=== PATIENT | female | born 1945 | race Caucasian/White ===

== ENCOUNTER → 2017-04-11 | Outpatient (CLI) | payer MEDICARE ==
--- NOTE | 2017-04-12 08:58 | MM ---
Reason for exam: screening (asymptomatic). Last mammogram was performed 3 years and 6 months ago. History: Patient is postmenopausal. Family history of breast cancer in mother at age 80. Benign excisional biopsy of both breasts. Physical Findings: A clinical breast exam by your physician is recommended on an annual basis and results should be correlated with mammographic findings. MG 3D Screening Mammo W/Cad Bilateral CC and MLO view(s) were taken. Prior study comparison: October 06, 2013, bilateral digital screening mammo w/CAD. September 28, 2010, bilateral digital screening mammogram. There are scattered fibroglandular densities. Benign calcifications. There is no discrete abnormality. No significant changes when compared with prior studies. ASSESSMENT: Benign, BI-RAD 2 RECOMMENDATION: Routine screening mammogram of both breasts in 1 year.
== END | disposition home or self-care (01) ==
LOC: RADMAMWWP 10:24
PROVIDERS: ATTEND Family Medicine
DX: Z12.31 Encounter for screening mammogram for malignant neoplasm of breast (principal)
CPT/HCPCS: 77063; G0202

== ENCOUNTER → 2018-06-11 | Outpatient (CLI) | payer MEDICARE ==
--- NOTE | 2018-06-12 13:41 | MM ---
Reason for exam: screening (asymptomatic). Last mammogram was performed 1 year and 2 months ago. History: Patient is postmenopausal. Family history of breast cancer in mother at age 80. Benign excisional biopsy of both breasts. Physical Findings: A clinical breast exam by your physician is recommended on an annual basis and results should be correlated with mammographic findings. MG 3D Screening Mammo W/Cad Bilateral CC and MLO view(s) were taken. Prior study comparison: April 11, 2017, bilateral MG 3d screening mammo w/cad. October 06, 2013, bilateral digital screening mammo w/CAD. There are scattered fibroglandular densities. Finding: There are typically benign round, grouped/clustered calcifications in the left breast. There is a chronic nodularity bilaterally. There is no discrete abnormality. ASSESSMENT: Benign, BI-RAD 2 RECOMMENDATION: Routine screening mammogram of both breasts in 1 year.
== END | disposition home or self-care (01) ==
LOC: RADMAMWWP 10:43
PROVIDERS: ATTEND Internal Medicine
DX: Z12.31 Encounter for screening mammogram for malignant neoplasm of breast (principal)
CPT/HCPCS: 77063; 77067

== ENCOUNTER → 2019-04-28 | Outpatient (CLI) | payer MEDICARE ==
[2019-04-28 10:06] VITALS: BP 165/81; PULSE 75; RESP 18; TEMP 98; BMI 32.5
--- NOTE | 2019-04-28 11:07 | P.HPOB ---
History of Present Illness H&P Date: 04/28/19 Chief Complaint: The patient is here for her routine gynecologic exam and ma mmogram. This is a 73-year-old G3 PIII with an LMP of 2004. The patient is here to establish with this office. She states it has been about 5 years since her last pelvic exam. She denies any postmenopausal bleeding and is without gynecologic complaints. Review of Systems She previously lost 32 pounds on Adipex. She has gained the weight back after discontinuing the medication. She denies respiratory, cardiac and G.I. problems. She denies maltreatment or problems with falling. : she denies any significant problems with urinary leakage. Past Medical History Past Medical History: Diabetes Mellitus, GERD/Reflux, Hypertension, Myocardial Infarction ([place]), Thyroid Disorder Additional Past Medical History / Comment(s): Lupus with arthritis. Type II diabetes, hypothyroidism. 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 History of Any Multi-Drug Resistant Organisms: None Reported Past Surgical History: Breast Surgery, Cholecystectomy Additional Past Surgical History / Comment(s): Breast biopsies, cold knife colonization of the cervix. Past Psychological History: Anxiety Smoking Status: Former smoker Additional Past Alcohol Use History / Comment(s): Quit smoking in 1991. Additional History: She is been made since 1962. 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 - Past Family History Sister(s) Family Medical History: Cancer Additional Family Medical History / Comment(s): Ovarian cancer. Mother Family Medical History: Cancer Additional Family Medical History / Comment(s): Breast cancer. To maternal aunts had cancer in the abdomen and she believes they had ovarian cancer. Father Family Medical History: Cancer, Myocardial Infarction ([place]) Additional Family Medical History / Comment(s): Colon cancer. Paternal uncle had colon cancer. Medications and Allergies Home Medications Medication Instructions Recorded Confirmed Type Aspirin 81 mg PO DAILY 04/28/19 04/28/19 History Levothyroxine Sodium [Synthroid] 100 mcg PO DAILY 04/28/19 04/28/19 History Meloxicam [Mobic] 7.5 mg PO DAILY 04/28/19 04/28/19 History Metoprolol Succinate (ER) [Toprol 100 mg PO DAILY 04/28/19 04/28/19 History Xl] Omeprazole [PriLOSEC] 20 mg PO AC-BRKFST 04/28/19 04/28/19 History Ramipril [Altace] 10 mg PO DAILY 04/28/19 04/28/19 History metFORMIN HCL [Glucophage] 500 mg PO BID 04/28/19 04/28/19 History Allergies Allergy/AdvReac Type Severity Reaction Status Date / Time Sulfa (Sulfonamide Allergy Anaphylaxis Unverified 04/28/19 10:07 Antibiotics) Exam Vital Signs Temp Pulse Resp BP Pulse Ox 04/28/19 09:49 98.0 F 75 18 165/81 98 Height 5'1", weight 172 pounds, BMI 33. This is a well-developed well-nourished white female who is alert and oriented times 3 in no acute distress. HEENT: Within normal limits. NECK: Supple without mass or thyromegaly. CHEST AND LUNGS: Clear to auscultation. HEART: Regular rate and rhythm. BREASTS: Are without mass or discharge. AXILLARY EXAM: Negative for adenopathy. BACK: Negative for CVA tenderness. ABDOMEN: Soft, nontender, without palpable masses. PELVIC EXAM: Normal external genitalia with mild to moderate atrophy. Cervix and vagina appear normal with mild to moderate atrophy. The cervix is somewhat stenotic secondary to atrophy. There is no unusual discharge. There is no evidence of prolapse. The uterus is midposition, nongravid size and nontender. There are no palpable adnexal masses or tenderness. RECTAL EXAM: rectovaginal exam is negative for mass or tenderness and is negative for occult blood. EXTREMITIES: Nontender. IMPRESSION: 1. 73 year old menopausal female with normal gynecologic exam. 2. Family history of ovarian cancer in her sister. PLAN: 1. Pap smear was performed. With history of cervical dysplasia in her 30s and uncertainties adequacy of screening since then, we will continue Pap smear is approximately every 2-3 years and consider discontinuation if 3 negative Pap smear is in a row. 2. Self breast awareness was discussed with the patient. 3. Screening mammogram will be due after 06/11/2019. The order slip was given to the patient for this. 4. Osteoporosis prevention was discussed. I have stressed the importance of adequate calcium, vitamin D and regular exercise. Recommended amounts of calcium and vitamin D were also discussed. She states she had a bonus a test many years ago. This was recommended and the order slip was given to the patient for this. 5. Pelvic ultrasound has been recommended yearly because of her family history of ovarian cancer. The order slip was given to the patient for this. 6. She does get flu shots in the fall. 7. She was advised to return in one year for her annual well woman exam.
== END | disposition home or self-care (01) ==
LOC: WWCWWP 09:37
PROVIDERS: ATTEND Obstetrics & Gynecology
DX: Z53.9 Procedure and treatment not carried out, unspecified reason (principal)

== ENCOUNTER → 2019-08-06 | Outpatient (CLI) | payer MEDICARE ==
--- NOTE | 2019-08-07 11:11 | MM ---
Reason for exam: screening (asymptomatic). Last mammogram was performed 1 year and 2 months ago. History: Patient is postmenopausal. Family history of breast cancer in mother at age 80. Benign excisional biopsy of both breasts. Physical Findings: A clinical breast exam by your physician is recommended on an annual basis and results should be correlated with mammographic findings. MG 3D Screening Mammo W/Cad Bilateral CC and MLO view(s) were taken. Prior study comparison: June 11, 2018, bilateral MG 3d screening mammo w/cad. April 11, 2017, bilateral MG 3d screening mammo w/cad. There are scattered fibroglandular densities. Benign appearing bilateral calcifications. No suspicious abnormality. Post surgical change bilaterally. No significant changes when compared with prior studies. ASSESSMENT: Benign, BI-RAD 2 RECOMMENDATION: Routine screening mammogram of both breasts in 1 year.
== END | disposition home or self-care (01) ==
LOC: RADMAMWWP 13:16
PROVIDERS: ATTEND Obstetrics & Gynecology
DX: Z12.31 Encounter for screening mammogram for malignant neoplasm of breast (principal)
CPT/HCPCS: 77063; 77067

== ENCOUNTER → 2020-08-08 | Outpatient (CLI) | payer MEDICARE | END | disposition home or self-care (01) | LOC: LABWHC1 11:29 | PROVIDERS: ATTEND Nurse Practitioner Adult Health | DX: Z20.828 Contact with and (suspected) exposure to other viral communicable diseases (principal) | CPT/HCPCS: U0003; C9803 ==

== ENCOUNTER → 2021-07-24 | Outpatient (CLI) | payer MEDICARE ==
[2021-07-24 21:16] LABS: T4, Free (Free Thyroxine) 1.5 ng/dL (0.800-1.800)
== END | disposition home or self-care (01) ==
LOC: LABWHC1 11:51
PROVIDERS: ATTEND Internal Medicine Endocrinology, Diabetes & Metabolism
DX: E03.8 Other specified hypothyroidism (principal)
CPT/HCPCS: 36415; 84439; 84443; 84480

== ENCOUNTER → 2022-03-12 | Outpatient (CLI) | payer MEDICARE ==
--- NOTE | 2022-03-12 19:44 | US ---
EXAMINATION TYPE: US kidneys/renal and bladder DATE OF EXAM: 03/12/2022 COMPARISON: NONE CLINICAL HISTORY: N179 ACUTE KIDNEY INJURY. SHARI EXAM MEASUREMENTS: Right Kidney: 9.9 x 4.0 x 3.4 cm Left Kidney: 9.5 x 4.8 x 4.3 cm Right Kidney: no evidence of hydronephrosis Left Kidney: no evidence of hydronephrosis Bladder: appears wnl Bilateral Jets seen: no IMPRESSION: Unremarkable renal ultrasound
--- NOTE | 2022-03-13 13:52 | MM ---
Reason for Exam: Screening (asymptomatic). Last mammogram was performed 2 year(s) and 7 month(s) ago. Patient History: Menarche at age 15. First Full-Term at age 18. Postmenopausal. Bilateral Benign Excisional Biopsy. Mother had breast cancer, age 80. Risk Values: Taryn 5 year model risk: 3.5%. NCI Lifetime model risk: 7.5%. Prior Study Comparison: 04/11/2017 Bilateral Screening Mammogram, [facility]ED WITH [facility]. 06/11/2018 Bilateral Screening Mammogram, MERGED WITH [facility]. 08/06/2019 Bilateral Screening Mammogram, MERGED WITH [facility]. Tissue Density: There are scattered fibroglandular densities. Findings: Analyzed By CAD. Chronic nodularity is within the right breast. Benign calcifications are scattered bilaterally. No suspicious groups of microcalcifications, spiculated or lobular masses, architectural distortion or other secondary signs of malignancy are mammographically apparent. Overall Assessment: Benign, BI-RAD 2 Management: Screening Mammogram of both breasts in 1 year. A negative mammogram report should not preclude additional follow up of suspicious palpable abnormalities. Patient should continue monthly self breast exam. A clinical breast exam by your physician is recommended on an annual basis and results should be correlated with mammographic findings. Electronically signed and approved by: Sergio Taveras D.O. Radiologis
== END | disposition home or self-care (01) ==
LOC: RADUSWWP 14:51
PROVIDERS: ATTEND Internal Medicine
DX: Z12.31 Encounter for screening mammogram for malignant neoplasm of breast (principal); N17.9 Acute kidney failure, unspecified; Z78.0 Asymptomatic menopausal state; Z80.3 Family history of malignant neoplasm of breast
CPT/HCPCS: 76770; 77063; 77067

== ENCOUNTER → 2022-10-02 | Outpatient (CLI) | payer MEDICARE ==
--- NOTE | 2022-10-02 11:50 | XR ---
EXAMINATION TYPE: XR chest 2V DATE OF EXAM: 10/02/2022 COMPARISON: NONE TECHNIQUE: PA and lateral views submitted. HISTORY: Cough and congestion FINDINGS: The lungs are clear and there is no pneumothorax, pleural effusion, or focal pneumonia. Heart size normal and no overt failure. Osseous structures demonstrate hypertrophic and degenerative changes of the spine. Rounded ossified density overlying the scapula and proximal right humerus likely chronic. Atherosclerotic change aorta. Degenerative changes spine. Surgical clips in the abdomen. Mild hyperin flation. IMPRESSION: 1. No acute process. Correlate for mild COPD.
== END | disposition home or self-care (01) ==
LOC: RADXRMAIN 11:16
PROVIDERS: ATTEND Internal Medicine
DX: J18.9 Pneumonia, unspecified organism (principal)
CPT/HCPCS: 71046

== ENCOUNTER → 2023-01-04 | Outpatient (CLI) | payer MEDICARE ==
--- NOTE | 2023-01-04 16:43 | XR ---
EXAMINATION TYPE: XR KUB DATE OF EXAM: 01/04/2023 COMPARISON: NONE HISTORY: N 39.0 TECHNIQUE: Single supine KUB image of the abdomen is obtained FINDINGS: Small bowel demonstrates no evidence for dilatation or air fluid levels. Gas and fecal material is s een in non-distended colon. Cholecystectomy clips in right upper quadrant. Suggested 2 mm calculus overlying the left iliopsoas musculature. Additional possible calcification v ersus colonic density overlies the left iliac bone. Consider further evaluation with CT abdomen pelvi s The lung bases are clear. The osseous structures are intact. IMPRESSION: There are 2 nonspecific suggested calcifications within the left lower quadrant. This can be further evaluated with CT abdomen pelvis as clinically indicated.
== END | disposition home or self-care (01) ==
LOC: RADXRMAIN 16:00
PROVIDERS: ATTEND Internal Medicine
DX: N39.0 Urinary tract infection, site not specified (principal)
CPT/HCPCS: 74018

== ENCOUNTER → 2023-01-14 | Outpatient (CLI) | payer MEDICARE ==
--- NOTE | 2023-01-15 07:38 | CT ---
EXAMINATION TYPE: CT renal stones wo con DATE OF EXAM: 01/14/2023 HISTORY: low back pain x few months. Nephrolithiasis. Abnormal x-ray. CT DLP: 842.60 mGycm. Automated Exposure Control for Dose Reduction was Utilized. TECHNIQUE: CT scan of the abdomen and pelvis is performed without oral or IV contrast. COMPARISON: Abdominal x-ray January 04, 2023. Chest CT October 31, 2020 FINDINGS: Within the limitations of a non-contrast study, the following observations are made. LUNG BASES: There is anterior 8mm calcified subpleural nodule or benign granuloma in the lingula on a xial image 1. There is a spiculated nodule or scar like opacity in the right middle lobe measuring 2. 1 x 1.1 cm axial image 4. Finding unchanged from most recent chest CT. Coronary artery calcification is again seen. LIVER/GB: Cholecystectomy clips are noted. PANCREAS: No significant abnormality is seen. SPLEEN: No significant abnormality is seen. ADRENALS: No significant abnormality is seen. KIDNEYS: No renal stones or hydronephrosis is present bilaterally. No intraluminal calculi in the mala[place] dder. Punctate calcifications in the left lower quadrant likely reflect tiny calcified phlebolith tommy ng the course of the left ovarian vein for reference axial image 73. BOWEL: A few scattered colonic diverticula. No CT evidence for acute diverticulitis. GENITAL ORGANS: Anteverted uterus. Normal-size ovaries. LYMPH NODES: No greater than 1cm abdominal or pelvic lymph nodes are appreciated. OSSEOUS STRUCTURES: Multilevel facet arthropathy in the lumbar spine. Multilevel spurring in the thor acolumbar spine. OTHER: Mild to moderate calcified plaque aorta of the aorta extends into branch vessels. IMPRESSION: 1. No renal stones or hydronephrosis is seen bilaterally. 2. Persistent scarlike opacity or possible spiculated nodule measuring 2.1 x 1.1 cm in the right midd le lobe. Focal scar versus neoplasm. PET/CT follow-up is advised to further evaluate.
== END | disposition home or self-care (01) ==
LOC: RADCTMAIN 16:25
PROVIDERS: ATTEND Internal Medicine
DX: N20.0 Calculus of kidney (principal)
CPT/HCPCS: 74150

== ENCOUNTER 2023-01-15 12:41 | Inpatient (IN) | payer MEDICARE ==
[2023-01-15] MEDS ORDERED: IPRATROPIUM 0.5 MG/2.5 ML NEBU INHALATION STA (13:03)
[2023-01-15] MEDS ORDERED: methylPREDNISolone SOD SUCCI 125 MG/2 ML VIAL IV STA (13:03)
[2023-01-15] MEDS ORDERED: ALBUTEROL NEBULIZED 2.5 MG/3 ML INHALATION STA (13:03)
--- NOTE | 2023-01-15 13:13 | ED ---
General Adult HPI - General Chief complaint: Shortness of Breath Stated complaint: KATINA Time Seen by Provider: 01/15/23 12:50 Source: patient, RN notes reviewed, old records reviewed Mode of arrival: wheelchair Limitations: no limitations - History of Present Illness Initial comments: This is a 77-year-old female presents emergency Department complaining of difficulty breathing. Patient states his been ongoing since September when she had coded. Patient states she's had CAT scans seen curve saw operator and video manager had echocardiograms and they have been unable to explain why she is having difficulty breathing and she continues to have difficulty breathing walking. Patient states she has a nebulizer at home and when she uses she gets short term relief but it comes back to the point where she can't even walk across the floor. Patient denies any fever chills or cough - Related Data Home Medications Medication Instructions Recorded Confirmed Aspirin 81 mg PO DAILY 04/28/19 04/28/19 Levothyroxine Sodium [Synthroid] 100 mcg PO DAILY 04/28/19 04/28/19 Meloxicam [Mobic] 7.5 mg PO DAILY 04/28/19 04/28/19 Metoprolol Succinate (ER) [Toprol 100 mg PO DAILY 04/28/19 04/28/19 Xl] Omeprazole [PriLOSEC] 20 mg PO AC-[id number] 04/28/19 04/28/19 metFORMIN HCL [Glucophage] 500 mg PO BID 04/28/19 04/28/19 ramipriL [Altace] 10 mg PO DAILY 04/28/19 04/28/19 Allergies Allergy/AdvReac Type Severity Reaction Status Date / Time Sulfa (Sulfonamide Allergy Anaphylaxis Verified 01/15/23 12:48 Antibiotics) Review of Systems ROS Statement: Those systems with pertinent positive or pertinent negative responses have been documented in the HPI. ROS Other: All systems not noted in ROS Statement are negative. Past Medical History Past Medical History: Diabetes Mellitus, GERD/Reflux, Hypertension, Myocardial Infarction ([place]), Thyroid Disorder Additional Past Medical History / Comment(s): Lupus with arthritis. Type II diabetes, hypothyroidism. 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 History of Any Multi-Drug Resistant Organisms: None Reported Past Surgical History: Breast Surgery, Cholecystectomy Additional Past Surgical History / Comment(s): Breast biopsies, cold knife colonization of the cervix. Past Psychological History: Anxiety Smoking Status: Never smoker Past Alcohol Use History: None Reported Past Drug Use History: None Reported - Past Family History Sister(s) Family Medical History: Cancer Additional Family Medical History / Comment(s): Ovarian cancer. Mother Family Medical History: Cancer Additional Family Medical History / Comment(s): Breast cancer. To maternal aunts had cancer in the abdomen and she believes they had ovarian cancer. Father Family Medical History: Cancer, Myocardial Infarction ([place]) Additional Family Medical History / Comment(s): Colon cancer. Paternal uncle had colon cancer. General Exam - General Exam Comments Initial Comments: GENERAL: Patient is well-developed and well-nourished. Patient is nontoxic and well- hydrated and is in mild distress. ENT: Neck is soft and supple. No significant lymphadenopathy is noted. Oropharynx is clear. Moist mucous membranes. Neck has full range of motion without eliciting any pain. EYES: The sclera were anicteric and conjunctiva were pink and moist. Extraocular movements were intact and pupils were equal round and reactive to light. Eyelids were unremarkable. PULMONARY: Patient is acting very wheezing diffusely CARDIOVASCULAR: There is a regular rate and rhythm without any murmurs gallops or rubs. ABDOMEN: Soft and nontender with normal bowel sounds. No palpable organomegaly was noted. There is no palpable pulsatile mass. SKIN: Skin is clear with no lesions or rashes and otherwise unremarkable. NEUROLOGIC: Patient is alert and oriented x3. Cranial nerves II through XII are grossly intact. Motor and sensory are also intact. Normal speech, volume and content. Symmetrical smile. MUSCULOSKELETAL: Normal extremities with adequate strength and full range of motion. LYMPHATICS: No significant lymphadenopathy is noted PSYCHIATRIC: Normal psychiatric evaluation. Limitations: no limitations Course Vital Signs 01/15/23 01/15/23 12:43 14:20 Temperature 98.3 F Pulse Rate 91 80 Respiratory 22 Rate Blood Pressure 175/75 O2 Sat by Pulse 98 Oximetry Medical Decision Making - Medical Decision Making EKG was interpreted by myself shows a sinus rhythm at 86 bpm ID interval 177 QRS is 90 QT interval 358 QTC is 411. Patient's EKG shows no ST segment elevation or depression. Was pt. sent in by a medical professional or institution (, PA, TRANSPLANT IMMUNOLOGIST, urgent care, hospital, or long term...) When possible be specific @ -Patient's medical care doctor sent her into the hospital Did you speak to anyone other than the patient for history (EMS, parent, family, police, friend...)? What history was obtained from this source @ -No Did you review nursing and triage notes (agree or disagree)? Why? @ -I reviewed and agree with nursing and triage notes Were old charts reviewed (outside hosp., previous admission, EMS record, old EKG, old radiological studies, urgent care reports/EKG's, long term records)? Report findings @ -I reviewed prior lab results and charts Differential Diagnosis (chest pain, altered mental status, abdominal pain women, abdominal pain men, vaginal bleeding, weakness, fever, dyspnea, syncope, headache, dizziness, GI bleed, back pain, seizure, CVA, palpatations, mental health, musculoskeletal)? @ -Differential Dyspnea: Coronary syndrome, arrhythmia, tamponade, asthma, COPD, pulmonary embolism, pneumonia, pneumothorax, pulmonary effusion, anaphylaxis, diabetic ketoacidosis, flailed chest, pulmonary contusion, diaphragmatic rupture, anemia, neuromuscular, this is not meant to be an all-inclusive list. EKG interpreted by me (3pts min.). @ -As above X-rays interpreted by me (1pt min.). @ -Chest x-ray was interpreted by myself there is possible infiltrate in the right base CT interpreted by me (1pt min.). @ -None done U/S interpreted by me (1pt. min.). @ -None done What testing was considered but not performed or refused? (CT, X-rays, U/S, labs)? Why? @ -None What meds were considered but not given or refused? Why? @ -None Did you discuss the management of the patient with other professionals (professionals i.e. , PA, TRANSPLANT IMMUNOLOGIST, lab, RT, psych nurse, social professionals, burglar alarm operator, t eacher, probation and parole officer, porter sample case)? Give summary @ -I spoke with sounds physician's he agreed to admit the patient Was smoking cessation discussed for >3mins.? @ -No Was critical care preformed (if so, how long)? @ -No Were there social determinants of health that impacted care today? How? (Homelessness, low income, unemployed, alcoholism, drug addiction, transportation, low edu. Level, literacy, decrease access to med. care, usp, rehab)? @ -No Was there de-escalation of care discussed even if they declined (Discuss DNR or withdrawal of care, Hospice)? DNR status @ -No What co-morbidities impacted this encounter? (DM, HTN, Smoking, COPD, CAD, Cancer, CVA, ARF, Chemo, Hep., AIDS, mental health diagnosis, sleep apnea, morbid obesity)? @ -None Was patient admitted / discharged? Hospital course, mention meds given and route, prescriptions, significant lab abnormalities, going to OR and other pertinent info. @ -Patient was recently diffusely she received albuterol treatments 2 and received steroids. Patient was doing better but primary medical care doctor still wanted her admitted so I spoke with Dr. Connelly she agreed to admit the p atient admitted the patient wrote admitting orders. I continued albuterol and steroids on the floor I consulted cardiology as well as pulmonology Undiagnosed new problem with uncertain prognosis? @ -No Drug Therapy requiring intensive monitoring for toxicity (Heparin, Nitro, Insulin, Cardizem)? @ -No Were any procedures done? @ -No Diagnosis/symptom? @ -COPD exacerbation Acute, or Chronic, or Acute on Chronic? @ -Acute Uncomplicated (without systemic symptoms) or Complicated (systemic symptoms)? @ -Complicated Side effects of treatment? @ -No Exacerbation, Progression, or Severe Exacerbation? @ -Severe exacerbation Poses a threat to life or bodily function? How? (Chest pain, [place], [place], pneumonia, PE, COPD, DKA, ARF, appy, cholecystitis, CVA, Diverticulitis, Homicidal, Suicidal, threat to staff... and all critical care pts) @ -Yes this could lead hypoxia and end organ dysfunction - Lab Data Result diagrams: 01/15/23 13:21 01/15/23 13:21 Lab Results 01/15/23 01/15/23 01/15/23 Range/Units 13:21 13:21 13:21 WBC 9.2 (3.8-10.6) k/uL RBC 4.33 (3.80-5.40) m/uL Hgb 11.7 (11.4-16.0) gm/dL Hct 36.6 (34.0-46.0) % MCV 84.5 D (80.0-100.0) fL MCH 27.0 (25.0-35.0) pg MCHC 32.0 (31.0-37.0) g/dL RDW 13.6 (11.5-15.5) % Plt Count 288 (150-450) k/uL MPV 9.2 Neutrophils % 56 % Lymphocytes % 30 % Monocytes % 6 % Eosinophils % 5 % Basophils % 1 % Neutrophils # 5.1 (1.3-7.7) k/uL Lymphocytes # 2.7 (1.0-4.8) k/uL Monocytes # 0.6 (0-1.0) k/uL Eosinophils # 0.5 (0-0.7) k/uL Basophils # 0.1 (0-0.2) k/uL PT 9.7 (9.0-12.0) sec INR 0.9 (<1.2) APTT 23.9 (22.0-30.0) sec Sodium 140 (137-145) mmol/L Potassium 4.8 (3.5-5.1) mmol/L Chloride 107 (98-107) mmol/L Carbon Dioxide 26 (22-30) mmol/L Anion Gap 7 mmol/L BUN 29 H (7-17) mg/dL Creatinine 1.14 H (0.52-1.04) mg/dL Est GFR (CKD-EPI)AfAm 54 (>60 ml/min/1.73 sqM) Est GFR (CKD-EPI)NonAf 47 (>60 ml/min/1.73 sqM) Glucose 104 H (74-99) mg/dL Calcium 9.4 (8.4-10.2) mg/dL Magnesium 1.9 (1.6-2.3) mg/dL Total Bilirubin 0.6 (0.2-1.3) mg/dL AST 29 (14-36) U/L ALT 46 H (4-34) U/L Alkaline Phosphatase 62 (38-126) U/L Troponin I (0.000-0.034) ng/mL NT-Pro-B Natriuret Pep pg/mL Total Protein 6.8 (6.3-8.2) g/dL Albumin 4.1 (3.5-5.0) g/dL 01/15/23 01/15/23 Range/Units 13:21 13:21 WBC (3.8-10.6) k/uL RBC (3.80-5.40) m/uL Hgb (11.4-16.0) gm/dL Hct (34.0-46.0) % MCV (80.0-100.0) fL MCH (25.0-35.0) pg MCHC (31.0-37.0) g/dL RDW (11.5-15.5) % Plt Count (150-450) k/uL MPV Neutrophils % % Lymphocytes % % Monocytes % % Eosinophils % % Basophils % % Neutrophils # (1.3-7.7) k/uL Lymphocytes # (1.0-4.8) k/uL Monocytes # (0-1.0) k/uL Eosinophils # (0-0.7) k/uL Basophils # (0-0.2) k/uL PT (9.0-12.0) sec INR (<1.2) APTT (22.0-30.0) sec Sodium (137-145) mmol/L Potassium (3.5-5.1) mmol/L Chloride (98-107) mmol/L Carbon Dioxide (22-30) mmol/L Anion Gap mmol/L BUN (7-17) mg/dL Creatinine (0.52-1.04) mg/dL Est GFR (CKD-EPI)AfAm (>60 ml/min/1.73 sqM) Est GFR (CKD-EPI)NonAf (>60 ml/min/1.73 sqM) Glucose (74-99) mg/dL Calcium (8.4-10.2) mg/dL Magnesium (1.6-2.3) mg/dL Total Bilirubin (0.2-1.3) mg/dL AST (14-36) U/L ALT (4-34) U/L Alkaline Phosphatase (38-126) U/L Troponin I <0.012 (0.000-0.034) ng/mL NT-Pro-B Natriuret Pep 376 pg/mL Total Protein (6.3-8.2) g/dL Albumin (3.5-5.0) g/dL Disposition Clinical Impression: Acute exacerbation of chronic obstructive pulmonary disease Disposition: ADMITTED IP TO THIS HOSP Referrals: Larry Suresh MD [Primary Care Provider] - 1-2 days Time of Disposition: 14:28
[2023-01-15 13:43] LABS: Albumin 4.1 g/dL (3.5-5.0); Calcium 9.4 mg/dL (8.4-10.2); Magnesium 1.9 mg/dL (1.6-2.3); Potassium 4.8 mmol/L (3.5-5.1); Total Bilirubin 0.6 mg/dL (0.2-1.3); Total Protein 6.8 g/dL (6.3-8.2)
[2023-01-15 13:49] LABS: Basophils # (A) 0.1 k/uL (0-0.2); Basophils % (A) 1 %; Eosinophils # (A) 0.5 k/uL (0-0.7); Eosinophils % (A) 5 %; HCT 36.6 % (34.0-46.0); HGB 11.7 gm/dL (11.4-16.0); INR 0.9 (<1.2); Lymphocytes # (A) 2.7 k/uL (1.0-4.8); Lymphocytes % (A) 30 %; Mean Platelet Volume 9.2; Monocytes # (A) 0.6 k/uL (0-1.0); Monocytes % (A) 6 %; Neutrophils # (A) 5.1 k/uL (1.3-7.7); Neutrophils % (A) 56 %; Partial Thromboplastin Time 23.9 sec (22.0-30.0); Platelet Count 288 k/uL (150-450); Prothrombin Time 9.7 sec (9.0-12.0); RBC 4.33 m/uL (3.80-5.40); RDW 13.6 % (11.5-15.5); WBC 9.2 k/uL (3.8-10.6)
[2023-01-15 13:52] LABS: MCV 84.5 fL (80.0-100.0)
--- NOTE | 2023-01-15 13:52 | XR ---
EXAMINATION TYPE: XR chest 2V DATE OF EXAM: 01/15/2023 COMPARISON: 11/09/2022 HISTORY: Shortness of breath TECHNIQUE: Frontal and lateral views of the chest are obtained. FINDINGS: Scattered senescent parenchymal changes noted. Hyperinflation compatible with COPD. Mild increased density right lung base could reflect developing infiltrate. Correlate clinically. Heart size is stable. Mediastinal structures are stable and grossly unremarkable. No evidence for hilar prominence. Degenerative changes dorsal spine. IMPRESSION: 1. Mild increased density right lung base could reflect developing infiltrate. Correlate clinically.
[2023-01-15] MEDS ORDERED: IPRATROPIUM-ALBUTEROL 3 ML NEB INHALATION PRN (14:32)
[2023-01-15] MEDS ORDERED: NALOXONE 0.4 MG/ML 1 ML VIAL IVP PRN (14:32)
[2023-01-15] MEDS ORDERED: IPRATROPIUM-ALBUTEROL 3 ML NEB INHALATION SCH (16:00)
--- NOTE | 2023-01-15 16:49 | CT ---
EXAMINATION TYPE: CT angio chest DATE OF EXAM: 01/15/2023 COMPARISON: Chest 10/31/2022 HISTORY: 77-year-old female with dyspnea, SOB TECHNIQUE: Contiguous axial scanning of the chest performed with IV Contrast, patient injected with 8 0 mL of Isovue 370. Coronal/sagittal MIP reconstructions performed. CT DLP: 394.4 mGycm Automated exposure control for dose reduction was used. FINDINGS: A 1.5 cm right thyroid lobe nodule is better seen now. Dedicated thyroid ultrasound to further evalua te. Heart normal size without pericardial effusion. LAD coronary artery calcifications are present. Mild to moderate atherosclerotic arch calcifications with conventional arch vessel branching anatomy. No thoracic lymph adenopathy by CT size criteria. Mild strandy areas of scarring and atelectasis in the lower lungs. Background minimal emphysematous c hange. * 9 mm right mid lung pulmonary nodule located along the major fissure most suggestive of an intrafi ssural lymph node, unchanged. * Also unchanged 8 mm nodule along the minor fissure. Also likely intrafissural lymph node. * 2.0 cm focal opacity previously measuring 1.7 cm in the lateral right middle lobe shows increasing soft tissue component. * Calcified granuloma inferior lingula measuring 1 cm is unchanged. No consolidation or pleural effusion. Satisfactory opacification of the pulmonary arterial system. No pulmonary embolus is seen. Small hiatal hernia. Cholecystectomy clips. There is a 2.3 cm lesion lateral right liver lobe that sh ows peripheral nodular hypervascular enhancement, suspected hemangioma. This can be reassessed at a 3 month follow-up liver ultrasound. Moderate degenerative disc disease mid and lower thoracic spine. IMPRESSION: 1. NO EVIDENCE FOR PULMONARY ANNULUS. 2. THE OPACITY IN THE LATERAL RIGHT MIDDLE LOBE NOW MEASURES 2.0 CM VERSUS 1.7 CM, PREVIOUSLY, AND S HOWS INCREASING SOFT TISSUE COMPONENT. EARLY LUNG CANCER REMAINS TO BE EXCLUDED. CONSIDER FURTHER PET CT EVALUATION. OTHER NODULES SUSPECTED BENIGN. 3. MINIMAL EMPHYSEMATOUS CHANGE. 4. PROBABLE 2.3 CM RIGHT HEPATIC LOBE HEMANGIOMA. THREE-MONTH FOLLOW-UP LIVER ULTRASOUND TO REASSESS . 5. THYROID ULTRASOUND TO ASSESS FOR ANY SUSPICIOUS NODULES. THERE APPEARS TO BE A 1.5 CM NODULE IN T HE RIGHT LOBE.
[2023-01-15] MEDS ORDERED: ACETAMINOPHEN TAB 325 MG TAB PO PRN (17:44)
[2023-01-15] MEDS ORDERED: bisacodyL 5 MG TABLET.DR PO PRN (17:44)
[2023-01-15] MEDS ORDERED: MELATONIN 3 MG TABLET PO PRN (17:44)
[2023-01-15] MEDS ORDERED: ONDANSETRON 4 MG/2 ML VIAL IVP PRN (17:44)
[2023-01-15] MEDS ORDERED: ALPRAZolam 0.5 MG TAB PO PRN (17:45)
--- NOTE | 2023-01-15 17:52 | P.HPIM ---
History of Present Illness H&P Date: 01/15/23 Patient is a 77-year-old female with a history of diabetes mellitus type 2, lupus, hypothyroidism, GERD, hypertension, and myocardial infarction who was sent in by her primary care physician for dyspnea with exertion. On arrival to the ER her vital signs are within normal limits. Laboratory analysis was remarkable for BUN 29, creatinine 1.14 (baseline 1.2), and ALT of 46. The ER she was started on albuterol and Solu-Medrol. Antibiotics were ordered. Chest x-ray showed developing opacity in the right lung base. Patient seen and examined at bedside. She reports that she has had shortness of breath since recovering from Covid in October. She has been working with her primary care physician Dr. Suresh. She has undergone an outpatient VQ scan, CT of the chest, venous Doppler, and renal CT. Her initial CT had shown a possible pulmonary nodule in the right lung base which was confirmed on yesterday's renal CT. Due to her continued shortness of breath and wheezing she has seen Dr. Zapata approximately one month ago. She reports she underwent PFTs in the office which were normal per the patient. She was then referred to cardiology for possible cardiac etiology of her shortness of breath. She had an echocardiogram completed and Dr. Alanis's office last Saturday and is scheduled for a nuclear stress test in January. She reports that she is wheezing at baseline. She wheezes continually and keeps her awake at night. At rest she does not have shortness of breath. Since September she has had a continued productive cough with clear sputum. In the morning she is able to get up and walk around for about an hour at a very slow paced and is able to prepare her her breakfast and get dressed. After that she has barely able to get up and walk 10 feet without significant shortness of breath. When she does walk she becomes short of breath and then feels as though her knees are going to give out. She denies any chest pain, palpitations, lightheadedness, dizziness, syncope, or presyncope. Her reports she cannot walk up a flight of stairs due to her shortness of breath. She reports she has had some good days but then immediately falls back into being unable to function and having significant shortness of breath. She reports a history of lupus diagnosed in the early 1999. She was on Plaquinil and prednisone up until 10 years ago when she stopped it she felt there was no benefit. She reports that she has issues with arthritis in her hips and low back at baseline. Vital signs reviewed General: nontoxic, no distress, appears at stated age Derm: warm, dry Eyes: EOMI, no lid lag, anicteric sclera, pupils equal round reactive to light ENT: Nose and ears atraumatic, no thrush, no pharyngeal erythema Cardiovascular: S1S2 reg, no murmur, positive posterior tibial pulse bilateral, no edema, capillary refill less than 2 seconds Lungs: expiratory wheeze bilateral, no rhonchi, no rales, no wheeze, no accessory muscle use Abdominal: soft, nontender to palpation, no guarding, no appreciable organomegaly Ext: no gross muscle atrophy, no contractures Neuro: CN II-XII grossly intact, No focal neurodeficits Psych: Alert, oriented, appropriate affect Assessment: Dyspnea - undetermined etiology COPD vs Covid long haul syndrome vs CAD vs arrhythmia vs CM Pulmonary Opacity - no improvement after course of cipro from PCP earlier this month. Diabetes mellitus type 2- Not on medications at baseline CKD III, Cr 1.2 at baseline Hypertension Lupus Hypothyroidism HLD Myocardial infarction GERD Imaging: Chest x-rays presented itself shows some increased density in the right lower lung Outpatient workup reviewed: CT chest 11/20/22-pneumonitis right anterior lateral midlung 1.7 cm in length short three-month follow-up, additional more benign-appearing nodules VQ scan 11/09/22: Intermediate probability of pulmonary embolism Venous Doppler 11/09/22: No evidence of DVT in bilateral lower extremities Renal CT: No renal stones or hydronephrosis, scarlike opacity or possible spiculated nodule 2.1 x 1.1 cm in the right middle lobe PET/CT for follow-up Data Review: Laboratory analysis was remarkable for BUN 29, creatinine 1.14 (baseline 1.2), and ALT of 46. Plan: - CTA chest reviewed and no evidence of PE, redemonstration of right middle lobe opacity recommends PE/CT - Await pulmonary recs - Consult to cardiology - Obtain echo results from Dr. Alanis Office - Start solumedrol 60 g IVP q 6 hours - Albuterol 2.5 mg inh QID - Symbicort 2 puffs BID - to bring in and administer Repatha tomorrow - Resume metoprolol 100 mg daily, PPI 40 mg daily, Zyrtec 10 mg daily - Discussed with family that it is difficult to obtain a PET scan during hospital admission, Likelt this will need to be arranged as outpatient - Recently had cipro on 01/01/23 and had Doxycycline in September - Walk and Monitor HR The patient is placed in observation with an anticipated less than 2 midnight stay for evaluation of Dyspnea. This dictation was prepared using joiz voice recognition software. Though every attempt is made to correct errors during during dictation some may still exist. Past Medical History Past Medical History: Diabetes Mellitus, GERD/Reflux, Hypertension, Myocardial Infarction ([place]), Thyroid Disorder Additional Past Medical History / Comment(s): Lupus with arthritis. Type II diabetes, hypothyroidism. 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 Last Myocardial Infarction Date:: 2004 History of Any Multi-Drug Resistant Organisms: None Reported Past Surgical History: Breast Surgery, Cholecystectomy, EPS, Heart Catheterization With Stent Additional Past Surgical History / Comment(s): Breast biopsies, cold knife colonization of the cervix, stent in 2004 Additional Past Anesthesia/Blood Transfusion Reaction / Comment(s): hard to wake up Date of Last Stent Placement:: March 23, 2005 Past Psychological History: Anxiety Smoking Status: Former smoker Past Alcohol Use History: None Reported Additional Past Alcohol Use History / Comment(s): Quit smoking in 1991. Past Drug Use History: None Reported - Past Family History Sister(s) Family Medical History: Cancer Additional Family Medical History / Comment(s): Ovarian cancer. Mother Family Medical History: Cancer Additional Family Medical History / Comment(s): Breast cancer. To maternal aunts had cancer in the abdomen and she believes they had ovarian cancer. Father Family Medical History: Cancer, Myocardial Infarction ([place]) Additional Family Medical History / Comment(s): Colon cancer. Paternal uncle had colon cancer. Medications and Allergies Home Medications Medication Instructions Recorded Confirmed Type Aspirin 81 mg PO DAILY 04/28/19 01/15/23 History Levothyroxine Sodium [Synthroid] 100 mcg PO DAILY 04/28/19 01/15/23 History Metoprolol Succinate (ER) [Toprol 100 mg PO DAILY 04/28/19 01/15/23 History Xl] ALPRAZolam [Xanax] 0.5 mg PO BID PRN 01/15/23 01/15/23 History Albuterol Sulfate [Albuterol 2 puff INHALATION RT-Q6H PRN 01/15/23 01/15/23 History Sulfate Hfa] Cetirizine HCl [Zyrtec] 10 mg PO DAILY 01/15/23 01/15/23 History Evolocumab [Repatha Sureclick] 140 mg SQ Q14D 01/15/23 01/15/23 History Fluticasone Nasal Grandy [Flonase 1 spray EA NOSTRIL DAILY 01/15/23 01/15/23 History Nasal Grandy] Fluticasone Propion/Salmeterol 1 puff INHALATION RT-BID 01/15/23 01/15/23 History [Advair 250-50 Diskus] Lisinopril-Hctz 20-25 mg 1 tab PO DAILY 01/15/23 01/15/23 History [Zestoretic 20-25] Omeprazole [PriLOSEC] 40 mg PO DAILY 01/15/23 01/15/23 History Allergies Allergy/AdvReac Type Severity Reaction Status Date / Time amoxicillin [From Augmentin] Allergy Anaphylaxis Verified 01/15/23 14:56 clavulanic acid Allergy Anaphylaxis Verified 01/15/23 14:56 [From Augmentin] Sulfa (Sulfonamide Allergy Anaphylaxis Verified 01/15/23 14:56 Antibiotics) Physical Exam Osteopathic Statement: *. No significant issues noted on an osteopathic structural exam other than those noted in the History and Physical/Consult. Vitals: Vital Signs Temp Pulse Resp BP Pulse Ox 01/15/23 17:11 92 01/15/23 16:57 88 01/15/23 15:19 96 18 169/81 95 01/15/23 14:48 88 01/15/23 14:20 80 01/15/23 12:43 98.3 F 91 22 175/75 98 Intake and Output 01/15/23 01/15/23 01/15/23 06:59 14:59 22:59 Other: Weight 80.739 kg 80.739 kg Results CBC & Chem 7: 01/15/23 13:21 01/15/23 13:21 Labs: Abnormal Lab Results - Last 24 Hours (Table) 04/25/23 Range/Units 13:21 BUN 29 H (7-17) mg/dL Creatinine 1.14 H (0.52-1.04) mg/dL Glucose 104 H (74-99) mg/dL ALT 46 H (4-34) U/L Thrombosis Risk Factor Assmnt - Choose All That Apply Any of the Below Risk Factors Present?: Yes Other Risk Factors: Yes Each Risk Factor Represents 3 Points: Age 75 years or older Other congenital or acquired thrombophilia - If yes, enter type in comment: Yes Thrombosis Risk Factor Assessment Total Risk Factor Score: 3 Thrombosis Risk Factor Assessment Level: Moderate Risk
[2023-01-15] MEDS: methylPREDNISolone SOD SUCCI 125 MG/2 ML VIAL IV SCH ×2 (18:16→23:33)
[2023-01-15] MEDS ORDERED: SYMBICORT 80-4.5 MCG INHALER INHALATION SCH (20:00)
[2023-01-15 20:36] LABS: Glucose,Whole Blood 371 mg/dL (70-110)
[2023-01-15] MEDS: ALBUTEROL NEBULIZED 2.5 MG/3 ML INHALATION SCH (20:51)
[2023-01-15] MEDS ORDERED: DOXYCYCLINE 100 MG CAP PO SCH (21:00)
[2023-01-15] MEDS ORDERED: AMOXIC-POT CLAV 875-125MG 1 EACH TAB PO SCH (21:00)
[2023-01-15] MEDS: INSULIN ASPART (NovoLOG) 100 UNIT/ML VIAL SQ SCH (21:38)
--- NOTE | 2023-01-16 05:13 | P.CNPUL ---
History of Present Illness Consult date: 01/16/23 Requesting physician: Eric Johnson Reason for consult: dyspnea Chief complaint: Shortness of breath with exertion History of present illness: I'm seeing this patient in new consultation today 01/16/2023 for progressive shortness of breath. Patient is a 77-year-old female with past medical history of recent COVID-19 infection, mild COPD, obstructive sleep apnea, lung nodules, coronary artery disease with previous [place], hypertension, hyperlipidemia, lupus erythematous, and a remote [id number] smoking history. Patient had COVID-19 infection/pneumonia originally diagnosed back on 09/18/2022. She is vaccinated for COVID-19 with 2 doses Moderna and no booster injections. Patient is curre ntly resting in bed, on room air, in no acute distress. Patient reports a persistent nonproductive cough and shortness of breath with exertion since her COVID19 infection. She denies any fevers, chest pain, hemoptysis. Chest CTA on arrival showed no evidence of pulmonary embolism. It did show a right middle lobe 2 cm opacity that was previously measured at 1.7 cm back in October of this year, 9 mm right mid lung nodule along the major fissure, unchanged 8 mm nodule along the minor fissure, and an unchanged calcified granuloma of the inferior lingula measuring 1 cm. Patient does follow Dr. Harris in the office, for monitoring of the patient's known lung nodules, and the plan was for repeat chest CT in February. There were also minimal emphysematous changes, a probable 2.3 cm right hepatic lobe hemangioma, and a 1.5 cm right lobe thyroid nodule. The suspicious 2 cm lesion could be related to postinflammatory changes related to her recent COVID-19 infection, but does not explain the patient's shortness of breath. Patient did have a recent evaluation by cardiology in the office. Pat nt reports that she had an echocardiogram done last Saturday. Results are pending. She was reportedly scheduled for an outpatient stress test. Denies any chest pain, orthopnea, palpitations, lower extremity swelling, or recent weight gain. Patient's CBC and BMP on arrival were essentially unremarkable. Troponin negative 1. NT proBNP was low at 376. Procalcitonin was also low at 0.07. Patient is being empirically covered with doxycycline and this could probably be discontinued. She remains afebrile. Also receiving a course of bronchodilators, IV Solu-Medrol. Vital signs are stable. Review of Systems REVIEW OF SYSTEMS: CONSTITUTIONAL: Denies any recent significant weight loss or weight gain. EYES: Denies change in vision. EARS, NOSE, MOUTH, THROAT: Denies headaches, denies sore throat. CARDIOVASCULAR: Denies chest pain, palpitations or syncopal episodes. RESPIRATORY: See HPI. GASTROINTESTINAL: Denies change in appetite, abdominal pain, nausea and vomiting, or diarrhea GENITOURINARY: Denies hematuria, denies infections. MUSKULOSKELETAL: Denies pain, denies swelling. INTEGUMENTARY: Denies rash, denies eczema. NEUROLOGICAL: Denies recent memory loss, no recent seizure activity. PSYCHIATRIC: Denies anxiety, denies depression. HEMATOLOGIC/LYMPHATIC: Denies anemia, denies enlarged lymph node Past Medical History Past Medical History: Diabetes Mellitus, GERD/Reflux, Hypertension, Myocardial Infarction ([place]), Thyroid Disorder Additional Past Medical History / Comment(s): Lupus with arthritis. Type II diabetes, hypothyroidism. 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 Last Myocardial Infarction Date:: 2004 History of Any Multi-Drug Resistant Organisms: None Reported Past Surgical History: Breast Surgery, Cholecystectomy, EPS, Heart Catheterization With Stent Additional Past Surgical History / Comment(s): Breast biopsies, cold knife colonization of the cervix, stent in 2004 Additional Past Anesthesia/Blood Transfusion Reaction / Comment(s): hard to wake up Date of Last Stent Placement:: March 23, 2005 Past Psychological History: Anxiety Smoking Status: Former smoker Past Alcohol Use History: None Reported Additional Past Alcohol Use History / Comment(s): Quit smoking in 1991. Past Drug Use History: None Reported - Past Family History Sister(s) Family Medical History: Cancer Additional Family Medical History / Comment(s): Ovarian cancer. Mother Family Medical History: Cancer Additional Family Medical History / Comment(s): Breast cancer. To maternal aunts had cancer in the abdomen and she believes they had ovarian cancer. Father Family Medical History: Cancer, Myocardial Infarction ([place]) Additional Family Medical History / Comment(s): Colon cancer. Paternal uncle had colon cancer. Medications and Allergies Home Medications Medication Instructions Recorded Confirmed Type Aspirin 81 mg PO DAILY 04/28/19 01/15/23 History Levothyroxine Sodium [Synthroid] 100 mcg PO DAILY 04/28/19 01/15/23 History Metoprolol Succinate (ER) [Toprol 100 mg PO DAILY 04/28/19 01/15/23 History Xl] ALPRAZolam [Xanax] 0.5 mg PO BID PRN 01/15/23 01/15/23 History Albuterol Sulfate [Albuterol 2 puff INHALATION RT-Q6H PRN 01/15/23 01/15/23 History Sulfate Hfa] Cetirizine HCl [Zyrtec] 10 mg PO DAILY 01/15/23 01/15/23 History Evolocumab [Repatha Sureclick] 140 mg SQ Q14D 01/15/23 01/15/23 History Fluticasone Nasal [place] [Flonase 1 spray EA NOSTRIL DAILY 01/15/23 01/15/23 History Nasal [place]] Fluticasone Propion/Salmeterol 1 puff INHALATION RT-BID 01/15/23 01/15/23 History [Advair 250-50 Diskus] Lisinopril-Hctz 20-25 mg 1 tab PO DAILY 01/15/23 01/15/23 History [Zestoretic 20-25] Omeprazole [PriLOSEC] 40 mg PO DAILY 01/15/23 01/15/23 History Allergies Allergy/AdvReac Type Severity Reaction Status Date / Time amoxicillin [From Augmentin] Allergy Anaphylaxis Verified 01/15/23 14:56 clavulanic acid Allergy Anaphylaxis Verified 01/15/23 14:56 [From Augmentin] Sulfa (Sulfonamide Allergy Anaphylaxis Verified 01/15/23 14:56 Antibiotics) Physical Exam Vitals: Vital Signs Temp Pulse Pulse Resp BP BP Pulse Ox 01/16/23 01:40 97.8 F 109 H 17 119/57 94 L 01/15/23 21:05 102 H 01/15/23 20:53 101 H 01/15/23 20:00 20 01/15/23 19:32 97 F L 103 H 20 105/69 91 L 01/15/23 17:11 92 01/15/23 16:57 88 01/15/23 15:19 96 18 169/81 95 01/15/23 14:48 88 01/15/23 14:20 80 01/15/23 12:43 98.3 F 91 22 175/75 98 Intake and Output 01/15/23 01/15/23 01/16/23 14:59 22:59 06:59 Intake Total 300 Balance 300 Intake: Oral 300 Other: # Voids 2 Weight 80.739 kg 80.739 kg GENERAL EXAM: Alert, 77-year-old white female, comfortable in no apparent dis tress. HEAD: Normocephalic and atraumatic EYES: Normal reaction of pupils, equal size. NOSE: Clear with pink turbinates. THROAT: No erythema or exudates. NECK: No masses, no JVD. CHEST: No chest wall deformity. LUNGS: Equal air entry with no crackles, wheeze, rhonchi or dullness. On room air. No conversational dyspnea or accessory muscle use.. CVS: S1 and S2 normal with no audible murmur, regular rhythm. No extra heart sounds ABDOMEN: No hepatosplenomegaly, active bowel sounds, no guarding or rigidity. SPINE: No scoliosis or deformity SKIN: No rashes CENTRAL NERVOUS SYSTEM: No focal deficits, tone is normal in all 4 extremities. EXTREMITIES: There is no peripheral edema, clubbing, or cyanosis. Peripheral pulses are intact. Results - Laboratory Findings CBC and BMP: 01/15/23 13:21 01/15/23 13:21 PT/INR, D-dimer PT 9.7 sec (9.0-12.0) 01/15/23 13:21 INR 0.9 (<1.2) 01/15/23 13:21 Abnormal lab findings: Abnormal Labs 01/15/23 01/15/23 13:21 20:33 BUN 29 H Creatinine 1.14 H Glucose 104 H POC Glucose (mg/dL) 371 H ALT 46 H - Diagnostic Findings Chest x-ray: image reviewed CT scan - chest: image reviewed Assessment and Plan Assessment: Dyspnea, currently under investigation. 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 Right middle lobe 2 cm opacity that was previously measured at 1.7 cm back in October of this year. Multiple other benign appearing nodules includein mm right mid lung nodule along the major fissure, unchanged 8 mm nodule along the minor fissure, and an unchanged calcified granuloma of the inferior lingula measuring 1 cm. Patient does follow Dr. Harris in the office, for monitoring of the patient's known lung nodules, and the plan was for repeat chest CT in February. Coronary artery disease with previous myocardial infarction Hypertension Hyperlipidemia Obesity Diabetes mellitus type 2 Chronic kidney disease stage III Lupus erythematous Hypothyroidism Plan: Patient's medication, labs, chest CTA, chest x-ray were reviewed On room air Continue bronchodilators, Solu-Medrol Start Symbicort inhaler Procalcitonin level was low at 0.07, will discontinue patient's doxycycline Check COVID-19, influenza, RSV Recommend outpatient PET scan Cardiology consult Pending echocardiogram results We will continue to follow I have personally seen and examined the patient, performed the documentation and the assessment and plan as written. Number of minutes spent on the visit:20 Time with Patient: Greater than 30
[2023-01-16 05:54] LABS: Glucose,Whole Blood 221 mg/dL (70-110)
[2023-01-16] MEDS: LEVOTHYROXINE 100 MCG TAB PO SCH (06:12)
[2023-01-16] MEDS: methylPREDNISolone SOD SUCCI 125 MG/2 ML VIAL IV SCH ×4 (06:12→22:22)
[2023-01-16] MEDS: INSULIN ASPART (NovoLOG) 100 UNIT/ML VIAL SQ SCH ×4 (06:13→22:22)
[2023-01-16] MEDS: LORATADINE 10 MG TAB PO SCH (08:53)
[2023-01-16] MEDS: PANTOPRAZOLE 40 MG TABLET PO SCH (08:53)
[2023-01-16] MEDS: LISINOPRIL-HCTZ 20-25 MG 1 EACH TAB PO SCH (08:54)
[2023-01-16] MEDS: ASPIRIN 81 MG PO SCH (08:54)
[2023-01-16] MEDS: METOPROLOL SUCCINATE (ER) 100 MG TAB.ER.24H PO SCH (08:54)
[2023-01-16] MEDS: FLUTICASONE 50MCG/SPRAY NASAL 16GM EA NOSTRIL SCH (08:54)
[2023-01-16] MEDS: ALBUTEROL NEBULIZED 2.5 MG/3 ML INHALATION SCH ×4 (08:58→21:07)
[2023-01-16] MEDS: SYMBICORT 160-4.5 MCG INHALER INHALATION SCH ×2 (08:58→21:07)
[2023-01-16] MEDS ORDERED: NON FORMULARY DRUG (Evolocumab [Repatha Sureclick] 140 MG/ML Each) SQ SCH (09:00)
[2023-01-16 11:13] LABS: HCT 34.7 % (37.2-46.3); HGB 11.1 g/dL (12.0-15.0); MCH 27.8 pg (27.0-32.0); MCV 86.8 fL (80.0-97.0); Mean Platelet Volume 11.6 fL (9.5-12.2); NRBC Per 100 WBC 0 /100 WBCS (0.0-0.0); Platelet Count 327 X 10*3/uL (140-440); RDW 13.2 % (11.5-14.5); WBC 10.58 X 10*3/uL (4.50-10.00)
--- NOTE | 2023-01-16 11:20 | P.CRDCN ---
History of Present Illness History of present illness: HISTORY OF PRESENT ILLNESS: This is a 77-year-old female with a past medical history significant for hypertension, hyperlipidemia, diabetes, former nicotine dependence, COPD, and Covid. Patient follows in the office with Dr. Alanis. We have been asked to see the patient in consultation for SOB. Patient examined at the bedside. Patient states that she had Covid in August 2022 and since that time she has been feeling short of breath. She states that she has been seen by her primary care physician multiple times and will receive steroids. She states that when she is taking the steroid she feels better and as soon as she stops taking them she becomes short of breath again. She reports wheezing at home and coughing with occasional clear sputum production. She states that she becomes short of breath with minimal exertion such as walking to the bathroom. She denies any chest pain or pressure. She denies any swelling in the lower cavities. Denies any dizziness or lightheadedness. The patient reports she had an echocardiogram performed at the cardiology office last week. She also reports that she was scheduled for a stress test next month. * EKG reveals sinus mechanism with no signs of acute ischemia * Chest xray increased density right lung base could reflect developing infiltrate * Chest CTA: LAD coronary artery calcifications are present. No evidence of pulmonary embolus and. Obesity and lateral right middle lobe now measuring 2 cm versus 1.7 cm previously and shows increasing soft tissue component. Lung cancer cannot be excluded. Probable 2.3 cm right hepatic lobe hemangioma. There appears to be 1.5 cm nodule in the right lobe of the thyroid. * Laboratory data: * Current home cardiac medications include aspirin 81 mg daily, lisinopril- hydrochlorothiazide 20-25mg daily, metoprolol succinate 100 mg daily, and Repatha 140mg SQ Q14 days REVIEW OF SYSTEMS: At the time of my exam: CONSTITUTIONAL: Denies fever or chills. HEENT: Denies blurred vision, vision changes, or eye pain. Denies hemoptysis CARDIOVASCULAR: Denies chest pain. Denies orthopnea. Denies PND. Denies palpitations RESPIRATORY: Denies shortness of breath. GASTROINTESTINAL: Denies abdominal pain. Denies nausea or vomiting. HEMATOLOGIC: Denies bleeding disorders. GENITOURINARY: Denies any blood in urine. SKIN: Denies pruitis. Denies rash. PHYSICAL EXAM: VITAL SIGNS: Reviewed. GENERAL: Well-developed in no acute distress. HEENT: Head is normocephalic. Pupils are equal, round. Sclerae anicteric. Mucous membranes of the mouth are moist. Neck supple. No JVD or thyromegaly LUNGS: Respirations even and unlabored. Lungs essentially clear to auscultation bilaterally. HEART: Regular rate and rhythm. S1 and S2 heard. ABDOMEN: Soft. Nondistended. Nontender. EXTREMITIES: Normal range of motion. No clubbing or cyanosis. Peripheral pulses intact. No lower extremity edema NEUROLOGIC: Awake and alert. Oriented x 3. ASSESSMENT: Chronic shortness of breath since Covid in August 2022, etiology unclear Coronary artery disease with stenting, details unknown, at [facility] in 2004 Right-sided pulmonary nodules COPD Hypertension Hyperlipidemia, intolerant to statin therapy, on Repatha Diabetes Former nicotine dependence PLAN: Obtain two additional troponins Continue current cardiac medications Pulmonary following Will obtain echo report from the office Pending echo results, will consider R/L heart cath tomorrow NPO at midnight Further recommendations pending patient course Nurse practitioner note has been reviewed by physician. Signing provider agrees with the documented findings, assessment, and plan of care. Past Medical History Past Medical History: Diabetes Mellitus, GERD/Reflux, Hypertension, Myocardial Infarction ([place]), Thyroid Disorder Additional Past Medical History / Comment(s): Lupus with arthritis. Type II diabetes, hypothyroidism. 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 Last Myocardial Infarction Date:: 2004 History of Any Multi-Drug Resistant Organisms: None Reported Past Surgical History: Breast Surgery, Cholecystectomy, EPS, Heart Catheterization With Stent Additional Past Surgical History / Comment(s): Breast biopsies, cold knife colonization of the cervix, stent in 2004 Additional Past Anesthesia/Blood Transfusion Reaction / Comment(s): hard to wake up Date of Last Stent Placement:: March 23, 2005 Past Psychological History: Anxiety Smoking Status: Former smoker Past Alcohol Use History: None Reported Additional Past Alcohol Use History / Comment(s): Quit smoking in 1991. Past Drug Use History: None Reported - Past Family History Sister(s) Family Medical History: Cancer Additional Family Medical History / Comment(s): Ovarian cancer. Mother Family Medical History: Cancer Additional Family Medical History / Comment(s): Breast cancer. To maternal aunts had cancer in the abdomen and she believes they had ovarian cancer. Father Family Medical History: Cancer, Myocardial Infarction ([place]) Additional Family Medical History / Comment(s): Colon cancer. Paternal uncle had colon cancer. Medications and Allergies Home Medications Medication Instructions Recorded Confirmed Type Aspirin 81 mg PO DAILY 04/28/19 01/15/23 History Levothyroxine Sodium [Synthroid] 100 mcg PO DAILY 04/28/19 01/15/23 History Metoprolol Succinate (ER) [Toprol 100 mg PO DAILY 04/28/19 01/15/23 History Xl] ALPRAZolam [Xanax] 0.5 mg PO BID PRN 01/15/23 01/15/23 History Albuterol Sulfate [Albuterol 2 puff INHALATION RT-Q6H PRN 01/15/23 01/15/23 History Sulfate Hfa] Cetirizine HCl [Zyrtec] 10 mg PO DAILY 01/15/23 01/15/23 History Evolocumab [Repatha Sureclick] 140 mg SQ Q14D 01/15/23 01/15/23 History Fluticasone Nasal [place] [Flonase 1 spray EA NOSTRIL DAILY 01/15/23 01/15/23 History Nasal [place]] Fluticasone Propion/Salmeterol 1 puff INHALATION RT-BID 01/15/23 01/15/23 History [Advair 250-50 Diskus] Lisinopril-Hctz 20-25 mg 1 tab PO DAILY 01/15/23 01/15/23 History [Zestoretic 20-25] Omeprazole [PriLOSEC] 40 mg PO DAILY 01/15/23 01/15/23 History Allergies Allergy/AdvReac Type Severity Reaction Status Date / Time amoxicillin [From Augmentin] Allergy Anaphylaxis Verified 01/15/23 14:56 clavulanic acid Allergy Anaphylaxis Verified 01/15/23 14:56 [From Augmentin] Sulfa (Sulfonamide Allergy Anaphylaxis Verified 01/15/23 14:56 Antibiotics) Physical Exam Vitals: Vital Signs Temp Pulse Pulse Resp BP BP Pulse Ox 01/16/23 06:53 97.7 F 94 18 153/81 93 L 01/16/23 01:40 97.8 F 109 H 17 119/57 94 L 01/15/23 21:05 102 H 01/15/23 20:53 101 H 01/15/23 20:00 20 01/15/23 19:32 97 F L 103 H 20 105/69 91 L 01/15/23 17:11 92 01/15/23 16:57 88 01/15/23 15:19 96 18 169/81 95 01/15/23 14:48 88 01/15/23 14:20 80 01/15/23 12:43 98.3 F 91 22 175/75 98 Intake and Output 01/15/23 01/16/23 01/16/23 22:59 06:59 14:59 Intake Total 300 Balance 300 Intake: Oral 300 Other: # Voids 2 2 Weight 80.739 kg Results 01/16/23 06:19 01/15/23 13:21 Cardiac Enzymes 01/15/23 01/15/23 Range/Units 13:21 13:21 AST 29 (14-36) U/L Troponin I <0.012 (0.000-0.034) ng/mL Coagulation 01/15/23 Range/Units 13:21 PT 9.7 (9.0-12.0) sec APTT 23.9 (22.0-30.0) sec CBC 01/15/23 Range/Units 13:21 WBC 9.2 (3.8-10.6) k/uL RBC 4.33 (3.80-5.40) m/uL Hgb 11.7 (11.4-16.0) gm/dL Hct 36.6 (34.0-46.0) % Plt Count 288 (150-450) k/uL Comprehensive Metabolic Panel 01/15/23 Range/Units 13:21 Sodium 140 (137-145) mmol/L Potassium 4.8 (3.5-5.1) mmol/L Chloride 107 (98-107) mmol/L Carbon Dioxide 26 (22-30) mmol/L BUN 29 H (7-17) mg/dL Creatinine 1.14 H (0.52-1.04) mg/dL Glucose 104 H (74-99) mg/dL Calcium 9.4 (8.4-10.2) mg/dL AST 29 (14-36) U/L ALT 46 H (4-34) U/L Alkaline Phosphatase 62 (38-126) U/L Total Protein 6.8 (6.3-8.2) g/dL Albumin 4.1 (3.5-5.0) g/dL Current Medications Generic Name Dose Route Start Last Admin Trade Name Freq PRN Reason Stop Dose Admin Acetaminophen 650 mg 01/15/23 17:44 Acetaminophen Tab 325 Mg Tab PO Q6HR PRN Mild Pain or Fever > 100.5 Albuterol Sulfate 2.5 mg 01/15/23 20:00 01/15/23 20:51 Albuterol Nebulized 2.5 Mg/3 Ml INHALATION 2.5 mg RT-QID FARRAH Administration Albuterol Sulfate 2.5 mg 01/15/23 17:47 Albuterol Nebulized 2.5 Mg/3 Ml INHALATION RT-Q2H PRN Shortness Of Breath Or Wheezing Alprazolam 0.5 mg 01/15/23 17:45 Alprazolam 0.5 Mg Tab PO BID PRN Anxiety Aspirin 81 mg 01/16/23 09:00 Aspirin 81 Mg PO DAILY [facility] Bisacodyl 5 mg 01/15/23 17:44 Bisacodyl 5 Mg Tablet.Dr PO DAILY PRN Constipation Budesonide/Formoterol Fumarate 2 puff 01/16/23 08:00 Symbicort 160-4.5 Mcg Inhaler INHALATION RT-BID [facility] Fluticasone Propionate 1 spray 01/16/23 09:00 Fluticasone 50mcg/[place] Nasal 16gm EA NOSTRIL DAILY [facility] Lisinopril/HCTZ 1 each 01/16/23 09:00 Lisinopril-Hctz 20-25 Mg 1 Each Tab PO DAILY [facility] Insulin Aspart 0 unit 01/15/23 21:30 01/16/23 06:13 Insulin Aspart (Novolog) 100 Unit/Ml Vial SQ 6 unit ACHS FARRAH Administration Protocol Levothyroxine Sodium 100 mcg 01/16/23 06:30 01/16/23 06:12 Levothyroxine 100 Mcg Tab PO 100 mcg 0630 [facility] Administration Loratadine 10 mg 01/16/23 09:00 Loratadine 10 Mg Tab PO DAILY [facility] Melatonin 3 mg 01/15/23 17:44 Melatonin 3 Mg Tablet PO HS PRN Insomnia Methylprednisolone Sodium Succinate 60 mg 01/15/23 18:00 01/16/23 06:12 Methylprednisolone Sod Succi 125 Mg/2 Ml Vial IV 60 mg Q6HR FARRAH Administration Metoprolol Succinate 100 mg 01/16/23 09:00 Metoprolol Succinate (Er) 100 Mg Tab.Er.24h PO DAILY FARRAH Naloxone HCl 0.2 mg 01/15/23 14:32 Naloxone 0.4 Mg/Ml 1 Ml Vial IVP Q2M PRN Opioid Reversal Non-Formulary Medication 140 mg 01/16/23 09:00 Evolocumab [Oscar Delgado] SQ Q14D FARRAH Ondansetron HCl 4 mg 01/15/23 17:44 Ondansetron 4 Mg/2 Ml Vial IVP Q8HR PRN Nausea And Vomiting Pantoprazole Sodium 40 mg 01/16/23 09:00 Pantoprazole 40 Mg Tablet PO DAILY FARRAH Intake and Output 01/15/23 01/16/23 01/16/23 22:59 06:59 14:59 Intake Total 300 Balance 300 Intake: Oral 300 Other: # Voids 2 2 Weight 80.739 kg 01/15/23 13:21 01/15/23 13:21
[2023-01-16 11:28] LABS: African American GFR (CKD) 50.8 (60.0-200.0); Anion Gap 12.7 mmol/L (10.00-18.00); BUN/Creat Ratio 28.58 Ratio (12.00-20.00); Blood Urea Nitrogen 34.3 mg/dL (9.0-27.0); Calcium 9.7 mg/dL (8.7-10.3); Carbon Dioxide 19.3 mmol/L (20.0-27.5); Magnesium 1.8 mg/dL (1.5-2.4); Non-African American GFR(CKD) 43.9 (60.0-200.0); Phosphorus 3.3 mg/dL (2.4-5.1); Potassium 4.4 mmol/L (3.5-5.5)
[2023-01-16 11:58] LABS: Glucose,Whole Blood 197 mg/dL (70-110)
[2023-01-16] MEDS ORDERED: PATIENT'S OWN (Evolocumab [Repatha Sureclick] 140 MG/ML Each) SQ SCH (12:00)
[2023-01-16] MEDS ORDERED: HEPARIN SODIUM 1,000 UN/ML (10ML VL) IV PRN (13:13)
[2023-01-16] MEDS: HEPARIN SOD,PORK IN 0.45% NACL 25,000 UNIT in 0.45% NACL 1 250ML.BAG IV SCH ×2 (13:48→20:58)
[2023-01-16 13:53] LABS: Basophils % (A) 0 %; Eosinophils % (A) 0 %; HCT 34.5 % (34.0-46.0); Lymphocytes # (A) 1.7 k/uL (1.0-4.8); Lymphocytes % (A) 12 %; MCH 27.7 pg (25.0-35.0); MCV 86.7 fL (80.0-100.0); Mean Platelet Volume 8.7; Monocytes # (A) 0.3 k/uL (0-1.0); Monocytes % (A) 2 %; Neutrophils # (A) 12.6 k/uL (1.3-7.7); Neutrophils % (A) 86 %; Platelet Count 310 k/uL (150-450); RBC 3.98 m/uL (3.80-5.40); RDW 13.5 % (11.5-15.5); WBC 14.7 k/uL (3.8-10.6)
[2023-01-16 14:12] LABS: INR 0.9 (<1.2); Partial Thromboplastin Time 22.6 sec (22.0-30.0); Prothrombin Time 10.1 sec (9.0-12.0)
--- NOTE | 2023-01-16 16:23 | P.PN ---
Subjective Progress Note Date: 01/16/23 (delayed charting seen at 0930) Patient is a 77-year-old female with a history of diabetes mellitus type 2, lupus, hypothyroidism, GERD, hypertension, and myocardial infarction who was sen t in by her primary care physician for dyspnea with exertion. On arrival to the ER her vital signs are within normal limits. Laboratory analysis was remarkable for BUN 29, creatinine 1.14 (baseline 1.2), and ALT of 46. The ER she was started on albuterol and Solu-Medrol. Antibiotics were ordered. Chest x-ray showed developing opacity in the right lung base. She reports shortness of breath since recovering from Covid in October. She has been working with her primary care physician Dr. Suresh. She has undergone an outpatient VQ scan, CT of the chest, venous Doppler, and renal CT. Her initial CT had shown a possible pulmonary nodule in the right lung base which was confirmed on [facility] renal CT. Patient seen and examined at bedside. Daughter present. Her wheezing is better than yesterday and she overall feels better. However she states she still is short of breath with ambulation. She denies any chest pain overnight. She does state that she slept better last night that she has been sleeping and she was not wheezing. Vital signs reviewed General: nontoxic, no distress, appears at stated age Cardiovascular: S1S2 reg, no murmur, positive posterior tibial pulse bilateral, Lungs: Diminished breath sounds bilateral, no rhonchi, no rales , no accessory muscle use Abdominal: soft, nontender to palpation, no guarding, no appreciable organomegaly Ext: no gross muscle atrophy, no edema, no contractures Neuro: CN II-XI grossly intact, no focal neuro deficits Psych: Alert, oriented, appropriate affect Assessment: Dyspnea - undetermined etiology COPD vs Covid long hauler syndrome vs CAD vs arrhythmia vs CM Acute exacerbation of mild COPD out of proportion to symptoms of dyspnea Pulmonary Opacity - no improvement after course of cipro from PCP earlier this month. Need PET/CT as outpatient Diabetes mellitus type 2 with hyperglycemia due to steroids- Not on medications at baseline CKD III, Cr 1.2 at baseline Hypertension Lupus Hypothyroidism HLD Myocardial infarction GERD Imaging: Chest CTA: No pulmonary embolism, right middle lobe 2 x 1.7 cm opacification. Minimal emphysematous changes, probable 2.3 cm right hepatic lobe hemangioma, thyroid ultrasound to assess for any suspicious nodules there appears to be a 1.5 cm nodule in the right lobe Data Review: Vital signs reviewed temperature 97.7, pulse 94, respirations 18, blood pressure 153/81, O2 sat 93% on room air Laboratory analysis reviewed White blood cell count 10.58 (up from 9.2 likely secondary to steroids), hemoglobin 11.1, glucose 197. Repeat troponin 0.079 Plan: -Agree with discontinuing doxycycline as pro-calcitonin came back negative -Continue with Solu-Medrol 60 mg every 6 hours IV, Symbicort, albuterol 4 times daily scheduled and every 2 hours when necessary -We will need repeat liver ultrasound in 3 months to assess hemangioma status, we'll need outpatient thyroid ultrasound to assess for nodules -Pulmonary consultation reviewed: Continue treatment for COPD and heart cath. -Cardiology consultation reviewed and case discussed with nurse practitioner. Possible right and left heart cath tomorrow, awaiting echo results from office -Given the patient's chronic kidney disease will start low-dose fluids for potential cardiac cath tomorrow -metoprolol 100 mg daily, PPI 40 mg daily, Zyrtec 10 mg daily This dictation was prepared using [employer] voice recognition software. Though every attempt is made to correct errors during during dictation some may still exist. Objective - Vital Signs Vital signs: Vital Signs Temp 98.3 F 01/16/23 14:15 Pulse 96 01/16/23 14:15 Resp 18 01/16/23 14:15 BP 138/77 01/16/23 14:15 Pulse Ox 92 L 01/16/23 14:15 FiO2 Intake & Output 01/15/23 01/16/23 01/16/23 18:59 06:59 18:59 Intake Total 300 Balance 300 Weight 80.739 kg Intake: Oral 300 Other: # Voids 2 2 - Labs CBC & Chem 7: 01/16/23 13:15 01/16/23 06:19 Labs: Abnormal Lab Results - Last 24 Hours (Table) 01/15/23 01/16/23 01/16/23 Range/Units 20:33 05:51 06:19 WBC 10.58 H (4.50-10.00) X 10*3/uL RBC 4.00 L (4.10-5.20) X 10*6/uL Hgb 11.1 L (12.0-15.0) g/dL Hct 34.7 L (37.2-46.3) % Neutrophils # (1.3-7.7) k/uL Carbon Dioxide (20.0-27.5) mmol/L BUN (9.0-27.0) mg/dL Est GFR (CKD-EPI)AfAm (60.0-200.0) Est GFR (CKD-EPI)NonAf (60.0-200.0) BUN/Creatinine Ratio (12.00-20.00) Ratio Glucose (70-110) mg/dL POC Glucose (mg/dL) 371 H 221 H (70-110) mg/dL Troponin I (0.000-0.034) ng/mL 01/16/23 01/16/23 01/16/23 Range/Units 06:19 10:05 11:54 WBC (4.50-10.00) X 10*3/uL RBC (4.10-5.20) X 10*6/uL Hgb (12.0-15.0) g/dL Hct (37.2-46.3) % Neutrophils # (1.3-7.7) k/uL Carbon Dioxide 19.3 L (20.0-27.5) mmol/L BUN 34.3 H (9.0-27.0) mg/dL Est GFR (CKD-EPI)AfAm 50.8 L (60.0-200.0) Est GFR (CKD-EPI)NonAf 43.9 L (60.0-200.0) BUN/Creatinine Ratio 28.58 H (12.00-20.00) Ratio Glucose 229 H (70-110) mg/dL POC Glucose (mg/dL) (70-110) mg/dL Troponin I 0.058 H* 0.079 H* (0.000-0.034) ng/mL 01/16/23 01/16/23 Range/Units 11:57 13:15 WBC 14.7 H (4.50-10.00) X 10*3/uL RBC (4.10-5.20) X 10*6/uL Hgb 11.0 L (12.0-15.0) g/dL Hct (37.2-46.3) % Neutrophils # 12.6 H (1.3-7.7) k/uL Carbon Dioxide (20.0-27.5) mmol/L BUN (9.0-27.0) mg/dL Est GFR (CKD-EPI)AfAm (60.0-200.0) Est GFR (CKD-EPI)NonAf (60.0-200.0) BUN/Creatinine Ratio (12.00-20.00) Ratio Glucose (70-110) mg/dL POC Glucose (mg/dL) 197 H (70-110) mg/dL Troponin I (0.000-0.034) ng/mL
[2023-01-16] MEDS: SODIUM CHLORIDE 0.9% 1,000 ML IV SCH (16:39)
[2023-01-16 16:47] LABS: Glucose,Whole Blood 235 mg/dL (70-110)
[2023-01-16 20:40] LABS: Glucose,Whole Blood 189 mg/dL (70-110)
[2023-01-17 02:55] LABS: Partial Thromboplastin Time 75.3 sec (22.0-30.0); Prothrombin Time 10.6 sec (9.0-12.0)
[2023-01-17 03:28] LABS: Basophils % (A) 0 %; Eosinophils % (A) 0 %; HCT 32.4 % (34.0-46.0); HGB 10.4 gm/dL (11.4-16.0); Lymphocytes # (A) 1.8 k/uL (1.0-4.8); Lymphocytes % (A) 10 %; MCH 27.4 pg (25.0-35.0); MCHC 32.3 g/dL (31.0-37.0); Mean Platelet Volume 9.3; Monocytes # (A) 0.5 k/uL (0-1.0); Monocytes % (A) 3 %; Neutrophils # (A) 15.8 k/uL (1.3-7.7); Neutrophils % (A) 86 %; Platelet Count 263 k/uL (150-450); RBC 3.81 m/uL (3.80-5.40); RDW 13.8 % (11.5-15.5); WBC 18.3 k/uL (3.8-10.6)
[2023-01-17 05:51] LABS: Glucose,Whole Blood 181 mg/dL (70-110)
[2023-01-17] MEDS: LEVOTHYROXINE 100 MCG TAB PO SCH (05:56)
[2023-01-17] MEDS: methylPREDNISolone SOD SUCCI 125 MG/2 ML VIAL IV SCH ×4 (06:02→23:40)
[2023-01-17] MEDS: SODIUM CHLORIDE 0.9% 1,000 ML IV SCH ×4 (07:43→23:46)
[2023-01-17] MEDS: ASPIRIN 81 MG PO SCH (07:44)
[2023-01-17] MEDS: LORATADINE 10 MG TAB PO SCH (07:44)
[2023-01-17] MEDS: INSULIN ASPART (NovoLOG) 100 UNIT/ML VIAL SQ SCH ×4 (07:53→21:05)
[2023-01-17] MEDS: LISINOPRIL-HCTZ 20-25 MG 1 EACH TAB PO SCH (07:53)
[2023-01-17] MEDS: METOPROLOL SUCCINATE (ER) 100 MG TAB.ER.24H PO SCH (07:53)
[2023-01-17] MEDS: FLUTICASONE 50MCG/SPRAY NASAL 16GM EA NOSTRIL SCH (07:54)
[2023-01-17] MEDS: PANTOPRAZOLE 40 MG TABLET PO SCH (07:54)
[2023-01-17] MEDS: ALBUTEROL NEBULIZED 2.5 MG/3 ML INHALATION SCH ×4 (08:45→23:02)
[2023-01-17] MEDS: SYMBICORT 160-4.5 MCG INHALER INHALATION SCH ×2 (08:45→23:03)
[2023-01-17 09:13] LABS: African American GFR (CKD) 53 (>60 ml/min/1.73 sqM); Anion Gap 7 mmol/L; Blood Urea Nitrogen 39 mg/dL (7-17); Calcium 9.1 mg/dL (8.4-10.2); Carbon Dioxide 22 mmol/L (22-30); Chloride 109 mmol/L (98-107); Glucose 190 mg/dL (74-99); Non-African American GFR(CKD) 46 (>60 ml/min/1.73 sqM); Potassium 4.4 mmol/L (3.5-5.1); Sodium 138 mmol/L (137-145)
[2023-01-17] MEDS ORDERED: ATORVASTATIN 80 MG TAB PO STA (09:28)
[2023-01-17] MEDS ORDERED: ASPIRIN 325 MG TAB PO STA (09:28)
[2023-01-17] MEDS ORDERED: ALPRAZolam 0.5 MG TAB PO PRN (09:28)
[2023-01-17] MEDS ORDERED: ALPRAZolam 0.25 MG TAB PO PRN (09:28)
[2023-01-17] MEDS ORDERED: NITROGLYCERIN SL TABS 0.4 MG TAB SUBLINGUAL PRN (09:28)
[2023-01-17] MEDS ORDERED: SODIUM CHLORIDE 0.9% 1,000 ML in EMPTY BAG 1 BAG IV SCH (09:30)
--- NOTE | 2023-01-17 09:58 | CA ---
Transthoracic Echo Report Name: Mona Tello Age: 77 Gender: F : 1945 Exam Date: 01/16/2023 13:37 Exam Location: [facility] Ht (in): 61 Wt (lb): 178 Ordering Physician: Annie Lindsey Attending/Referring Phys: [id number], Rosalia [employer] Pam Campbell RDCS Procedure CPT: Indications: LV function Cardiac Hx: Technical Quality: Good Contrast 1: Total Dose (mL): Contrast 2: Total Dose (mL): MEASUREMENTS (Male / Female) Normal Values 2D ECHO LV Diastolic Diameter PLAX 5.7 cm 4.2 - 5.9 / 3.9 - 5.3 cm LV Systolic Diameter PLAX 3.7 cm IVS Diastolic Thickness 1.2 cm 0.6 - 1.0 / 0.6 - 0.9 cm LVPW Diastolic Thickness 1.0 cm 0.6 - 1.0 / 0.6 - 0.9 cm LV Relative Wall Thickness 0.4 RV Internal Dim ED PLAX 2.6 cm LA Systolic Diameter LX 3.9 cm 3.0 - 4.0 / 2.7 - 3.8 cm LV Diastolic Volume MOD 4C 121.6 cm??? LV Systolic Volume MOD 4C 63.0 cm??? LV Ejection Fraction MOD 4C 48.2 % LV Diastolic Length 4C 8.3 cm LV Systolic Length 4C 6.7 cm LV Diastolic Volume MOD 2C 119.6 cm??? LV Systolic Volume MOD 2C 64.9 cm??? LV Ejection Fraction MOD 2C 45.8 % LV Diastolic Length 2C 8.0 cm LV Systolic Length 2C 6.5 cm LA Volume 65.8 cm??? 18 - 58 / 22 - 52 cm??? M-MODE Aortic Root Diameter MM 2.6 cm MV E Point Septal Separation 0.7 cm AV Cusp Separation MM 2.0 cm DOPPLER AV Peak Velocity 216.5 cm/s AV Peak Gradient 18.8 mmHg AV Mean Velocity 127.6 cm/s AV Mean Gradient 8.0 mmHg AV Velocity Time Integral 38.9 cm MV Peak Velocity 192.6 cm/s MV Peak Gradient 14.8 mmHg MV Mean Velocity 113.6 cm/s MV Mean Gradient 6.3 mmHg MV Velocity Time Integral 33.8 cm MV Area PHT 6.1 cm??? MV Deceleration Time 105.8 ms MV E' Velocity 17.8 cm/s FINDINGS Left Ventricle Left ventricular ejection fraction is estimated at 50 %. Mildly increased septal wall thickness. Mildly increased posterior wall thickness. Infero basel wall hypokinesis. Mildly increased left ventricular diastolic diameter. There is pedinculating structure attached to the wall Right Ventricle Normal right ventricular size and function. No TR unable to estimate the right ventricular systolic pressure. Right Atrium Normal right atrial size. Left Atrium Moderately increased left atrial volume. Mildly increased left atrial area. Mitral Valve Structurally normal mitral valve. [id number] mitral regurgitation. There is a MV gradient present without evident stenosis Aortic Valve Trileaflet aortic valve. Aortic valve sclerosis. There is a gradient accross AOV without evidents of stenosis Tricuspid Valve Structurally normal tricuspid valve. No tricuspid stenosis, regurgitation or prolapse. Pulmonic Valve Structurally normal pulmonic valve. Pericardium Normal pericardium. No pericardial effusion. Aorta Normal size aortic root and proximal ascending aorta. CONCLUSIONS Normal LV systolic function. Mild concentric left ventricular hypertrophy Poorly visualized aortic valve. An echodensity with free motion was identified in the LVOT attached to the aortic valve. Moderate mitral regurgitation with a posteriorly directed jet Advised performing transesophageal echocardiogram to rule out vegetation on the aortic valve Previewed by: Dr. Kalin Broussard MD (Electronically Signed) Final Date: 17 January 2023 09:57
[2023-01-17] MEDS: HEPARIN SOD,PORK IN 0.45% NACL 25,000 UNIT in 0.45% NACL 1 250ML.BAG IV SCH (10:02)
--- NOTE | 2023-01-17 10:56 | P.PN ---
Subjective Progress Note Date: 01/17/23 HISTORY OF PRESENT ILLNESS: This is a 77-year-old female with a past medical history significant for hypertension, hyperlipidemia, diabetes, former nicotine dependence, COPD, and Covid. Patient follows in the office with Dr. Alanis. We have been asked to see the patient in consultation for SOB. Patient examined at the bedside. Patient states that she had Covid in August 2022 and since that time she has been feeling short of breath. She states that she has been seen by her primary care physician multiple times and will receive steroids. She states that when she is taking the steroid she feels better and as soon as she stops taking them she becomes short of breath again. She reports wheezing at home and coughing with occasional clear sputum production. She states that she becomes short of breath with minimal exertion such as walking to the bathroom. She denies any chest pain or pressure. She denies any swelling in the lower cavities. Denies any dizziness or lightheadedness. The patient reports she had an echocardiogram performed at the cardiology office last week. She also reports that she was scheduled for a stress test next month. * EKG reveals sinus mechanism with no signs of acute ischemia * Chest xray increased density right lung base could reflect developing infiltrate * Chest CTA: LAD coronary artery calcifications are present. No evidence of pu lmonary embolus and. Obesity and lateral right middle lobe now measuring 2 cm versus 1.7 cm previously and shows increasing soft tissue component. Lung cancer cannot be excluded. Probable 2.3 cm right hepatic lobe hemangioma. There appears to be 1.5 cm nodule in the right lobe of the thyroid. * Laboratory data: * Current home cardiac medications include aspirin 81 mg daily, lisinopril-hydrochlorothiazide 20-25mg daily, metoprolol succinate 100 mg daily, and Repatha 140mg SQ Q14 days 01/17/2023 Patient examined this morning at the bedside. Family is present. Patient de nies chest pain or pressure. She continues to report shortness of breath with exertion. Echocardiogram completed reveals ejection fraction 50%, inferior basal wall hypokinesis, [id number] mitral regurgitation with posteriorly directed jet, echo density with free motion identified in the LVOT attached to the aortic valve. PHYSICAL EXAM: VITAL SIGNS: Reviewed. GENERAL: Well-developed in no acute distress. HEENT: Head is normocephalic. Pupils are equal, round. Sclerae anicteric. Mucous membranes of the mouth are moist. Neck supple. No JVD or thyromegaly LUNGS: Respirations even and unlabored. Lungs essentially clear to auscultation bilaterally. HEART: Regular rate and rhythm. S1 and S2 heard. ABDOMEN: Soft. Nondistended. Nontender. EXTREMITIES: Normal range of motion. No clubbing or cyanosis. Peripheral pulses intact. No lower extremity edema NEUROLOGIC: Awake and alert. Oriented x 3. ASSESSMENT: Chronic shortness of breath since Covid in August 2022, etiology unclear Coronary artery disease with stenting, details unknown, at [facility] in 2004 Elevated troponins Echodensity on aortic valve, r/o vegetation Right-sided pulmonary nodules COPD Hypertension Hyperlipidemia, intolerant to statin therapy, on Repatha Diabetes Former nicotine dependence PLAN: Continue current cardiac medications Patient will undergo MENDY today with Dr. Broussard due to abnormal echo Obtain blood cultures If MENDY unremarkable, then will schedule patient for R/L heart cath Further recommendations pending patient course Nurse practitioner note has been reviewed by physician. Signing provider agrees with the documented findings, assessment, and plan of care. Objective - Vital Signs Vital signs: Vital Signs Temp 97.7 F 01/17/23 06:47 Pulse 80 01/17/23 09:01 Resp 16 01/17/23 06:47 BP 133/70 01/17/23 06:47 Pulse Ox 100 01/17/23 08:45 FiO2 Intake & Output 01/16/23 01/17/23 01/17/23 18:59 06:59 18:59 Intake Total 69.438 158.146 Output Total 3 Balance -3 69.438 158.146 Intake: Intake, IV Titration 69.438 158.146 Amount Heparin Sod,Pork in 0.45% 69.438 158.146 NaCl 25,000 unit In 0.45 % NaCl 1 250ml.bag @ 12 UNITS/KG/HR 9.689 mls/hr IV .Q24H [facility] Rx#: [id number] Output: Urine 3 Other: # Voids 2 - Labs CBC & Chem 7: 01/17/23 02:20 01/17/23 05:47 Labs: Abnormal Lab Results - Last 24 Hours (Table) 01/16/23 01/16/23 01/16/23 Range/Units 06:19 06:19 10:05 WBC 10.58 H (4.50-10.00) X 10*3/uL RBC 4.00 L (4.10-5.20) X 10*6/uL Hgb 11.1 L (12.0-15.0) g/dL Hct 34.7 L (37.2-46.3) % Neutrophils # (1.3-7.7) k/uL APTT (22.0-30.0) sec Chloride (98-107) mmol/L Carbon Dioxide 19.3 L (20.0-27.5) mmol/L BUN 34.3 H (9.0-27.0) mg/dL Creatinine (0.52-1.04) mg/dL Est GFR (CKD-EPI)AfAm 50.8 L (60.0-200.0) Est GFR (CKD-EPI)NonAf 43.9 L (60.0-200.0) BUN/Creatinine Ratio 28.58 H (12.00-20.00) Ratio Glucose 229 H (70-110) mg/dL POC Glucose (mg/dL) (70-110) mg/dL Troponin I 0.058 H* (0.000-0.034) ng/mL 01/16/23 01/16/23 01/16/23 Range/Units 11:54 11:57 13:15 WBC 14.7 H (4.50-10.00) X 10*3/uL RBC (4.10-5.20) X 10*6/uL Hgb 11.0 L (12.0-15.0) g/dL Hct (37.2-46.3) % Neutrophils # 12.6 H (1.3-7.7) k/uL APTT (22.0-30.0) sec Chloride (98-107) mmol/L Carbon Dioxide (20.0-27.5) mmol/L BUN (9.0-27.0) mg/dL Creatinine (0.52-1.04) mg/dL Est GFR (CKD-EPI)AfAm (60.0-200.0) Est GFR (CKD-EPI)NonAf (60.0-200.0) BUN/Creatinine Ratio (12.00-20.00) Ratio Glucose (70-110) mg/dL POC Glucose (mg/dL) 197 H (70-110) mg/dL Troponin I 0.079 H* (0.000-0.034) ng/mL 01/16/23 01/16/23 01/16/23 Range/Units 16:46 19:08 20:37 WBC (4.50-10.00) X 10*3/uL RBC (4.10-5.20) X 10*6/uL Hgb (12.0-15.0) g/dL Hct (37.2-46.3) % Neutrophils # (1.3-7.7) k/uL APTT 32.2 H (22.0-30.0) sec Chloride (98-107) mmol/L Carbon Dioxide (20.0-27.5) mmol/L BUN (9.0-27.0) mg/dL Creatinine (0.52-1.04) mg/dL Est GFR (CKD-EPI)AfAm (60.0-200.0) Est GFR (CKD-EPI)NonAf (60.0-200.0) BUN/Creatinine Ratio (12.00-20.00) Ratio Glucose (70-110) mg/dL POC Glucose (mg/dL) 235 H 189 H (70-110) mg/dL Troponin I (0.000-0.034) ng/mL 01/17/23 01/17/23 01/17/23 Range/Units 02:20 02:20 05:43 WBC 18.3 H (4.50-10.00) X 10*3/uL RBC (4.10-5.20) X 10*6/uL Hgb 10.4 L (12.0-15.0) g/dL Hct 32.4 L (37.2-46.3) % Neutrophils # 15.8 H (1.3-7.7) k/uL APTT 75.3 H 74.3 H (22.0-30.0) sec Chloride (98-107) mmol/L Carbon Dioxide (20.0-27.5) mmol/L BUN (9.0-27.0) mg/dL Creatinine (0.52-1.04) mg/dL Est GFR (CKD-EPI)AfAm (60.0-200.0) Est GFR (CKD-EPI)NonAf (60.0-200.0) BUN/Creatinine Ratio (12.00-20.00) Ratio Glucose (70-110) mg/dL POC Glucose (mg/dL) (70-110) mg/dL Troponin I (0.000-0.034) ng/mL 01/17/23 01/17/23 Range/Units 05:47 05:50 WBC (4.50-10.00) X 10*3/uL RBC (4.10-5.20) X 10*6/uL Hgb (12.0-15.0) g/dL Hct (37.2-46.3) % Neutrophils # (1.3-7.7) k/uL APTT (22.0-30.0) sec Chloride 109 H (98-107) mmol/L Carbon Dioxide (20.0-27.5) mmol/L BUN 39 H (9.0-27.0) mg/dL Creatinine 1.16 H (0.52-1.04) mg/dL Est GFR (CKD-EPI)AfAm (60.0-200.0) Est GFR (CKD-EPI)NonAf (60.0-200.0) BUN/Creatinine Ratio (12.00-20.00) Ratio Glucose 190 H (70-110) mg/dL POC Glucose (mg/dL) 181 H (70-110) mg/dL Troponin I (0.000-0.034) ng/mL Microbiology - Last 24 Hours (Table) 01/15/23 13:17 Blood Culture - Preliminary Blood 01/15/23 13:00 Blood Culture - Preliminary Blood
--- NOTE | 2023-01-17 11:14 | P.PN ---
Subjective Progress Note Date: 01/17/23 Hospital Course: 77-year-old female with a history of diabetes mellitus type 2, lupus, hypothyroidism, GERD, hypertension, and myocardial infarction who was sent in by her primary care physician for dyspnea with exertion. On arrival to the ER her vital signs are within normal limits. Laboratory analysis was remarkable for BUN 29, creatinine 1.14 (baseline 1.2), and ALT of 46. The ER she was started on albuterol and Solu-Medrol. Antibiotics were ordered. Chest x-ray showed developing opacity in the right lung base. She reports shortness of breath since recovering from Covid in October. She has been working with her primary care physician Dr. Suresh. She has undergone an outpatient VQ scan, CT of the chest, venous Doppler, and renal CT. Her initial CT had shown a possible pulmonary nodule in the right lung base which was confirmed on yesterday's renal CT. Cardiology and pulmonology was consulted. Echocardiogram showed normal LV systolic function, possible echodensity with free motion identified in the LVOT attached to the aortic valve, moderate mitral regurgitation. Patient pending MENDY and then possible right and left heart cath. Subjective: Seen and examined at bedside. She claims that she has no wheezing, but has not been getting out of the bed to assess her pulmonary function. She denies any chest pain, palpitations, urinary or bowel complaints. Pertinent positives and negatives as discussed above, a complete review of systems was performed and all other systems are negative. Vitals Signs Reviewed. General: nontoxic, no distress, appears at stated age Derm: warm, dry Head: atraumatic, normocephalic, symmetric Eyes: EOMI, no lid lag, anicteric sclera Mouth: no lip lesion, mucus membranes moist Cardiovascular: S1S2 reg, no murmur Lungs: CTA bilateral, no rhonchi, no rales , no accessory muscle use Abdominal: soft, nontender to palpation, no guarding, no appreciable organomegaly Ext: no gross muscle atrophy, no edema, no contractures Neuro: CN II-XI grossly intact, no focal neuro deficits Psych: Alert, oriented, appropriate affect Data Reviewed Today: Pertinent Labs: WBC 18.3, hemoglobin 10.4, sodium 138, creatinine 1.16, blood sugars range between 181-235 Echocardiogram report reviewed showed normal LV systolic function, possible echodensity with free motion identified in the LVOT attached to the aortic valve, moderate mitral regurgitation Assessment and Plan: Acute on chronic dyspnea - undetermined etiology COPD vs long Covid syndrome vs CAD vs arrhythmia vs CM Acute exacerbation of mild COPD out of proportion to symptoms of dyspnea Possible aortic valve vegetation NSTEMI Leukocytosis, likely steroid-induced Pulmonary Opacity - no improvement after course of cipro from PCP earlier this month. Need PET/CT as outpatient Diabetes mellitus type 2 with hyperglycemia due to steroids- Not on medications at baseline -Cardiology note reviewed: Patient will undergo MENDY today, possible right and left heart cath after, blood cultures pending -Patient remains on aspirin 81 mg, atorvastatin 40 mg, on heparin drip -Pulmonology following -On bronchodilators as well as IV Solu-Medrol 60 mg every 6 hours -Sliding scale insulin, no changes today Chronic: CKD III, Cr 1.2 at baseline Hypertension Lupus Hypothyroidism HLD GERD DVT ppx: Heparin drip Code status: Full code Anticipated discharge place: Pending clinical course Anticipated discharge time: And clinical course Objective - Vital Signs Vital signs: Vital Signs Temp 97.7 F 01/17/23 06:47 Pulse 80 01/17/23 09:01 Resp 16 01/17/23 06:47 BP 133/70 01/17/23 06:47 Pulse Ox 100 01/17/23 08:45 FiO2 Intake & Output 01/16/23 01/17/23 01/17/23 18:59 06:59 18:59 Intake Total 69.438 158.146 Output Total 3 Balance -3 69.438 158.146 Intake: Intake, IV Titration 69.438 158.146 Amount Heparin Sod,Pork in 0.45% 69.438 158.146 NaCl 25,000 unit In 0.45 % NaCl 1 250ml.bag @ 12 UNITS/KG/HR 9.689 mls/hr IV .Q24H [facility] Rx#: [id number] Output: Urine 3 Other: # Voids 2 - Labs CBC & Chem 7: 01/17/23 02:20 01/17/23 05:47 Labs: Abnormal Lab Results - Last 24 Hours (Table) 01/16/23 01/16/23 01/16/23 Range/Units 06:19 10:05 11:54 WBC (3.8-10.6) k/uL Hgb (11.4-16.0) gm/dL Hct (34.0-46.0) % Neutrophils # (1.3-7.7) k/uL APTT (22.0-30.0) sec Chloride (98-107) mmol/L Carbon Dioxide 19.3 L (20.0-27.5) mmol/L BUN 34.3 H (9.0-27.0) mg/dL Creatinine (0.52-1.04) mg/dL Est GFR (CKD-EPI)AfAm 50.8 L (60.0-200.0) Est GFR (CKD-EPI)NonAf 43.9 L (60.0-200.0) BUN/Creatinine Ratio 28.58 H (12.00-20.00) Ratio Glucose 229 H (70-110) mg/dL POC Glucose (mg/dL) (70-110) mg/dL Troponin I 0.058 H* 0.079 H* (0.000-0.034) ng/mL 01/16/23 01/16/23 01/16/23 Range/Units 11:57 13:15 16:46 WBC 14.7 H (3.8-10.6) k/uL Hgb 11.0 L (11.4-16.0) gm/dL Hct (34.0-46.0) % Neutrophils # 12.6 H (1.3-7.7) k/uL APTT (22.0-30.0) sec Chloride (98-107) mmol/L Carbon Dioxide (20.0-27.5) mmol/L BUN (9.0-27.0) mg/dL Creatinine (0.52-1.04) mg/dL Est GFR (CKD-EPI)AfAm (60.0-200.0) Est GFR (CKD-EPI)NonAf (60.0-200.0) BUN/Creatinine Ratio (12.00-20.00) Ratio Glucose (70-110) mg/dL POC Glucose (mg/dL) 197 H 235 H (70-110) mg/dL Troponin I (0.000-0.034) ng/mL 01/16/23 01/16/23 01/17/23 Range/Units 19:08 20:37 02:20 WBC 18.3 H (3.8-10.6) k/uL Hgb 10.4 L (11.4-16.0) gm/dL Hct 32.4 L (34.0-46.0) % Neutrophils # 15.8 H (1.3-7.7) k/uL APTT 32.2 H (22.0-30.0) sec Chloride (98-107) mmol/L Carbon Dioxide (20.0-27.5) mmol/L BUN (9.0-27.0) mg/dL Creatinine (0.52-1.04) mg/dL Est GFR (CKD-EPI)AfAm (60.0-200.0) Est GFR (CKD-EPI)NonAf (60.0-200.0) BUN/Creatinine Ratio (12.00-20.00) Ratio Glucose (70-110) mg/dL POC Glucose (mg/dL) 189 H (70-110) mg/dL Troponin I (0.000-0.034) ng/mL 01/17/23 01/17/23 01/17/23 Range/Units 02:20 05:43 05:47 WBC (3.8-10.6) k/uL Hgb (11.4-16.0) gm/dL Hct (34.0-46.0) % Neutrophils # (1.3-7.7) k/uL APTT 75.3 H 74.3 H (22.0-30.0) sec Chloride 109 H (98-107) mmol/L Carbon Dioxide (20.0-27.5) mmol/L BUN 39 H (9.0-27.0) mg/dL Creatinine 1.16 H (0.52-1.04) mg/dL Est GFR (CKD-EPI)AfAm (60.0-200.0) Est GFR (CKD-EPI)NonAf (60.0-200.0) BUN/Creatinine Ratio (12.00-20.00) Ratio Glucose 190 H (70-110) mg/dL POC Glucose (mg/dL) (70-110) mg/dL Troponin I (0.000-0.034) ng/mL 01/17/23 Range/Units 05:50 WBC (3.8-10.6) k/uL Hgb (11.4-16.0) gm/dL Hct (34.0-46.0) % Neutrophils # (1.3-7.7) k/uL APTT (22.0-30.0) sec Chloride (98-107) mmol/L Carbon Dioxide (20.0-27.5) mmol/L BUN (9.0-27.0) mg/dL Creatinine (0.52-1.04) mg/dL Est GFR (CKD-EPI)AfAm (60.0-200.0) Est GFR (CKD-EPI)NonAf (60.0-200.0) BUN/Creatinine Ratio (12.00-20.00) Ratio Glucose (70-110) mg/dL POC Glucose (mg/dL) 181 H (70-110) mg/dL Troponin I (0.000-0.034) ng/mL Microbiology - Last 24 Hours (Table) 01/15/23 13:17 Blood Culture - Preliminary Blood 01/15/23 13:00 Blood Culture - Preliminary Blood
[2023-01-17 12:11] LABS: Glucose,Whole Blood 174 mg/dL (70-110)
--- NOTE | 2023-01-17 13:33 | P.PN ---
Subjective Progress Note Date: 01/17/23 I'm seeing this patient in new consultation today 01/16/2023 for progressive shortness of breath. Patient is a 77-year-old female with past medical history of recent COVID-19 infection, mild COPD, obstructive sleep apnea, lung nodules, coronary artery disease with previous [place], hypertension, hyperlipidemia, lupus erythematous, and a remote [id number] smoking history. Patient had COVID-19 infection/pneumonia originally diagnosed back on 09/18/2022. She is vaccinated for COVID-19 with 2 doses Moderna and no booster injections. Patient is currently resting in bed, on room air, in no acute distress. Patient reports a persistent nonproductive cough and shortness of breath with exertion since her COVID19 infection. She denies any fevers, chest pain, hemoptysis. Chest CTA on arrival showed no evidence of pulmonary embolism. It did show a right middle lobe 2 cm opacity that was previously measured at 1.7 cm back in October of this year, 9 mm right mid lung nodule along the major fissure, unchanged 8 mm nodule along the minor fissure, and an unchanged calcified granuloma of the inferior lingula measuring 1 cm. Patient does follow Dr. Harris in the office, for monitoring of the patient's known lung nodules, and the plan was for repeat chest CT in February. There were also minimal emphysematous changes, a probable 2.3 cm right hepatic lobe hemangioma, and a 1.5 cm right lobe thyroid nodule. The suspicious 2 cm lesion could be related to postinflammatory changes related to her recent COVID-19 infection, but does not explain the patient's shortness of breath. Patient did have a recent evaluation by cardiology in the office. Patient reports that she had an echocardiogram done last Saturday. Results are pending. She was reportedly scheduled for an outpatient stress test. Denies any chest pain, orthopnea, palpitations, lower extremity swelling, or recent weight gain. Patient's CBC and BMP on arrival were essentially unremarkable. Troponin negative 1. NT proBNP was low at 376. Procalcitonin was also low at 0.07. Patient is being empirically covered with doxycycline and this could probably be discontinued. She remains afebrile. Also receiving a course of bronchodilators, IV Solu-Medrol. Vital signs are stable. The patient is seen today 01/17/2023 in follow-up on the regular medical floor. She is currently resting comfortably in bed. Awake and alert in no acute d istress. Maintaining O2 saturations in the 90s on room air. She is still dyspneic with minimal exertion. White count 18.3. Hemoglobin 10.4. Platelets 263. Sodium 138. Potassium 4.4. Bicarb 22. BUN 39. Creatinine 1.16. Glucose 190. She remains on a heparin drip for elevated troponins. Ec hocardiogram reveals left ventricular ejection fraction of 50%. There is a echodensity with free motion identified in the left ventricular outflow track attached to the aortic valve. Plan is for MENDY to rule out vegetation. Plan is for right and left heart catheterization per cardiology. Blood cultures are pending. She is continued on Symbicort and albuterol along with IV Solu-Medrol. She remains on normal saline at 130 ML's per hour. Objective - Vital Signs Vital signs: Vital Signs Temp 97.7 F 01/17/23 06:47 Pulse 80 01/17/23 12:23 Resp 16 01/17/23 06:47 BP 133/70 01/17/23 06:47 Pulse Ox 100 01/17/23 08:45 FiO2 Intake & Output 01/16/23 01/17/23 01/17/23 18:59 06:59 18:59 Intake Total 69.438 158.146 Output Total 3 Balance -3 69.438 158.146 Intake: Intake, IV Titration 69.438 158.146 Amount Heparin Sod,Pork in 0.45% 69.438 158.146 NaCl 25,000 unit In 0.45 % NaCl 1 250ml.bag @ 12 UNITS/KG/HR 9.689 mls/hr IV .Q24H [facility] [place] Rx#: [id number] Output: Urine 3 Other: # Voids 2 - Exam GENERAL EXAM: Alert, very pleasant 77-year-old female, on room air, comfortable in no apparent distress. HEAD: Normocephalic. EYES: Normal reaction of pupils, equal size. NOSE: Clear with pink turbinates. THROAT: No erythema or exudates. NECK: No masses, no JVD. CHEST: No chest wall deformity. LUNGS: Equal air entry with no crackles, wheeze, rhonchi or dullness. CVS: S1 and S2 normal with no audible murmur, regular rhythm. ABDOMEN: No hepatosplenomegaly, normal bowel sounds, no guarding or rigidity. SPINE: No scoliosis or deformity SKIN: No rashes CENTRAL NERVOUS SYSTEM: No focal deficits, tone is normal in all 4 extremities. EXTREMITIES: There is no peripheral edema. No clubbing, no cyanosis. Peripheral pulses are intact. - Labs CBC & Chem 7: 01/17/23 02:20 01/17/23 05:47 Labs: Abnormal Lab Results - Last 24 Hours (Table) 01/16/23 01/16/23 01/16/23 Range/Units 13:15 16:46 19:08 WBC 14.7 H (3.8-10.6) k/uL Hgb 11.0 L (11.4-16.0) gm/dL Hct (34.0-46.0) % Neutrophils # 12.6 H (1.3-7.7) k/uL APTT 32.2 H (22.0-30.0) sec Chloride (98-107) mmol/L BUN (7-17) mg/dL Creatinine (0.52-1.04) mg/dL Glucose (74-99) mg/dL POC Glucose (mg/dL) 235 H (70-110) mg/dL 01/16/23 01/17/23 01/17/23 Range/Units 20:37 02:20 02:20 WBC 18.3 H (3.8-10.6) k/uL Hgb 10.4 L (11.4-16.0) gm/dL Hct 32.4 L (34.0-46.0) % Neutrophils # 15.8 H (1.3-7.7) k/uL APTT 75.3 H (22.0-30.0) sec Chloride (98-107) mmol/L BUN (7-17) mg/dL Creatinine (0.52-1.04) mg/dL Glucose (74-99) mg/dL POC Glucose (mg/dL) 189 H (70-110) mg/dL 01/17/23 01/17/23 01/17/23 Range/Units 05:43 05:47 05:50 WBC (3.8-10.6) k/uL Hgb (11.4-16.0) gm/dL Hct (34.0-46.0) % Neutrophils # (1.3-7.7) k/uL APTT 74.3 H (22.0-30.0) sec Chloride 109 H (98-107) mmol/L BUN 39 H (7-17) mg/dL Creatinine 1.16 H (0.52-1.04) mg/dL Glucose 190 H (74-99) mg/dL POC Glucose (mg/dL) 181 H (70-110) mg/dL 01/17/23 Range/Units 12:10 WBC (3.8-10.6) k/uL Hgb (11.4-16.0) gm/dL Hct (34.0-46.0) % Neutrophils # (1.3-7.7) k/uL APTT (22.0-30.0) sec Chloride (98-107) mmol/L BUN (7-17) mg/dL Creatinine (0.52-1.04) mg/dL Glucose (74-99) mg/dL POC Glucose (mg/dL) 174 H (70-110) mg/dL Microbiology - Last 24 Hours (Table) 01/15/23 13:17 Blood Culture - Preliminary Blood 01/15/23 13:00 Blood Culture - Preliminary Blood Assessment and Plan Assessment: Dyspnea, currently under investigation. CT angiogram ruled out pulmonary embolism. Pro-calcitonin normal at 0.07. Echocardiogram reveals an echo d ensity with free motion identified in the left ventricular outflow track attached to the aortic valve. Plan is for MENDY and right and left heart catheterization today. Right middle lobe 2 cm opacity that was previously measured at 1.7 cm back in October of this year. Multiple other benign appearing nodules includein mm right mid lung nodule along the major fissure, unchanged 8 mm nodule along the minor fissure, and an unchanged calcified granuloma of the inferior lingula measuring 1 cm. Patient does follow Dr. Harris in the office, for monitoring of the patient's known lung nodules, and the plan was for repeat chest CT in February. Coronary artery disease with previous myocardial infarction History of mild COPD Hypertension Hyperlipidemia Obesity Diabetes mellitus type 2 Chronic kidney disease stage III Lupus erythematous Hypothyroidism Plan: The patient was seen and evaluated Echocardiogram, labs and medications reviewed Plan is for MENDY and right and left heart catheterization today Remains on a heparin drip for elevated troponins Continued on Symbicort, albuterol and IV Solu-Medrol Currently stable and on room air We'll continue to follow I have personally seen and examined the patient, performed the documentation and the assessment and plan as written. Number of minutes spent on the visit: 10.
[2023-01-17 16:22] LABS: Glucose,Whole Blood 191 mg/dL (70-110)
[2023-01-17 19:18] LABS: Glucose,Whole Blood 227 mg/dL (70-110)
[2023-01-18] MEDS: SODIUM CHLORIDE 0.9% 1,000 ML IV SCH ×2 (01:22→15:23)
[2023-01-18 04:52] LABS: Glucose,Whole Blood 191 mg/dL (70-110)
[2023-01-18] MEDS: LEVOTHYROXINE 100 MCG TAB PO SCH (05:21)
[2023-01-18] MEDS: methylPREDNISolone SOD SUCCI 125 MG/2 ML VIAL IV SCH ×2 (05:21→15:23)
[2023-01-18] MEDS: HEPARIN SOD,PORK IN 0.45% NACL 25,000 UNIT in 0.45% NACL 1 250ML.BAG IV SCH ×2 (05:22→20:02)
[2023-01-18] MEDS: INSULIN ASPART (NovoLOG) 100 UNIT/ML VIAL SQ SCH ×4 (06:13→21:21)
[2023-01-18] MEDS ORDERED: HEPARIN SODIUM,PORCINE 2,500 UNIT in SODIUM CHLORIDE 0.9% 250 ML IRRIGATION PRN (07:00)
[2023-01-18] MEDS ORDERED: HEPARIN SODIUM,PORCINE 10,000 UNIT in SODIUM CHLORIDE 0.9% 1,000 ML IRRIGATION PRN (07:00)
[2023-01-18] MEDS: SYMBICORT 160-4.5 MCG INHALER INHALATION SCH (08:19)
[2023-01-18] MEDS: ALBUTEROL NEBULIZED 2.5 MG/3 ML INHALATION SCH ×2 (08:19→12:39)
[2023-01-18] MEDS: LISINOPRIL-HCTZ 20-25 MG 1 EACH TAB PO SCH (09:27)
[2023-01-18] MEDS: ASPIRIN 81 MG PO SCH (09:27)
[2023-01-18] MEDS: METOPROLOL SUCCINATE (ER) 100 MG TAB.ER.24H PO SCH (09:27)
[2023-01-18] MEDS: LORATADINE 10 MG TAB PO SCH (09:27)
[2023-01-18 09:31] LABS: African American GFR (CKD) 46.1 (60.0-200.0); Anion Gap 10.2 mmol/L (10.00-18.00); BUN/Creat Ratio 36.54 Ratio (12.00-20.00); Blood Urea Nitrogen 47.5 mg/dL (9.0-27.0); Calcium 8.8 mg/dL (8.7-10.3); Carbon Dioxide 19.8 mmol/L (20.0-27.5); Non-African American GFR(CKD) 39.8 (60.0-200.0)
[2023-01-18 09:45] LABS: Basophils # (A) 0.03 X 10*3/uL (0.00-0.10); Basophils % (A) 0.2 %; Eosinophils # (A) 0 X 10*3/uL (0.04-0.35); Eosinophils % (A) 0 %; HCT 33.6 % (37.2-46.3); HGB 10.3 g/dL (12.0-15.0); Immature Grans, Automated 1.6 %; Lymphocytes # (A) 1.71 X 10*3/uL (0.90-5.00); Lymphocytes % (A) 8.8 %; MCH 27.2 pg (27.0-32.0); MCHC 30.7 g/dL (32.0-37.0); MCV 88.7 fL (80.0-97.0); Mean Platelet Volume 12.4 fL (9.5-12.2); Monocytes # (A) 0.63 X 10*3/uL (0.20-1.00); Monocytes % (A) 3.3 %; NRBC Per 100 WBC 0 /100 WBCS (0.0-0.0); Neutrophils # (A) 16.65 X 10*3/uL (1.80-7.70); Neutrophils % (A) 86.1 %; Platelet Count 314 X 10*3/uL (140-440); RBC 3.79 X 10*6/uL (4.10-5.20); RDW 13.5 % (11.5-14.5); WBC 19.33 X 10*3/uL (4.50-10.00)
[2023-01-18] MEDS ORDERED: fentaNYL (PF) 50 MCG/ML 2 ML AMP ONE (10:24)
[2023-01-18] MEDS ORDERED: IV FLUID CONTINUATION 400 ML IV ONE (10:30)
[2023-01-18] MEDS: BENZOCAINE SPRAY 1 CAN TOPICAL ONE ×2 (10:35→10:48)
[2023-01-18] MEDS: fentaNYL (PF) 50 MCG/ML 2 ML AMP IV ONE ×2 (10:48→10:54)
[2023-01-18] MEDS ORDERED: MIDAZOLAM 2 MG/2 ML VIAL IV ONE ×2 (10:48→10:52)
[2023-01-18] MEDS ORDERED: VERAPAMIL 2.5 MG/ML 2 ML AMP ONE (11:56)
[2023-01-18] MEDS: MIDAZOLAM 2 MG/2 ML VIAL IV ONE ×2 (12:09→12:15)
[2023-01-18] MEDS ORDERED: LIDOCAINE 1% INJ 10MG/ML (20 ML MDV) SQ ONE (12:10)
[2023-01-18] MEDS ORDERED: VERAPAMIL SYRINGE (5 MG/10 ML) INTRAARTER ONE (12:11)
[2023-01-18] MEDS ORDERED: IV FLUID CONTINUATION 1,000 ML IV ONE (12:15)
[2023-01-18] MEDS ORDERED: HEPARIN SODIUM 1,000 UN/ML (10ML VL) IV ONE (12:15)
[2023-01-18] MEDS ORDERED: IOPAMIDOL-370 125ML BTL INJ ONE (12:25)
[2023-01-18] MEDS ORDERED: SODIUM CHLORIDE 0.9% 1,000 ML IV SCH ×2 (12:30→20:00)
[2023-01-18] MEDS ORDERED: RX INFO: IV CONTRAST WAS GIVEN 1 EACH MISC MISCELLANE PRN (12:30)
--- NOTE | 2023-01-18 12:30 | P.PCN ---
Date of Procedure: 01/18/23 Operative Findings: TRANSESOPHAGEAL ECHOCARDIOGRAM EXTRUSION FORMER: IHSAN CASTANEDA MD, RPVI INDICATION: Rule out infective endocarditis SEDATION: Conscious sedation COMPLICATION: None LEVEL OF SEDATION Moderate to sedation length of 15 minutes PROCEDURE DESCRIPTION: After obtaining an informed consent, the patient was brought to transesophageal echocardiogram room. Pulse oximetry and heart monitors were attached to the patient. The patient throat was sprayed using lidocaine. The patient was turned into left lateral position. After that a bite guard was placed. After an appropriate conscious sedation was initiated, the transesophageal echocardiogram was advanced through a bite guard into the mid esophagus. A 2-D echocardiogram images, color Doppler images, continuous wave images, pulse-wave images, of various cardiac structure were performed. After that the transesophageal echocardiogram probe was advanced into the stomach and fixed to obtain transgastric view was. The probe was brought into the mid esophagus. Inter-atrial septum was interrogated using 2D images, color Doppler images, and then contrast study. After that transesophageal echocardiogram was withdrawn out and upon withdrawing the descending thoracic aorta all the way up to the arch was evaluated. FINDING: Left ventricular dimension and systolic function appeared to be within normal limits sprayed the ejection fraction appeared to be in the range of 50-55%. The right ventricle appeared to be of normal size and function. The left H appears to be dilated. The left atrial appendage appeared to be free from any thrombus. The interatrial septum appeared to be intact. The right atrium appears to be within normal limits for dimension. The aortic valve is mildly thickened and calcified was no stenosis or regurgitation. The mitral valve appeared to be mildly thickened with evidence off severe mitral regurgitation with a posteriorly directed jet. There is mild tricuspid regurgitation and no evidence of pulmonic insufficiency was identified. No evidence of any infective endocarditis identified. There is calcified plaque involving the aorta just distal to the aortic valve and appears to be mildly mobile. CONCLUSION: 1. No evidence of any infective endocarditis identified 2. Normal biventricular dimension and systolic function 3. Dilated left atrium. Normal right atrial dimension. Intact left atrial appendage. Intact interatrial septum 4. Mildly thickened mitral valve leaflets with evidence of severe mitral regurgitation with posteriorly directed jet. There was reversal of flow in the left lower pulmonary vein 5. Trileaflet aortic valve with no aortic stenosis or regurgitation identified 6. Intact tricuspid valve and pulmonic valve
--- NOTE | 2023-01-18 12:38 | P.PCN ---
Date of Procedure: 01/18/23 Operative Findings: CARDIAC CATHETERIZATION PERFORMING PHYSICIAN: Kalin Broussard MD, RPVI PROCEDURE PERFORMED: 1. Selective right and left coronary angiogram 2. Left heart catheterization 3. 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 Local anesthesia was performed using lidocaine subcutaneously. The right radial artery was cannulated using Seldinger technique, the guidewire passed easily, following that we advanced a 5-Cuban sheath dilator assembly, the wire and dilator were removed and sheath was flushed. Following that, 2 mg of verapamil along with 5000 unit heparin were given. Selective right and left coronary angiogram using a 6-Cuban JR4 and JL 3.5 catheters. Following that we did left heart catheterization using 6-Cuban pigtail catheter. The procedure was completed there was no complication. SELECTIVE CORONARY ANGIOGRAM: The right coronary artery: Large-caliber vessel and a dominant vessel. The RCA is a stented distally and the RCA is occluded distally and fills by contralateral collaterals from the left coronary system Left main: Has mild disease only. Bifurcates into LCx and LAD The left circumflex: Large-caliber vessel nondominant vessel. The LCx has critical disease in the proximal portion. The left anterior descending artery: Large caliber vessel. The LAD proximally has intermediate lesion appeared to be in the range of 50%. I did an iFR on it and that came in to be ischemic. That came in to be an 0.79 HEMODYNAMICS: The LVEDP was 20 mmHg was no gradient across aortic valve iFR OF THE LAF: After zeroing the Doppler wire and equalizing between the Doppler wire and the guiding catheter which was JL 3.5 guiding catheter and after engaging the left main and wiring the LAD we did an iFR and that came in to be ischemic at 0.79. The procedure was completed was no complication CONCLUSION: 1. Severe triple-vessel coronary artery disease 2. Chronic total occlusion of the distal RCA which was stented before 3. Critical disease involving the proximal left circumflex coronary artery 4. Intermediate disease involving the proximal LAD. iFR was performed and came in to be ischemic and 0.79 5. Elevated left-sided filling pressure POSTPROCEDURE MANAGEMENT: Consult surgeon for evaluation off coronary artery bypass grafting along with mitral valve repair
--- NOTE | 2023-01-18 12:45 | P.PN ---
Subjective Progress Note Date: 01/18/23 Hospital Course: 77-year-old female with a history of diabetes mellitus type 2, lupus, h ypothyroidism, GERD, hypertension, and myocardial infarction who was sent in by her primary care physician for dyspnea with exertion. On arrival to the ER her vital signs are within normal limits. Laboratory analysis was remarkable for BUN 29, creatinine 1.14 (baseline 1.2), and ALT of 46. The ER she was started on albuterol and Solu-Medrol. Antibiotics were ordered. Chest x-ray showed developing opacity in the right lung base. She reports shortness of breath since recovering from Covid in October. She has been working with her primary care physician Dr. Suresh. She has undergone an outpatient VQ scan, CT of the chest, venous Doppler, and renal CT. Her initial CT had shown a possible pulmonary nodule in the right lung base which was confirmed on yesterday's renal CT. Cardiology and pulmonology was consulted. Echocardiogram showed normal LV systolic function, possible echodensity with free motion identified in the LVOT attached to the aortic valve, moderate mitral regurgitation. MENDY did not show any evidence of infective endocarditis, did show dilated left atrium, and severe mitral regurgitation. Possible right and left heart cath. Subjective: Seen and examined at bedside. Her shortness of breath is still same. Most of her dyspnea is exertional. She denies any chest pain, palpitations, urinary or bowel complaints. Pertinent positives and negatives as discussed above, a complete review of systems was performed and all other systems are negative. Vitals Signs Reviewed. General: nontoxic, no distress, appears at stated age Derm: warm, dry Head: atraumatic, normocephalic, symmetric Eyes: EOMI, no lid lag, anicteric sclera Mouth: no lip lesion, mucus membranes moist Cardiovascular: S1S2 reg, no murmur Lungs: CTA bilateral, no rhonchi, no rales , no accessory muscle use Abdominal: soft, nontender to palpation, no guarding, no appreciable organomegaly Ext: no gross muscle atrophy, no edema, no contractures Neuro: CN II-XI grossly intact, no focal neuro deficits Psych: Alert, oriented, appropriate affect Data Reviewed Today: Pertinent Labs: WBC 19.33, hemoglobin 10.3, sodium 140, creatinine 1.3, glucose ranged between 174-227, APTT 107 this morning MENDY report reviewed, did not show any evidence of infective endocarditis, did show dilated left atrium, severe mitral regurgitation Blood cultures negative growth to date Assessment and Plan: Acute on chronic dyspnea Acute exacerbation of mild COPD out of proportion to symptoms of dyspnea Severe Mitral regurgitation NSTEMI Leukocytosis, likely steroid-induced Pulmonary Opacity - no improvement after course of cipro from PCP earlier this month. Need PET/CT as outpatient Diabetes mellitus type 2 with hyperglycemia due to steroids- Not on medications at baseline -Cardiology following, MENDY did not show any evidence of vegetation, blood cultures have been negative so far -Pending right and left heart cath -Patient remains on aspirin 81 mg, atorvastatin 40 mg, on heparin drip, monitor PTT, no active bleeding, CBC tomorrow -Pulmonology following -On bronchodilators as well as IV Solu-Medrol 60 mg every 6 hours -Sliding scale insulin, no changes today Chronic: CKD III, Cr 1.2 at baseline Hypertension Lupus Hypothyroidism HLD GERD DVT ppx: Heparin drip Code status: Full code Anticipated discharge place: Pending clinical course Anticipated discharge time: And clinical course Objective - Vital Signs Vital signs: Vital Signs Temp 97.6 F 01/18/23 07:27 Pulse 71 01/18/23 11:44 Resp 16 01/18/23 11:44 BP 240/102 01/18/23 11:44 Pulse Ox 95 01/18/23 11:44 FiO2 Intake & Output 01/17/23 01/18/23 01/18/23 18:59 06:59 18:59 Intake Total 379.366 4894.120 350 Balance 151.524 4703.120 350 Intake: IV 300 Intake, IV Titration 154.778 6685.120 50 Amount Heparin Sod,Pork in 0.45% 158.146 249.120 0 NaCl 25,000 unit In 0.45 % NaCl 1 250ml.bag @ 12 UNITS/KG/HR 9.689 mls/hr IV .Q24H [facility] Rx#: [id number] Sodium Chloride 0.9% 1, 760 50 000 ml @ 130 mls/hr IV . [id number] [facility] Rx#:[id number] Other: # Voids 4 - Labs CBC & Chem 7: 01/18/23 04:51 01/18/23 04:51 Labs: Abnormal Lab Results - Last 24 Hours (Table) 01/17/23 01/17/23 01/18/23 Range/Units 16:21 19:17 04:48 WBC (4.50-10.00) X 10*3/uL RBC (4.10-5.20) X 10*6/uL Hgb (12.0-15.0) g/dL Hct (37.2-46.3) % MCHC (32.0-37.0) g/dL MPV (9.5-12.2) fL Immature Gran # (0.00-0.04) X 10*3/uL Neutrophils # (1.80-7.70) X 10*3/uL Eosinophils # (0.04-0.35) X 10*3/uL APTT (22.0-30.0) sec Chloride (96-109) mmol/L Carbon Dioxide (20.0-27.5) mmol/L BUN (9.0-27.0) mg/dL Est GFR (CKD-EPI)AfAm (60.0-200.0) Est GFR (CKD-EPI)NonAf (60.0-200.0) BUN/Creatinine Ratio (12.00-20.00) Ratio Glucose (70-110) mg/dL POC Glucose (mg/dL) 191 H 227 H 191 H (70-110) mg/dL 01/18/23 01/18/23 01/18/23 Range/Units 04:51 04:51 04:51 WBC 19.33 H (4.50-10.00) X 10*3/uL RBC 3.79 L (4.10-5.20) X 10*6/uL Hgb 10.3 L (12.0-15.0) g/dL Hct 33.6 L (37.2-46.3) % MCHC 30.7 L (32.0-37.0) g/dL MPV 12.4 H (9.5-12.2) fL Immature Gran # 0.31 H (0.00-0.04) X 10*3/uL Neutrophils # 16.65 H (1.80-7.70) X 10*3/uL Eosinophils # 0 L (0.04-0.35) X 10*3/uL APTT 107.7 H* (22.0-30.0) sec Chloride 110 H (96-109) mmol/L Carbon Dioxide 19.8 L (20.0-27.5) mmol/L BUN 47.5 H (9.0-27.0) mg/dL Est GFR (CKD-EPI)AfAm 46.1 L (60.0-200.0) Est GFR (CKD-EPI)NonAf 39.8 L (60.0-200.0) BUN/Creatinine Ratio 36.54 H (12.00-20.00) Ratio Glucose 184 H (70-110) mg/dL POC Glucose (mg/dL) (70-110) mg/dL Microbiology - Last 24 Hours (Table) 01/15/23 13:17 Blood Culture - Preliminary Blood 01/15/23 13:00 Blood Culture - Preliminary Blood
--- NOTE | 2023-01-18 13:15 | P.PN ---
Subjective Progress Note Date: 01/18/23 I'm seeing this patient in new consultation today 01/16/2023 for progressive shortness of breath. Patient is a 77-year-old female with past medical history of recent COVID-19 infection, mild COPD, obstructive sleep apnea, lung nodules, coronary artery disease with previous NE, hypertension, hyperlipidemia, lupus erythematous, and a remote [id number] smoking history. Patient had COVID-19 infection/pneumonia originally diagnosed back on 09/18/2022. She is vaccinated for COVID-19 with 2 doses Moderna and no booster injections. Patient is currently resting in bed, on room air, in no acute distress. Patient reports a persistent nonproductive cough and shortness of breath with exertion since her COVID19 infection. She denies any fevers, chest pain, hemoptysis. Chest CTA on arrival showed no evidence of pulmonary embolism. It did show a right middle lobe 2 cm opacity that was previously measured at 1.7 cm back in October of this year, 9 mm right mid lung nodule along the major fissure, unchanged 8 mm nodule along the minor fissure, and an unchanged calcified granuloma of the inferior lingula measuring 1 cm. Patient does follow Dr. Harris in the office, for monitoring of the patient's known lung nodules, and the plan was for repeat chest CT in February. There were also minimal emphysematous changes, a probable 2.3 cm right hepatic lobe hemangioma, and a 1.5 cm right lobe thyroid nodule. The suspicious 2 cm lesion could be related to postinflammatory changes related to her recent COVID-19 infection, but does not explain the patient's shortness of breath. Patient did have a recent evaluation by cardiology in the office. Patient reports that she had an echocardiogram done last Saturday. Results are pending. She was reportedly scheduled for an outpatient stress test. Denies any chest pain, orthopnea, palpitations, lower extremity swelling, or recent weight gain. Patient's CBC and BMP on arrival were essentially unremarkable. Troponin negative 1. NT proBNP was low at 376. Procalcitonin was also low at 0.07. Patient is being empirically covered with doxycycline and this could probably be discontinued. She remains afebrile. Also receiving a course of bronchodilators, IV Solu-Medrol. Vital signs are stable. The patient is seen today 01/17/2023 in follow-up on the regular medical floor. She is currently resting comfortably in bed. Awake and alert in no acute d istress. Maintaining O2 saturations in the 90s on room air. She is still dyspneic with minimal exertion. White count 18.3. Hemoglobin 10.4. Platelets 263. Sodium 138. Potassium 4.4. Bicarb 22. BUN 39. Creatinine 1.16. Glucose 190. She remains on a heparin drip for elevated troponins. Ec hocardiogram reveals left ventricular ejection fraction of 50%. There is a echodensity with free motion identified in the left ventricular outflow track attached to the aortic valve. Plan is for MENDY to rule out vegetation. Plan is for right and left heart catheterization per cardiology. Blood cultures are pending. She is continued on Symbicort and albuterol along with IV Solu-Medrol. She remains on normal saline at 130 ML's per hour. The patient is seen today 01/18/2023 in follow-up on the regular medical floor. She is awake and alert in no acute distress. Currently resting comfortably in bed. Family is at the bedside. She is maintaining good O2 saturations in the 90s on room air. She is comfortable at rest. She still dyspneic with minimal exertion. Her MENDY and right and left heart cath were performed today, not yesterday. MENDY did not reveal any evidence of infective endocarditis. No thrombus. No ASD. There was normal biventricular dimension and systolic function. Ejection fraction 50-55%. There is evidence of severe mitral regurgitation. Cardiac catheterization revealed severe triple-vessel coronary artery disease with a chronic total occlusion of the distal RCA which was stented before. Critical disease involving the proximal left circumflex coronary artery. Intermediate disease involving the proximal LAD. Cardiothoracic surgery has been consulted. Objective - Vital Signs Vital signs: Vital Signs Temp 97.6 F 01/18/23 07:27 Pulse 78 01/18/23 12:49 Resp 16 01/18/23 12:49 BP 240/102 01/18/23 11:44 Pulse Ox 94 L 01/18/23 12:49 FiO2 Intake & Output 01/17/23 01/18/23 01/18/23 18:59 06:59 18:59 Intake Total 916.809 3522.120 350 Balance 269.675 3125.120 350 Intake: IV 300 Intake, IV Titration 984.425 4746.120 50 Amount Heparin Sod,Pork in 0.45% 158.146 249.120 0 NaCl 25,000 unit In 0.45 % NaCl 1 250ml.bag @ 12 UNITS/KG/HR 9.689 mls/hr IV .Q24H [facility] Rx#: [id number] Sodium Chloride 0.9% 1, 760 50 000 ml @ 130 mls/hr IV . Q7H42M [facility]RA[facility] Rx#:[id number] Other: # Voids 4 - Exam GENERAL EXAM: Alert, 77-year-old female, sitting up in bed, on room air, comfortable in no apparent distress. HEAD: Normocephalic. EYES: Normal reaction of pupils, equal size. NOSE: Clear with pink turbinates. THROAT: No erythema or exudates. NECK: No masses, no JVD. CHEST: No chest wall deformity. LUNGS: Equal air entry with no crackles, wheeze, rhonchi or dullness. CVS: S1 and S2 normal with no audible murmur, regular rhythm. ABDOMEN: No hepatosplenomegaly, normal bowel sounds, no guarding or rigidity. SPINE: No scoliosis or deformity SKIN: No rashes CENTRAL NERVOUS SYSTEM: No focal deficits, tone is normal in all 4 extremities. EXTREMITIES: There is no peripheral edema. No clubbing, no cyanosis. Peripheral pulses are intact. - Labs CBC & Chem 7: 01/18/23 04:51 01/18/23 04:51 Labs: Abnormal Lab Results - Last 24 Hours (Table) 01/17/23 01/17/23 01/18/23 Range/Units 16:21 19:17 04:48 WBC (4.50-10.00) X 10*3/uL RBC (4.10-5.20) X 10*6/uL Hgb (12.0-15.0) g/dL Hct (37.2-46.3) % MCHC (32.0-37.0) g/dL MPV (9.5-12.2) fL Immature Gran # (0.00-0.04) X 10*3/uL Neutrophils # (1.80-7.70) X 10*3/uL Eosinophils # (0.04-0.35) X 10*3/uL APTT (22.0-30.0) sec Chloride (96-109) mmol/L Carbon Dioxide (20.0-27.5) mmol/L BUN (9.0-27.0) mg/dL Est GFR (CKD-EPI)AfAm (60.0-200.0) Est GFR (CKD-EPI)NonAf (60.0-200.0) BUN/Creatinine Ratio (12.00-20.00) Ratio Glucose (70-110) mg/dL POC Glucose (mg/dL) 191 H 227 H 191 H (70-110) mg/dL 01/18/23 01/18/23 01/18/23 Range/Units 04:51 04:51 04:51 WBC 19.33 H (4.50-10.00) X 10*3/uL RBC 3.79 L (4.10-5.20) X 10*6/uL Hgb 10.3 L (12.0-15.0) g/dL Hct 33.6 L (37.2-46.3) % MCHC 30.7 L (32.0-37.0) g/dL MPV 12.4 H (9.5-12.2) fL Immature Gran # 0.31 H (0.00-0.04) X 10*3/uL Neutrophils # 16.65 H (1.80-7.70) X 10*3/uL Eosinophils # 0 L (0.04-0.35) X 10*3/uL APTT 107.7 H* (22.0-30.0) sec Chloride 110 H (96-109) mmol/L Carbon Dioxide 19.8 L (20.0-27.5) mmol/L BUN 47.5 H (9.0-27.0) mg/dL Est GFR (CKD-EPI)AfAm 46.1 L (60.0-200.0) Est GFR (CKD-EPI)NonAf 39.8 L (60.0-200.0) BUN/Creatinine Ratio 36.54 H (12.00-20.00) Ratio Glucose 184 H (70-110) mg/dL POC Glucose (mg/dL) (70-110) mg/dL Microbiology - Last 24 Hours (Table) 01/15/23 13:17 Blood Culture - Preliminary Blood 01/15/23 13:00 Blood Culture - Preliminary Blood Assessment and Plan Assessment: Dyspnea, secondary to severe triple-vessel coronary artery disease and severe mitral regurgitation. MENDY did not reveal any evidence of infective endocarditis. No thrombus. No ASD. There was normal biventricular dimension and systolic function. Ejection fraction 50-55%. There is evidence of severe mitral regurgitation. Cardiac catheterization revealed severe triple-vessel coronary artery disease with a chronic total occlusion of the distal RCA which was stented before. Critical disease involving the proximal left circumflex coronary artery. Intermediate disease involving the proximal LAD. Cardiothoracic services were consulted. Coronary artery disease with previous myocardial infarction and stenting to the RCA Right middle lobe 2 cm opacity that was previously measured at 1.7 cm back in October of this year. Multiple other benign appearing nodules includein mm right mid lung nodule along the major fissure, unchanged 8 mm nodule along the minor fissure, and an unchanged calcified granuloma of the inferior lingula measuring 1 cm. Patient does follow in our office, for the patient's known lung nodules, and the plan was for repeat chest CT in February. History of mild COPD Hypertension Hyperlipidemia Obesity Diabetes mellitus type 2 Chronic kidney disease stage III Lupus erythematous Hypothyroidism Plan: The patient was seen and evaluated Transesophageal echocardiogram, cardiac cath, labs and medications reviewed Cardio thoracic surgery has been consulted Remains on a heparin drip Discontinue Symbicort Discontinue IV Solu-Medrol Albuterol HFA as needed Currently stable and on room air We'll continue to follow I have personally seen and examined the patient, performed the documentation and the assessment and plan as written. Number of minutes spent on the visit: 10.
--- NOTE | 2023-01-18 14:57 | P.GSCN ---
History of Present Illness Consult date: 01/18/23 Reason for Consult: Triple-vessel coronary artery disease, mitral regurgitation Requesting physician: Klain Broussard History of present illness: This is a 77-year-old female patient who follows outpatient with Dr. Larry watts for primary care. She has a previous medical history of coronary artery disease with myocardial infarction and previous PCI to the RCA at [facility] in 2004, hypertension, hyperlipidemia, chronic kidney disease stage III, [id number] diabetes, hypothyroid, lupus, and previous tobacco dependence. Apparently she had covid in August 2022 and has had difficulty breathing with exertion ever since. She has followed up with her primary care several times, has seen pulmonology and placed on steroids which works for a short time, but her symptoms return. She had pulmonary function test completed at Dr. Harris's office, with results reporting mild obstructive disease. Dr. Sagastume recommended cardiology workup, and she underwent echocardiogram at [facility] and was scheduled for stress test in a couple of weeks. Unfortunately her shortness of breath continued to the point where she reported to [facility] emergency room for evaluation and treatment. She did have a CTA of the chest completed which ruled out pulmonary embolism, there was a 2.0 cm right middle lobe opacity with increasing soft tissue component and mild emphysematous change. Transthoracic echocardiogram was completed demonstrating normal left ventricular systolic function with EF 50%, mild mitral regurgitation, along with echodense lesion on the LVOT attached to the aortic valve. Due to this finding there was concern for endocarditis and the patient underwent MENDY today demonstrating EF 50-55%, posteriorly directed severe mitral regurgitation, and calcified plaque on the aorta distal to the aortic valve which was mildly mobile. She also had heart catheterization today demonstrating chronic total occlusion of the right coronary artery which filled by collaterals from the left, proximal LAD stenosis 50% with iFr 0.79, and critical proximal circumflex stenosis. Due to findings on heart catheterization and MENDY consultation was placed to Dr. Bermeo for surgical recommendations. Review of Systems Review of systems was completed and was negative except as noted - Cardiovascular Reports dyspnea on exertion, Reports shortness of breath Past Medical History Past Medical History: Coronary Artery Disease (CAD), Diabetes Mellitus, GERD/Reflux, Hyperlipidemia, Hypertension, Myocardial Infarction (MT), Thyroid Disorder Additional Past Medical History / Comment(s): Lupus with arthritis. Type II diabetes, hypothyroidism. 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 Last Myocardial Infarction Date:: 2004 History of Any Multi-Drug Resistant Organisms: None Reported Past Surgical History: Breast Surgery, Cholecystectomy, EPS, Heart Catheterization With Stent Additional Past Surgical History / Comment(s): Breast biopsies, cold knife colonization of the cervix, stent in 2004 Additional Past Anesthesia/Blood Transfusion Reaction / Comm: hard to wake up Date of Last Stent Placement:: March 23, 2005 Past Psychological History: Anxiety Smoking Status: Former smoker Past Alcohol Use History: None Reported Additional Past Alcohol Use History / Comment(s): Quit smoking in 1991. Past Drug Use History: None Reported - Past Family History Sister(s) Family Medical History: Cancer Additional Family Medical History / Comment(s): Ovarian cancer. Mother Family Medical History: Cancer Additional Family Medical History / Comment(s): Breast cancer. To maternal aunts had cancer in the abdomen and she believes they had ovarian cancer. Father Family Medical History: Cancer, Myocardial Infarction (MT) Additional Family Medical History / Comment(s): Colon cancer. Paternal uncle had colon cancer. Medications and Allergies Home Medications Medication Instructions Recorded Confirmed Type Aspirin 81 mg PO DAILY 04/28/19 01/15/23 History Levothyroxine Sodium [Synthroid] 100 mcg PO DAILY 04/28/19 01/15/23 History Metoprolol Succinate (ER) [Toprol 100 mg PO DAILY 04/28/19 01/15/23 History Xl] ALPRAZolam [Xanax] 0.5 mg PO BID PRN 01/15/23 01/15/23 History Albuterol Sulfate [Albuterol 2 puff INHALATION RT-Q6H PRN 01/15/23 01/15/23 History Sulfate Hfa] Cetirizine HCl [Zyrtec] 10 mg PO DAILY 01/15/23 01/15/23 History Evolocumab [Repatha Sureclick] 140 mg SQ Q14D 01/15/23 01/15/23 History Fluticasone Nasal Mckean [Flonase 1 spray EA NOSTRIL DAILY 01/15/23 01/15/23 History Nasal Mckean] Fluticasone Propion/Salmeterol 1 puff INHALATION RT-BID 04/25/23 04/25/23 History [Advair 250-50 Diskus] Lisinopril-Hctz 20-25 mg 1 tab PO DAILY 01/15/23 01/15/23 History [Zestoretic 20-25] Omeprazole [PriLOSEC] 40 mg PO DAILY 01/15/23 01/15/23 History Allergies Allergy/AdvReac Type Severity Reaction Status Date / Time amoxicillin [From Augmentin] Allergy Anaphylaxis Verified 01/15/23 14:56 clavulanic acid Allergy Anaphylaxis Verified 01/15/23 14:56 [From Augmentin] Sulfa (Sulfonamide Allergy Anaphylaxis Verified 01/15/23 14:56 Antibiotics) Surgical - Exam Vital Signs Temp Pulse Resp BP Pulse Ox 98.3 F 91 22 175/75 98 01/15/23 12:43 01/15/23 12:43 01/15/23 12:43 01/15/23 12:43 01/15/23 12:43 CONSTITUTIONAL: Awake and alert, appears comfortable, cooperative, well- developed, well-nourished, no pain, no acute distress EYES: Pupils equal, round, reactive to light, normal ocular movement ENT: Moist mucous membranes without oral lesions present NECK: No masses, no bruits, trachea midline RESPIRATORY: Lungs sounds clear to auscultation bilaterally. Respirations even, nonlabored. Currently on room air with oxygen saturation 97% CARDIOVASCULAR: S1, S2 present. Regular rate and rhythm, sinus rhythm on telemetry. Palpable peripheral pulses bilaterally. No edema present. No calf pain or tenderness noted. GASTROINTESTINAL: Abdomen soft, nontender, nondistended without masses or organomegaly noted. There is no rebound or guarding present. Active bowel sounds present 4 quadrants. GENITOURINARY: Deferred INTEGUMENTARY: Skin is warm and dry with evidence of good perfusion. Right radial heart cath site without drainage, T band in place NEUROLOGIC: Cranial nerves II through XII intact, normal coordination, no obvious motor or sensory deficits, speech is normal MUSKULOSKELETAL: Able to move all extremities, strength equal bilaterally, normal posture PSYCHIATRIC: Alert and oriented to person place and time, appropriate affect, intact judgment and insight Results - Labs 01/18/23 04:51 01/18/23 04:51 Abnormal Lab Results - Last 24 Hours (Table) 01/17/23 01/17/23 01/18/23 Range/Units 16:21 19:17 04:48 WBC (4.50-10.00) X 10*3/uL RBC (4.10-5.20) X 10*6/uL Hgb (12.0-15.0) g/dL Hct (37.2-46.3) % MCHC (32.0-37.0) g/dL MPV (9.5-12.2) fL Immature Gran # (0.00-0.04) X 10*3/uL Neutrophils # (1.80-7.70) X 10*3/uL Eosinophils # (0.04-0.35) X 10*3/uL APTT (22.0-30.0) sec Chloride (96-109) mmol/L Carbon Dioxide (20.0-27.5) mmol/L BUN (9.0-27.0) mg/dL Est GFR (CKD-EPI)AfAm (60.0-200.0) Est GFR (CKD-EPI)NonAf (60.0-200.0) BUN/Creatinine Ratio (12.00-20.00) Ratio Glucose (70-110) mg/dL POC Glucose (mg/dL) 191 H 227 H 191 H (70-110) mg/dL 01/18/23 01/18/23 01/18/23 Range/Units 04:51 04:51 04:51 WBC 19.33 H (4.50-10.00) X 10*3/uL RBC 3.79 L (4.10-5.20) X 10*6/uL Hgb 10.3 L (12.0-15.0) g/dL Hct 33.6 L (37.2-46.3) % MCHC 30.7 L (32.0-37.0) g/dL MPV 12.4 H (9.5-12.2) fL Immature Gran # 0.31 H (0.00-0.04) X 10*3/uL Neutrophils # 16.65 H (1.80-7.70) X 10*3/uL Eosinophils # 0 L (0.04-0.35) X 10*3/uL APTT 107.7 H* (22.0-30.0) sec Chloride 110 H (96-109) mmol/L Carbon Dioxide 19.8 L (20.0-27.5) mmol/L BUN 47.5 H (9.0-27.0) mg/dL Est GFR (CKD-EPI)AfAm 46.1 L (60.0-200.0) Est GFR (CKD-EPI)NonAf 39.8 L (60.0-200.0) BUN/Creatinine Ratio 36.54 H (12.00-20.00) Ratio Glucose 184 H (70-110) mg/dL POC Glucose (mg/dL) (70-110) mg/dL Microbiology - Last 24 Hours (Table) 01/15/23 13:17 Blood Culture - Preliminary Blood 01/15/23 13:00 Blood Culture - Preliminary Blood Diabetes panel 01/18/23 Range/Units 04:51 Sodium 140 (135-145) mmol/L Potassium 4.0 (3.5-5.5) mmol/L Chloride 110 H (96-109) mmol/L Carbon Dioxide 19.8 L (20.0-27.5) mmol/L BUN 47.5 H (9.0-27.0) mg/dL Creatinine 1.3 (0.6-1.5) mg/dL Glucose 184 H (70-110) mg/dL Calcium 8.8 (8.7-10.3) mg/dL Calcium panel 01/18/23 Range/Units 04:51 Calcium 8.8 (8.7-10.3) mg/dL Pituitary panel 01/18/23 Range/Units 04:51 Sodium 140 (135-145) mmol/L Potassium 4.0 (3.5-5.5) mmol/L Chloride 110 H (96-109) mmol/L Carbon Dioxide 19.8 L (20.0-27.5) mmol/L BUN 47.5 H (9.0-27.0) mg/dL Creatinine 1.3 (0.6-1.5) mg/dL Glucose 184 H (70-110) mg/dL Calcium 8.8 (8.7-10.3) mg/dL Adrenal panel 01/18/23 Range/Units 04:51 Sodium 140 (135-145) mmol/L Potassium 4.0 (3.5-5.5) mmol/L Chloride 110 H (96-109) mmol/L Carbon Dioxide 19.8 L (20.0-27.5) mmol/L BUN 47.5 H (9.0-27.0) mg/dL Creatinine 1.3 (0.6-1.5) mg/dL Glucose 184 H (70-110) mg/dL Calcium 8.8 (8.7-10.3) mg/dL - Imaging CT scan - chest: report reviewed, image reviewed Additional studies: Heart catheterization and echocardiogram films reviewed with Dr. Bermeo Assessment and Plan Assessment: Triple vessel coronary artery disease with myocardial infarction and previous PCI to the RCA at [facility] in 2004 Severe mitral regurgitation with posterior jet on MENDY Hypertension Hyperlipidemia, cholesterol 304, LDL 228, TG 186 in 11/2022 Chronic kidney disease stage III Uqt-[id number] diabetes, A1c 7.0 in 11/2022 Hypothyroid Lupus, not currently on medication Previous tobacco dependence Plan: The patient was seen and examined in the extended stay unit with Dr. Bermeo. Chart/diagnostics were reviewed with Dr. Bermeo. He did discuss the case in d etail with Dr. Broussard. The patient did express "if I am going to be high risk I don't want surgery". We reviewed the CTA of the chest and feel that the aorta is a prohibitive risk for surgery. Recommend Mitraclip +/- stenting of the left system. This was discussed between Dr. Bermeo and Dr. Broussard and both are in agreement. This was explained in detail to the patient and her family and they verbalized understanding. Please call us with any further questions. I have personally seen and examined the patient, performed the documentation and the assessment and plan as written. Number of minutes spent on the visit: 30. MIGUEL Christian
[2023-01-18] MEDS: PANTOPRAZOLE 40 MG TABLET PO SCH (15:21)
[2023-01-18] MEDS: FLUTICASONE 50MCG/SPRAY NASAL 16GM EA NOSTRIL SCH (15:21)
[2023-01-18 16:31] LABS: Glucose,Whole Blood 230 mg/dL (70-110)
[2023-01-18] MEDS ORDERED: CLOPIDOGREL 75 MG TAB PO STA (19:49)
[2023-01-18 19:58] LABS: Glucose,Whole Blood 152 mg/dL (70-110)
[2023-01-18] MEDS: ALBUTEROL NEBULIZED 2.5 MG/3 ML INHALATION PRN (21:34)
[2023-01-19 02:06] LABS: Basophils % (A) 0 %; Eosinophils % (A) 0 %; HCT 33.3 % (34.0-46.0); HGB 10.7 gm/dL (11.4-16.0); Lymphocytes # (A) 1.7 k/uL (1.0-4.8); Lymphocytes % (A) 12 %; MCH 27.1 pg (25.0-35.0); MCHC 32.1 g/dL (31.0-37.0); MCV 84.4 fL (80.0-100.0); Mean Platelet Volume 8.7; Monocytes % (A) 8 %; Neutrophils # (A) 10.4 k/uL (1.3-7.7); Neutrophils % (A) 77 %; Platelet Count 261 k/uL (150-450); RBC 3.94 m/uL (3.80-5.40); RDW 13.8 % (11.5-15.5); WBC 13.6 k/uL (3.8-10.6)
[2023-01-19 03:06] LABS: Calcium 8.3 mg/dL (8.4-10.2); Potassium 3.9 mmol/L (3.5-5.1)
[2023-01-19 05:30] LABS: Glucose,Whole Blood 139 mg/dL (70-110)
[2023-01-19] MEDS: INSULIN ASPART (NovoLOG) 100 UNIT/ML VIAL SQ SCH ×4 (05:30→20:53)
[2023-01-19] MEDS: LISINOPRIL-HCTZ 20-25 MG 1 EACH TAB PO SCH (05:36)
[2023-01-19] MEDS: METOPROLOL SUCCINATE (ER) 100 MG TAB.ER.24H PO SCH (05:36)
[2023-01-19] MEDS: LEVOTHYROXINE 100 MCG TAB PO SCH (05:36)
[2023-01-19] MEDS: ASPIRIN 81 MG PO SCH (05:36)
[2023-01-19] MEDS: PANTOPRAZOLE 40 MG TABLET PO SCH (05:36)
[2023-01-19] MEDS: LORATADINE 10 MG TAB PO SCH (05:36)
[2023-01-19] MEDS: CLOPIDOGREL 75 MG TAB PO SCH (05:36)
[2023-01-19] MEDS: ALBUTEROL NEBULIZED 2.5 MG/3 ML INHALATION PRN (06:14)
[2023-01-19] MEDS ORDERED: LORazepam 1 MG TAB PO STA (06:18)
[2023-01-19] MEDS ORDERED: IV FLUID CONTINUATION 900 ML IV ONE (06:50)
[2023-01-19] MEDS ORDERED: VERAPAMIL 2.5 MG/ML 2 ML AMP ONE (06:53)
[2023-01-19] MEDS ORDERED: HEPARIN SODIUM 1,000 UN/ML (10ML VL) ONE (06:54)
[2023-01-19] MEDS ORDERED: MIDAZOLAM 2 MG/2 ML VIAL IV ONE (07:14)
[2023-01-19] MEDS ORDERED: LIDOCAINE 1% INJ 10MG/ML (5 ML VIAL-PF) SQ ONE (07:14)
[2023-01-19] MEDS ORDERED: VERAPAMIL SYRINGE (5 MG/10 ML) INTRAARTER ONE (07:16)
[2023-01-19] MEDS ORDERED: HEPARIN SODIUM 1,000 UN/ML (10ML VL) IV ONE (07:17)
[2023-01-19] MEDS ORDERED: RX INFO: IV CONTRAST WAS GIVEN 1 EACH MISC MISCELLANE PRN (07:40)
[2023-01-19] MEDS ORDERED: ATROPINE SULFATE 0.1 MG/ML 10ML SYRINGE IV PRN (07:40)
[2023-01-19] MEDS ORDERED: NITROGLYCERIN SL TABS 0.4 MG TAB SUBLINGUAL PRN (07:40)
[2023-01-19] MEDS ORDERED: ZOLPIDEM 5 MG TAB PO PRN (07:40)
[2023-01-19] MEDS ORDERED: MAG HYDROX/AL HYDROX/SIMETH 30 ML CUP PO PRN (07:40)
[2023-01-19] MEDS ORDERED: IOPAMIDOL-370 125ML BTL INJ ONE (07:41)
[2023-01-19] MEDS ORDERED: SODIUM CHLORIDE 0.9% 1,000 ML in EMPTY BAG 1 BAG IV SCH (07:45)
--- NOTE | 2023-01-19 07:46 | P.PCN ---
Date of Procedure: 01/19/23 Operative Findings: PERCUTANEOUS CORONARY INTERVENTION Performing physician Kalin Broussard M.D. Procedure Performed: 1. Successful stenting of the proximal LCx using 2.25 x 15 mm Xience drug- eluting stent with an excellent angiographic results. 2. Intravascular ultrasound of the left anterior descending artery Indication: Acute coronary syndrome in this 77-year-old female patient who also was juan pablo gnosed with severe mitral regurgitation. She underwent a heart catheterization and that revealed chronic total occlusion of the RCA and critical disease involving the LCx and severe disease involving the LAD. She was referred for open heart surgery for bypass and mitral valve repair but she was deemed to be high risk giving her significant calcification in the aorta. In the light of that she was brought today to undergo an intervention on the left circumflex and LAD and subsequently she will be referred for an evaluation off mitral valve clip Approach: Right radial artery Complications: None Level of Sedation: Moderate with a sedation length of 20 minutes Procedure Discussion: After obtaining an informed consent the patient was brought to the cardiac medical laboratory manager. The right radial artery was cannulated using micropuncture technique, the micropuncture wire passed easily then I placed a 6-Uzbek sheath. I gave the patient 2 mg of verapamil intra-arterial and 6000 units of heparin intravenous. Subsequently I did engage the left main using JL 3.5 guiding catheter. I did wire the left circumflex using a run-through wire. I did predilatation using 2.0 mm balloon before I deployed 2.25 x 15 mm stent where the stent was positioned under fluoroscopy guidance and deployed under 12 deondre. The following angiogram showed good angiographic results. Subsequently the run-through wire was directed toward the left anterior descending artery. I did intravascular ultrasound of the left anterior descending artery and that showed a diameter around 4 mm. Further evaluation using angiogram and intravascular ultrasound revealed that the plaque in the proximal left anterior descending artery doesn't look significant enough even though the FFR yesterday was ischemic. For that reason I did not pursue intervention on the left anterior descending artery and I decided to treat the LAD medically at this point. Postprocedure Management: 1. Dual antiplatelet therapy for 12 month using aspirin and Plavix 2. Aggressive cholesterol control 3. Risk factors modification
[2023-01-19] MEDS: FLUTICASONE 50MCG/SPRAY NASAL 16GM EA NOSTRIL SCH (08:59)
[2023-01-19 10:59] VITALS: TEMP 98.1
[2023-01-19 11:37] LABS: Glucose,Whole Blood 133 mg/dL (70-110)
[2023-01-19] MEDS: DEXTROSE 5% IN WATER 1,000 ML with SODIUM BICARB (1 MEQ/ML) 150 ML IV SCH (11:45)
[2023-01-19 12:05] VITALS: BMI 33.6
--- NOTE | 2023-01-19 13:34 | P.PN ---
Subjective Progress Note Date: 01/19/23 Principal diagnosis: Severe coronary artery disease, severe mitral regurgitation I'm seeing this patient in new consultation today 01/16/2023 for progressive shortness of breath. Patient is a 77-year-old female with past medical history of recent COVID-19 infection, mild COPD, obstructive sleep apnea, lung nodules, coronary artery disease with previous VA, hypertension, hyperlipidemia, lupus erythematous, and a remote [id number] smoking history. Patient had COVID-19 infection/pneumonia originally diagnosed back on 09/18/2022. She is vaccinated for COVID-19 with 2 doses Moderna and no booster injections. Patient is currently resting in bed, on room air, in no acute distress. Patient reports a persistent nonproductive cough and shortness of breath with exertion since her COVID19 infection. She denies any fevers, chest pain, hemoptysis. Chest CTA on arrival showed no evidence of pulmonary embolism. It did show a right middle lobe 2 cm opacity that was previously measured at 1.7 cm back in October of this year, 9 mm right mid lung nodule along the major fissure, unchanged 8 mm nodule along the minor fissure, and an unchanged calcified granuloma of the inferior lingula measuring 1 cm. Patient does follow Dr. Harris in the office, for monitoring of the patient's known lung nodules, and the plan was for repeat chest CT in February. There were also minimal emphysematous changes, a probable 2.3 cm right hepatic lobe hemangioma, and a 1.5 cm right lobe thyroid nodule. The suspicious 2 cm lesion could be related to postinflammatory changes related to her recent COVID-19 infection, but does not explain the patient's shortness of breath. Patient did have a recent evaluation by cardiology in the office. Patient reports that she had an echocardiogram done last Saturday. Results are pending. She was reportedly scheduled for an outpatient stress test. Denies any chest pain, orthopnea, palpitations, lower extremity swelling, or recent weight gain. Patient's CBC and BMP on arrival were essentially unremarkable. Troponin negative 1. NT proBNP was low at 376. Procalcitonin was also low at 0.07. Patient is being empirically covered with doxycycline and this could probably be discontinued. She remains afebrile. Also receiving a course of bronchodilators, IV Solu-Medrol. Vital signs are stable. The patient is seen today 01/17/2023 in follow-up on the regular medical floor. She is currently resting comfortably in bed. Awake and alert in no acute distress. Maintaining O2 saturations in the 90s on room air. She is still dyspneic with minimal exertion. White count 18.3. Hemoglobin 10.4. Platelets 263. Sodium 138. Potassium 4.4. Bicarb 22. BUN 39. Creatinine 1.16. Glucose 190. She remains on a heparin drip for elevated troponins. Echocardiogram reveals left ventricular ejection fraction of 50%. There is a echodensity with free motion identified in the left ventricular outflow track attached to the aortic valve. Plan is for MENDY to rule out vegetation. Plan is for right and left heart catheterization per cardiology. Blood cultures are pending. She is continued on Symbicort and albuterol along with IV Solu-Medrol. She remains on normal saline at 130 ML's per hour. The patient is seen today 01/18/2023 in follow-up on the regular medical floor. She is awake and alert in no acute distress. Currently resting comfortably in bed. Family is at the bedside. She is maintaining good O2 saturations in the 90s on room air. She is comfortable at rest. She still dyspneic with minimal exertion. Her MENDY and right and left heart cath were performed today, not yesterday. MENDY did not reveal any evidence of infective endocarditis. No thrombus. No ASD. There was normal biventricular dimension and systolic functi on. Ejection fraction 50-55%. There is evidence of severe mitral regurgitation. Cardiac catheterization revealed severe triple-vessel coronary artery disease with a chronic total occlusion of the distal RCA which was stented before. Critical disease involving the proximal left circumflex coronar y artery. Intermediate disease involving the proximal LAD. Cardiothoracic surgery has been consulted. Patient was reevaluated today on 01/19/2023, patient was taken back to the cardiac Software Intern yesterday, and she underwent successful stenting of the proximal circumflex and she had intravascular ultrasound of the LAD however the decision was made to treat the LAD medically at this point. Patient was seen by cardiothoracic surgery on consultation, and it was felt that the patient is very high risk for myocardial revascularization and mitral valve repair, the recommendation is to pursue medical therapy and possibly further stenting if necessary. Dr. Bermeo recommended also mitral clip plus minus stenting of the left system. Again no plan to perform any myocardial revascularization or open mitral valve repair. Pulmonary-zurita, the patient is doing well, she was made aware that her pulmonary status is the least of her problem and she will need to have albuterol only as needed no other bronchodilators are necessary at this point. I have also recommended outpatient follow-up on her abnormality on the CT of the chest, may even consider a PET scan on outpatient basis Objective - Vital Signs Vital signs: Vital Signs Temp 98.1 F 01/19/23 08:00 Pulse 72 01/19/23 08:00 Resp 18 01/19/23 08:00 BP 158/75 01/19/23 08:00 Pulse Ox 99 01/19/23 08:00 FiO2 Intake & Output 01/18/23 01/19/23 01/19/23 18:59 06:59 18:59 Intake Total 750 221.174 240 Output Total 0 Balance 750 221.174 240 Weight 80.739 kg Intake: IV 400 100 Intake, IV Titration 350 121.174 Amount Heparin Sod,Pork in 0.45% 0 121.174 NaCl 25,000 unit In 0.45 % NaCl 1 250ml.bag @ 12 UNITS/KG/HR 9.689 mls/hr IV .Q24H [facility] Rx#: [id number] Sodium Chloride 0.9% 1, 50 000 ml @ 130 mls/hr IV . Q7H42M [facility] Rx#:[id number] Sodium Chloride 0.9% 1, 300 000 ml @ 75 mls/hr IV . [id number] [facility] Rx#:[id number] Oral 240 Output: Gastric Drainage 0 Urine 0 Stool 0 Urine/Stool Mix 0 Emesis 0 Oral Regurgitation 0 Other 0 Other: Voiding Method Toilet Toilet Toilet # Voids 2 0 # Bowel Movements 0 - Exam Physical Exam: Revealed 77-year-old female in no distress Head: Atraumatic normocephalic. HEENT:[Neck is supple.] [No neck masses.] [No thyromegaly.] [No JVD.] Chest: [Clear throughout, no crackles, no rhonchi, no wheezes.] Cardiac Exam: [Normal S1 and S2, no S3 gallop, 2/6 systolic murmur thought the precordium Abdomen: [Soft, nontender, no megaly, no rebound, no guarding, normal bowel sounds.] Extremities: [No clubbing, no edema, no cyanosis.] Neurological Exam: [No focal neurologic deficit.] Alert oriented 3 Psychiatric: Normal mood affect and normal mental status examination. Skin: No rashes. - Labs CBC & Chem 7: 01/19/23 01:58 01/19/23 01:58 Labs: Abnormal Lab Results - Last 24 Hours (Table) 01/18/23 01/18/23 01/19/23 Range/Units 16:29 19:57 01:58 WBC 13.6 H (3.8-10.6) k/uL Hgb 10.7 L (11.4-16.0) gm/dL Hct 33.3 L (34.0-46.0) % Neutrophils # 10.4 H (1.3-7.7) k/uL APTT (22.0-30.0) sec Chloride (98-107) mmol/L Carbon Dioxide (22-30) mmol/L BUN (7-17) mg/dL Creatinine (0.52-1.04) mg/dL Glucose (74-99) mg/dL POC Glucose (mg/dL) 230 H 152 H (70-110) mg/dL Calcium (8.4-10.2) mg/dL 01/19/23 01/19/23 01/19/23 Range/Units 01:58 01:58 05:29 WBC (3.8-10.6) k/uL Hgb (11.4-16.0) gm/dL Hct (34.0-46.0) % Neutrophils # (1.3-7.7) k/uL APTT 38.6 H (22.0-30.0) sec Chloride 110 H (98-107) mmol/L Carbon Dioxide 20 L (22-30) mmol/L BUN 42 H (7-17) mg/dL Creatinine 1.17 H (0.52-1.04) mg/dL Glucose 153 H (74-99) mg/dL POC Glucose (mg/dL) 139 H (70-110) mg/dL Calcium 8.3 L (8.4-10.2) mg/dL 01/19/23 Range/Units 11:35 WBC (3.8-10.6) k/uL Hgb (11.4-16.0) gm/dL Hct (34.0-46.0) % Neutrophils # (1.3-7.7) k/uL APTT (22.0-30.0) sec Chloride (98-107) mmol/L Carbon Dioxide (22-30) mmol/L BUN (7-17) mg/dL Creatinine (0.52-1.04) mg/dL Glucose (74-99) mg/dL POC Glucose (mg/dL) 133 H (70-110) mg/dL Calcium (8.4-10.2) mg/dL Microbiology - Last 24 Hours (Table) 01/15/23 13:17 Blood Culture - Preliminary Blood 01/15/23 13:00 Blood Culture - Preliminary Blood 01/17/23 10:30 Blood Culture - Preliminary Blood 01/17/23 10:15 Blood Culture - Preliminary Blood Assessment and Plan Assessment: Impression: Triple-vessel coronary artery disease with previous pci to RCA at [facility] in 2004, status post stenting of proximal circumflex by Dr. Marie on 01/18/2023 Severe mitral valve regurgitation Minimal COPD Benign essential hypertension Chronic kidney disease stage III History of lupus. Ex-smoker. Type 2 diabetes without complications. History of hypothyroidism Recommendation: Discussed the cardiac findings with the family and with the patient Discussed her previous PFT findings and made aware that her COPD is extremely minimal and clearly does not explain any of her symptoms of shortness of breath on exertion and all I would recommend is albuterol 2 puffs 3 times a day when necessary Discussed the results of the CT of the chest with this patient and I'm recommend ing possibly a PET scan on outpatient basis and follow up on that opacity in the right lung. Patient is to follow-up with me on outpatient basis. We will clear the patient for discharge once she is cleared by other consultants. Time with Patient: Less than 30
--- NOTE | 2023-01-19 15:40 | P.PN ---
Subjective Progress Note Date: 01/19/23 (delayed charting seen at 1030) Patient is a 77-year-old female with a history of diabetes mellitus type 2, lupus, hypothyroidism, GERD, hypertension, and myocardial infarction who was sen t in by her primary care physician for dyspnea with exertion. On arrival to the ER her vital signs are within normal limits. Laboratory analysis was remarkable for BUN 29, creatinine 1.14 (baseline 1.2), and ALT of 46. The ER she was started on albuterol and Solu-Medrol. Antibiotics were ordered. Chest x-ray showed developing opacity in the right lung base. She reports shortness of breath since recovering from Covid in October. She has been working with her primary care physician Dr. Suresh. She has undergone an outpatient VQ scan, CT of the chest, venous Doppler, and renal CT. Her initial CT had shown a possible pulmonary nodule in the right lung base which was confirmed on yeste anahi's renal CT. Her troponin elevated and she was started on a heparin gtt. She underwent cath which showed severe tripple vessel disease and MENDY which showed severe mitral valve regurg. Imaging: Cath showered severe tripple coronary artery disease with a chronic totoal occlusion of the distal RCA MENDY- severe mitral regurg, Patient seen and examined at bedside. Daughter present. Her wheezing is better than yesterday and she overall feels better. However she states she still is short of breath with ambulation. She denies any chest pain overnight. She does state that she slept better last night that she has been sleeping and she was not wheezing. Vital signs reviewed General: nontoxic, no distress, appears at stated age Cardiovascular: S1S2 reg, no murmur, positive posterior tibial pulse bilateral, Lungs: Diminished breath sounds bilateral, no rhonchi, no rales , no accessory muscle use Abdominal: soft, nontender to palpation, no guarding, no appreciable organomegaly Ext: no gross muscle atrophy, no edema, no contractures Neuro: CN II-XI grossly intact, no focal neuro deficits Psych: Alert, oriented, appropriate affect Assessment: Symptomatic CAD Severe mitral Valve Regurg Hyperchloremic metabolic acidosis Acute exacerbation of mild COPD Pulmonary Opacity - no improvement after course of cipro from PCP earlier this month. Need PET/CT as outpatient Diabetes mellitus type 2 with hyperglycemia due to steroids- Not on medications at baseline CKD III, Cr 1.2 at baseline Hypertension Lupus Hypothyroidism HLD Myocardial infarction GERD Imaging: Cath reviewed: Sucessful stenting of the Left circum flex with drug eluding stent. will need mitral valve clip Data Review: Vital signs reviewed temperature 98.1, pulse 72, respirations 18, blood pressure 150/75, O2 sat 99% on room air Labs reviewed and remarkable for white blood cell count 13.6 (down from 19.33, hemoglobin 10.7, BUN 42, creatinine 1.17 with a GFR of 45. Blood sugars reviewed. AM fasting blood sugar 139, prior blood sugars 152, 230, 191 Plan: - Pulmonary note reviewed: mild COPD, PET scan as outpatient due to the opacity in the right lung - Cardio thorasic note reviewed: right risk for surgery due to aorta being prohibitive risk for surgery and recommended mitralcip +/- stenting. - will need repeat BMP in AM due to contrast dye and CKD - ASA 81 mg, plavix 75 mg daily, lisinopril/hctz 20-25 mg daily, metoprolol 100 mg daily - SSI, follow BS -Symbicort, albuterol 4 times daily scheduled and every 2 hours when necessary -We will need repeat liver ultrasound in 3 months to assess hemangioma status, She will need outpatient thyroid ultrasound to assess for nodules - change IV fluids to D 5 with 3 amp of bicarb given patient hyperchloremic metabolic acidosis -metoprolol 100 mg daily, PPI 40 mg daily, Zyrtec 10 mg daily This dictation was prepared using [employer] voice recognition software. Though every attempt is made to correct errors during during dictation some may still exist. Objective - Vital Signs Vital signs: Vital Signs Temp 98.1 F 01/19/23 08:00 Pulse 69 01/19/23 11:25 Resp 18 01/19/23 11:25 BP 137/64 01/19/23 11:25 Pulse Ox 96 01/19/23 11:25 FiO2 Intake & Output 01/18/23 01/19/23 01/19/23 18:59 06:59 18:59 Intake Total 750 221.174 240 Output Total 0 Balance 750 221.174 240 Weight 80.739 kg Intake: IV 400 100 Intake, IV Titration 350 121.174 Amount Heparin Sod,Pork in 0.45% 0 121.174 NaCl 25,000 unit In 0.45 % NaCl 1 250ml.bag @ 12 UNITS/KG/HR 9.689 mls/hr IV .Q24H [facility] Rx#: [id number] Sodium Chloride 0.9% 1, 50 000 ml @ 130 mls/hr IV . Q7H42M [facility] Rx#:[id number] Sodium Chloride 0.9% 1, 300 000 ml @ 75 mls/hr IV . [id number] [facility] Rx#:[id number] Oral 240 Output: Gastric Drainage 0 Urine 0 Stool 0 Urine/Stool Mix 0 Emesis 0 Oral Regurgitation 0 Other 0 Other: Voiding Method Toilet Toilet Toilet # Voids 2 0 # Bowel Movements 0 - Labs CBC & Chem 7: 01/19/23 01:58 01/19/23 01:58 Labs: Abnormal Lab Results - Last 24 Hours (Table) 01/18/23 01/18/23 01/19/23 Range/Units 16:29 19:57 01:58 WBC 13.6 H (3.8-10.6) k/uL Hgb 10.7 L (11.4-16.0) gm/dL Hct 33.3 L (34.0-46.0) % Neutrophils # 10.4 H (1.3-7.7) k/uL APTT (22.0-30.0) sec Chloride (98-107) mmol/L Carbon Dioxide (22-30) mmol/L BUN (7-17) mg/dL Creatinine (0.52-1.04) mg/dL Glucose (74-99) mg/dL POC Glucose (mg/dL) 230 H 152 H (70-110) mg/dL Calcium (8.4-10.2) mg/dL 01/19/23 01/19/23 01/19/23 Range/Units 01:58 01:58 05:29 WBC (3.8-10.6) k/uL Hgb (11.4-16.0) gm/dL Hct (34.0-46.0) % Neutrophils # (1.3-7.7) k/uL APTT 38.6 H (22.0-30.0) sec Chloride 110 H (98-107) mmol/L Carbon Dioxide 20 L (22-30) mmol/L BUN 42 H (7-17) mg/dL Creatinine 1.17 H (0.52-1.04) mg/dL Glucose 153 H (74-99) mg/dL POC Glucose (mg/dL) 139 H (70-110) mg/dL Calcium 8.3 L (8.4-10.2) mg/dL 01/19/23 Range/Units 11:35 WBC (3.8-10.6) k/uL Hgb (11.4-16.0) gm/dL Hct (34.0-46.0) % Neutrophils # (1.3-7.7) k/uL APTT (22.0-30.0) sec Chloride (98-107) mmol/L Carbon Dioxide (22-30) mmol/L BUN (7-17) mg/dL Creatinine (0.52-1.04) mg/dL Glucose (74-99) mg/dL POC Glucose (mg/dL) 133 H (70-110) mg/dL Calcium (8.4-10.2) mg/dL Microbiology - Last 24 Hours (Table) 01/15/23 13:17 Blood Culture - Preliminary Blood 01/15/23 13:00 Blood Culture - Preliminary Blood 01/17/23 10:30 Blood Culture - Preliminary Blood 01/17/23 10:15 Blood Culture - Preliminary Blood
[2023-01-19 16:27] LABS: Glucose,Whole Blood 125 mg/dL (70-110)
[2023-01-19 20:32] LABS: Glucose,Whole Blood 122 mg/dL (70-110)
[2023-01-20] MEDS: DEXTROSE 5% IN WATER 1,000 ML with SODIUM BICARB (1 MEQ/ML) 150 ML IV SCH (04:15)
[2023-01-20] MEDS: INSULIN ASPART (NovoLOG) 100 UNIT/ML VIAL SQ SCH (06:41)
[2023-01-20] MEDS: LEVOTHYROXINE 100 MCG TAB PO SCH (06:44)
[2023-01-20 06:52] LABS: Glucose,Whole Blood 102 mg/dL (70-110)
[2023-01-20] MEDS: PANTOPRAZOLE 40 MG TABLET PO SCH (07:55)
[2023-01-20] MEDS: METOPROLOL SUCCINATE (ER) 100 MG TAB.ER.24H PO SCH (07:55)
[2023-01-20] MEDS: LORATADINE 10 MG TAB PO SCH (07:55)
[2023-01-20] MEDS: FLUTICASONE 50MCG/SPRAY NASAL 16GM EA NOSTRIL SCH (07:55)
[2023-01-20] MEDS: LISINOPRIL-HCTZ 20-25 MG 1 EACH TAB PO SCH (07:55)
[2023-01-20] MEDS: ASPIRIN 81 MG PO SCH (07:55)
[2023-01-20] MEDS: CLOPIDOGREL 75 MG TAB PO SCH (07:55)
[2023-01-20 08:48] VITALS: BP 145/70; PULSE 68; RESP 18
[2023-01-20 09:02] LABS: Potassium 3.4 mmol/L (3.5-5.1)
[2023-01-20 09:03] LABS: Calcium 8.2 mg/dL (8.4-10.2)
[2023-01-20 09:20] LABS: HCT 35.2 % (34.0-46.0); HGB 11.5 gm/dL (11.4-16.0); MCH 27.6 pg (25.0-35.0); MCHC 32.6 g/dL (31.0-37.0); MCV 84.6 fL (80.0-100.0); Mean Platelet Volume 8.8; Platelet Count 272 k/uL (150-450); RBC 4.16 m/uL (3.80-5.40); RDW 13.7 % (11.5-15.5); WBC 11.8 k/uL (3.8-10.6)
[2023-01-20] MEDS ORDERED: POTASSIUM CHLORIDE ER 20 MEQ TAB.ER PO STA (10:17)
--- NOTE | 2023-01-20 11:14 | P.DS ---
Providers Date of admission: 01/17/23 13:09 Expected date of discharge: 01/20/23 Attending physician: Gloria Connelly DO Consults: 01/15/23 14:32 Consult Physician Routine Consulting Provider: Rocio Nelson Consult Reason/Comments: Dyspnea Do you want consulting provider notified?: Yes Consult Physician Routine Consulting Provider: Oziel Harris Consult Reason/Comments: COPD exacerbation Do you want consulting provider notified?: Yes 01/18/23 12:53 Consult Physician Routine Consulting Provider: Mp Bermeo Consult Reason/Comments: CAD, severe MR Do you want consulting provider notified?: Already Contacted 01/19/23 07:40 Consult Physician Routine Consulting Provider: Rocio Nelson Consult Reason/Comments: Post Interventional Patient Do you want consulting provider notified?: Already Contacted Primary care physician: Larry Suresh MD Hospital Course: Discharge Diagnosis: Symptomatic CAD Severe mitral Valve Regurg Hyperchloremic metabolic acidosis Acute Exacerbation of mild COPD Pulmonary Opacity - Will need PET/CT as outpatient Diabetes mellitus type 2 with hyperglycemia due to steroids- Not on medications at baseline CKD III, Cr 1.2 at baseline Hypertension Lupus Hypothyroidism HLD Myocardial infarction GERD Hospital Course: Patient is a 77-year-old female with a history of diabetes mellitus type 2, lupus, hypothyroidism, GERD, hypertension, and myocardial infarction who was sent in by her primary care physician for dyspnea with exertion. On arrival to the ER her vital signs are within normal limits. Laboratory analysis was remarkable for BUN 29, creatinine 1.14 (baseline 1.2), and ALT of 46. The ER she was started on albuterol and Solu-Medrol. Antibiotics were ordered. Chest x-ray showed developing opacity in the right lung base. She reports shortness of breath since recovering from Covid in October. She has been working with her primary care physician Dr. Suresh. She has undergone an outpatient VQ scan, CT of the chest, venous Doppler, and renal CT. Her initial CT had shown a possible pulmonary nodule in the right lung base which was confirmed on yesterday's renal CT. she underwent dedicated chest CT which showed benign nodules as well as this lesion in the right lung base. She was evaluated by pulmonary and cardiology. Her troponin elevated and she was started on a heparin gtt. She underwent cath which showed severe tripple vessel disease and MENDY which showed severe mitral valve regurg. She was evaluated by CT surgery who felt she was high risk for open heart surgery. She therefore was taken back to laboratory animal facility supervisor and had a stent to her left circumflex. She tolerated the procedure well. Her breathing was significantly improved. She will follow up with Dr. Broussard in office for further evaluation and possible need for mitral clipping. She will follow up with Dr. Pinon for outpatient PET/computed tomography scan. Patient seen and examined at bedside. Doing well, wants to go home. No chest pain. Breathing is better since admission. Vital signs reviewed and stable. General: nontoxic, no distress, appears at stated age Derm: warm, dry Head: atraumatic, normocephalic, symmetric Eyes: EOMI, no lid lag, anicteric sclera Mouth: no lip lesion, mucus membranes moist Cardiovascular: S1S2 reg, no murmur, positive posterior tibial pulse bilateral, Lungs: CTA bilateral, no rhonchi, no rales , no accessory muscle use Abdominal: soft, nontender to palpation, no guarding, no appreciable organomegaly Ext: no gross muscle atrophy, no edema, no contractures Neuro: CN II-XI grossly intact, no focal neuro deficits Psych: Alert, oriented, appropriate affect A total of 37 minutes of time were spent preparing this complex discharge summary. Patient was discharged on 01/20/23. This dictation was prepared using [employer] voice recognition software. Though every attempt is made to correct errors during during dictation some may still exist. Patient Condition at Discharge: Stable Plan - Discharge Summary Discharge Rx Participant: No New Discharge Prescriptions: New Clopidogrel [Plavix] 75 mg PO DAILY #30 tab Continue Levothyroxine Sodium [Synthroid] 100 mcg PO DAILY Aspirin 81 mg PO DAILY Metoprolol Succinate (ER) [Toprol XL] 100 mg PO DAILY Fluticasone Nasal [place] [Flonase Nasal [place]] 1 spray EA NOSTRIL DAILY Albuterol Sulfate [Albuterol Sulfate Hfa] 2 puff INHALATION RT-Q6H PRN PRN Reason: Shortness Of Breath ALPRAZolam [Xanax] 0.5 mg PO BID PRN PRN Reason: Anxiety Lisinopril-Hctz 20-25 mg [Zestoretic 20-25] 1 tab PO DAILY Cetirizine HCl [Zyrtec] 10 mg PO DAILY Fluticasone Propion/Salmeterol [Advair 250-50 Diskus] 1 puff INHALATION RT- BID Omeprazole [PriLOSEC] 40 mg PO DAILY Evolocumab [Repatha Sureclick] 140 mg SQ Q14D Discharge Medication List Aspirin 81 mg PO DAILY 04/28/19 [History] Levothyroxine Sodium [Synthroid] 100 mcg PO DAILY 04/28/19 [History] Metoprolol Succinate (ER) [Toprol XL] 100 mg PO DAILY 04/28/19 [History] ALPRAZolam [Xanax] 0.5 mg PO BID PRN 01/15/23 [History] Albuterol Sulfate [Albuterol Sulfate Hfa] 2 puff INHALATION RT-Q6H PRN 01/15/23 [History] Cetirizine HCl [Zyrtec] 10 mg PO DAILY 01/15/23 [History] Evolocumab [Repatha Sureclick] 140 mg SQ Q14D 01/15/23 [History] Fluticasone Nasal [place] [Flonase Nasal [place]] 1 spray EA NOSTRIL DAILY 01/15/23 [History] Fluticasone Propion/Salmeterol [Advair 250-50 Diskus] 1 puff INHALATION RT-BID 01/15/23 [History] Lisinopril-Hctz 20-25 mg [Zestoretic 20-25] 1 tab PO DAILY 01/15/23 [History] Omeprazole [PriLOSEC] 40 mg PO DAILY 01/15/23 [History] Clopidogrel [Plavix] 75 mg PO DAILY #30 tab 01/20/23 [Rx] Follow up Appointment(s)/Referral(s): Oziel Harris MD [STAFF PHYSICIAN] - 01/29/23 2:30 pm Kalin Broussard MD [STAFF PHYSICIAN] - 1 Week Larry Suresh MD [Primary Care Provider] - 1-2 days Patient Instructions/Handouts: Acute Coronary Syndrome (DC), COPD (Chronic Obstructive Pulmonary Disease) (DC), Safe Use of Antiplatelet Medication (DC), After Radial Heart Catheterization (GEN) Activity/Diet/Wound Care/Special Instructions: Activity: as tolerated Diet: Heart Healthy Special Instructions: Please enure follow-up with Dr. Broussard for further evaluation of mitral valve Please ensure follow-up with Dr. Harris to arrange PET/CT regarding pulmonary lesion. Discharge Disposition: HOME SELF-CARE
--- NOTE | 2023-01-20 11:26 | P.PN ---
Subjective Progress Note Date: 01/20/23 HPI: This is a 77-year-old female with a past medical history significant for hypertension, hyperlipidemia, diabetes, former nicotine dependence, COPD, and Covid. We have been asked to see the patient in consultation for SOB. Patient states that she had Covid in August 2022 and since that time she has been feeling short of breath. She states that she has been seen by her primary care physician multiple times and will receive steroids. She states that when she is taking the steroid she feels better and as soon as she stops taking them she becomes short of breath again. She reports wheezing at home and coughing with occasional clear sputum production. She states that she becomes short of breath with minimal exertion such as walking to the bathroom. She denies any chest pain or pressure. She denies any swelling in the lower cavities. Denies any dizziness or lightheadedness. The patient reports she had an echocardiogram performed at the cardiology office last week. * EKG reveals sinus mechanism with no signs of acute ischemia * Chest xray increased density right lung base could reflect developing infiltrate * Chest CTA: LAD coronary artery calcifications are present. No evidence of pulmonary embolus and. Obesity and lateral right middle lobe now measuring 2 cm versus 1.7 cm previously and shows increasing soft tissue component. Lung cancer cannot be excluded. Probable 2.3 cm right hepatic lobe hemangioma. There appears to be 1.5 cm nodule in the right lobe of the thyroid. * Current home cardiac medications include aspirin 81 mg daily, lisinopril-hydrochlorothiazide 20-25mg daily, metoprolol succinate 100 mg daily, and Repatha 140mg SQ Q14 days 01/20 Seen and examined. She is doing well and wants to go home. Chest pain has improved. Denies any shortness of breath. Hgb 11.5, creat 1.15. PHYSICAL EXAM: VITAL SIGNS: Reviewed. GENERAL: Well-developed in no acute distress. HEENT: Head is normocephalic. Pupils are equal, round. Sclerae anicteric. Mucous membranes of the mouth are moist. Neck supple. No JVD or thyromegaly LUNGS: Respirations even and unlabored. Lungs essentially clear to auscultation bilaterally. HEART: Regular rate and rhythm. S1 and S2 heard. 2/6 mumur. ABDOMEN: Soft. Nondistended. Nontender. EXTREMITIES: Normal range of motion. No clubbing or cyanosis. Peripheral pulses intact. No lower extremity edema. Right radial site without hematoma, distal pulses present. NEUROLOGIC: Awake and alert. Oriented x 3. ASSESSMENT: Chronic shortness of breath since Covid in August 2022, etiology unclear Coronary artery disease with stenting, details unknown, at [facility] in 2004. S/p PC prox left cx 01/19/23 Right-sided pulmonary nodules COPD Hypertension Hyperlipidemia, intolerant to statin therapy, on Repatha Diabetes Former nicotine dependence PLAN: Patient is doing well s/p PCI. Continue DAPT with aspirin and plavix. She will follow up with Dr. Broussard in clinic in 1 week. Referral for mitral clip eval as an outpatient, to be addressed at follow up appointment. OK to discharge home from cardiology standpoint. Nurse practitioner note has been reviewed by physician. Signing provider agrees with the documented findings, assessment, and plan of care. Objective - Vital Signs Vital signs: Vital Signs Temp 98.1 F 01/19/23 08:00 Pulse 68 01/20/23 08:00 Resp 18 01/20/23 08:00 BP 145/70 01/20/23 08:00 Pulse Ox 95 01/20/23 08:00 FiO2 Intake & Output 01/19/23 01/20/23 01/20/23 18:59 06:59 18:59 Intake Total 480 Output Total 0 0 0 Balance 480 0 0 Weight 80.739 kg Intake: Oral 480 Output: Gastric Drainage 0 Urine 0 Stool 0 0 0 Urine/Stool Mix 0 Emesis 0 Oral Regurgitation 0 Other 0 Other: Voiding Method Toilet Toilet Toilet # Voids 0 1 # Bowel Movements 0 1 - Labs CBC & Chem 7: 01/20/23 07:25 01/20/23 07:25 Labs: Abnormal Lab Results - Last 24 Hours (Table) 01/19/23 01/19/23 01/19/23 Range/Units 11:35 16:26 20:20 WBC (3.8-10.6) k/uL Potassium (3.5-5.1) mmol/L Carbon Dioxide (22-30) mmol/L BUN (7-17) mg/dL Creatinine (0.52-1.04) mg/dL POC Glucose (mg/dL) 133 H 125 H 122 H (70-110) mg/dL Calcium (8.4-10.2) mg/dL 01/20/23 01/20/23 Range/Units 07:25 07:25 WBC 11.8 H (3.8-10.6) k/uL Potassium 3.4 L (3.5-5.1) mmol/L Carbon Dioxide 31 H (22-30) mmol/L BUN 32 H (7-17) mg/dL Creatinine 1.15 H (0.52-1.04) mg/dL POC Glucose (mg/dL) (70-110) mg/dL Calcium 8.2 L (8.4-10.2) mg/dL Microbiology - Last 24 Hours (Table) 01/15/23 13:17 Blood Culture - Preliminary Blood 01/15/23 13:00 Blood Culture - Preliminary Blood 01/17/23 10:30 Blood Culture - Preliminary Blood 01/17/23 10:15 Blood Culture - Preliminary Blood
[2023-01-20 11:50] LABS: Glucose,Whole Blood 108 mg/dL (70-110)
--- NOTE | 2023-01-20 11:58 | P.PN ---
Subjective Progress Note Date: 01/20/23 Principal diagnosis: Severe coronary artery disease, severe mitral regurgitation I'm seeing this patient in new consultation today 01/16/2023 for progressive shortness of breath. Patient is a 77-year-old female with past medical history of recent COVID-19 infection, mild COPD, obstructive sleep apnea, lung nodules, coronary artery disease with previous NE, hypertension, hyperlipidemia, lupus erythematous, and a remote [id number] smoking history. Patient had COVID-19 infection/pneumonia originally diagnosed back on 09/18/2022. She is vaccinated for COVID-19 with 2 doses Moderna and no booster injections. Patient is currently resting in bed, on room air, in no acute distress. Patient reports a persistent nonproductive cough and shortness of breath with exertion since her COVID19 infection. She denies any fevers, chest pain, hemoptysis. Chest CTA on arrival showed no evidence of pulmonary embolism. It did show a right middle lobe 2 cm opacity that was previously measured at 1.7 cm back in October of this year, 9 mm right mid lung nodule along the major fissure, unchanged 8 mm nodule along the minor fissure, and an unchanged calcified granuloma of the inferior lingula measuring 1 cm. Patient does follow Dr. Harris in the office, for monitoring of the patient's known lung nodules, and the plan was for repeat chest CT in February. There were also minimal emphysematous changes, a probable 2.3 cm right hepatic lobe hemangioma, and a 1.5 cm right lobe thyroid nodule. The suspicious 2 cm lesion could be related to postinflammatory changes related to her recent COVID-19 infection, but does not explain the patient's shortness of breath. Patient did have a recent evaluation by cardiology in the office. Patient reports that she had an echocardiogram done last Saturday. Results are pending. She was reportedly scheduled for an outpatient stress test. Denies any chest pain, orthopnea, palpitations, lower extremity swelling, or recent weight gain. Patient's CBC and BMP on arrival were essentially unremarkable. Troponin negative 1. NT proBNP was low at 376. Procalcitonin was also low at 0.07. Patient is being empirically covered with doxycycline and this could probably be discontinued. She remains afebrile. Also receiving a course of bronchodilators, IV Solu-Medrol. Vital signs are stable. The patient is seen today 01/17/2023 in follow-up on the regular medical floor. She is currently resting comfortably in bed. Awake and alert in no acute distress. Maintaining O2 saturations in the 90s on room air. She is still dyspneic with minimal exertion. White count 18.3. Hemoglobin 10.4. Platelets 263. Sodium 138. Potassium 4.4. Bicarb 22. BUN 39. Creatinine 1.16. Glucose 190. She remains on a heparin drip for elevated troponins. Echocardiogram reveals left ventricular ejection fraction of 50%. There is a echodensity with free motion identified in the left ventricular outflow track attached to the aortic valve. Plan is for MENDY to rule out vegetation. Plan is for right and left heart catheterization per cardiology. Blood cultures are pending. She is continued on Symbicort and albuterol along with IV Solu-Medrol. She remains on normal saline at 130 ML's per hour. The patient is seen today 01/18/2023 in follow-up on the regular medical floor. She is awake and alert in no acute distress. Currently resting comfortably in bed. Family is at the bedside. She is maintaining good O2 saturations in the 90s on room air. She is comfortable at rest. She still dyspneic with minimal exertion. Her MENDY and right and left heart cath were performed today, not yesterday. MENDY did not reveal any evidence of infective endocarditis. No thrombus. No ASD. There was normal biventricular dimension and systolic functi on. Ejection fraction 50-55%. There is evidence of severe mitral regurgitation. Cardiac catheterization revealed severe triple-vessel coronary artery disease with a chronic total occlusion of the distal RCA which was stented before. Critical disease involving the proximal left circumflex coronar y artery. Intermediate disease involving the proximal LAD. Cardiothoracic surgery has been consulted. Patient was reevaluated today on 01/19/2023, patient was taken back to the cardiac [employer] yesterday, and she underwent successful stenting of the proximal circumflex and she had intravascular ultrasound of the LAD however the decision was made to treat the LAD medically at this point. Patient was seen by cardiothoracic surgery on consultation, and it was felt that the patient is very high risk for myocardial revascularization and mitral valve repair, the recommendation is to pursue medical therapy and possibly further stenting if necessary. Dr. Bermeo recommended also mitral clip plus minus stenting of the left system. Again no plan to perform any myocardial revascularization or open mitral valve repair. Pulmonary-zurita, the patient is doing well, she was made aware that her pulmonary status is the least of her problem and she will need to have albuterol only as needed no other bronchodilators are necessary at this point. I have also recommended outpatient follow-up on her abnormality on the CT of the chest, may even consider a PET scan on outpatient basis Reevaluated today on 01/20/2023, patient is being considered for discharge today. Apparently cardiology will manage the patient on outpatient basis for her pulmonary status I only recommended albuterol as needed and I'm recommending that the patient should have either a repeat CT of the chest in the next couple of months or possibly a PET scan to evaluate her right lung nodule. Objective - Vital Signs Vital signs: Vital Signs Temp 98.1 F 01/19/23 08:00 Pulse 68 01/20/23 08:00 Resp 18 01/20/23 08:00 BP 145/70 01/20/23 08:00 Pulse Ox 95 01/20/23 08:00 FiO2 Intake & Output 01/19/23 01/20/23 01/20/23 18:59 06:59 18:59 Intake Total 480 Output Total 0 0 0 Balance 480 0 0 Weight 80.739 kg Intake: Oral 480 Output: Gastric Drainage 0 Urine 0 Stool 0 0 0 Urine/Stool Mix 0 Emesis 0 Oral Regurgitation 0 Other 0 Other: Voiding Method Toilet Toilet Toilet # Voids 0 1 # Bowel Movements 0 1 - Exam Physical Exam: Revealed 77-year-old female in no distress, on room air. Head: Atraumatic normocephalic. HEENT:[Neck is supple.] [No neck masses.] [No thyromegaly.] [No JVD.] Chest: [Clear throughout, no crackles, no rhonchi, no wheezes.] Cardiac Exam: [Normal S1 and S2, no S3 gallop, 2/6 systolic murmur thought the precordium Abdomen: [Soft, nontender, no megaly, no rebound, no guarding, normal bowel sounds.] Extremities: [No clubbing, no edema, no cyanosis.] Neurological Exam: [No focal neurologic deficit.] Alert oriented 3 Psychiatric: Normal mood affect and normal mental status examination. Skin: No rashes. - Labs CBC & Chem 7: 01/20/23 07:25 01/20/23 07:25 Labs: Abnormal Lab Results - Last 24 Hours (Table) 01/19/23 01/19/23 01/20/23 Range/Units 16:26 20:20 07:25 WBC 11.8 H (3.8-10.6) k/uL Potassium (3.5-5.1) mmol/L Carbon Dioxide (22-30) mmol/L BUN (7-17) mg/dL Creatinine (0.52-1.04) mg/dL POC Glucose (mg/dL) 125 H 122 H (70-110) mg/dL Calcium (8.4-10.2) mg/dL 01/20/23 Range/Units 07:25 WBC (3.8-10.6) k/uL Potassium 3.4 L (3.5-5.1) mmol/L Carbon Dioxide 31 H (22-30) mmol/L BUN 32 H (7-17) mg/dL Creatinine 1.15 H (0.52-1.04) mg/dL POC Glucose (mg/dL) (70-110) mg/dL Calcium 8.2 L (8.4-10.2) mg/dL Microbiology - Last 24 Hours (Table) 01/15/23 13:17 Blood Culture - Preliminary Blood 01/15/23 13:00 Blood Culture - Preliminary Blood 01/17/23 10:30 Blood Culture - Preliminary Blood 01/17/23 10:15 Blood Culture - Preliminary Blood Assessment and Plan Assessment: Impression: Triple-vessel coronary artery disease with previous pci to RCA at [facility] in 2004, status post stenting of proximal circumflex by Dr. Marie on 01/18/2023 Severe mitral valve regurgitation Minimal COPD Benign essential hypertension Chronic kidney disease stage III History of lupus. Ex-smoker. Type 2 diabetes without complications. History of hypothyroidism Recommendation: Agree with discharge planning Patient should have follow-up with Dr. Marie on outpatient basis Patient should take albuterol only as needed 2 puffs 4 times a day when necessary Needs to follow-up with me on her lung nodule, may consider a PET scan or a repeat CT of the chest in the next couple of months Patient will make appointment on her own in my office Time with Patient: Less than 30
== END 2023-01-20 11:57 | disposition home or self-care (01) | DRG 247 ==
LOC: EC 12:41 → 4SSUR 14:37 → OBSVTOIN 01-17 13:09 → 3SCARD 01-18 14:31
PROVIDERS: ADMIT Internal Medicine; ATTEND Internal Medicine
PROC: B24BZZ4 Ultrasonography of Heart with Aorta, Transesophageal (ICD-10-PCS; 2023-01-18)
PROC: 4A033BC Measurement of Arterial Pressure, Coronary, Percutaneous Approach (ICD-10-PCS; 2023-01-18 07:30)
PROC: B2111ZZ Fluoroscopy of Multiple Coronary Arteries using Low Osmolar Contrast (ICD-10-PCS; 2023-01-18 07:30)
PROC: 4A023N7 Measurement of Cardiac Sampling and Pressure, Left Heart, Percutaneous Approach (ICD-10-PCS; 2023-01-18 07:30)
PROC: B240ZZ3 Ultrasonography of Single Coronary Artery, Intravascular (ICD-10-PCS; principal; 2023-01-19 06:49)
PROC: 027034Z Dilation of Coronary Artery, One Artery with Drug-eluting Intraluminal Device, Percutaneous Approach (ICD-10-PCS; principal; 2023-01-19 06:49)
DX: I24.9 Acute ischemic heart disease, unspecified (principal); J44.1 Chronic obstructive pulmonary disease with (acute) exacerbation; E87.20 Acidosis, unspecified; D63.1 Anemia in chronic kidney disease; I25.82 Chronic total occlusion of coronary artery; E11.22 Type 2 diabetes mellitus with diabetic chronic kidney disease; E87.8 Other disorders of electrolyte and fluid balance, not elsewhere classified; D18.03 Hemangioma of intra-abdominal structures; L93.0 Discoid lupus erythematosus; E11.65 Type 2 diabetes mellitus with hyperglycemia; N18.30 Chronic kidney disease, stage 3 unspecified; I25.84 Coronary atherosclerosis due to calcified coronary lesion; I25.10 Atherosclerotic heart disease of native coronary artery without angina pectoris; E03.9 Hypothyroidism, unspecified; I34.0 Nonrheumatic mitral (valve) insufficiency; I12.9 Hypertensive chronic kidney disease with stage 1 through stage 4 chronic kidney disease, or unspecified chronic kidney disease; T38.0X5A Adverse effect of glucocorticoids and synthetic analogues, initial encounter; F41.9 Anxiety disorder, unspecified; K21.9 Gastro-esophageal reflux disease without esophagitis; G47.33 Obstructive sleep apnea (adult) (pediatric); I25.2 Old myocardial infarction; M19.90 Unspecified osteoarthritis, unspecified site; R91.8 Other nonspecific abnormal finding of lung field; E78.00 Pure hypercholesterolemia, unspecified; E66.9 Obesity, unspecified; Z68.33 Body mass index [BMI] 33.0-33.9, adult; Z79.82 Long term (current) use of aspirin; Z79.890 Hormone replacement therapy; Z79.899 Other long term (current) drug therapy; Z95.5 Presence of coronary angioplasty implant and graft; Z87.891 Personal history of nicotine dependence; Z86.16 Personal history of COVID-19; Z71.3 Dietary counseling and surveillance; Z88.2 Allergy status to sulfonamides; Z88.0 Allergy status to penicillin; Z82.49 Family history of ischemic heart disease and other diseases of the circulatory system
CPT/HCPCS: 36415; 71046; 71275; 80048; 80053; 83735; 83880; 84100; 84145; 84484; 85025; 85027; 85610; 85730; 92978; 93005; 93306; 93312; 93320; 93325; 93458; 93799; 94640; 94760; 96374; 99285

== ENCOUNTER → 2023-02-08 | Outpatient (CLI) | payer MEDICARE ==
--- NOTE | 2023-02-08 10:16 | PE ---
EXAMINATION TYPE: PET CT fusion skull to thigh DATE OF EXAM: 02/08/2023 COMPARISON: CTA chest January 15, 2023 HISTORY: Solitary pulmonary nodule TECHNIQUE: Following the intravenous administration of 12.0 mCi of F-18 FDG, whole body images are p erformed from the skull base to the midthigh. Images are reviewed on the computer in the coronal, ax ial, and sagittal planes. Reconstructed rotating images are created on independent workstation and r eviewed on the computer. A localization and attenuation correction CT is performed in conjunction w ith the PET scan. BGL = 111. SCAN: Initial Scan FINDINGS: SKULL BASE AND NECK: No areas of abnormal hypermetabolic uptake. CHEST, MEDIASTINUM, AND HILAR REGION: Fairly stable 1.6 x 0.9 cm nodule in the right middle lobe axia l image 98 shows no abnormal hypermetabolic uptake. There is 9 mm calcified nodule or benign granulom a in the lingula at this level redemonstrated. No areas of abnormal hypermetabolic uptake in the thor ax. ABDOMEN AND PELVIS: Normal excretion is seen. No hypermetabolic adrenal masses. No areas of abnormal hypermetabolic uptake. OSSEOUS STRUCTURES: No areas of abnormal hypermetabolic uptake. OTHER CT: Moderate calcified plaque bilateral carotid bulb level. Moderate to severe three-vessel cor onary artery calcification is redemonstrated. Cholecystectomy clips are redemonstrated. A few sigmoid colonic diverticula are seen. IMPRESSION: No suspicious hypermetabolic uptake to suggest malignancy. Consider short-term CT follow- up in 6-12 months time to reassess.
== END | disposition home or self-care (01) ==
LOC: RADPETMAIN 07:40
PROVIDERS: ATTEND Internal Medicine
DX: R91.1 Solitary pulmonary nodule (principal)
CPT/HCPCS: 78815; A9552

== ENCOUNTER 2023-03-13 06:49 | Day surgery (SDC) | payer MEDICARE ==
[2023-03-13] MEDS ORDERED: ALPRAZolam 0.25 MG TAB PO PRN (07:04)
[2023-03-13] MEDS ORDERED: ALPRAZolam 0.5 MG TAB PO PRN (07:04)
[2023-03-13] MEDS ORDERED: SODIUM CHLORIDE 0.9% 1,000 ML in EMPTY BAG 1 BAG IV ONE (07:04)
[2023-03-13] MEDS ORDERED: ASPIRIN 325 MG TAB PO STA (07:04)
[2023-03-13] MEDS ORDERED: HEPARIN SODIUM,PORCINE 2,500 UNIT in SODIUM CHLORIDE 0.9% 250 ML IRRIGATION PRN (07:04)
[2023-03-13] MEDS ORDERED: HEPARIN SODIUM,PORCINE 10,000 UNIT in SODIUM CHLORIDE 0.9% 1,000 ML IRRIGATION PRN (07:04)
[2023-03-13] MEDS ORDERED: ATORVASTATIN 80 MG TAB PO STA (07:04)
[2023-03-13] MEDS ORDERED: NITROGLYCERIN SL TABS 0.4 MG TAB SUBLINGUAL PRN ×2 (07:04→11:32)
[2023-03-13] MEDS ORDERED: METOPROLOL SUCCINATE (ER) 100 MG TAB.ER.24H PO STA (07:27)
[2023-03-13] MEDS ORDERED: LISINOPRIL-HCTZ 20-25 MG 1 EACH TAB PO STA (07:27)
[2023-03-13] MEDS ORDERED: VERAPAMIL 2.5 MG/ML 2 ML AMP ONE (09:59)
[2023-03-13] MEDS ORDERED: HEPARIN SODIUM 1,000 UN/ML (10ML VL) ONE (10:26)
[2023-03-13] MEDS ORDERED: MIDAZOLAM 2 MG/2 ML VIAL IVP ONE ×2 (10:49→11:02)
[2023-03-13] MEDS ORDERED: LIDOCAINE 1% INJ 10MG/ML (5 ML VIAL-PF) SQ ONE (10:50)
[2023-03-13] MEDS ORDERED: LIDOCAINE 1% INJ 10MG/ML (20 ML MDV) ONE (10:53)
[2023-03-13] MEDS ORDERED: LIDOCAINE 1% INJ 10MG/ML (20 ML MDV) SQ ONE (10:54)
[2023-03-13] MEDS ORDERED: HEPARIN SODIUM 1,000 UN/ML (10ML VL) IV ONE (11:00)
[2023-03-13] MEDS ORDERED: CLOPIDOGREL 75 MG TAB ONE (11:20)
[2023-03-13] MEDS ORDERED: CLOPIDOGREL 75 MG TAB PO ONE (11:25)
[2023-03-13] MEDS ORDERED: IOPAMIDOL-370 100ML BTL INJ ONE (11:26)
[2023-03-13] MEDS ORDERED: ZOLPIDEM 5 MG TAB PO PRN (11:32)
[2023-03-13] MEDS ORDERED: MAG HYDROX/AL HYDROX/SIMETH 30 ML CUP PO PRN (11:32)
[2023-03-13] MEDS ORDERED: RX INFO: IV CONTRAST WAS GIVEN 1 EACH MISC MISCELLANE PRN (11:32)
[2023-03-13] MEDS ORDERED: ATROPINE SULFATE 0.1 MG/ML 10ML SYRINGE IV PRN (11:32)
--- NOTE | 2023-03-13 11:40 | P.PCN ---
Date of Procedure: 03/13/23 Operative Findings: CARDIAC CATHETERIZATION AND PERCUTANEOUS CORONARY INTERVENTION PERFORMING PHYSICIAN: Kalin Broussard MD, VI PROCEDURE PERFORMED: 1. Selective right and left coronary angiogram 2. Successful stenting of proximal LAD using 4.0 x 18 mm Xience CUBA with an excellent angiographic results 3. Adjunctive use of intravascular ultrasound 4. Ultrasound-guided access of the right common femoral artery and right common femoral artery angiogram INDICATION: Shortness of breath in this 77-year-old female patient who continues to be symptomatic beach she is known to have severe CAD involving the LAD which was documented by Doppler wire and she underwent recently stenting of the left circumflex beach she is also known to have chronic total occlusion of the RCA COMPLICATION: None APPROACH: Right common femoral artery LEVEL OF SEDATION: Moderate with the sedation time off 34 minutes PROCEDURE DESCRIPTION: After obtaining an informed consent the patient was brought to the cardiac general labor. The right common femoral artery was cannulated using puncture technique under ultrasound guidance, the micropuncture wire passed easily then I placed a 6-Frisian sheath. After that anticoagulation was initiated using heparin with c ontinuous ACT monitoring. Subsequently I did engage the left main using JL 3.5 guiding catheter. I did wire the LAD using a run-through wire. Intravascular ultrasound was performed and showed calcified LAD but not extremely calcified with a diameter between 4 mm and 4.5 mm mid I predilated using 3.5 mm balloon before I deployed 4.0 x 18 mm stent where the stent was positioned under fluoroscopy guidance and deployed under 14 deondre for 20 seconds. Postdilatation was performed using 4.5 mm balloon. Final angiogram showed good angiographic results and the procedure was completed was no complication SELECTIVE CORONARY ANGIOGRAM: The right coronary artery: Is known to be chronically occluded and fills by collateral from the left coronary system Left main: Has mild disease only. Bifurcates into an LCx and LAD The left circumflex: Large caliber vessel nondominant vessel. The LCx the stent appeared to be patent The left anterior descending artery: Large caliber vessel with intermediate lesion in the proximal to midportion with Doppler wire in the past documenting flow limiting lesion. POSTPROCEDURE MANAGEMENT: 1. Dual antiplatelet therapy using aspirin and Plavix for at least 6 month 2. Aggressive cholesterol control 3. Follow-up with the patient
[2023-03-13] MEDS ORDERED: SODIUM CHLORIDE 0.9% 1,000 ML in EMPTY BAG 1 BAG IV SCH (11:45)
[2023-03-13 14:38] VITALS: BMI 33.7
[2023-03-13] MEDS: ACETAMINOPHEN TAB 325 MG TAB PO PRN (21:23)
[2023-03-14] MEDS: ACETAMINOPHEN TAB 325 MG TAB PO PRN (06:04)
[2023-03-14 06:18] LABS: African American GFR (CKD) 63 (>60 ml/min/1.73 sqM); Non-African American GFR(CKD) 54 (>60 ml/min/1.73 sqM)
[2023-03-14] MEDS ORDERED: LEVOTHYROXINE 100 MCG TAB PO SCH (06:30)
[2023-03-14] MEDS ORDERED: PANTOPRAZOLE 40 MG TABLET PO SCH (07:30)
--- NOTE | 2023-03-14 08:00 | P.DS ---
Providers Attending physician: Kalin Broussard Consults: 03/13/23 11:32 Consult Physician Routine Consulting Provider: [facility] Consult Reason/Comments: Post Interventional patient Do you want consulting provider notified?: Already Contacted Primary care physician: Larry Suresh MD Hospital Course: The patient is a 77-year-old female patient who underwent yesterday successful stenting of the left anterior descending artery with a good angiographic results and with no complication from right groin approach. She was seen this morning. She is asymptomatic and she is hemodynamically stable. The patient is going to be discharged home on dual antiplatelet therapy and statin and I will follow-up with the patient next week in the office Plan - Discharge Summary Discharge Rx Participant: Yes New Discharge Prescriptions: No Action Levothyroxine Sodium [Synthroid] 100 mcg PO DAILY Aspirin 81 mg PO DAILY Metoprolol Succinate (ER) [Toprol XL] 100 mg PO DAILY Lisinopril-Hctz 20-25 mg [Zestoretic 20-25] 1 tab PO DAILY Cetirizine HCl [Zyrtec] 10 mg PO DAILY Omeprazole [PriLOSEC] 40 mg PO DAILY Evolocumab [Repatha Sureclick] 140 mg SQ Q14D Clopidogrel [Plavix] 75 mg PO DAILY #30 tab Discharge Medication List Aspirin 81 mg PO DAILY 04/28/19 [History] Levothyroxine Sodium [Synthroid] 100 mcg PO DAILY 04/28/19 [History] Metoprolol Succinate (ER) [Toprol XL] 100 mg PO DAILY 04/28/19 [History] Cetirizine HCl [Zyrtec] 10 mg PO DAILY 01/15/23 [History] Evolocumab [Repatha Sureclick] 140 mg SQ Q14D 01/15/23 [History] Lisinopril-Hctz 20-25 mg [Zestoretic 20-25] 1 tab PO DAILY 01/15/23 [History] Omeprazole [PriLOSEC] 40 mg PO DAILY 01/15/23 [History] Clopidogrel [Plavix] 75 mg PO DAILY #30 tab 01/20/23 [Rx] Follow up Appointment(s)/Referral(s): Kalin Broussard MD [STAFF PHYSICIAN] - 1 Week (APPOINTMENT MADE ON February @ 2:45PM ) Patient Instructions/Handouts: *Surgery [facility] - After Heart Catheterization - Forming And Assembling Supervisor Instructions, Moderate Sedation (DC) Activity/Diet/Wound Care/Special Instructions: *NO LIFTING, PUSHING, OR PULLING ANYTHING OVER 5 POUNDS FOR 5 DAYS *NO DRIVING FOR 3 DAYS *YOU CAN REMOVE YOUR DRESSING TOMORROW AND SHOWER AT THAT TIME BUT DO NOT SUBMERSE YOUR PUNCTURE SITE IN WATER FOR A FEW DAYS TO PREVENT INFECTION - SO NO TUB BATHS, POOLS, HOT TUBS, DISHES...ETC *ANY SIGNS OF BLEEDING (HARDNESS, SWELLING, OR EXCESSIVE BRUISING) HOLD DIRECT PRESSURE ON YOUR PUNCTURE SITE AND COME TO THE NEAREST EMERGENCY ROOM TO GET YOUR PUNCTURE SITE LOOKED AT - DO NOT DRIVE YOURSELF! EITHER CALL EMS OR HAVE SOMEONE DRIVE YOU!
[2023-03-14 08:31] VITALS: BP 119/67; PULSE 77; RESP 16; TEMP 98.7
[2023-03-14] MEDS ORDERED: LORATADINE 10 MG TAB PO SCH (09:00)
[2023-03-14] MEDS ORDERED: LISINOPRIL-HCTZ 20-25 MG 1 EACH TAB PO SCH (09:00)
[2023-03-14] MEDS ORDERED: METOPROLOL SUCCINATE (ER) 100 MG TAB.ER.24H PO SCH (09:00)
[2023-03-14] MEDS ORDERED: ASPIRIN 81 MG PO SCH (09:00)
[2023-03-14] MEDS ORDERED: CLOPIDOGREL 75 MG TAB PO SCH (09:00)
[2023-03-26] MEDS ORDERED: NON FORMULARY DRUG (Evolocumab [Repatha Sureclick] 140 MG/ML Each) SQ SCH (09:00)
== END 2023-03-14 08:55 | disposition home or self-care (01) ==
LOC: CATHCVL 06:49 → 6NMEDSUR 11:20 → CATHCVL 03-14 08:55
PROVIDERS: ATTEND Internal Medicine Interventional Cardiology
DX: I25.10 Atherosclerotic heart disease of native coronary artery without angina pectoris (principal); I25.82 Chronic total occlusion of coronary artery; Z95.5 Presence of coronary angioplasty implant and graft; I34.0 Nonrheumatic mitral (valve) insufficiency; I10 Essential (primary) hypertension; E78.5 Hyperlipidemia, unspecified; J44.9 Chronic obstructive pulmonary disease, unspecified; F17.210 Nicotine dependence, cigarettes, uncomplicated; E11.9 Type 2 diabetes mellitus without complications; Z82.49 Family history of ischemic heart disease and other diseases of the circulatory system; Z79.02 Long term (current) use of antithrombotics/antiplatelets; Z79.82 Long term (current) use of aspirin; Z79.899 Other long term (current) drug therapy; Z88.2 Allergy status to sulfonamides
CPT/HCPCS: 92978; 93454; 82565; C9600; C1887; C1769 ×3; C1725 ×2; C1753; C1874; C1760; J2250; J2001 ×2; J1644; Q9967

== ENCOUNTER → 2023-05-13 | Outpatient (CLI) | payer MEDICARE ==
[2023-05-13 17:08] LABS: T4, Free (Free Thyroxine) 1.5 ng/dL (0.80-1.80)
== END | disposition home or self-care (01) ==
LOC: LABWHC1 12:16
PROVIDERS: ATTEND Internal Medicine
DX: E03.9 Hypothyroidism, unspecified (principal)
CPT/HCPCS: 36415; 84439; 84443

== ENCOUNTER → 2023-08-26 | Outpatient (CLI) | payer MEDICARE ==
--- NOTE | 2023-08-26 12:21 | CT ---
EXAMINATION TYPE: CT chest wo con DATE OF EXAM: 08/26/2023 COMPARISON: 01/15/2023 HISTORY: f/u nodules CT DLP: 469.6 mGycm, Automated exposure control for dose reduction was used. CONTRAST: Performed injected with 0 mL of Isovue 300. TECHNIQUE: Axial images were obtained at 5 mm thick sections. Reconstructed images are reviewed on [employer] computer in the coronal plane. FINDINGS: Portion of the thyroid visualized is normal. There is a calcified pleural-based nodule anterior lingula. Series 4 image 34. There is an irregular density within the right middle lobe measuring 2.9 x 1.0 cm. This was present p reviously measuring 1.5 x 2.5 cm. No enlarged mediastinal or hilar adenopathy is evident. The ascending aorta diameter at the level o f the main pulmonary artery is 3.3 cm. The main pulmonary artery diameter at the bifurcation is 3.0 cm. Coronary artery calcifications present. Limited CT sections are obtained through the upper abdomen. Small hiatal hernia is present. IMPRESSION: 1. Stable right middle lobe density. 2. Benign-appearing granuloma left lung base. 3. Hiatal hernia. 4. Follow-up exam in 6 months can be performed.
== END | disposition home or self-care (01) ==
LOC: RADCTMAIN 11:47
PROVIDERS: ATTEND Internal Medicine
DX: J98.4 Other disorders of lung (principal); J84.10 Pulmonary fibrosis, unspecified; K44.9 Diaphragmatic hernia without obstruction or gangrene; R91.1 Solitary pulmonary nodule
CPT/HCPCS: 71250

== ENCOUNTER → 2023-09-26 | Outpatient (CLI) | payer MEDICARE ==
[2023-09-26 18:35] LABS: HCT 37.3 % (37.2-46.3); HGB 11.4 g/dL (12.0-15.0); MCH 26.3 pg (27.0-32.0); MCHC 30.6 g/dL (32.0-37.0); MCV 85.9 FL (80.0-97.0); Mean Platelet Volume 11.3 FL (9.5-12.2); NRBC Per 100 WBC 0 X 10*3/uL (0.00-0.01); Platelet Count 347 X 10*3/uL (140-440); RBC 4.34 X 10*6/uL (4.10-5.20); WBC 10.61 X 10*3/uL (4.50-10.00)
[2023-09-26 18:41] LABS: Blood Urea Nitrogen 26.6 mg/dL (9.0-27.0)
[2023-09-26 18:42] LABS: Carbon Dioxide 25.8 mmol/L (21.6-31.8); Chloride 104 mmol/L (96-109); Potassium 4.4 mmol/L (3.5-5.5); Sodium 142 mmol/L (135-145)
== END | disposition home or self-care (01) ==
LOC: LABWHC1 14:15
PROVIDERS: ATTEND Internal Medicine Interventional Cardiology
DX: Z01.812 Encounter for preprocedural laboratory examination (principal); I34.0 Nonrheumatic mitral (valve) insufficiency; I25.10 Atherosclerotic heart disease of native coronary artery without angina pectoris
CPT/HCPCS: 36415; 80051; 82565; 84520; 85027

== ENCOUNTER 2023-10-03 08:08 | Day surgery (SDC) | payer MEDICARE ==
[2023-09-30 11:07] VITALS: BMI 34.0
[~2023-10-03 08:08] MED LIST: ALPRAZolam 0.25 MG TAB PO PRN; ALPRAZolam 0.5 MG TAB PO PRN; ASPIRIN 325 MG TAB PO STA; HEPARIN SODIUM,PORCINE (1 ML) 2,500 UNIT in SODIUM CHLORIDE 0.9% 250 ML IRRIGATION PRN; HEPARIN SODIUM,PORCINE 10,000 UNIT in SODIUM CHLORIDE 0.9% 1,000 ML IRRIGATION PRN; NITROGLYCERIN SL TABS 0.4 MG TAB SUBLINGUAL PRN
[2023-10-03] MEDS: SODIUM CHLORIDE 0.9% 1,000 ML in EMPTY BAG 1 BAG IV SCH ×2 (08:15→17:35)
[2023-10-03] MEDS ORDERED: SODIUM CHLORIDE 0.9% 1,000 ML IV ONE (08:23)
[2023-10-03 08:32] LABS: Basophils # (A) 0.1 k/uL (0-0.2); Basophils % (A) 1 %; Eosinophils # (A) 0.3 k/uL (0-0.7); Eosinophils % (A) 3 %; HCT 38.4 % (34.0-46.0); HGB 12.2 gm/dL (11.4-16.0); Hypochromasia Slight; Lymphocytes # (A) 3.1 k/uL (1.0-4.8); Lymphocytes % (A) 27 %; MCH 26.6 pg (25.0-35.0); MCHC 31.7 g/dL (31.0-37.0); MCV 84.1 fL (80.0-100.0); Monocytes # (A) 0.7 k/uL (0-1.0); Monocytes % (A) 6 %; Neutrophils % (A) 61 %; Platelet Count 332 k/uL (150-450); RBC 4.57 m/uL (3.80-5.40); RDW 13.3 % (11.5-15.5); WBC 11.5 k/uL (3.8-10.6)
[2023-10-03 08:32] LABS: Glucose,Whole Blood 121 mg/dL (70-110)
[2023-10-03 08:57] LABS: African American GFR (CKD) 52 (>60 ml/min/1.73 sqM); Anion Gap 12 mmol/L; Blood Urea Nitrogen 31 mg/dL (7-17); Calcium 9.3 mg/dL (8.4-10.2); Carbon Dioxide 25 mmol/L (22-30); Chloride 103 mmol/L (98-107); Glucose 126 mg/dL (74-99); Non-African American GFR(CKD) 45 (>60 ml/min/1.73 sqM); Potassium 3.8 mmol/L (3.5-5.1); Sodium 140 mmol/L (137-145)
[2023-10-03] MEDS ORDERED: VERAPAMIL 2.5 MG/ML 2 ML AMP ONE (10:47)
[2023-10-03] MEDS ORDERED: LIDOCAINE 1% INJ 10MG/ML (20 ML MDV) ONE (10:47)
[2023-10-03] MEDS ORDERED: HEPARIN SODIUM 1,000 UN/ML (10ML VL) ONE (10:52)
[2023-10-03] MEDS ORDERED: MIDAZOLAM 2 MG/2 ML VIAL IVP ONE (11:09)
[2023-10-03] MEDS: LIDOCAINE 1% INJ 10MG/ML (20 ML MDV) SQ ONE ×2 (11:10→11:14)
[2023-10-03] MEDS ORDERED: IOPAMIDOL-370 100ML BTL INJ ONE (11:26)
[2023-10-03] MEDS ORDERED: RX INFO: IV CONTRAST WAS GIVEN 1 EACH MISC MISCELLANE PRN (11:46)
--- NOTE | 2023-10-03 11:51 | P.PCN ---
Date of Procedure: 10/03/23 Operative Findings: CARDIAC CATHETERIZATION PERFORMING PHYSICIAN: Kalin Broussard MD, RPVI PROCEDURE PERFORMED: 1. Selective right and left coronary angiogram 2. Left heart catheterization 3. Ultrasound-guided access of the right common femoral artery INDICATION: Shortness of breath this 78-year-old female patient was known coronary artery disease and mitral regurgitation. COMPLICATION: None APPROACH: Right common femoral artery LEVEL OF SEDATION: Moderate with sedation in length of 15 minutes PROCEDURE DESCRIPTION: After obtaining an informed consent, the patient was brought to cardiac labor training manager. Local anesthesia was performed using lidocaine subcutaneously. The right common femoral artery was cannulated using Seldinger technique, the guidewire passed easily, following that we advanced a 6 Ivorian sheath dilator assembly, the wire and dilator were removed and sheath was flushed. Selective right and left coronary angiogram using a 6-Ivorian JR4 and JL c atheters. Following that we did left heart catheterization using 6-Ivorian pigtail catheter. The procedure was completed there was no complication. SELECTIVE CORONARY ANGIOGRAM: The right coronary artery: Large caliber vessel and a dominant vessel. The RCA is chronically occluded in a stented segment distally. The RCA fills by collateral from the left coronary system Left main: Has mild disease only. Bifurcates into an LCx and LAD The left circumflex: Large caliber vessel nondominant vessel with ostial lesion appeared to be in the range of 50%. The left anterior descending artery: Large caliber vessel. The LAD is a stented and the stent appeared to be patent. The LAD gives rises into a diagonal branch which seems to be normal HEMODYNAMICS: The LVEDP was 11 mmHg was no significant gradient across aortic valve CONCLUSION: 1. Patent stent in the left anterior descending artery 2. Chronic total occlusion of the RCA which is a known finding from before 3. Normal left-sided filling pressure POSTPROCEDURE MANAGEMENT: Medical treatment
[2023-10-03] MEDS ORDERED: ATROPINE SULFATE 0.1 MG/ML 10ML SYRINGE ONE (11:55)
[2023-10-03] MEDS ORDERED: SODIUM CHLORIDE 0.9% 1,000 ML IV SCH (12:00)
[2023-10-03] MEDS ORDERED: ACETAMINOPHEN TAB 500 MG TAB PO ONE (14:45)
[2023-10-03] MEDS ORDERED: ONDANSETRON 4 MG/2 ML VIAL IVP PRN (16:18)
[2023-10-03] MEDS ORDERED: ONDANSETRON 4 MG/2 ML VIAL IVP ONE (16:30)
[2023-10-03 20:13] LABS: Glucose,Whole Blood 155 mg/dL (70-110)
[2023-10-04 06:20] LABS: Glucose,Whole Blood 119 mg/dL (70-110)
[2023-10-04] MEDS ORDERED: LEVOTHYROXINE 100 MCG TAB PO SCH (06:30)
[2023-10-04] MEDS ORDERED: PANTOPRAZOLE 40 MG TABLET PO SCH (07:30)
[2023-10-04] MEDS: SODIUM CHLORIDE 0.9% 1,000 ML in EMPTY BAG 1 BAG IV SCH (08:12)
[2023-10-04] MEDS ORDERED: CLOPIDOGREL 75 MG TAB PO SCH (09:00)
[2023-10-04] MEDS ORDERED: LORATADINE 10 MG TAB PO SCH (09:00)
[2023-10-04] MEDS ORDERED: METOPROLOL SUCCINATE (ER) 100 MG TAB.ER.24H PO SCH (09:00)
[2023-10-04] MEDS ORDERED: LOSARTAN-HCTZ 50-12.5 MG 1 EACH TAB PO SCH (09:00)
[2023-10-04 11:28] VITALS: BP 108/61; PULSE 96; RESP 18; TEMP 98
[2023-10-04 11:39] LABS: Glucose,Whole Blood 119 mg/dL (70-110)
== END 2023-10-04 13:00 | disposition home or self-care (01) ==
LOC: CATHCVL 08:08 → 3SCARD 17:10 → CATHCVL 10-04 13:00
PROVIDERS: ATTEND Internal Medicine Interventional Cardiology
DX: I25.10 Atherosclerotic heart disease of native coronary artery without angina pectoris (principal); I34.0 Nonrheumatic mitral (valve) insufficiency; I25.82 Chronic total occlusion of coronary artery; Z95.5 Presence of coronary angioplasty implant and graft; Z79.01 Long term (current) use of anticoagulants; Z79.899 Other long term (current) drug therapy
CPT/HCPCS: 93458; 76937; 80048; 85025; 99152; C1760; C1769 ×2; C1894; J2250; J2405; J2001; J0461; Q9967

== ENCOUNTER → 2023-10-08 | Outpatient (CLI) | payer MEDICARE ==
--- NOTE | 2023-10-08 14:06 | US ---
EXAMINATION TYPE: US lower ext pseudo artery RT DATE OF EXAM: 10/08/2023 COMPARISON: NONE CLINICAL INDICATION: Female, 78 years old with history of I72.9 GROIN ANEURYSM; Heart cath 1 week ago , 4th cath this year, patient states plug placed after cath was pulled out and another size placed, t his is where the patient has pain, zero bruising, no palpable mass EXAM PERFORMED: Grayscale and color Doppler duplex imaging performed of the groin, post cardiac eyal ter to assess for pseudoaneurysm. SIDE PERFORMED: Right Color and Waveform Doppler performed to assess for the presence of pseudoaneurysm; Is there ultrasound evidence of a pseudoaneurysm: no Is there evidence of AV shunting: no Is there a fluid collection present: yes, superior to LIBRARY TECHNOLOGY INSTRUCTOR/CFV is 1.5 x 1.2 x 1.0cm hypoechoic collect ion with no blood flow detected. IMPRESSION: No evidence for patent pseudoaneurysm. There is however a fluid collection likely represe nting hematoma versus thrombosed pseudoaneurysm.
== END | disposition home or self-care (01) ==
LOC: RADUSWWP 12:58
PROVIDERS: ATTEND Internal Medicine Interventional Cardiology
DX: I72.9 Aneurysm of unspecified site (principal); R94.8 Abnormal results of function studies of other organs and systems
CPT/HCPCS: 93975

== ENCOUNTER → 2024-03-17 | Outpatient (CLI) | payer MEDICARE ==
[2024-03-17 15:30] LABS: ALT 17 U/L (8-44); AST 19 U/L (13-35); Chol/HDL Ratio 3.49 Ratio
== END | disposition home or self-care (01) ==
LOC: LABWHC1 11:40
PROVIDERS: ATTEND Internal Medicine Interventional Cardiology
DX: E78.00 Pure hypercholesterolemia, unspecified (principal)
CPT/HCPCS: 36415; 80061; 84450; 84460

== ENCOUNTER → 2024-05-26 | Outpatient (CLI) | payer MEDICARE ==
--- NOTE | 2024-05-26 11:49 | XR ---
EXAMINATION TYPE: XR chest 2V DATE OF EXAM: 05/26/2024 COMPARISON: 01/15/2023 TECHNIQUE: PA and lateral views submitted. HISTORY: Difficulty breathing FINDINGS: The lungs are clear and there is no pneumothorax, pleural effusion, or focal pneumonia. Heart size normal and no overt failure. Osseous structures demonstrate hypertrophic and degenerative changes of the spine. Atherosclerotic change of the aorta. Linear density in the right lower to mid lung is stab le from prior exam. May be related to the history of prior some pulmonary nodule. IMPRESSION: 1. No acute process. Stable suspected pulmonary nodule right mid lung measuring 1.6 cm.
== END | disposition home or self-care (01) ==
LOC: RADXRMAIN 11:19
PROVIDERS: ATTEND Internal Medicine
DX: J06.9 Acute upper respiratory infection, unspecified
CPT/HCPCS: 71046

== ENCOUNTER → 2024-05-28 | Outpatient (CLI) | payer MEDICARE, OTHER ==
--- NOTE | 2024-05-28 16:06 | CT ---
EXAMINATION TYPE: CT chest wo con CT DLP: 543 mGycm, Automated exposure control for dose reduction was used. DATE OF EXAM: 05/28/2024 3:20 PM COMPARISON: 08/26/2023 CLINICAL INDICATION: Female, 78 years old with history of R09.89 OTH SYMPTOMS AND SIGNS INVOLVING THE R91.1; PHH, f/u lung nodules TECHNIQUE: Multiple axial images were obtained through the chest. Sagittal and coronal reformats were created for review. Contrast used: mL of (None if empty) Oral contrast used: (None if empty) FINDINGS: LUNGS/ PLEURA: Left upper lobe lingula centrally calcified granuloma. Right middle lobe subsolid pulm onary nodule measuring 14 mm. The morphology of this lesion is not significantly changed from 08/26/20 23. AIRWAY: Patent and unremarkable. HEART: Size within normal limits. MEDIASTINUM: No gross evidence of adenopathy. VASCULATURE: No aortic aneurysm. MUSCULOSKELETAL: Moderate disc degeneration changes are present throughout the thoracolumbar spine. SOFT TISSUES/LYMPH NODES: Unremarkable. LOWER NECK: No significant findings. UPPER ABDOMEN: No significant findings. IMPRESSION: 1. Stable right middle lobe nodule further surveillance continued surveillance with CT imaging recom mended. Findings favor scarring/atelectasis. 2. Stable partially calcified granuloma in the left upper lung.
== END | disposition home or self-care (01) ==
LOC: RADCTMAIN 14:47
PROVIDERS: ATTEND Internal Medicine
DX: J84.10 Pulmonary fibrosis, unspecified (principal); R91.1 Solitary pulmonary nodule; R09.89 Other specified symptoms and signs involving the circulatory and respiratory systems
CPT/HCPCS: 71250

== ENCOUNTER 2024-08-07 18:16 | Inpatient (IN) | payer MEDICARE ==
[2024-08-07 19:54] LABS: Basophils % (A) 0 %; Eosinophils # (A) 0.1 k/uL (0-0.7); Eosinophils % (A) 0 %; HCT 36.3 % (34.0-46.0); HGB 11.5 gm/dL (11.4-16.0); Hypochromasia Slight; Lymphocytes # (A) 1.8 k/uL (1.0-4.8); Lymphocytes % (A) 9 %; MCH 27.4 pg (25.0-35.0); MCHC 31.6 g/dL (31.0-37.0); MCV 86.5 fL (80.0-100.0); Mean Platelet Volume 8.3; Monocytes # (A) 0.9 k/uL (0-1.0); Monocytes % (A) 5 %; Neutrophils # (A) 17.5 k/uL (1.3-7.7); Neutrophils % (A) 86 %; Platelet Count 309 k/uL (150-450); WBC 20.4 k/uL (3.8-10.6)
[2024-08-07] MEDS: SODIUM CHLORIDE 0.9% 1,000 ML IV ONE (20:07)
[2024-08-07] MEDS: MORPHINE SULFATE 4 MG/ML SYRINGE IVP STA (20:09)
[2024-08-07 20:12] LABS: ALT 26 U/L (4-34); AST 20 U/L (14-36); African American GFR (CKD) 53 (>60 ml/min/1.73 sqM); Alkaline Phosphatase 67 U/L (38-126); Anion Gap 10 mmol/L; Blood Urea Nitrogen 47 mg/dL (7-17); Calcium 9.2 mg/dL (8.4-10.2); Carbon Dioxide 23 mmol/L (22-30); Chloride 108 mmol/L (98-107); Glucose 126 mg/dL (74-99); Lipase 219 U/L (23-300); Non-African American GFR(CKD) 46 (>60 ml/min/1.73 sqM); Potassium 4.3 mmol/L (3.5-5.1); Sodium 141 mmol/L (137-145); Total Bilirubin 0.5 mg/dL (0.2-1.3); Total Protein 6.5 g/dL (6.3-8.2)
[2024-08-07 20:20] LABS: Appearance,Urine Clear (Clear); Bilirubin,Urine Negative (Negative); Blood,Urine Negative (Negative); Color,Urine Yellow; Glucose,Urine (UA) Negative (Negative); Ketones,Urine Negative (Negative); Leukocyte Esterase,Urine Moderate (Negative); Mucus,Urine Occasional /hpf; Nitrite,Urine Negative (Negative); Protein,Urine Negative (Negative); RBC,Urine 1 /hpf (0-5); Specific Gravity,Urine 1.026 (1.001-1.035); Squamous Epithelial Cell,Urine 2 /hpf (0-4); Urobilinogen,Urine <2.0 mg/dL (<2.0); WBC,Urine 3 /hpf (0-5)
--- NOTE | 2024-08-07 21:03 | ED ---
Abdominal Pain HPI - General Chief Complaint: Abdominal Pain Stated Complaint: ABD pain Time Seen by Provider: 08/07/24 18:35 Source: patient, EMS Mode of arrival: EMS - History of Present Illness Initial Comments: 78-year-old female presents emergency department reporting lower abdominal pain. Pain started earlier today. Described as a cramping sensation radiating into her back. She admits nausea. No vomiting. Denies dysuria, hematuria or difficulty voiding. Denies diarrhea, constipation, black or bloody stools. No vaginal bleeding or discharge. No history of abdominal surgeries. EMS did give her 15 mg of Toradol and 4 mg of Zofran. Patient does admit that she has been taking oral Zofran all week due to nausea. No fevers. She has never had a colonoscopy. No other alleviating, precipitating modifying factors - Related Data Home Medications Medication Instructions Recorded Confirmed Levothyroxine Sodium [Synthroid] 100 mcg PO DAILY 04/28/19 08/08/24 Metoprolol Succinate (ER) [Toprol 100 mg PO DAILY 04/28/19 08/08/24 XL] Evolocumab [Repatha Sureclick] 140 mg SQ Q14D 01/15/23 08/08/24 Omeprazole [PriLOSEC] 40 mg PO DAILY 01/15/23 08/08/24 Albuterol Sulfate [Albuterol 2 puff PO RT-Q6H PRN 08/08/24 08/08/24 Sulfate Hfa] Isosorbide Mononitrate ER [Imdur] 30 mg PO DAILY 08/08/24 08/08/24 Ondansetron Odt [Zofran ODT] 4 mg PO Q6H PRN 08/08/24 08/08/24 Previous Rx's Medication Instructions Recorded Acetaminophen Tab [Tylenol] 1,000 mg PO Q6HR PRN #30 tablet 08/14/24 Aspirin 81 mg PO DAILY #30 tab 08/14/24 Ibuprofen [Motrin] 600 mg PO Q8HR PRN #30 tab 08/14/24 Levofloxacin [Levaquin] 500 mg PO DAILY 7 Days #7 tab 08/14/24 Losartan [Cozaar] 100 mg PO DAILY #60 tab 08/14/24 amLODIPine [Norvasc] 5 mg PO DAILY #30 tab 08/14/24 metroNIDAZOLE [Flagyl] 500 mg PO TID 7 Days #21 tab 08/14/24 traMADol HCl [Ultram] 50 mg PO TID PRN #9 tab 08/14/24 Magnesium Oxide [Mag-Ox] 400 mg PO BID #60 tablet 08/15/24 Allergies Allergy/AdvReac Type Severity Reaction Status Date / Time amoxicillin [From Augmentin] Allergy Anaphylaxis Verified 08/08/24 09:28 clavulanic acid Allergy Anaphylaxis Verified 08/08/24 09:28 [From Augmentin] Sulfa (Sulfonamide Allergy Anaphylaxis Verified 08/08/24 09:28 Antibiotics) Review of Systems ROS Statement: Those systems with pertinent positive or pertinent negative responses have been documented in the HPI. ROS Other: All systems not noted in ROS Statement are negative. Past Medical History Past Medical History: Myocardial Infarction ([place]) Additional Past Medical History / Comment(s): Lupus with arthritis. Type II diabetes, hypothyroidism. 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 [place] 2004, Leaky mitral valve Last Myocardial Infarction Date:: 2004 History of Any Multi-Drug Resistant Organisms: None Reported Past Surgical History: Heart Catheterization With Stent Additional Past Surgical History / Comment(s): Breast biopsies, cold knife colonization of the cervix, stent in 2004 Additional Past Anesthesia/Blood Transfusion Reaction / Comment(s): hard to wake up Date of Last Stent Placement:: March 23, 2005 Past Psychological History: Anxiety Smoking Status: Former smoker Past Alcohol Use History: None Reported Past Drug Use History: None Reported - Past Family History Sister(s) Family Medical History: Cancer Additional Family Medical History / Comment(s): Ovarian cancer. Mother Family Medical History: Cancer Additional Family Medical History / Comment(s): Breast cancer. Father Family Medical History: Cancer, Myocardial Infarction ([place]) Additional Family Medical History / Comment(s): Colon cancer. General Exam General appearance: alert, in no apparent distress Head exam: Present: atraumatic, normocephalic, normal inspection Eye exam: Present: normal appearance, PERRL, EOMI. Absent: scleral icterus, conjunctival injection, periorbital swelling ENT exam: Present: normal exam, mucous membranes moist Neck exam: Present: normal inspection. Absent: tenderness, meningismus, lymphadenopathy Respiratory exam: Present: normal lung sounds bilaterally. Absent: respiratory distress, wheezes, rales, rhonchi, stridor Cardiovascular Exam: Present: regular rate, normal rhythm, normal heart sounds. Absent: systolic murmur, diastolic murmur, rubs, gallop, clicks GI/Abdominal exam: Present: soft, tenderness (lower abd), normal bowel sounds. Absent: distended, guarding, rebound, rigid Extremities exam: Present: normal inspection, full ROM, normal capillary refill. Absent: tenderness, pedal edema, joint swelling, calf tenderness Back exam: Present: normal inspection Neurological exam: Present: alert, oriented X3, CN II-XII intact Psychiatric exam: Present: normal affect, normal mood Skin exam: Present: warm, dry, intact, normal color. Absent: rash Course Vital Signs 08/07/24 08/07/24 08/07/24 18:34 23:00 23:28 Temperature 98.0 F 97.9 F Pulse Rate 99 89 Respiratory 18 17 Rate Blood Pressure 131/61 O2 Sat by Pulse 100 93 L Oximetry 08/07/24 23:57 Temperature Pulse Rate 92 Respiratory 18 Rate Blood Pressure 147/65 O2 Sat by Pulse 98 Oximetry Medical Decision Making - Medical Decision Making Was pt. sent in by a medical professional or institution (, PA, PUMP TECHNICIAN, urgent care, hospital, or fdc...) When possible be specific @ -No Did you speak to anyone other than the patient for history (EMS, parent, family, police, friend...)? What history was obtained from this source @ -No Did you review nursing and triage notes (agree or disagree)? Why? @ -I reviewed and agree with nursing and triage notes Were old charts reviewed (outside hosp., previous admission, EMS record, old EKG, old radiological studies, urgent care reports/EKG's, fdc records)? Report findings @ -No old charts were reviewed Differential Diagnosis (chest pain, altered mental status, abdominal pain women, abdominal pain men, vaginal bleeding, weakness, fever, dyspnea, syncope, headache, dizziness, GI bleed, back pain, seizure, CVA, palpatations, mental health, musculoskeletal)? @ -Differential Abdominal Pain Women: Appendicitis, Cholecystitis, diverticulosis, ischemic bowel, pancreatitis, hepatitis, UTI, gastroenteritis, AAA, incarcerated hernia, bowel obstruction, co nstipation, inflammatory bowel, hepatitis, peptic ulcer disease, splenic infarction, perforated viscus, vulvitis, ovarian torsion, PID, kidney stone, placenta abruption, this is not meant to be an all-inclusive list EKG interpreted by me (3pts min.). @ -Not done X-rays interpreted by me (1pt min.). @ -None done CT interpreted by me (1pt min.). @ -Yes and demonstrates acute diverticulitis with possible underlying mass U/S interpreted by me (1pt. min.). @ -None done What testing was considered but not performed or refused? (CT, X-rays, U/S, labs)? Why? @ -None What meds were considered but not given or refused? Why? @ -None Did you discuss the management of the patient with other professionals (professionals i.e. , PA, PUMP TECHNICIAN, lab, RT, psych nurse, high school social studies teacher, underwriting consultant, teacher, financial aid officer, case maker)? Give summary @ -Spoke with Dr. Ritter who will admit the patient Was smoking cessation discussed for >3mins.? @ -No Was critical care preformed (if so, how long)? @ -No Were there social determinants of health that impacted care today? How? (Homelessness, low income, unemployed, alcoholism, drug addiction, transportation, low edu. Level, literacy, decrease access to med. care, fpc, rehab)? @ -No Was there de-escalation of care discussed even if they declined (Discuss DNR or withdrawal of care, Hospice)? DNR status @ -No What co-morbidities impacted this encounter? (DM, HTN, Smoking, COPD, CAD, Cancer, CVA, ARF, Chemo, Hep., AIDS, mental health diagnosis, sleep apnea, morbid obesity)? @ -None Was patient admitted / discharged? Hospital course, mention meds given and route, prescriptions, significant lab abnormalities, going to OR and other pertinent info. @ -Upon arrival patient seen and evaluated in room 19. Thorough history and physical exam was performed. IV access was established and laboratory studies are conducted. CT was performed which demonstrates acute diverticulitis with possible underlying mass. Discussed results with the patient. Did recommend admission for antibiotics and surgery consult. Patient was agreeable to this. Spoke with Dr. Ritter for the admission Undiagnosed new problem with uncertain prognosis? @ -No Drug Therapy requiring intensive monitoring for toxicity (Heparin, Nitro, Insulin, Cardizem)? @ -No Were any procedures done? @ -No Diagnosis/symptom? @ -Acute left lower quadrant abdominal pain, acute diverticulitis, acute leukocytosis Acute, or Chronic, or Acute on Chronic? @ -Acute Uncomplicated (without systemic symptoms) or Complicated (systemic symptoms)? @ -Complicated Side effects of treatment? @ -No Exacerbation, Progression, or Severe Exacerbation? @ -No Poses a threat to life or bodily function? How? (Chest pain, [place], [place], pneumonia, PE, COPD, DKA, ARF, appy, cholecystitis, CVA, Diverticulitis, Homicidal, Suicidal, threat to staff... and all critical care pts) @ -No - Lab Data Result diagrams: 08/14/24 05:00 08/15/24 09:44 Lab Results 08/07/24 08/07/24 08/07/24 Range/Units 19:40 19:40 19:40 WBC 20.4 H (3.8-10.6) k/uL RBC 4.20 (3.80-5.40) m/uL Hgb 11.5 (11.4-16.0) gm/dL Hct 36.3 (34.0-46.0) % MCV 86.5 (80.0-100.0) fL MCH 27.4 (25.0-35.0) pg MCHC 31.6 (31.0-37.0) g/dL RDW 14.0 (11.5-15.5) % Plt Count 309 (150-450) k/uL MPV 8.3 Neutrophils % 86 % Lymphocytes % 9 % Monocytes % 5 % Eosinophils % 0 % Basophils % 0 % Neutrophils # 17.5 H (1.3-7.7) k/uL Lymphocytes # 1.8 (1.0-4.8) k/uL Monocytes # 0.9 (0-1.0) k/uL Eosinophils # 0.1 (0-0.7) k/uL Basophils # 0.0 (0-0.2) k/uL Hypochromasia Slight Sodium 141 (137-145) mmol/L Potassium 4.3 (3.5-5.1) mmol/L Chloride 108 H (98-107) mmol/L Carbon Dioxide 23 (22-30) mmol/L Anion Gap 10 mmol/L BUN 47 H (7-17) mg/dL Creatinine 1.15 H (0.52-1.04) mg/dL Est GFR (CKD-EPI)AfAm 53 (>60 ml/min/1.73 sqM) Est GFR (CKD-EPI)NonAf 46 (>60 ml/min/1.73 sqM) Glucose 126 H (74-99) mg/dL Plasma Lactic Acid Crow 1.5 (0.7-2.0) mmol/L Calcium 9.2 (8.4-10.2) mg/dL Total Bilirubin 0.5 (0.2-1.3) mg/dL AST 20 (14-36) U/L ALT 26 (4-34) U/L Alkaline Phosphatase 67 (38-126) U/L Total Protein 6.5 (6.3-8.2) g/dL Albumin 4.0 (3.5-5.0) g/dL Lipase 219 (23-300) U/L Urine Color Urine Appearance (Clear) Urine pH (5.0-8.0) Ur Specific [place] (1.001-1.035) Urine Protein (Negative) Urine Glucose (UA) (Negative) Urine Ketones (Negative) Urine Blood (Negative) Urine Nitrite (Negative) Urine Bilirubin (Negative) Urine Urobilinogen (<2.0) mg/dL Ur Leukocyte Esterase (Negative) Urine RBC (0-5) /hpf Urine WBC (0-5) /hpf Ur Squamous Epith Cells (0-4) /hpf Urine Mucus (None) /hpf 08/07/24 08/08/24 08/08/24 Range/Units 19:50 04:52 04:52 WBC 21.4 H (3.8-10.6) k/uL RBC 4.06 (3.80-5.40) m/uL Hgb 11.1 L (11.4-16.0) gm/dL Hct 36.0 (34.0-46.0) % MCV 88.5 (80.0-100.0) fL MCH 27.4 (25.0-35.0) pg MCHC 30.9 L (31.0-37.0) g/dL RDW 14.0 (11.5-15.5) % Plt Count 250 (150-450) k/uL MPV 8.0 Neutrophils % 87 % Lymphocytes % 8 % Monocytes % 4 % Eosinophils % 0 % Basophils % 0 % Neutrophils # 18.5 H (1.3-7.7) k/uL Lymphocytes # 1.6 (1.0-4.8) k/uL Monocytes # 0.9 (0-1.0) k/uL Eosinophils # 0.1 (0-0.7) k/uL Basophils # 0.1 (0-0.2) k/uL Hypochromasia Marked Sodium 135 L (137-145) mmol/L Potassium 4.2 (3.5-5.1) mmol/L Chloride 105 (98-107) mmol/L Carbon Dioxide 19 L (22-30) mmol/L Anion Gap 11 mmol/L BUN 42 H (7-17) mg/dL Creatinine 1.03 (0.52-1.04) mg/dL Est GFR (CKD-EPI)AfAm 61 (>60 ml/min/1.73 sqM) Est GFR (CKD-EPI)NonAf 53 (>60 ml/min/1.73 sqM) Glucose 166 H (74-99) mg/dL Plasma Lactic Acid Crow (0.7-2.0) mmol/L Calcium 8.5 (8.4-10.2) mg/dL Total Bilirubin (0.2-1.3) mg/dL AST (14-36) U/L ALT (4-34) U/L Alkaline Phosphatase (38-126) U/L Total Protein (6.3-8.2) g/dL Albumin (3.5-5.0) g/dL Lipase (23-300) U/L Urine Color Yellow Urine Appearance Clear (Clear) Urine pH 5.0 (5.0-8.0) Ur Specific [place] 1.026 (1.001-1.035) Urine Protein Negative (Negative) Urine Glucose (UA) Negative (Negative) Urine Ketones Negative (Negative) Urine Blood Negative (Negative) Urine Nitrite Negative (Negative) Urine Bilirubin Negative (Negative) Urine Urobilinogen <2.0 (<2.0) mg/dL Ur Leukocyte Esterase Moderate H (Negative) Urine RBC 1 (0-5) /hpf Urine WBC 3 (0-5) /hpf Ur Squamous Epith Cells 2 (0-4) /hpf Urine Mucus Occasional H (None) /hpf Disposition Clinical Impression: Abdominal pain, Diverticulitis Disposition: ADMITTED IP TO THIS [facility] Condition: Stable Is patient prescribed a controlled substance at d/c from ED?: No Time of Disposition: :29 Decision to Admit Reason: Admit from EC Decision Date: 08/07/24 Decision Time: 21:29
--- NOTE | 2024-08-07 21:06 | CT ---
EXAMINATION TYPE: CT abdomen pelvis wo con DATE OF EXAM: 08/07/2024 8:44 PM COMPARISON: 02/10/2024 CLINICAL INDICATION: Female, 78 years old with history of left sided abd pain, left sided abdominal p ain TECHNIQUE: Axial images were obtained from above the diaphragm to the pubic rami in the axial plane a t 5 mm thick sections. Reconstructed images are reviewed on the computer in the coronal plane. CONTRAST: mL of . Study performed without Oral Contrast DLP: 664.4 mGycm, Automated exposure control for dose reduction was used. FINDINGS: Limited CT sections are obtained the lung bases. There is a 2.5 cm lobular density within the anteri or right lung base.. This has increased in size. Small hiatal hernia is present. CT ABDOMEN: Liver: Normal Spleen: Normal Pancreas: Normal Adrenal glands: The adrenal glands are normal. Gallbladder: Surgically absent Kidneys: No masses are evident. No hydronephrosis is present. No cysts are present. No renal stone s are evident. Aorta: Vascular calcification is within the aorta. Inferior vena cava: Normal. CT PELVIS: There is some thickening within the mid to distal sigmoid colon. There are diverticuli present. Subtl e inflammatory changes adjacent, example image 201 image 61. Possible mass at this level is not exclu ded. Some mild diverticulitis may be present. The study is lateral contrast limiting bowel evaluation . Appendix: Normal as visualized. Urinary bladder: Decompressed. Genitourinary structures: Uterus and adnexa appear normal Osseous structures: No suspicious lytic or sclerotic lesions. IMPRESSION: 1. Some subtle acute diverticulitis may be present within the mid sigmoid colon. Correlate with dell ent's symptoms. Some thickening of soft tissues may be present within the colon at this level and und erlying neoplasm is within the differential. Follow-up is recommended. 2. Lobular density anterior right lung base enlarging from CT examination. Neoplasm should be conside red. [facility], , 08/07/2024 9:04 PM
[2024-08-07] MEDS ORDERED: NALOXONE 0.4 MG/ML 1 ML VIAL IV PRN (21:29)
[2024-08-07] MEDS: LEVOFLOXACIN 750MG-D5W PMX 750 MG in DEXTROSE/WATER 1 150ML.BAG IVPB SCH (21:40)
[2024-08-07] MEDS: metroNIDAZOLE-NS PMX 500 MG in SALINE 1 100ML.BAG IVPB SCH (21:47)
[2024-08-07] MEDS: MORPHINE SULFATE 4 MG/ML SYRINGE IV PRN (21:53)
[2024-08-07] MEDS: ONDANSETRON 4 MG/2 ML VIAL IVP PRN (23:25)
--- NOTE | 2024-08-07 23:49 | P.HPIM ---
History of Present Illness H&P Date: 08/07/24 Chief Complaint: Abdominal Pain History of present illness; Very pleasant 78-year-old female with lupus, type 2 diabetes, hypothyroidism, hypertension, hyperlipidemia and myocardial infarction with stent placement in 2004, CAD with stent placement x 2 last year, and severe mitral regurgitation - She follows with Dr. Broussard regarding her extensive cardiac history. She is presenting to the emergency department with severe lower abdominal pain. She states that she had some discomfort in her lower abdomen following a bowel movement this morning however it resolved. She states she was driving this afternoon when all of a sudden she had a sudden sharp, stabbing pain in her lower abdomen that she states was a 10/10. This pain was throughout the entire lower abdomen from right to left hip and radiated around to the back. She denies dysuria, hematuria or any difficulty voiding, diarrhea, constipation, black or bloody stools. Denies any vaginal bleeding or discharge. She has history of cholecystectomy. EMS gave her 50 mg of Toradol as well as 4 mg of Zofran. Patient states that she has been nauseous all week and has been taking Zofran as a result. She states that she has never had a colonoscopy done. When seen at bedside today the patient is joined by her daughter, who state that the patient's previous attempted a colonoscopy had been canceled/rescheduled secondary to various cardiac issues. The patient states that her pain remains the same as it was earlier, remaining at a 10/10 even after the administration of morphine 4 mg in the emergency department. She also endorses continuing nausea, she states the nausea had improved when she received Zofran via EMS on her way to the hospital however that was closer to 6 PM. Imaging: -CT abdomen/pelvis completed in the emergency department showed some subtle acute diverticulitis may be present within the mid sigmoid colon; some thickening of the soft tissues may be present within the colon at this level, with a possible underlying neoplasm; lobular density anterior right lung base enlarging from CT examination. -EKG done in the ER showed heart rate of , no ST segment elevation or depression seen, no T-wave inversions seen. Vitals: -Blood pressure 131/61, heart rate 99, respiratory rate 18, SpO2 93% on room air Patient admitted to internal medicine service REVIEW OF SYSTEMS: CONSTITUTIONAL: No fever, no malaise, no fatigue. HEENT: No recent visual problems or hearing problems. Denied any sore throat. CARDIOVASCULAR: No chest pain, orthopnea, PND, no palpitations, no syncope. PULMONARY: No shortness of breath, no cough, no hemoptysis. GASTROINTESTINAL: No diarrhea, no nausea, no vomiting. Severe abdominal pain noted, rated 10/10 and continuous, diffusely across the lower abdomen and wrapping around the back. NEUROLOGICAL: No headaches, no weakness, no numbness. HEMATOLOGICAL: Denies any bleeding or petechiae. GENITOURINARY: Denies any burning micturition, frequency, or urgency. MUSCULOSKELETAL/RHEUMATOLOGICAL: Denies any joint pain, swelling, or any muscle pain. ENDOCRINE: Denies any polyuria or polydipsia. The rest of the 14-point review of systems is negative. PHYSICAL EXAMINATION: GENERAL: The patient is alert and oriented x3, in some distress secondary to her abdominal pain. Well developed, well nourished. HEENT: No scleral icterus. No conjunctival pallor. Normocephalic, atraumatic. CARDIOVASCULAR: S1 and S2 present. No murmurs, rubs, or gallops. PULMONARY: Chest is clear to auscultation, no wheezing or crackles. ABDOMEN: Soft, slight distention noted, significantly tender to palpation across entire lower abdomen and along bilateral flanks and around her back. MUSCULOSKELETAL: No joint swelling or deformity. EXTREMITIES: No cyanosis, clubbing, or pedal edema. NEUROLOGICAL: Gross neurological examination did not reveal any focal deficits. SKIN: No rashes. Assessment and plan Very pleasant 78-year-old female with lupus, type 2 diabetes, hypothyroidism, hypertension, hyperlipidemia and myocardial infarction with stent placement in 2004, CAD with stent placement x 2 last year, and severe mitral regurgitation - She follows with Dr. Broussard regarding her extensive cardiac history. She is presenting to the emergency department with severe lower abdominal pain. CT abdomen/pelvis completed in the emergency department showed some subtle acute diverticulitis may be present within the mid sigmoid colon. Case was discussed with the ED and the patient has been admitted to the internal medicine service for continued monitoring of her abdominal pain. Expected length of stay 3-5 midnights. #Sepsis Acute diverticulitis -CT abdomen/pelvis completed in the emergency department showed some subtle acute diverticulitis may be present within the mid sigmoid colon -Patient started on Levaquin 700 mgD5W and Flagyl 500 mg per 100 mL IV in the ED -Pain controlled with 4 mg morphine once in the emergency department -Continue with 4 mg morphine IV every 4 hours as needed -NPO diet -Lactated ringer 75 cc/h -General Surgery consulted -Follow-up on CBC #Hypothyroidism -Continue 100 mcg Synthroid home medication once verified by pharmacy #Hypertension -Continue home medication, losartanHCTZ 50-12.5 mg tab and Toprol-XL 100 mg daily once verified by pharmacy #Hyperlipidemia -Maintained at home on evolocumab 140 mg/mL q. 14 days #GERD -Maintained on Prilosec 40 mg daily #Severe mitral regurgitation #History of myocardial infarction with stent placement 2004 #CAD with stent placement x 2 last year -Continue with isosorbide mononitrate once verified by pharmacy -Continue 75 mg Plavix daily once verified by pharmacy -Follows with Dr. Broussard, with next appointment scheduled for next week -Most recent echocardiogram was done in 2022 which showed mild to moderate mitral regurgitation and ejection fraction estimated at 50% GI prohylaxis: Maintained at home on the Prilosec 40 mg daily DVT prophylaxis: heparin sc tid 5000 units Dictation was produced using [employer] dictation software. please excuse any grammatical, word or spelling errors. Past Medical History Past Medical History: Myocardial Infarction ([place]) Additional Past Medical History / Comment(s): Lupus with arthritis. Type II diabetes, hypothyroidism. 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 [place] 2004, Leaky mitral valve Last Myocardial Infarction Date:: 2004 History of Any Multi-Drug Resistant Organisms: None Reported Past Surgical History: Heart Catheterization With Stent Additional Past Surgical History / Comment(s): Breast biopsies, cold knife colonization of the cervix, stent in 2004, 2 stents in 2022 Additional Past Anesthesia/Blood Transfusion Reaction / Comment(s): hard to wake up Date of Last Stent Placement:: March 21 2023 Smoking Status: Former smoker - Past Family History Sister(s) Family Medical History: Cancer Additional Family Medical History / Comment(s): Ovarian cancer. Mother Family Medical History: Cancer Additional Family Medical History / Comment(s): Breast cancer. Father Family Medical History: Cancer, Myocardial Infarction ([place]) Additional Family Medical History / Comment(s): Colon cancer. Medications and Allergies Home Medications Medication Instructions Recorded Confirmed Type Levothyroxine Sodium [Synthroid] 100 mcg PO DAILY 04/28/19 09/30/23 History Metoprolol Succinate (ER) [Toprol 100 mg PO DAILY 04/28/19 09/30/23 History XL] Cetirizine HCl [Zyrtec] 10 mg PO DAILY 01/15/23 09/30/23 History Evolocumab [Repatha Sureclick] 140 mg SQ Q14D 01/15/23 10/03/23 History Omeprazole [PriLOSEC] 40 mg PO DAILY 01/15/23 09/30/23 History Clopidogrel [Plavix] 75 mg PO DAILY #30 tab 01/20/23 10/03/23 Rx Losartan/Hydrochlorothiazide 1 tab PO DAILY 09/30/23 09/30/23 History [Losartan-Hctz 50-12.5 mg Tab] Aspirin 81 mg PO ONCE 10/03/23 10/03/23 History Allergies Allergy/AdvReac Type Severity Reaction Status Date / Time amoxicillin [From Augmentin] Allergy Anaphylaxis Verified 08/07/24 18:33 clavulanic acid Allergy Anaphylaxis Verified 08/07/24 18:33 [From Augmentin] Sulfa (Sulfonamide Allergy Anaphylaxis Verified 08/07/24 18:33 Antibiotics) Physical Exam Vitals: Vital Signs Temp Pulse Resp BP Pulse Ox 08/07/24 23:28 97.9 F 08/07/24 23:00 89 17 131/61 93 L 08/07/24 18:34 98.0 F 99 18 100 Intake and Output 08/07/24 08/07/24 08/08/24 14:59 22:59 06:59 Other: Weight 77.564 kg Results CBC & Chem 7: 08/07/24 19:40 08/07/24 19:40 Labs: Abnormal Lab Results - Last 24 Hours (Table) 08/07/24 08/07/24 08/07/24 Range/Units 19:40 19:40 19:50 WBC 20.4 H (3.8-10.6) k/uL Neutrophils # 17.5 H (1.3-7.7) k/uL Chloride 108 H (98-107) mmol/L BUN 47 H (7-17) mg/dL Creatinine 1.15 H (0.52-1.04) mg/dL Glucose 126 H (74-99) mg/dL Ur Leukocyte Esterase Moderate H (Negative) Urine Mucus Occasional H (None) /hpf Thrombosis Risk Factor Assmnt - Choose All That Apply Any of the Below Risk Factors Present?: Yes Each Factor Represents 1 point: Obesity (BMI >25) Other Risk Factors: Yes Each Risk Factor Represents 3 Points: Age 75 years or older Other congenital or acquired thrombophilia - If yes, enter type in comment: No Thrombosis Risk Factor Assessment Total Risk Factor Score: 4 Thrombosis Risk Factor Assessment Level: Moderate Risk Assessment and Plan Assessment: I have seen and evaluated the patient today. I Discussed the case with the resident and agree with the resident's findings I edited the assessment and plan as necessary as documented in the resident's note.
[2024-08-08] MEDS: KETOROLAC 15 MG/ML 1 ML VIAL IVP PRN (04:48)
[2024-08-08 05:48] LABS: Basophils # (A) 0.1 k/uL (0-0.2); Basophils % (A) 0 %; Eosinophils # (A) 0.1 k/uL (0-0.7); Eosinophils % (A) 0 %; HGB 11.1 gm/dL (11.4-16.0); Hypochromasia Marked; Lymphocytes # (A) 1.6 k/uL (1.0-4.8); Lymphocytes % (A) 8 %; MCH 27.4 pg (25.0-35.0); MCHC 30.9 g/dL (31.0-37.0); MCV 88.5 fL (80.0-100.0); Monocytes # (A) 0.9 k/uL (0-1.0); Monocytes % (A) 4 %; Neutrophils # (A) 18.5 k/uL (1.3-7.7); Neutrophils % (A) 87 %; Platelet Count 250 k/uL (150-450); RBC 4.06 m/uL (3.80-5.40); WBC 21.4 k/uL (3.8-10.6)
[2024-08-08] MEDS: PANTOPRAZOLE 40 MG TABLET PO SCH (06:41)
[2024-08-08] MEDS: LEVOTHYROXINE 100 MCG TAB PO SCH (06:41)
[2024-08-08 07:17] LABS: African American GFR (CKD) 61 (>60 ml/min/1.73 sqM); Anion Gap 11 mmol/L; Blood Urea Nitrogen 42 mg/dL (7-17); Calcium 8.5 mg/dL (8.4-10.2); Carbon Dioxide 19 mmol/L (22-30); Chloride 105 mmol/L (98-107); Glucose 166 mg/dL (74-99); Non-African American GFR(CKD) 53 (>60 ml/min/1.73 sqM); Potassium 4.2 mmol/L (3.5-5.1); Sodium 135 mmol/L (137-145)
[2024-08-08] MEDS: HEPARIN SODIUM,PORCINE 5,000 UNIT/ML 1 ML VIAL SQ SCH (09:42)
[2024-08-08] MEDS: LACTATED RINGERS 1,000 ML IV SCH ×2 (09:45→15:52)
--- NOTE | 2024-08-08 13:44 | P.PN ---
Subjective Progress Note Date: 08/08/24 Hospital Course: 78-year-old female with lupus, type 2 diabetes, hypothyroidism, hypertension, hyperlipidemia and myocardial infarction with stent placement in 2004, CAD with stent placement x 2 last year, and severe mitral regurgitation - She follows with Dr. Broussard regarding her extensive cardiac history. She is presenting to the emergency department with severe lower abdominal pain. -CT abdomen/pelvis completed in the emergency department showed some subtle acute diverticulitis may be present within the mid sigmoid colon; some thickening of the soft tissues may be present within the colon at this level, with a possible underlying neoplasm; lobular density anterior right lung base enlarging from CT examination. -EKG done in the ER showed heart rate of , no ST segment elevation or depression seen, no T-wave inversions seen. Pulse 99, temperature within normal limits, WBC 20.4, creatinine 1.15, lactate 1.5. Patient admitted for acute diverticulitis. Started on IV antibiotics. General surgery consulted. Subjective: Patient seen and examined at bedside. No acute events overnight. Continues to have abdominal pain Pertinent positives and negatives as discussed above, a complete review of systems was performed and all other systems are negative. Vitals Signs Reviewed. General: Nontoxic, no distress, appears at stated age Derm: Warm, dry Head: Atraumatic, normocephalic, symmetric Eyes: EOMI, no lid lag, anicteric sclera Mouth: No lip lesion, mucus membranes moist Cardiovascular: S1S2 reg, no murmur Lungs: CTA bilateral, no rhonchi, no rales, no accessory muscle use Abdominal: Soft, tender to palpation throughout abdomen, no guarding, no appreciable organomegaly Ext: No gross muscle atrophy, no edema, no contractures Neuro: CN II-XI grossly intact, no focal neuro deficits Psych: Alert, oriented, appropriate affect Data Reviewed Today: Pertinent Labs: WBC 21.4, hemoglobin 11.1, sodium 135, creatinine 1.03 Imaging: No new imaging Assessment and Plan: Active: Sepsis secondary to acute diverticulitis Possible neoplasm -Continue Levaquin 750 IV every 48 hours, Flagyl 500 IV 3 times daily -Continue lactated Ringer 125 cc an hour -Blood cultures pending -General Surgery consulted, pending recommendations -Patient will need outpatient colonoscopy in a few weeks to rule out underlying neoplasm -Pain control with IV Toradol as needed, IV morphine as needed, monitor for sedation History of hypertension -Hold antihypertensives in the setting of sepsis History of CAD -Hold Plavix, resume if no interventions Chronic: Hypothyroidism GERD Severe mitral regurgitation DVT ppx: Subcu heparin Code status: Full code Anticipated discharge place: Pending clinical course Anticipated discharge time: Pending clinical course Objective - Vital Signs Vital signs: Vital Signs Temp 98.6 F 08/08/24 07:00 Pulse 106 H 08/08/24 07:00 Resp 21 08/08/24 07:00 BP 125/58 08/08/24 07:00 Pulse Ox 97 08/08/24 07:00 FiO2 Intake & Output 08/07/24 08/08/24 08/08/24 18:59 06:59 18:59 Intake Total 1440 0 Balance 1440 0 Weight 77.564 kg 77.564 kg Intake: Intake, IV Titration 1440 Amount Lactated Ringers 1,000 ml 240 @ 120 mls/hr IV .Q8H20M [facility] Rx#:[id number] Levofloxacin 750Mg-D5w 100 Pmx 750 mg In Dextrose/ Water 1 150ml.bag @ 100 mls/hr IVPB Q48H [facility] Rx#: [id number] Sodium Chloride 0.9% 1, 1000 000 ml @ 999 mls/hr IV . Q1H1M [facility] Rx#:[id number] metroNIDAZOLE-NS PMX 500 100 mg In Saline 1 100ml.bag @ 100 mls/hr IVPB TID [facility] Rx#:[id number] Oral 0 0 Other: # Voids 1 - Labs CBC & Chem 7: 08/08/24 04:52 08/08/24 04:52 Labs: Abnormal Lab Results - Last 24 Hours (Table) 08/07/24 08/07/24 08/07/24 Range/Units 19:40 19:40 19:50 WBC 20.4 H (3.8-10.6) k/uL Hgb (11.4-16.0) gm/dL MCHC (31.0-37.0) g/dL Neutrophils # 17.5 H (1.3-7.7) k/uL Sodium (137-145) mmol/L Chloride 108 H (98-107) mmol/L Carbon Dioxide (22-30) mmol/L BUN 47 H (7-17) mg/dL Creatinine 1.15 H (0.52-1.04) mg/dL Glucose 126 H (74-99) mg/dL Ur Leukocyte Esterase Moderate H (Negative) Urine Mucus Occasional H (None) /hpf 08/08/24 08/08/24 Range/Units 04:52 04:52 WBC 21.4 H (3.8-10.6) k/uL Hgb 11.1 L (11.4-16.0) gm/dL MCHC 30.9 L (31.0-37.0) g/dL Neutrophils # 18.5 H (1.3-7.7) k/uL Sodium 135 L (137-145) mmol/L Chloride (98-107) mmol/L Carbon Dioxide 19 L (22-30) mmol/L BUN 42 H (7-17) mg/dL Creatinine (0.52-1.04) mg/dL Glucose 166 H (74-99) mg/dL Ur Leukocyte Esterase (Negative) Urine Mucus (None) /hpf
--- NOTE | 2024-08-08 16:33 | P.GSCN ---
History of Present Illness Consult date: 08/08/24 History of present illness: Patient is a 78-year-old female who presents with acute onset of left lower quadrant pain and cross-sectional imaging findings of acute uncomplicated diverticulitis. Patient states that she had acute onset of lower quadrant pain. She endorses subjective fevers and chills. She states that she had mild nausea but no emesis. No prior episodes such as this. No diarrhea melena or hematochezia. No hematemesis. She states that she is unable to tolerate p.o. intake secondary to the pain. She denies any prior colonoscopic evaluation. Upon presentation to [facility] emergency department a CT abdomen pelvis was obtained which showed evidence of acute uncomplicated diverticulitis. She denies any shortness of breath or chest pain. No headache or blurry vision. No dysuria or hematuria. No flatus or bowel movement since admission. Review of Systems Negative except for as stated above Past Medical History Past Medical History: Myocardial Infarction ([place]) Additional Past Medical History / Comment(s): Lupus with arthritis. Type II diabetes, hypothyroidism. 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 [place] 2004, Leaky mitral valve Last Myocardial Infarction Date:: 2004 History of Any Multi-Drug Resistant Organisms: None Reported Past Surgical History: Heart Catheterization With Stent Additional Past Surgical History / Comment(s): Breast biopsies, cold knife colonization of the cervix, stent in 2004, 2 stents in 2022 Additional Past Anesthesia/Blood Transfusion Reaction / Comm: hard to wake up Date of Last Stent Placement:: March 21 2023 Smoking Status: Former smoker - Past Family History Sister(s) Family Medical History: Cancer Additional Family Medical History / Comment(s): Ovarian cancer. Mother Family Medical History: Cancer Additional Family Medical History / Comment(s): Breast cancer. Father Family Medical History: Cancer, Myocardial Infarction ([place]) Additional Family Medical History / Comment(s): Colon cancer. Medications and Allergies Home Medications Medication Instructions Recorded Confirmed Type Levothyroxine Sodium [Synthroid] 100 mcg PO DAILY 04/28/19 08/08/24 History Metoprolol Succinate (ER) [Toprol 100 mg PO DAILY 04/28/19 08/08/24 History XL] Evolocumab [Repatha Sureclick] 140 mg SQ Q14D 01/15/23 08/08/24 History Omeprazole [PriLOSEC] 40 mg PO DAILY 01/15/23 08/08/24 History Clopidogrel [Plavix] 75 mg PO DAILY #30 tab 01/20/23 08/08/24 Rx Losartan/Hydrochlorothiazide 1 tab PO DAILY 09/30/23 08/08/24 History [Losartan-Hctz 50-12.5 mg Tab] Albuterol Sulfate [Albuterol 2 puff PO RT-Q6H PRN 08/08/24 08/08/24 History Sulfate Hfa] Isosorbide Mononitrate ER [Imdur] 30 mg PO DAILY 08/08/24 08/08/24 History Ondansetron Odt [Zofran Odt] 4 mg PO Q6H PRN 08/08/24 08/08/24 History Allergies Allergy/AdvReac Type Severity Reaction Status Date / Time amoxicillin [From Augmentin] Allergy Anaphylaxis Verified 08/08/24 09:28 clavulanic acid Allergy Anaphylaxis Verified 08/08/24 09:28 [From Augmentin] Sulfa (Sulfonamide Allergy Anaphylaxis Verified 08/08/24 09:28 Antibiotics) Surgical - Exam Vital Signs Temp Pulse Resp Pulse Ox 98.0 F 99 18 100 08/07/24 18:34 08/07/24 18:34 08/07/24 18:34 08/07/24 18:34 Gen: AxO, NAD Pulm: non-labored respirations Abd: soft, tender in LLQ, mildly distended. No guarding/rebound/rigidity Extrem: no edema seen Results - Labs 08/08/24 04:52 08/08/24 04:52 Abnormal Lab Results - Last 24 Hours (Table) 08/07/24 08/07/24 08/07/24 Range/Units 19:40 19:40 19:50 WBC 20.4 H (3.8-10.6) k/uL Hgb (11.4-16.0) gm/dL MCHC (31.0-37.0) g/dL Neutrophils # 17.5 H (1.3-7.7) k/uL Sodium (137-145) mmol/L Chloride 108 H (98-107) mmol/L Carbon Dioxide (22-30) mmol/L BUN 47 H (7-17) mg/dL Creatinine 1.15 H (0.52-1.04) mg/dL Glucose 126 H (74-99) mg/dL Ur Leukocyte Esterase Moderate H (Negative) Urine Mucus Occasional H (None) /hpf 08/08/24 08/08/24 Range/Units 04:52 04:52 WBC 21.4 H (3.8-10.6) k/uL Hgb 11.1 L (11.4-16.0) gm/dL MCHC 30.9 L (31.0-37.0) g/dL Neutrophils # 18.5 H (1.3-7.7) k/uL Sodium 135 L (137-145) mmol/L Chloride (98-107) mmol/L Carbon Dioxide 19 L (22-30) mmol/L BUN 42 H (7-17) mg/dL Creatinine (0.52-1.04) mg/dL Glucose 166 H (74-99) mg/dL Ur Leukocyte Esterase (Negative) Urine Mucus (None) /hpf Diabetes panel 08/07/24 08/08/24 Range/Units 19:40 04:52 Sodium 141 135 L (137-145) mmol/L Potassium 4.3 4.2 (3.5-5.1) mmol/L Chloride 108 H 105 (98-107) mmol/L Carbon Dioxide 23 19 L (22-30) mmol/L BUN 47 H 42 H (7-17) mg/dL Creatinine 1.15 H 1.03 (0.52-1.04) mg/dL Glucose 126 H 166 H (74-99) mg/dL Calcium 9.2 8.5 (8.4-10.2) mg/dL AST 20 (14-36) U/L ALT 26 (4-34) U/L Alkaline Phosphatase 67 (38-126) U/L Total Protein 6.5 (6.3-8.2) g/dL Albumin 4.0 (3.5-5.0) g/dL Calcium panel 08/07/24 08/08/24 Range/Units 19:40 04:52 Calcium 9.2 8.5 (8.4-10.2) mg/dL Albumin 4.0 (3.5-5.0) g/dL Pituitary panel 08/07/24 08/08/24 Range/Units 19:40 04:52 Sodium 141 135 L (137-145) mmol/L Potassium 4.3 4.2 (3.5-5.1) mmol/L Chloride 108 H 105 (98-107) mmol/L Carbon Dioxide 23 19 L (22-30) mmol/L BUN 47 H 42 H (7-17) mg/dL Creatinine 1.15 H 1.03 (0.52-1.04) mg/dL Glucose 126 H 166 H (74-99) mg/dL Calcium 9.2 8.5 (8.4-10.2) mg/dL Adrenal panel 08/07/24 08/08/24 Range/Units 19:40 04:52 Sodium 141 135 L (137-145) mmol/L Potassium 4.3 4.2 (3.5-5.1) mmol/L Chloride 108 H 105 (98-107) mmol/L Carbon Dioxide 23 19 L (22-30) mmol/L BUN 47 H 42 H (7-17) mg/dL Creatinine 1.15 H 1.03 (0.52-1.04) mg/dL Glucose 126 H 166 H (74-99) mg/dL Calcium 9.2 8.5 (8.4-10.2) mg/dL Total Bilirubin 0.5 (0.2-1.3) mg/dL AST 20 (14-36) U/L ALT 26 (4-34) U/L Alkaline Phosphatase 67 (38-126) U/L Total Protein 6.5 (6.3-8.2) g/dL Albumin 4.0 (3.5-5.0) g/dL Assessment and Plan Assessment: Patient is a 78-year-old female who presents with acute onset of left lower quadrant pain and cross-sectional imaging findings concerning for acute uncomplicated diverticulitis Plan: -CLD as tolerated -IV antibiotics -IV fluid hydration -As needed pain and nausea control -Encourage ambulation -No acute surgical intervention: Patient counseled that she will need outpatient coloscopic evaluation in 4 to 6 weeks. Patient counseled that if her pain worsens, hemodynamic instability develops that suggests ongoing perforation patient may require emergent operative intervention. Will continue to follow. Andre Hernandez M.D. General Surgery
[2024-08-08] MEDS: HYDROmorphone 0.5 MG/0.5 ML SYRINGE IVP PRN (18:40)
[2024-08-09 09:56] LABS: Blood Urea Nitrogen 41.3 mg/dL (9.0-27.0); Calcium 8.1 mg/dL (8.7-10.3); Carbon Dioxide 19.6 mmol/L (21.6-31.8); Chloride 107 mmol/L (96-109); Glucose 99 mg/dL (70-110); HGB 9.9 g/dL (12.0-15.0); MCH 27.7 pg (27.0-32.0); MCHC 30.9 g/dL (32.0-37.0); MCV 89.6 FL (80.0-97.0); Mean Platelet Volume 11.6 FL (9.5-12.2); NRBC Per 100 WBC 0 X 10*3/uL (0.00-0.01); Platelet Count 216 X 10*3/uL (140-440); Potassium 3.9 mmol/L (3.5-5.5); RBC 3.57 X 10*6/uL (4.10-5.20); RDW 14.4 % (11.5-14.5); Sodium 137 mmol/L (135-145)
[2024-08-09] MEDS ORDERED: ACETAMINOPHEN TAB 325 MG TAB PO PRN (10:39)
[2024-08-09] MEDS ORDERED: IPRATROPIUM-ALBUTEROL 3 ML NEB INHALATION PRN (10:42)
--- NOTE | 2024-08-09 10:42 | P.PN ---
Subjective Progress Note Date: 08/09/24 Hospital Course: 78-year-old female with lupus, type 2 diabetes, hypothyroidism, hypertension, hyperlipidemia and myocardial infarction with stent placement in 2004, CAD with stent placement x 2 last year, and severe mitral regurgitation - She follows with Dr. Broussard regarding her extensive cardiac history. She is presenting to the emergency department with severe lower abdominal pain. -CT abdomen/pelvis completed in the emergency department showed some subtle acute diverticulitis may be present within the mid sigmoid colon; some thickening of the soft tissues may be present within the colon at this level, with a possible underlying neoplasm; lobular density anterior right lung base enlarging from CT examination. -EKG done in the ER showed heart rate of , no ST segment elevation or depression seen, no T-wave inversions seen. Pulse 99, temperature within normal limits, WBC 20.4, creatinine 1.15, lactate 1.5. Patient admitted for acute diverticulitis. Started on IV antibiotics. General surgery consulted. No interventions planned at the moment. Subjective: Patient seen and examined at bedside. No acute events overnight. Continues to have abdominal pain Pertinent positives and negatives as discussed above, a complete review of systems was performed and all other systems are negative. Vitals Signs Reviewed. General: Nontoxic, no distress, appears at stated age Derm: Warm, dry Head: Atraumatic, normocephalic, symmetric Eyes: EOMI, no lid lag, anicteric sclera Mouth: No lip lesion, mucus membranes moist Cardiovascular: S1S2 reg, no murmur Lungs: CTA bilateral, no rhonchi, no rales, no accessory muscle use Abdominal: Soft, tender to palpation throughout abdomen, no guarding, no appreciable organomegaly Ext: No gross muscle atrophy, no edema, no contractures Neuro: CN II-XI grossly intact, no focal neuro deficits Psych: Alert, oriented, appropriate affect Data Reviewed Today: Pertinent Labs: WBC 24.2, hemoglobin 9.9, creatinine 1.4 Imaging: No new imaging Assessment and Plan: Active: Sepsis secondary to acute diverticulitis Possible neoplasm Acute normocytic anemia, secondary to acute illness -Continue Levaquin 750 IV every 48 hours, Flagyl 500 IV 3 times daily -Continue lactated Ringer 120 cc an hour -Blood cultures pending -General Surgery consulted, not recommending any interventions at the moment -Patient will need outpatient colonoscopy in a few weeks to rule out underlying neoplasm -Pain control with oral Tylenol as needed, IV Dilaudid as needed, monitor for sedation -Continue to follow CBC -White count uptrending, may need repeat abdominal imaging if continued pain and increase white blood cell count History of hypertension -Hold antihypertensives in the setting of sepsis History of CAD -Hold Plavix, resume if no interventions Acute kidney injury -Continue fluids Discontinued IV Toradol, started on oral Tylenol for pain Increased cough -Chest x-ray ordered -DuoNebs 4 times daily and every 2 hours as needed Chronic: Hypothyroidism GERD Severe mitral regurgitation DVT ppx: Subcu heparin Code status: Full code Anticipated discharge place: Pending clinical course Anticipated discharge time: Pending clinical course Objective - Vital Signs Vital signs: Vital Signs Temp 98.1 F 08/09/24 06:45 Pulse 94 08/09/24 06:45 Resp 18 08/09/24 06:45 BP 140/60 08/09/24 06:45 Pulse Ox 98 08/09/24 06:45 FiO2 Intake & Output 08/08/24 08/09/24 08/09/24 18:59 06:59 18:59 Intake Total 0 Balance 0 Intake: Oral 0 Other: # Voids 1 2 # Bowel Movements 0 - Labs CBC & Chem 7: 08/09/24 04:49 08/09/24 04:49 Labs: Abnormal Lab Results - Last 24 Hours (Table) 08/09/24 08/09/24 Range/Units 04:49 04:49 WBC 24.20 H (4.50-10.00) X 10*3/uL RBC 3.57 L (4.10-5.20) X 10*6/uL Hgb 9.9 L (12.0-15.0) g/dL Hct 32.0 L (37.2-46.3) % MCHC 30.9 L (32.0-37.0) g/dL Carbon Dioxide 19.6 L (21.6-31.8) mmol/L BUN 41.3 H (9.0-27.0) mg/dL Est GFR (CKD-EPI) 39 L (>=60) BUN/Creatinine Ratio 29.50 H (12.00-20.00) Ratio Calcium 8.1 L (8.7-10.3) mg/dL
[2024-08-09 10:57] LABS: Basophils # (A) 0.04 X 10*3/uL (0.00-0.10); Basophils % (A) 0.2 %; Eosinophils # (A) 0.06 X 10*3/uL (0.04-0.35); Eosinophils % (A) 0.2 %; Lymphocytes # (A) 1.37 X 10*3/uL (0.90-5.00); Lymphocytes % (A) 5.7 %; Monocytes # (A) 1.04 X 10*3/uL (0.20-1.00); Monocytes % (A) 4.3 %; Neutrophils # (A) 21.24 X 10*3/uL (1.80-7.70); Neutrophils % (A) 87.7 %
--- NOTE | 2024-08-09 11:03 | XR ---
EXAMINATION TYPE: XR chest 1V portable DATE OF EXAM: 08/09/2024 10:57 AM COMPARISON: None. CLINICAL INDICATION: Female, 78 years old with history of cough, TECHNIQUE: XR chest 1V portable view(s) obtained. FINDINGS: The heart size is normal. The pulmonary vasculature is normal. There may be some very subtle atelectasis or the right costophrenic angle along the diaphragm. Lungs otherwise appear clear IMPRESSION: 1. Minimal subsegmental atelectasis right diaphragm [facility], , 08/09/2024 11:01 AM
[2024-08-09] MEDS: IPRATROPIUM-ALBUTEROL 3 ML NEB INHALATION SCH (11:09)
--- NOTE | 2024-08-09 12:40 | P.PN ---
Subjective Progress Note Date: 08/09/24 Patient still has complaints of lower quad abdominal pain. She states better than yesterday. On exam vital signs appear stable. Abdomen soft. Marked tenderness left lower quadrant. Improving diverticulitis. Patient can receive IV antibiotics. Objective - Vital Signs Vital signs: Vital Signs Temp 98.1 F 08/09/24 06:45 Pulse 94 08/09/24 06:45 Resp 18 08/09/24 06:45 BP 140/60 08/09/24 06:45 Pulse Ox 98 08/09/24 06:45 FiO2 Intake & Output 08/08/24 08/09/24 08/09/24 18:59 06:59 18:59 Intake Total 0 Balance 0 Intake: Oral 0 Other: # Voids 1 2 # Bowel Movements 0 - Labs CBC & Chem 7: 08/09/24 04:49 08/09/24 04:49 Labs: Abnormal Lab Results - Last 24 Hours (Table) 08/09/24 08/09/24 Range/Units 04:49 04:49 WBC 24.20 H (4.50-10.00) X 10*3/uL RBC 3.57 L (4.10-5.20) X 10*6/uL Hgb 9.9 L (12.0-15.0) g/dL Hct 32.0 L (37.2-46.3) % MCHC 30.9 L (32.0-37.0) g/dL Immature Gran # 0.45 H (0.00-0.04) X 10*3/uL Neutrophils # 21.24 H (1.80-7.70) X 10*3/uL Monocytes # 1.04 H (0.20-1.00) X 10*3/uL Carbon Dioxide 19.6 L (21.6-31.8) mmol/L BUN 41.3 H (9.0-27.0) mg/dL Est GFR (CKD-EPI) 39 L (>=60) BUN/Creatinine Ratio 29.50 H (12.00-20.00) Ratio Calcium 8.1 L (8.7-10.3) mg/dL
[2024-08-09] MEDS: guaiFENesin 600 MG TABLET.ER PO SCH (20:44)
[2024-08-09] MEDS: METOCLOPRAMIDE 5 MG/ML 2 ML VIAL IVP PRN (22:35)
[2024-08-10 08:47] LABS: ALT 17 U/L (8-44); AST 16 U/L (13-35); Albumin 2.9 g/dL (3.8-4.9); Albumin/Globulin Ratio 1.53 Ratio (1.60-3.17); Alkaline Phosphatase 73 U/L (41-126); Blood Urea Nitrogen 31.6 mg/dL (9.0-27.0); Calcium 8.5 mg/dL (8.7-10.3); Carbon Dioxide 18.4 mmol/L (21.6-31.8); Chloride 107 mmol/L (96-109); Globulin 1.9 g/dL (1.6-3.3); Glucose 83 mg/dL (70-110); Magnesium 1.5 mg/dL (1.5-2.4); Potassium 3.7 mmol/L (3.5-5.5); Sodium 139 mmol/L (135-145); Total Bilirubin 0.3 mg/dL (0.3-1.2); Total Protein 4.8 g/dL (6.2-8.2)
[2024-08-10 08:51] LABS: Basophils # (A) 0.04 X 10*3/uL (0.00-0.10); Basophils % (A) 0.2 %; Eosinophils # (A) 0.11 X 10*3/uL (0.04-0.35); Eosinophils % (A) 0.5 %; HCT 31.7 % (37.2-46.3); HGB 9.6 g/dL (12.0-15.0); Lymphocytes # (A) 1.16 X 10*3/uL (0.90-5.00); Lymphocytes % (A) 5.3 %; MCH 26.4 pg (27.0-32.0); MCHC 30.3 g/dL (32.0-37.0); MCV 87.3 FL (80.0-97.0); Mean Platelet Volume 11.4 FL (9.5-12.2); Monocytes # (A) 1.02 X 10*3/uL (0.20-1.00); Monocytes % (A) 4.7 %; NRBC Per 100 WBC 0 X 10*3/uL (0.00-0.01); Neutrophils # (A) 18.89 X 10*3/uL (1.80-7.70); Neutrophils % (A) 86.9 %; Platelet Count 238 X 10*3/uL (140-440); RBC 3.63 X 10*6/uL (4.10-5.20); RDW 14.3 % (11.5-14.5); WBC 21.74 X 10*3/uL (4.50-10.00)
[2024-08-10] MEDS: IOPAMIDOL CONTRAST (ORAL USE) VIAL PO PRN (10:30)
--- NOTE | 2024-08-10 12:22 | CT ---
EXAMINATION TYPE: CT abdomen pelvis wo con CT DLP: 1156 mGycm, Automated exposure control for dose reduction was used. DATE OF EXAM: 08/10/2024 12:03 PM COMPARISON: CT abdomen pelvis 08/07/2024, PET/CT 02/08/2023, CT renal stone 01/14/2023 CLINICAL INDICATION:Female, 78 years old with history of increase abdominal pain; F/U DIVERTICULITIS TECHNIQUE: Standard CT of the abdomen and pelvis following the administration of oral contrast. Cor onal and sagittal reformats were performed. FINDINGS: Limited evaluation due to lack of intravenous contrast. LOWER CHEST: Trace right pleural effusion. Stable lingular 8 mm nodule with central calcification sug gesting a benign nodule. Stable right middle lobe nodular density measuring up to 1.7 cm (series 4, i mage 7). No FDG activity in prior PET/CT. Coronary artery calcifications. ABDOMEN LIVER: Unremarkable noncontrast appearance GALLBLADDER AND BILE DUCTS: The gallbladder is surgically absent. No biliary ductal dilatation. PANCREAS: Unremarkable noncontrast appearance SPLEEN: Unremarkable noncontrast appearance ADRENAL GLANDS: Unremarkable noncontrast appearance. KIDNEYS AND URETERS: No evidence of hydronephrosis or renal calculus. Similar nonspecific perinephric fat stranding. PELVIS BLADDER: Under distended, limiting evaluation. REPRODUCTIVE: Uterus is surgically absent or atrophic. ABDOMEN & PELVIS STOMACH AND BOWEL: Small hiatal hernia, duodenum is unremarkable. Enteric contrast reaches the ascend ing colon. Distal diverticulosis with wall thickening surrounding inflammatory changes involving the sigmoid colon. No evidence of bowel obstruction. PERITONEUM: Contained perforation of the sigmoid colon with air-fluid collection measuring 5.6 x 14.1 x 10.9 cm in AP, TV, CC dimension. The perforation is identified within the sigmoid colon (series 5, image 49). Small amount of free fluid within the pelvis. VASCULATURE: Moderate atherosclerotic calcifications are present throughout the abdominal aorta and i ts branches. No evidence of aortic aneurysm. MUSCULOSKELETAL: No acute osseous abnormalities. Mild multilevel degenerative disease. LYMPH NODES: No gross evidence for lymphadenopathy. SOFT TISSUE/ABDOMINAL WALL: Unremarkable IMPRESSION: 1. Contained perforated sigmoid diverticulitis with abscess measuring up to 14.1 cm. 2. Trace right pleural effusion. 3. Similar right midlung nodular opacity. No FDG activity on prior PET/CT. Continued surveillance is recommended. Findings relayed via [employer] to the ordering provider at 12:19 PM on 08/10/2024. [facility], , 08/10/2024 12:19 PM
--- NOTE | 2024-08-10 12:46 | P.PN ---
Subjective Progress Note Date: 08/10/24 SURGICAL PROGRESS NOTE CHIEF COMPLAINT: Abdominal pain HISTORY OF PRESENT ILLNESS: Patient complains of abdominal pain. She reports that her pain is not improving since she has been here. She complains of pain in the right lower abdomen as well as the left lower quadrant. She vomited yesterday. Afebrile. WBC did go down from 24-21. Afebrile. Blood pressures have been elevated likely due to pain PHYSICAL EXAM: VITAL SIGNS: Reviewed. GENERAL: Well-developed in no acute distress. ABDOMEN: Soft. Mildly distended. Tenderness in the left lower quadrant and right lower abdomen. Guarding present. NEUROLOGIC: Alert and oriented. Cranial nerves II through XII grossly intact. ASSESSMENT: 1. Acute diverticulitis PLAN: -CT scan abdomen pelvis ordered due to worsening abdominal pain. CT results report contained perforated sigmoid diverticulitis with abscess measuring up to 14.1 cm. -CT results reviewed with Dr. Chavez. Dr. Chavez is recommending surgery -Keep patient n.p.o. -continue antibiotics Physician Retail Buyer note has been reviewed by physician. Signing provider agrees with the documented findings, assessment, and plan of care. Objective - Vital Signs Vital signs: Vital Signs Temp 98.1 F 08/10/24 07:00 Pulse 86 08/10/24 08:45 Resp 18 08/10/24 07:00 BP 164/79 08/10/24 07:00 Pulse Ox 97 08/10/24 07:00 FiO2 Intake & Output 08/09/24 08/10/24 08/10/24 18:59 06:59 18:59 Other: # Voids 3 2 # Bowel Movements 0 0 - Labs CBC & Chem 7: 08/10/24 04:35 08/10/24 04:35 Labs: Abnormal Lab Results - Last 24 Hours (Table) 08/09/24 08/09/24 08/10/24 Range/Units 04:49 04:49 04:35 WBC 24.20 H 21.74 H (4.50-10.00) X 10*3/uL RBC 3.57 L 3.63 L (4.10-5.20) X 10*6/uL Hgb 9.9 L 9.6 L (12.0-15.0) g/dL Hct 32.0 L 31.7 L (37.2-46.3) % MCH 26.4 L (27.0-32.0) pg MCHC 30.9 L 30.3 L (32.0-37.0) g/dL Immature Gran # 0.45 H 0.52 H (0.00-0.04) X 10*3/uL Neutrophils # 21.24 H 18.89 H (1.80-7.70) X 10*3/uL Monocytes # 1.04 H 1.02 H (0.20-1.00) X 10*3/uL Carbon Dioxide 19.6 L (21.6-31.8) mmol/L Anion Gap (4.00-12.00) mmol/L BUN 41.3 H (9.0-27.0) mg/dL Est GFR (CKD-EPI) 39 L (>=60) BUN/Creatinine Ratio 29.50 H (12.00-20.00) Ratio Calcium 8.1 L (8.7-10.3) mg/dL Total Protein (6.2-8.2) g/dL Albumin (3.8-4.9) g/dL Albumin/Globulin Ratio (1.60-3.17) Ratio // Range/Units 04:35 WBC (4.50-10.00) X 10*3/uL RBC (4.10-5.20) X 10*6/uL Hgb (12.0-15.0) g/dL Hct (37.2-46.3) % MCH (27.0-32.0) pg MCHC (32.0-37.0) g/dL Immature Gran # (0.00-0.04) X 10*3/uL Neutrophils # (1.80-7.70) X 10*3/uL Monocytes # (0.20-1.00) X 10*3/uL Carbon Dioxide 18.4 L (21.6-31.8) mmol/L Anion Gap 13.60 H (4.00-12.00) mmol/L BUN 31.6 H (9.0-27.0) mg/dL Est GFR (CKD-EPI) 58 L (>=60) BUN/Creatinine Ratio 31.60 H (12.00-20.00) Ratio Calcium 8.5 L (8.7-10.3) mg/dL Total Protein 4.8 L (6.2-8.2) g/dL Albumin 2.9 L (3.8-4.9) g/dL Albumin/Globulin Ratio 1.53 L (1.60-3.17) Ratio Microbiology - Last 24 Hours (Table) 08/08/24 01:26 Blood Culture - Preliminary Blood
--- NOTE | 2024-08-10 13:11 | P.PN ---
Subjective Progress Note Date: 08/10/24 78-year-old female with lupus, type 2 diabetes, hypothyroidism, hypertension, hyperlipidemia and myocardial infarction with stent placement in 2004, CAD with stent placement x 2 last year, and severe mitral regurgitation presented to the ED for N/V, diarrhea and severe abdominal pain. In the ED she underwent extensive evaluation. BP 131/61, HR 99, T 98F, RR 18, 100% on RA. CBC, CMP significant for WBC 20.4, Cl 108, BUN 47, Cr 1.15. Lipase 219. Lactic acid 1.5. UA mode LE. CT AP showed findings of diverticulitis. Started on IV hydration and Flagyl/Levaquin. Continued abdominal pain, repeat CT shows contained perforated sigmoid diverticulitis with abscess 14.1 cm. Plans for surgery today. 08/10 Patient was seen and examined. Daughter at bedside. Reports severe nausea and vomiting along with abdominal pain, 8/10. Partially relieved with Dilaudid. Repeat CT AP as above. CBC and CMP significant for WBC 21.74, RBC 3.63, Hg 9.6, Hct 31.7, bicarb 18.4, AG 13.6, BUN 31.6, alb 2.9. General: non toxic, moderate distress, appears at stated age Derm: warm, dry Head: atraumatic, normocephalic, symmetric Eyes: EOMI, no lid lag, anicteric sclera Mouth: no lip lesion, mucus membranes moist Cardiovascular: S1S2 reg, systolic murmur Lungs: Decreased BS bilateral, no rhonchi, no rales , no accessory muscle use Abdominal: soft, no bowel sounds, TTP in all 4 quadrants without rebound. Ext: no gross muscle atrophy, no edema, no contractures Neuro: no focal neuro deficits Psych: Alert, oriented, appropriate affect Based on my assessment of this patient, this patient meets a high complexity level of care. Sepsis secondary to acute diverticulitis perforated with abscess: BCx prelim neg. Continue Levaquin 750 IV every 48 hours, Flagyl 500 IV 3 times daily. Telemetry monitoring. Plans for OR today. LR at 120 cc/hr. Possible neoplasm Acute normocytic anemia History of hypertension: Hold antihypertensives in the setting of sepsis. History of CAD: Hold Plavix in preparation for OR. Acute kidney injury: Continue IV hydration as above. Atelectasis: IS ordered. Hypothyroidism: Synthroid 100 mcg PO QD. GERD: Protonix 40 mg PO QD. Severe MR: Following Cardiology. CODE STATUS: FULL CODE DVT Prophylaxis: Heparin SQ GI Prophylaxis: Protonix PO Designated medical POA if patient is not able to make medical decisions for themselves: Daughter I have reviewed the following reservoir engineering consultant notes: Surgery. I have reviewed the results of the following tests: CBC, CMP, CT AP I have ordered the following tests: I have discussed the care of this patient with the following independent historian: Daughter. I have independently interpreted the following test below: I have discussed the management of this patient with the following physician: Objective - Vital Signs Vital signs: Vital Signs Temp 98.1 F 08/10/24 07:00 Pulse 86 08/10/24 08:45 Resp 18 08/10/24 07:00 BP 164/79 08/10/24 07:00 Pulse Ox 97 08/10/24 07:00 FiO2 Intake & Output 08/09/24 08/10/24 08/10/24 18:59 06:59 18:59 Other: # Voids 3 2 # Bowel Movements 0 0 - Labs CBC & Chem 7: 08/10/24 04:35 08/10/24 04:35 Labs: Abnormal Lab Results - Last 24 Hours (Table) 08/10/24 08/10/24 Range/Units 04:35 04:35 WBC 21.74 H (4.50-10.00) X 10*3/uL RBC 3.63 L (4.10-5.20) X 10*6/uL Hgb 9.6 L (12.0-15.0) g/dL Hct 31.7 L (37.2-46.3) % MCH 26.4 L (27.0-32.0) pg MCHC 30.3 L (32.0-37.0) g/dL Immature Gran # 0.52 H (0.00-0.04) X 10*3/uL Neutrophils # 18.89 H (1.80-7.70) X 10*3/uL Monocytes # 1.02 H (0.20-1.00) X 10*3/uL Carbon Dioxide 18.4 L (21.6-31.8) mmol/L Anion Gap 13.60 H (4.00-12.00) mmol/L BUN 31.6 H (9.0-27.0) mg/dL Est GFR (CKD-EPI) 58 L (>=60) BUN/Creatinine Ratio 31.60 H (12.00-20.00) Ratio Calcium 8.5 L (8.7-10.3) mg/dL Total Protein 4.8 L (6.2-8.2) g/dL Albumin 2.9 L (3.8-4.9) g/dL Albumin/Globulin Ratio 1.53 L (1.60-3.17) Ratio Microbiology - Last 24 Hours (Table) 08/08/24 01:26 Blood Culture - Preliminary Blood
[2024-08-10] MEDS: IV FLUID CONTINUATION 1,000 ML IV ONE ×2 (13:18→14:01)
[2024-08-10] MEDS: MIDAZOLAM 2 MG/2 ML VIAL IV ONE ×2 (13:46)
--- NOTE | 2024-08-10 13:59 | P.ANPRN ---
Procedure Note - Anesthesia - Nerve Block Performed Bilateral Erector Spinae Single Time Out Performed: Yes Date of Procedure: 08/10/24 Procedure Start Time: 13:45 Procedure Stop Time: 13:52 Location of Patient: PreOp Indication: Acute Post-Operative Pain, Analgesia, Requested by Surgeon Sedation Type: Sedate with meaningful contact maintained Preparation: Sterile Prep Position: Sitting Catheter: None Needle Types: Pajunk Needle Gauge: 21 Ultrasound used to visualize needle placement: Yes Ultrasound used to observe medication spread: Yes Injectate: 0.5% Ropivacaine (see comment for volume) (Ropi 20ml+Decadron 4mg---Each side. Needle level T11.) Blood Aspirated: No Pain Paresthesia on Injection Noted: No Resistance on Injection: Normal Image Stored and Saved: Yes Events: Uneventful and Well Tolerated
[2024-08-10] MEDS: DEXAMETHASONE SOD PHOSPHATE 4 MG/ML 1 ML VIAL IVP STA (14:04)
[2024-08-10] MEDS ORDERED: PROPOFOL 10 MG/ML 20 ML VIAL IV ONE (14:06)
[2024-08-10] MEDS ORDERED: SUCCINYLCHOLINE CHLORIDE 200 MG/10 ML VIAL IV ONE (14:06)
[2024-08-10] MEDS ORDERED: DEXAMETHASONE SOD PHOSPHATE 4 MG/ML 1 ML VIAL ONE (14:06)
[2024-08-10] MEDS ORDERED: fentaNYL (PF) 50 MCG/ML 2 ML AMP ONE (14:06)
[2024-08-10] MEDS ORDERED: GLYCOPYRROLATE 0.2 MG/ML 2 ML VIAL ONE (14:06)
[2024-08-10] MEDS ORDERED: KETAMINE HCL IN 0.9 % NACL 50 MG/5 ML SYRINGE ONE (14:06)
[2024-08-10] MEDS ORDERED: ROCURONIUM 10 MG/ML (5 ML VIAL) IV ONE (14:06)
[2024-08-10] MEDS ORDERED: NEOSTIGMINE 1 MG/ML 10 ML VIAL ONE (14:06)
[2024-08-10] MEDS ORDERED: LIDOCAINE 1% INJ 10MG/ML (20 ML MDV) ONE (14:06)
[2024-08-10] MEDS ORDERED: ROPIVACAINE 5 MG/ML 30 ML VIAL ONE (14:06)
[2024-08-10 14:15] LABS: Prothrombin Time 10.6 sec (10.0-12.5)
[2024-08-10] MEDS: SODIUM CHLORIDE 0.9% 50 ML with ceFAZolin 2,000 MG IV ONE (14:34)
[2024-08-10] MEDS ORDERED: ONDANSETRON 4 MG/2 ML VIAL IVP PRN (15:37)
[2024-08-10] MEDS ORDERED: BENZOCAINE/MENTHOL LOZENG 1 EACH LOZENGE MUCOUS MEM PRN (15:37)
[2024-08-10] MEDS ORDERED: HYDROmorphone 1 MG/ML 1 ML SYRINGE IVP PRN (15:37)
--- NOTE | 2024-08-10 15:37 | P.OP ---
Date of Procedure: 08/10/24 Preoperative Diagnosis: . Diverticulitis with abscess Postoperative Diagnosis: Perforated diverticulitis with abscess Procedure(s) Performed: Sigmoid colectomy with end colostomy Anesthesia: MAC Surgeon: Robert Chavez Estimated Blood Loss (ml): 50 Pathology: other (Sigmoid colon) Condition: stable Disposition: PACU Description of Procedure: The patient was placed on the operative table in the supine position. She received general endotracheal tube anesthesia. Her abdomen was prepped and draped you sterile fashion. The patient's abdomen was palpated. There was a palpable mass left lower quadrant. The skin was incised and the midline. And then use electrocautery the abdominal wall was divided. The Bookwalter displaced wound. The patient had an obviously inflamed sigmoid colon with evidence of perforation. The sigmoid colon was dissected off the anterior abdom inal wall. There was a large abscess cavity. This was aspirated and cultured. And then and then the white line of Toldt was divided. The left colon was mobilized. And then using a MESSI stapler the distal left colon was transected. And then using the LigaSure device the mesentery of the sigmoid colon was divided. And then the distal sigmoid colon was transected with the contour stapler. The specimen of the pathology. The left colon was mobilized to an appropriate length for colostomy. The abdomen is irrigated there was no bleeding seen. The colon was then brought up through the abdominal wall. A WANDA drain was placed in the pelvis. And brought through a stab wound to the right anterior abdominal wall. The fascia is closed with looped #1 PDS suture. Skin was closed with cristela. Several Telfa julia were placed in the wound. The colostomy then matured with 3-0 Vicryl suture. And then the appliance was applied. Sterile dressing was applied. Patient was sent to recovery room in stable condition. I contacted by Dr. Barahona for possible ICU admission overnight.
[2024-08-10] MEDS ORDERED: HEPARIN SODIUM,PORCINE 5,000 UNIT/ML 1 ML VIAL SQ SCH (16:00)
[2024-08-10] MEDS: HYDROmorphone 0.5 MG/0.5 ML SYRINGE IVP PRN (16:09)
[2024-08-10] MEDS: METOPROLOL TARTRATE 5 MG/5 ML VIAL IVP PRN (16:13)
[2024-08-10 17:46] LABS: Glucose,Whole Blood 110 mg/dL (70-110)
[2024-08-10] MEDS: D5-0.45% NACL WITH KCL 20MEQ/L 1,000 ML IV SCH (18:04)
[2024-08-10 18:16] LABS: Basophils % (A) 0 %; Eosinophils % (A) 0 %; HCT 35.6 % (34.0-46.0); Hypochromasia Slight; Lymphocytes # (A) 0.4 k/uL (1.0-4.8); Lymphocytes % (A) 2 %; MCHC 30.8 g/dL (31.0-37.0); MCV 87.4 fL (80.0-100.0); Mean Platelet Volume 8.1; Monocytes # (A) 0.4 k/uL (0-1.0); Monocytes % (A) 2 %; Neutrophils # (A) 21.4 k/uL (1.3-7.7); Neutrophils % (A) 96 %; Platelet Count 249 k/uL (150-450); RBC 4.07 m/uL (3.80-5.40); RDW 13.8 % (11.5-15.5); WBC 22.3 k/uL (3.8-10.6)
[2024-08-10 18:20] LABS: African American GFR (CKD) 77 (>60 ml/min/1.73 sqM); Anion Gap 10 mmol/L; Blood Urea Nitrogen 23 mg/dL (7-17); Calcium 8.2 mg/dL (8.4-10.2); Carbon Dioxide 16 mmol/L (22-30); Chloride 108 mmol/L (98-107); Glucose 116 mg/dL (74-99); Non-African American GFR(CKD) 67 (>60 ml/min/1.73 sqM); Potassium 3.6 mmol/L (3.5-5.1); Sodium 134 mmol/L (137-145)
[2024-08-10] MEDS ORDERED: Potassium Replacement Protocol 1 EACH MISC MISCELLANE PRN ×2 (19:50→20:56)
[2024-08-10] MEDS ORDERED: Magnesium Replacement Protocol 1 EACH MISC MISCELLANE PRN ×2 (19:50→20:51)
[2024-08-10] MEDS: FAMOTIDINE 20 MG/2 ML VIAL IV SCH (21:08)
[2024-08-10] MEDS: MAGNESIUM SULFATE-D5W PMX 1 GM in DEXTROSE/WATER 1 100ML.BAG IVPB SCH (21:09)
[2024-08-10] MEDS: POTASSIUM CHLORIDE ER 20 MEQ TAB.ER PO SCH (21:12)
[2024-08-10] MEDS: ALVIMOPAN 12 MG CAPSULE PO SCH (21:52)
[2024-08-11] MEDS: hydrALAZINE HCL 25 MG TAB PO STA ×2 (02:30→04:17)
[2024-08-11 06:24] LABS: Hypochromasia Slight; MCH 27.1 pg (25.0-35.0); MCHC 31.3 g/dL (31.0-37.0); MCV 86.3 fL (80.0-100.0); Mean Platelet Volume 8.4; Platelet Count 291 k/uL (150-450); RBC 4.06 m/uL (3.80-5.40); RDW 13.8 % (11.5-15.5); WBC 21.5 k/uL (3.8-10.6)
[2024-08-11 06:37] LABS: ALT 16 U/L (4-34); AST 18 U/L (14-36); African American GFR (CKD) 75 (>60 ml/min/1.73 sqM); Albumin 2.5 g/dL (3.5-5.0); Alkaline Phosphatase 96 U/L (38-126); Anion Gap 6 mmol/L; Blood Urea Nitrogen 18 mg/dL (7-17); Calcium 8.2 mg/dL (8.4-10.2); Carbon Dioxide 18 mmol/L (22-30); Chloride 107 mmol/L (98-107); Glucose 242 mg/dL (74-99); Non-African American GFR(CKD) 65 (>60 ml/min/1.73 sqM); Potassium 4.5 mmol/L (3.5-5.1); Sodium 131 mmol/L (137-145); Total Bilirubin 0.3 mg/dL (0.2-1.3); Total Protein 4.9 g/dL (6.3-8.2)
[2024-08-11] MEDS: LOSARTAN-HCTZ 50-12.5 MG 1 EACH TAB PO SCH (08:56)
[2024-08-11] MEDS: METOPROLOL SUCCINATE (ER) 100 MG TAB.ER.24H PO SCH (08:56)
[2024-08-11] MEDS: KETOROLAC 15 MG/ML 1 ML VIAL IVP PRN (11:16)
--- NOTE | 2024-08-11 11:23 | P.CNPUL ---
History of Present Illness Consult date: 08/11/24 Requesting physician: Robert Chavez Reason for consult: other (Critical care management) Chief complaint: Abdominal pain History of present illness: This is a 78-year-old female patient with a known history of gas or esophageal reflux disease, hypertension, hyperlipidemia, hypothyroidism, severe mitral regurgitation, coronary disease with previous stent placement who presented here to the emergency room on 08/07/2024 with complaints of significant abdominal pain. Scan of the abdomen revealed subtle acute diverticulitis within the mid sigmoid colon. CT scan yesterday was done again due to worsening abdominal pain and showed perforated sigmoid diverticulitis with abscess measuring up to 14.1 cm. She was taken to surgery yesterday and had undergone sigmoid colectomy with end colostomy. She was transferred to the intensive care unit due to her extensive cardiac history. She is seen today in consultation in the ICU. She is resting fairly comfortably in bed. Awake and alert in no acute distress. She is maintaining O2 saturations in the 90s on 2 L/min per nasal cannula. She has D5.45 normal saline with 20 of KCl at 125 mL/h. She is on Levaquin and Flagyl. Heparin for DVT prophylaxis. Review of Systems REVIEW OF SYSTEMS: CONSTITUTIONAL: Denies any recent significant weight loss or weight gain. EYES: Denies change in vision. EARS, NOSE, MOUTH, THROAT: Denies headaches, denies sore throat. CARDIOVASCULAR: Denies chest pain, palpitations or syncopal episodes. RESPIRATORY: Denies shortness of breath, cough, congestion or hemoptysis. GASTROINTESTINAL: Positive for abdominal pain GENITOURINARY: Denies hematuria, denies infections. MUSKULOSKELETAL: Denies pain, denies swelling. INTEGUMENTARY: Denies rash, denies eczema. NEUROLOGICAL: Denies recent memory loss, no recent seizure activity. PSYCHIATRIC: Denies anxiety, denies depression. HEMATOLOGIC/LYMPHATIC: Denies anemia, denies enlarged lymph nodes. Past Medical History Past Medical History: Myocardial Infarction ([place]) Additional Past Medical History / Comment(s): Lupus with arthritis. Type II diabetes, hypothyroidism. 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 [place] 2004, Leaky mitral valve Last Myocardial Infarction Date:: 2004 History of Any Multi-Drug Resistant Organisms: None Reported Past Surgical History: Heart Catheterization With Stent Additional Past Surgical History / Comment(s): Breast biopsies, cold knife colonization of the cervix, stent in 2004, 2 stents in 2022 Additional Past Anesthesia/Blood Transfusion Reaction / Comment(s): hard to wake up Date of Last Stent Placement:: March 21 2023 Smoking Status: Former smoker - Past Family History Sister(s) Family Medical History: Cancer Additional Family Medical History / Comment(s): Ovarian cancer. Mother Family Medical History: Cancer Additional Family Medical History / Comment(s): Breast cancer. Father Family Medical History: Cancer, Myocardial Infarction ([place]) Additional Family Medical History / Comment(s): Colon cancer. Medications and Allergies Home Medications Medication Instructions Recorded Confirmed Type Levothyroxine Sodium [Synthroid] 100 mcg PO DAILY 04/28/19 08/08/24 History Metoprolol Succinate (ER) [Toprol 100 mg PO DAILY 04/28/19 08/08/24 History XL] Evolocumab [Repatha Sureclick] 140 mg SQ Q14D 01/15/23 08/08/24 History Omeprazole [PriLOSEC] 40 mg PO DAILY 01/15/23 08/08/24 History Clopidogrel [Plavix] 75 mg PO DAILY #30 tab 01/20/23 08/08/24 Rx Losartan/Hydrochlorothiazide 1 tab PO DAILY 09/30/23 08/08/24 History [Losartan-Hctz 50-12.5 mg Tab] Albuterol Sulfate [Albuterol 2 puff PO RT-Q6H PRN 08/08/24 08/08/24 History Sulfate Hfa] Isosorbide Mononitrate ER [Imdur] 30 mg PO DAILY 08/08/24 08/08/24 History Ondansetron Odt [Zofran Odt] 4 mg PO Q6H PRN 08/08/24 08/08/24 History Allergies Allergy/AdvReac Type Severity Reaction Status Date / Time amoxicillin [From Augmentin] Allergy Anaphylaxis Verified 08/08/24 09:28 clavulanic acid Allergy Anaphylaxis Verified 08/08/24 09:28 [From Augmentin] Sulfa (Sulfonamide Allergy Anaphylaxis Verified 08/08/24 09:28 Antibiotics) Physical Exam Vitals: Vital Signs Temp Pulse Pulse Resp BP BP Pulse Ox 08/11/24 10:00 87 18 170/84 94 L 08/11/24 09:00 82 18 153/75 94 L 08/11/24 08:11 95 08/11/24 08:00 92 20 161/63 96 08/11/24 07:00 102 H 18 167/84 97 08/11/24 06:00 87 12 158/74 96 08/11/24 05:00 81 16 177/104 95 08/11/24 04:00 98.2 F 81 17 180/86 97 08/11/24 03:00 81 15 171/85 97 08/11/24 02:00 89 19 168/98 97 08/11/24 01:00 83 21 147/95 97 08/11/24 00:00 98.2 F 89 20 159/75 96 08/10/24 23:00 98 15 157/112 96 08/10/24 22:00 91 18 163/77 92 L 08/10/24 21:00 87 19 152/68 96 08/10/24 20:00 98.1 F 90 17 161/72 92 L 08/10/24 19:00 89 18 162/75 95 08/10/24 18:00 98.1 F 89 19 157/75 92 L 08/10/24 16:54 93 18 166/71 97 08/10/24 16:39 89 18 168/79 96 08/10/24 16:24 84 20 176/76 100 08/10/24 16:09 92 22 190/82 100 08/10/24 15:56 97 22 195/87 100 08/10/24 15:41 96 16 207/84 100 08/10/24 15:26 98.6 F 106 H 16 195/85 98 08/10/24 14:02 99 16 169/97 99 08/10/24 13:31 99.0 F 105 H 20 178/73 99 Intake and Output 08/10/24 08/11/24 08/11/24 22:59 06:59 14:59 Intake Total 1025 1000 600 Output Total 750 850 425 Balance 275 150 175 Intake: IV 1025 1000 600 D5-0.45% NaCl with KCl 375 1000 500 20Meq/l 1,000 ml @ 125 mls/hr IV .Q8H [facility] Rx#: [id number] Magnesium Sulfate-D5w Pmx 200 1 gm In Dextrose/Water 1 100ml.bag @ 100 mls/hr IVPB Q1H [facility] Rx#: [id number] metroNIDAZOLE-NS PMX 500 100 100 mg In Saline 1 100ml.bag @ 100 mls/hr IVPB TID [facility] Rx#:[id number] Output: Drainage 60 70 40 Right 60 70 40 Urine 640 780 385 Estimated Blood Loss 50 Other: Voiding Method Indwelling Catheter Indwelling Catheter Indwelling Catheter # Bowel Movements 0 Weight 77.564 kg 86.3 kg GENERAL EXAM: Alert, pleasant 78-year-old female, on 2 L nasal cannula, fairly comfortable in no apparent distress. HEAD: Normocephalic. EYES: Normal reaction of pupils, equal size. NOSE: Clear with pink turbinates. THROAT: No erythema or exudates. NECK: No masses, no JVD. CHEST: No chest wall deformity. LUNGS: Equal air entry with no crackles, wheeze, rhonchi or dullness. CVS: S1 and S2 normal with no audible murmur, regular rhythm. ABDOMEN: Midline incision with cristela intact, ostomy with pink stoma. No output. WANDA drain in place. SPINE: No scoliosis or deformity SKIN: No rashes CENTRAL NERVOUS SYSTEM: No focal deficits, tone is normal in all 4 extremities. EXTREMITIES: There is no peripheral edema. No clubbing, no cyanosis. Peripheral pulses are intact. Results - Laboratory Findings CBC and BMP: 08/11/24 06:16 08/11/24 06:16 PT/INR, D-dimer PT 10.6 sec (10.0-12.5) 08/10/24 13:45 INR 1.0 (<1.2) 08/10/24 13:45 Abnormal lab findings: Abnormal Labs 08/07/24 08/07/24 08/07/24 19:40 19:40 19:50 WBC 20.4 H RBC Hgb Hct MCH MCHC Immature Gran # Neutrophils # 17.5 H Lymphocytes # Monocytes # Sodium Chloride 108 H Carbon Dioxide Anion Gap BUN 47 H Creatinine 1.15 H Est GFR (CKD-EPI) BUN/Creatinine Ratio Glucose 126 H Calcium Total Protein Albumin Albumin/Globulin Ratio Ur Leukocyte Esterase Moderate H Urine Mucus Occasional H 08/08/24 08/08/24 08/09/24 04:52 04:52 04:49 WBC 21.4 H 24.20 H RBC 3.57 L Hgb 11.1 L 9.9 L Hct 32.0 L MCH MCHC 30.9 L 30.9 L Immature Gran # 0.45 H Neutrophils # 18.5 H 21.24 H Lymphocytes # Monocytes # 1.04 H Sodium 135 L Chloride Carbon Dioxide 19 L Anion Gap BUN 42 H Creatinine Est GFR (CKD-EPI) BUN/Creatinine Ratio Glucose 166 H Calcium Total Protein Albumin Albumin/Globulin Ratio Ur Leukocyte Esterase Urine Mucus 08/09/24 08/10/24 08/10/24 04:49 04:35 04:35 WBC 21.74 H RBC 3.63 L Hgb 9.6 L Hct 31.7 L MCH 26.4 L MCHC 30.3 L Immature Gran # 0.52 H Neutrophils # 18.89 H Lymphocytes # Monocytes # 1.02 H Sodium Chloride Carbon Dioxide 19.6 L 18.4 L Anion Gap 13.60 H BUN 41.3 H 31.6 H Creatinine Est GFR (CKD-EPI) 39 L 58 L BUN/Creatinine Ratio 29.50 H 31.60 H Glucose Calcium 8.1 L 8.5 L Total Protein 4.8 L Albumin 2.9 L Albumin/Globulin Ratio 1.53 L Ur Leukocyte Esterase Urine Mucus 08/10/24 08/10/24 08/11/24 17:48 17:48 06:16 WBC 22.3 H 21.5 H RBC Hgb 11.0 L 11.0 L Hct MCH MCHC 30.8 L Immature Gran # Neutrophils # 21.4 H Lymphocytes # 0.4 L Monocytes # Sodium 134 L Chloride 108 H Carbon Dioxide 16 L Anion Gap BUN 23 H Creatinine Est GFR (CKD-EPI) BUN/Creatinine Ratio Glucose 116 H Calcium 8.2 L Total Protein Albumin Albumin/Globulin Ratio Ur Leukocyte Esterase Urine Mucus 08/11/24 06:16 WBC RBC Hgb Hct MCH MCHC Immature Gran # Neutrophils # Lymphocytes # Monocytes # Sodium 131 L Chloride Carbon Dioxide 18 L Anion Gap BUN 18 H Creatinine Est GFR (CKD-EPI) BUN/Creatinine Ratio Glucose 242 H Calcium 8.2 L Total Protein 4.9 L Albumin 2.5 L Albumin/Globulin Ratio Ur Leukocyte Esterase Urine Mucus Assessment and Plan Assessment: Acute abdominal pain secondary to perforated diverticulitis sigmoid colectomy with end colostomy. Postoperative day #1 Acute hypoxemic respiratory failure secondary to atelectasis, an expected outcome of surgery Coronary artery disease with with previous stent placement Valvular heart disease Hypothyroidism Hypertension Gastroesophageal reflux disease History of lupus with arthritis Plan: The patient was seen and evaluated Imaging, labs and medications reviewed Currently stable on 2 L nasal cannula Could transfer out of the intensive care unit today Continue Flagyl and Levaquin Heparin for DVT prophylax Encourage increased use of the incentive spirometer Titrate down the FiO2 as tolerated Increase her activity as tolerated We will continue to follow and make further recommendations based on her clinical status I have personally seen and examined the patient, performed the documentation and the assessment and plan as written. Number of minutes spent on the visit: 20 Dictation was produced using [employer] dictation software. Please excuse any grammatical, word or spelling errors.
--- NOTE | 2024-08-11 12:04 | P.PN ---
Subjective Progress Note Date: 08/11/24 78-year-old female with lupus, type 2 diabetes, hypothyroidism, hypertension, hyperlipidemia and myocardial infarction with stent placement in 2004, CAD with stent placement x 2 last year, and severe mitral regurgitation presented to the ED for N/V, diarrhea and severe abdominal pain. In the ED she underwent extensive evaluation. BP 131/61, HR 99, T 98F, RR 18, 100% on RA. CBC, CMP significant for WBC 20.4, Cl 108, BUN 47, Cr 1.15. Lipase 219. Lactic acid 1.5. UA mode LE. CT AP showed findings of diverticulitis. Started on IV hydration and Flagyl/Levaquin. Continued abdominal pain, repeat CT shows contained perforated sigmoid diverticulitis with abscess 14.1 cm. She underwent Sigmoid colectomy wi th end colostomy on 08/10. 08/11 Patient was seen and examined. Daughter at bedside. Reports improved pain when compared to prior surgery. No nausea or vomiting. CBC and CMP significant for WBC 21.5, Hg 11, Na 131, bicarb 18, BUN 18, glu 242, Ca 8.2, alb 2.5. General: non toxic, moderate distress, appears at stated age Derm: warm, dry Head: atraumatic, normocephalic, symmetric Eyes: EOMI, no lid lag, anicteric sclera Mouth: no lip lesion, mucus membranes moist Cardiovascular: S1S2 reg, systolic murmur Lungs: Decreased BS bilateral, no rhonchi, no rales , no accessory muscle use Ext: no gross muscle atrophy, no edema, no contractures Neuro: no focal neuro deficits Psych: Alert, oriented, appropriate affect Based on my assessment of this patient, this patient meets a high complexity lev el of care. Sepsis secondary to acute diverticulitis perforated with abscess: BCx prelim neg. Continue Levaquin 750 IV every 48 hours, Flagyl 500 IV 3 times daily. Telemetry monitoring. Status post sigmoid colectomy with end colostomy on 08/10. D5 1/2NS + 20 meq KCl at 125 cc/hr. Possible neoplasm Acute normocytic anemia History of hypertension: Hold antihypertensives in the setting of sepsis. History of CAD: Hold Plavix in preparation for OR. Acute kidney injury: Continue IV hydration as above. Atelectasis: IS ordered. Hypothyroidism: Synthroid 100 mcg PO QD. GERD: Protonix 40 mg PO QD. Severe MR: Following Cardiology. CODE STATUS: FULL CODE DVT Prophylaxis: Heparin SQ GI Prophylaxis: Protonix PO Designated medical POA if patient is not able to make medical decisions for themselves: Daughter I have reviewed the following real estate consultant notes: Surgery. I have reviewed the results of the following tests: CBC, CMP I have ordered the following tests: I have discussed the care of this patient with the following independent historian: Daughter. I have independently interpreted the following test below: I have discussed the management of this patient with the following physician: Objective - Vital Signs Vital signs: Vital Signs Temp 98.2 F 08/11/24 04:00 Pulse 82 08/11/24 11:00 Resp 23 08/11/24 11:00 BP 170/84 08/11/24 10:00 Pulse Ox 95 08/11/24 11:00 FiO2 Intake & Output 08/10/24 08/11/24 08/11/24 18:59 06:59 18:59 Intake Total 2024 1550 600 Output Total 315 1285 425 Balance 1710 265 175 Weight 77.564 kg 86.3 kg Intake: IV 2024 1550 600 D5-0.45% NaCl with KCl 125 1250 500 20Meq/l 1,000 ml @ 125 mls/hr IV .Q8H [facility] Rx#: [id number] Magnesium Sulfate-D5w Pmx 200 1 gm In Dextrose/Water 1 100ml.bag @ 100 mls/hr IVPB Q1H [facility] Rx#: [id number] metroNIDAZOLE-NS PMX 500 100 100 mg In Saline 1 100ml.bag @ 100 mls/hr IVPB TID [facility] Rx#:[id number] Output: Drainage 60 70 40 Right 60 70 40 Urine 205 1215 385 Estimated Blood Loss 50 Other: Voiding Method Indwelling Catheter Indwelling Catheter Indwelling Catheter # Bowel Movements 0 - Labs CBC & Chem 7: 08/11/24 06:16 08/11/24 06:16 Labs: Abnormal Lab Results - Last 24 Hours (Table) 08/10/24 08/10/24 08/11/24 Range/Units 17:48 17:48 06:16 WBC 22.3 H 21.5 H (3.8-10.6) k/uL Hgb 11.0 L 11.0 L (11.4-16.0) gm/dL MCHC 30.8 L (31.0-37.0) g/dL Neutrophils # 21.4 H (1.3-7.7) k/uL Lymphocytes # 0.4 L (1.0-4.8) k/uL Sodium 134 L (137-145) mmol/L Chloride 108 H (98-107) mmol/L Carbon Dioxide 16 L (22-30) mmol/L BUN 23 H (7-17) mg/dL Glucose 116 H (74-99) mg/dL Calcium 8.2 L (8.4-10.2) mg/dL Total Protein (6.3-8.2) g/dL Albumin (3.5-5.0) g/dL 08/11/24 Range/Units 06:16 WBC (3.8-10.6) k/uL Hgb (11.4-16.0) gm/dL MCHC (31.0-37.0) g/dL Neutrophils # (1.3-7.7) k/uL Lymphocytes # (1.0-4.8) k/uL Sodium 131 L (137-145) mmol/L Chloride (98-107) mmol/L Carbon Dioxide 18 L (22-30) mmol/L BUN 18 H (7-17) mg/dL Glucose 242 H (74-99) mg/dL Calcium 8.2 L (8.4-10.2) mg/dL Total Protein 4.9 L (6.3-8.2) g/dL Albumin 2.5 L (3.5-5.0) g/dL Microbiology - Last 24 Hours (Table) 08/10/24 15:07 Gram Stain - Preliminary Abdomen 08/08/24 01:26 Blood Culture - Preliminary Blood
--- NOTE | 2024-08-11 13:40 | P.PN ---
Subjective Progress Note Date: 08/11/24 SURGICAL PROGRESS NOTE CHIEF COMPLAINT: Diverticulitis HISTORY OF PRESENT ILLNESS: Postop day #1 status post sigmoid colectomy with end colostomy for perforated diverticulitis with abscess. Patient was in the ICU overnight. She is stable and being transferred out of the ICU to [facility] floor today. Her pain is controlled. She denies any nausea or vomiting. No output from her ostomy. Afebrile. Mildly tachycardic heart rate 102. WBC 21 urine output adequate PHYSICAL EXAM: VITAL SIGNS: Reviewed. GENERAL: Well-developed in no acute distress. ABDOMEN: Soft. Mildly distended. Incisional dressing clean dry and intact. Ostomy with beefy red stoma and serosanguineous drainage. WANDA drain 40 mL serosanguineous drainage NEUROLOGIC: Alert and oriented. Cranial nerves II through XII grossly intact. ASSESSMENT: 1. Acute perforated diverticulitis with abscess PLAN: -Okay to start clear liquids -Continue pain management -Continue antibiotics -continue IV fluids -Encourage patient to increase activity level -Encourage patient to use incentive spirometer -DVT prophylaxis subcu heparin and GI prophylaxis Pepcid Physician Sample Distributor note has been reviewed by physician. Signing provider agrees with the documented findings, assessment, and plan of care. Objective - Vital Signs Vital signs: Vital Signs Temp 98.2 F 08/11/24 04:00 Pulse 79 08/11/24 12:00 Resp 16 08/11/24 12:00 BP 170/84 08/11/24 10:00 Pulse Ox 95 08/11/24 12:00 FiO2 Intake & Output 08/10/24 08/11/24 08/11/24 18:59 06:59 18:59 Intake Total 2024 1550 600 Output Total 315 1285 425 Balance 1710 265 175 Weight 77.564 kg 86.3 kg Intake: IV 2024 1550 600 D5-0.45% NaCl with KCl 125 1250 500 20Meq/l 1,000 ml @ 125 mls/hr IV .Q8H [facility] Rx#: [id number] Magnesium Sulfate-D5w Pmx 200 1 gm In Dextrose/Water 1 100ml.bag @ 100 mls/hr IVPB Q1H [facility] Rx#: [id number] metroNIDAZOLE-NS PMX 500 100 100 mg In Saline 1 100ml.bag @ 100 mls/hr IVPB TID [facility] Rx#:[id number] Output: Drainage 60 70 40 Right 60 70 40 Urine 205 1215 385 Estimated Blood Loss 50 Other: Voiding Method Indwelling Catheter Indwelling Catheter Indwelling Catheter # Bowel Movements 0 - Labs CBC & Chem 7: 08/11/24 06:16 08/11/24 06:16 Labs: Abnormal Lab Results - Last 24 Hours (Table) 08/10/24 08/10/24 08/11/24 Range/Units 17:48 17:48 06:16 WBC 22.3 H 21.5 H (3.8-10.6) k/uL Hgb 11.0 L 11.0 L (11.4-16.0) gm/dL MCHC 30.8 L (31.0-37.0) g/dL Neutrophils # 21.4 H (1.3-7.7) k/uL Lymphocytes # 0.4 L (1.0-4.8) k/uL Sodium 134 L (137-145) mmol/L Chloride 108 H (98-107) mmol/L Carbon Dioxide 16 L (22-30) mmol/L BUN 23 H (7-17) mg/dL Glucose 116 H (74-99) mg/dL Calcium 8.2 L (8.4-10.2) mg/dL Total Protein (6.3-8.2) g/dL Albumin (3.5-5.0) g/dL 08/11/24 Range/Units 06:16 WBC (3.8-10.6) k/uL Hgb (11.4-16.0) gm/dL MCHC (31.0-37.0) g/dL Neutrophils # (1.3-7.7) k/uL Lymphocytes # (1.0-4.8) k/uL Sodium 131 L (137-145) mmol/L Chloride (98-107) mmol/L Carbon Dioxide 18 L (22-30) mmol/L BUN 18 H (7-17) mg/dL Glucose 242 H (74-99) mg/dL Calcium 8.2 L (8.4-10.2) mg/dL Total Protein 4.9 L (6.3-8.2) g/dL Albumin 2.5 L (3.5-5.0) g/dL Microbiology - Last 24 Hours (Table) 08/08/24 01:26 Blood Culture - Preliminary Blood 08/10/24 15:07 Gram Stain - Preliminary Abdomen
--- NOTE | 2024-08-11 15:25 | P.CRDCN ---
History of Present Illness History of present illness: HISTORY OF PRESENTING ILLNESS This is a pleasant 78-year-old with past medical history significant for CAD with CT of the RCA, previous stenting of the LAD, valvular heart disease, hypertension, GERD, mitral regurgitation. She follows in office with Dr. Broussard. She presented on 08/07 with complaints of abdominal pain and CT abdomen and pelvis showed diverticulitis. Patient had worsening abdominal pain and therefore CT was performed which showed perforated diverticulitis with an abscess measuring 14.1 cm. She was taken for surgery and underwent colectomy and colostomy was placed. Patient is normally on Plavix at home. Her Plavix was held. EKG not on file. Patient had undergone left heart catheterization September 2023 with continued ELECTRICIAN RADIO of the RCA however patent stents in the LAD. blood pressure has been persistently elevated low 160s to 180s despite pain meds. She denies any chest pain or pressure. No significant dyspnea. She has been receiving IV fluids. She had previously been on aspirin only however was switched over to Plavix secondary to possible GI irritation however in retrospect she is wondering if the upset stomach may been related to diverticulitis. REVIEW OF SYSTEMS At the time of my exam: CONSTITUTIONAL: Denies fever or chills. CARDIOVASCULAR: Denies chest pain, +chronic shortness of breath, no orthopnea, PND or palpitations. RESPIRATORY: Denies cough. GASTROINTESTINAL: +abdominal pain, no diarrhea, constipation, nausea or vomiting. MUSCULOSKELETAL: Denies myalgias. NEUROLOGIC: Denies numbness, tingling or weakness. ENDOCRINE: Denies fatigue, weight change, polydipsia or polyurina. GENITOURINARY: Denies burning, hematuria or urgency with micturation. HEMATOLOGIC: Denies history of anemia or bleeding. PHYSICAL EXAMINATION Vital signs reviewed. CONSTITUTIONAL: No apparent distress. HEENT: Head is normocephalic. Pupils are equal, round. Sclerae anicteric. Mucous membranes of the mouth are moist. No JVD. No carotid bruit. CHEST EXAMINATION: Lungs are clear to auscultation. No chest wall tenderness is noted on palpation or with deep breathing. HEART EXAMINATION: Regular rate and rhythm. S1, S2 heard. No murmurs, gallops or rub. ABDOMEN: Soft, nontender. Positive bowel sounds. EXTREMITIES: 2+ peripheral pulses, no lower extremity edema and no calf tenderness. NEUROLOGIC EXAMINATION: Patient is awake, alert and oriented x3. ASSESSMENT Perforated diverticulitis with abscess status post exploratory laparotomy, colectomy CAD with prior PCI of the LAD and ELECTRICIAN RADIO RCA Hypertension Hyperlipidemia Mitral regurgitation Lupus Diabetes mellitus type 2 PLAN Patient appears to be recovering well since surgery. Continue to hold Plavix, this had been added secondary to possible GI upset with aspirin. Last stenting was from 02/2023 and likely restart aspirin when stable by surgery. Continue to monitor blood pressure and patient closely. blood pressure has been significantly elevated and therefore increase losartan to 100 mg daily and also add amlodipine. Stop hydrochlorothiazide component while she is receiving IV fluids.Further recommendations to follow. Past Medical History Past Medical History: Myocardial Infarction ([place]) Additional Past Medical History / Comment(s): Lupus with arthritis. Type II diabetes, hypothyroidism. 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 [place] 2004, Leaky mitral valve Last Myocardial Infarction Date:: 2004 History of Any Multi-Drug Resistant Organisms: None Reported Past Surgical History: Heart Catheterization With Stent Additional Past Surgical History / Comment(s): Breast biopsies, cold knife colonization of the cervix, stent in 2004, 2 stents in 2022 Additional Past Anesthesia/Blood Transfusion Reaction / Comment(s): hard to wake up Date of Last Stent Placement:: March 21 2023 Smoking Status: Former smoker - Past Family History Sister(s) Family Medical History: Cancer Additional Family Medical History / Comment(s): Ovarian cancer. Mother Family Medical History: Cancer Additional Family Medical History / Comment(s): Breast cancer. Father Family Medical History: Cancer, Myocardial Infarction ([place]) Additional Family Medical History / Comment(s): Colon cancer. Medications and Allergies Home Medications Medication Instructions Recorded Confirmed Type Levothyroxine Sodium [Synthroid] 100 mcg PO DAILY 04/28/19 08/08/24 History Metoprolol Succinate (ER) [Toprol 100 mg PO DAILY 04/28/19 08/08/24 History XL] Evolocumab [Repatha Sureclick] 140 mg SQ Q14D 01/15/23 08/08/24 History Omeprazole [PriLOSEC] 40 mg PO DAILY 01/15/23 08/08/24 History Clopidogrel [Plavix] 75 mg PO DAILY #30 tab 01/20/23 08/08/24 Rx Losartan/Hydrochlorothiazide 1 tab PO DAILY 09/30/23 08/08/24 History [Losartan-Hctz 50-12.5 mg Tab] Albuterol Sulfate [Albuterol 2 puff PO RT-Q6H PRN 08/08/24 08/08/24 History Sulfate Hfa] Isosorbide Mononitrate ER [Imdur] 30 mg PO DAILY 08/08/24 08/08/24 History Ondansetron Odt [Zofran Odt] 4 mg PO Q6H PRN 08/08/24 08/08/24 History Allergies Allergy/AdvReac Type Severity Reaction Status Date / Time amoxicillin [From Augmentin] Allergy Anaphylaxis Verified 08/08/24 09:28 clavulanic acid Allergy Anaphylaxis Verified 08/08/24 09:28 [From Augmentin] Sulfa (Sulfonamide Allergy Anaphylaxis Verified 08/08/24 09:28 Antibiotics) Physical Exam Vitals: Vital Signs Temp Pulse Pulse Resp BP BP Pulse Ox 08/11/24 13:00 77 19 08/11/24 12:00 79 16 95 08/11/24 11:00 82 23 95 08/11/24 10:00 87 18 170/84 94 L 08/11/24 09:00 82 18 153/75 94 L 08/11/24 08:11 95 08/11/24 08:00 92 20 161/63 96 08/11/24 07:00 102 H 18 167/84 97 08/11/24 06:00 87 12 158/74 96 08/11/24 05:00 81 16 177/104 95 08/11/24 04:00 98.2 F 81 17 180/86 97 08/11/24 03:00 81 15 171/85 97 08/11/24 02:00 89 19 168/98 97 08/11/24 01:00 83 21 147/95 97 08/11/24 00:00 98.2 F 89 20 159/75 96 08/10/24 23:00 98 15 157/112 96 08/10/24 22:00 91 18 163/77 92 L 08/10/24 21:00 87 19 152/68 96 08/10/24 20:00 98.1 F 90 17 161/72 92 L 08/10/24 19:00 89 18 162/75 95 08/10/24 18:00 98.1 F 89 19 157/75 92 L 08/10/24 16:54 93 18 166/71 97 08/10/24 16:39 89 18 168/79 96 08/10/24 16:24 84 20 176/76 100 08/10/24 16:09 92 22 190/82 100 08/10/24 15:56 97 22 195/87 100 08/10/24 15:41 96 16 207/84 100 08/10/24 15:26 98.6 F 106 H 16 195/85 98 08/10/24 14:02 99 16 169/97 99 Intake and Output 08/10/24 08/11/24 08/11/24 22:59 06:59 14:59 Intake Total 1025 1000 600 Output Total 750 850 425 Balance 275 150 175 Intake: IV 1025 1000 600 D5-0.45% NaCl with KCl 375 1000 500 20Meq/l 1,000 ml @ 125 mls/hr IV .Q8H [facility] Rx#: [id number] Magnesium Sulfate-D5w Pmx 200 1 gm In Dextrose/Water 1 100ml.bag @ 100 mls/hr IVPB Q1H [facility] Rx#: [id number] metroNIDAZOLE-NS PMX 500 100 100 mg In Saline 1 100ml.bag @ 100 mls/hr IVPB TID [facility] Rx#:[id number] Output: Drainage 60 70 40 Right 60 70 40 Urine 640 780 385 Estimated Blood Loss 50 Other: Voiding Method Indwelling Catheter Indwelling Catheter Indwelling Catheter # Bowel Movements 0 Weight 77.564 kg 86.3 kg Results 08/11/24 06:16 08/11/24 06:16 Cardiac Enzymes 08/11/24 Range/Units 06:16 AST 18 (14-36) U/L Coagulation 08/10/24 Range/Units 13:45 PT 10.6 (10.0-12.5) sec CBC 08/10/24 08/11/24 Range/Units 17:48 06:16 WBC 22.3 H 21.5 H (3.8-10.6) k/uL RBC 4.07 4.06 (3.80-5.40) m/uL Hgb 11.0 L 11.0 L (11.4-16.0) gm/dL Hct 35.6 35.0 (34.0-46.0) % Plt Count 249 291 (150-450) k/uL Comprehensive Metabolic Panel 08/10/24 08/11/24 Range/Units 17:48 06:16 Sodium 134 L 131 L (137-145) mmol/L Potassium 3.6 4.5 (3.5-5.1) mmol/L Chloride 108 H 107 (98-107) mmol/L Carbon Dioxide 16 L 18 L (22-30) mmol/L BUN 23 H 18 H (7-17) mg/dL Creatinine 0.85 0.87 (0.52-1.04) mg/dL Glucose 116 H 242 H (74-99) mg/dL Calcium 8.2 L 8.2 L (8.4-10.2) mg/dL AST 18 (14-36) U/L ALT 16 (4-34) U/L Alkaline Phosphatase 96 (38-126) U/L Total Protein 4.9 L (6.3-8.2) g/dL Albumin 2.5 L (3.5-5.0) g/dL Current Medications Generic Name Dose Route Start Last Admin Trade Name Freq PRN Reason Stop Dose Admin Acetaminophen 650 mg 08/09/24 10:39 Acetaminophen Tab 325 Mg Tab PO Q6HR PRN Fever and/ or Mild Pain Albuterol/Ipratropium 3 ml 08/09/24 10:42 Ipratropium-Albuterol 3 Ml Neb INHALATION RT-Q2H PRN Shortness Of Breath Or Wheezing Alvimopan 12 mg 08/10/24 21:00 08/11/24 08:56 Alvimopan 12 Mg Capsule PO 08/17/24 09:01 12 mg BID [facility] Administration Benzocaine/Menthol 1 each 08/10/24 15:37 Benzocaine/Menthol Lozeng 1 Each Lozenge MUCOUS MEM Q1HR PRN Sore Throat Famotidine 20 mg 08/12/24 09:00 Famotidine 20 Mg/2 Ml Vial IV DAILY [facility] Guaifenesin 600 mg 08/09/24 21:00 08/11/24 08:56 Guaifenesin 600 Mg Tablet.Er PO 600 mg Q12HR [facility] Administration HCTZ/Losartan Potassium 1 each 08/11/24 09:00 08/11/24 08:56 Losartan-Hctz 50-12.5 Mg 1 Each Tab PO 1 each DAILY [facility] Administration Heparin Sodium (Porcine) 5,000 unit 08/08/24 08:00 08/11/24 08:56 Heparin Sodium,Porcine 5,000 Unit/Ml 1 Ml Vial SQ 5,000 unit Q8HR [facility] Administration Hydromorphone HCl 0.5 mg 08/08/24 18:18 08/11/24 13:42 Hydromorphone 0.5 Mg/0.5 Ml Syringe IVP 0.5 mg Q4HR PRN Administration Breakthrough Pain Hydromorphone HCl 1 mg 08/10/24 15:37 Hydromorphone 1 Mg/Ml 1 Ml Syringe IVP Q3HR PRN Severe Pain (Scale 7 to 10) Levofloxacin 750 mg/ IV 150 mls @ 100 mls/hr 08/07/24 22:00 08/09/24 20:44 Solution IVPB 100 mls/hr Q48H [facility] Administration Protocol Metronidazole 500 mg/ IV 100 mls @ 100 mls/hr 08/07/24 22:00 08/11/24 08:55 Solution IVPB 100 mls/hr TID [facility] Administration Protocol Lactated Ringer's 1,000 mls @ 120 mls/hr 08/08/24 08:26 08/11/24 11:29 Lactated Ringers IV Not Given .Q8H20M [facility] Potassium Chloride/Dextrose/Sod Cl 1,000 mls @ 125 mls/hr 08/10/24 16:15 08/11/24 11:29 D5%-1/2ns-Kcl 20 Meq/L Iv Solution IV Not Given .Q8H [facility] Ketorolac Tromethamine 15 mg 08/10/24 15:37 08/11/24 11:16 Ketorolac 15 Mg/Ml 1 Ml Vial IVP 08/12/24 15:36 15 mg Q6HR PRN Administration Mild to Moderate Pain (1 - 6) Levothyroxine Sodium 100 mcg 08/08/24 06:00 08/11/24 06:21 Levothyroxine 100 Mcg Tab PO 100 mcg DAILY@0600 [facility] Administration Metoclopramide HCl 10 mg 08/10/24 15:37 Metoclopramide 5 Mg/Ml 2 Ml Vial IVP Q6HR PRN Nausea and Vomiting Metoprolol Succinate 100 mg 08/11/24 09:00 08/11/24 08:56 Metoprolol Succinate (Er) 100 Mg Tab.Er.24h PO 100 mg DAILY [facility] Administration Miscellaneous Information 1 each 08/10/24 19:50 Magnesium Replacement Protocol 1 Each Misc MISCELLANE DAILY PRN Per Protocol Protocol Miscellaneous Information 1 each 08/10/24 19:50 Potassium Replacement Protocol 1 Each Misc MISCELLANE DAILY PRN Per Protocol Protocol Naloxone HCl 0.2 mg 08/07/24 21:29 Naloxone 0.4 Mg/Ml 1 Ml Vial IV Q2M PRN Opioid Reversal Ondansetron HCl 4 mg 08/07/24 21:29 08/11/24 11:29 Ondansetron 4 Mg/2 Ml Vial IVP 4 mg Q8HR PRN Administration Nausea And Vomiting Pantoprazole Sodium 40 mg 08/08/24 07:30 08/11/24 06:21 Pantoprazole 40 Mg Tablet PO 40 mg DAILY@0730 [facility] Administration Intake and Output 08/10/24 08/11/24 08/11/24 22:59 06:59 14:59 Intake Total 1025 1000 600 Output Total 750 850 425 Balance 275 150 175 Intake: IV 1025 1000 600 D5-0.45% NaCl with KCl 375 1000 500 20Meq/l 1,000 ml @ 125 mls/hr IV .Q8H [facility] Rx#: [id number] Magnesium Sulfate-D5w Pmx 200 1 gm In Dextrose/Water 1 100ml.bag @ 100 mls/hr IVPB Q1H [facility] Rx#: [id number] metroNIDAZOLE-NS PMX 500 100 100 mg In Saline 1 100ml.bag @ 100 mls/hr IVPB TID [facility] Rx#:[id number] Output: Drainage 60 70 40 Right 60 70 40 Urine 640 780 385 Estimated Blood Loss 50 Other: Voiding Method Indwelling Catheter Indwelling Catheter Indwelling Catheter # Bowel Movements 0 Weight 77.564 kg 86.3 kg 08/11/24 06:16 08/11/24 06:16
[2024-08-11] MEDS: LOSARTAN 50 MG TAB PO STA (16:01)
[2024-08-11] MEDS: amLODIPine 5 MG TAB PO SCH (16:02)
[2024-08-11] MEDS: ISOSORBIDE MONONITRATE ER 30 MG TAB.ER.24H PO SCH (16:02)
[2024-08-11] MEDS: METOCLOPRAMIDE 5 MG/ML 2 ML VIAL IVP PRN (16:49)
[2024-08-11 17:28] LABS: Glucose,Whole Blood 184 mg/dL (70-110)
[2024-08-11 20:20] LABS: Glucose,Whole Blood 171 mg/dL (70-110)
[2024-08-12 07:19] LABS: Glucose,Whole Blood 108 mg/dL (70-110)
[2024-08-12] MEDS: FAMOTIDINE 20 MG/2 ML VIAL IV SCH (08:06)
[2024-08-12] MEDS: LOSARTAN 50 MG TAB PO SCH (08:06)
[2024-08-12 08:39] LABS: African American GFR (CKD) 69 (>60 ml/min/1.73 sqM); Anion Gap 5 mmol/L; Blood Urea Nitrogen 20 mg/dL (7-17); Calcium 8.3 mg/dL (8.4-10.2); Carbon Dioxide 23 mmol/L (22-30); Chloride 107 mmol/L (98-107); Glucose 94 mg/dL (74-99); Non-African American GFR(CKD) 60 (>60 ml/min/1.73 sqM); Potassium 3.9 mmol/L (3.5-5.1); Sodium 135 mmol/L (137-145)
[2024-08-12 10:42] LABS: Basophils % (A) 0 %; Eosinophils # (A) 0.1 k/uL (0-0.7); Eosinophils % (A) 1 %; HCT 34.4 % (34.0-46.0); Lymphocytes # (A) 2.3 k/uL (1.0-4.8); Lymphocytes % (A) 15 %; MCV 84.2 fL (80.0-100.0); Mean Platelet Volume 8.1; Monocytes # (A) 1.1 k/uL (0-1.0); Monocytes % (A) 7 %; Neutrophils # (A) 11.9 k/uL (1.3-7.7); Neutrophils % (A) 76 %; Platelet Count 338 k/uL (150-450); RBC 4.09 m/uL (3.80-5.40); WBC 15.7 k/uL (3.8-10.6)
--- NOTE | 2024-08-12 12:09 | P.PN ---
Subjective Progress Note Date: 08/12/24 SURGICAL PROGRESS NOTE CHIEF COMPLAINT: Diverticulitis HISTORY OF PRESENT ILLNESS: Postop day #2 status post sigmoid colectomy with end colostomy for perforated diverticulitis with abscess. Patient was transferred out of the ICU. Pain is controlled. Denies any nausea or vomiting. Patient is having flatus through her ostomy. Afebrile. WBC is down from 21 to 15.7 Hgb 11 PHYSICAL EXAM: VITAL SIGNS: Reviewed. GENERAL: Well-developed in no acute distress. ABDOMEN: Soft. Mildly distended. Incision site is clean dry and intact. [address] Ostomy is beefy red with serosanguineous drainage. WANDA drain 50 ml serosanguineous drainage NEUROLOGIC: Alert and oriented. Cranial nerves II through XII grossly intact. ASSESSMENT: 1. Acute perforated diverticulitis with abscess PLAN: -Advance diet to full liquids -Discontinue IV fluids -Ostomy nurse consulted for ostomy teaching -[place] added for oral pain medication -Continue antibiotics -Consult PT to help ambulate patient -Encourage patient to increase activity level -Encourage patient to use incentive spirometer -Plan to change abdominal wick starting tomorrow -DVT prophylaxis subcu heparin and GI prophylaxis Pepcid Physician Sugar Presser note has been reviewed by physician. Signing provider agrees with the documented findings, assessment, and plan of care. Objective - Vital Signs Vital signs: Vital Signs Temp 97.9 F 08/12/24 07:37 Pulse 92 08/12/24 07:37 Resp 19 08/12/24 07:37 BP 177/81 08/12/24 07:37 Pulse Ox 97 08/12/24 08:55 FiO2 Intake & Output 08/11/24 08/12/24 08/12/24 18:59 06:59 18:59 Intake Total 850 Output Total 477 300 Balance 373 -300 Intake: IV 850 D5-0.45% NaCl with KCl 750 20Meq/l 1,000 ml @ 125 mls/hr IV .Q8H [facility] Rx#: [id number] metroNIDAZOLE-NS PMX 500 100 mg In Saline 1 100ml.bag @ 100 mls/hr IVPB TID [facility] Rx#:[id number] Output: Drainage 90 50 Right 90 50 Urine 387 250 Other: Voiding Method Indwelling Catheter # Voids 3 # Bowel Movements 0 - Labs CBC & Chem 7: 08/12/24 10:31 08/12/24 07:56 Labs: Abnormal Lab Results - Last 24 Hours (Table) 08/11/24 08/11/24 08/12/24 Range/Units 17:27 20:19 07:56 WBC (3.8-10.6) k/uL Hgb (11.4-16.0) gm/dL Neutrophils # (1.3-7.7) k/uL Monocytes # (0-1.0) k/uL Sodium 135 L (137-145) mmol/L BUN 20 H (7-17) mg/dL POC Glucose (mg/dL) 184 H 171 H (70-110) mg/dL Calcium 8.3 L (8.4-10.2) mg/dL 08/12/24 Range/Units 10:31 WBC 15.7 H (3.8-10.6) k/uL Hgb 11.0 L (11.4-16.0) gm/dL Neutrophils # 11.9 H (1.3-7.7) k/uL Monocytes # 1.1 H (0-1.0) k/uL Sodium (137-145) mmol/L BUN (7-17) mg/dL POC Glucose (mg/dL) (70-110) mg/dL Calcium (8.4-10.2) mg/dL Microbiology - Last 24 Hours (Table) 08/10/24 15:07 Gram Stain - Preliminary Abdomen Wound Culture - Preliminary Staphylococcus species 08/08/24 01:26 Blood Culture - Preliminary Blood
--- NOTE | 2024-08-12 12:18 | P.PN ---
Subjective HISTORY OF PRESENT ILLNESS: This is a pleasant 78-year-old with past medical history significant for CAD with CT of the RCA, previous stenting of the LAD, valvular heart disease, hypertension, GERD, mitral regurgitation. She follows in office with Dr. Broussard. She presented on 08/07 with complaints of abdominal pain and CT abdomen and pelvis showed diverticulitis. Patient had worsening abdominal pain and therefore CT was performed which showed perforated diverticulitis with an abscess measuring 14.1 cm. She was taken for surgery and underwent colectomy and colostomy was placed. Patient is normally on Plavix at home. Her Plavix was held. EKG not on file. 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 blood pressure has been persistently elevated low 160s to 180s despite pain meds. She denies any chest pain or pressure. No significant dyspnea. She has been receiving IV fluids. She had previously been on aspirin only however was switched over to Plavix secondary to possible GI irritation however in retrospect she is wondering if the upset stomach may been related to diverticulitis. 08/12/2024 Patient examined this morning the bedside. She is status post sigmoid colectomy with end colostomy. Patient currently denies any chest pain or pressure. She denies shortness of breath. She has been tolerating clear liquid diet. Blood pressure remains elevated. She continues to have abdominal pain related to her surgery. PHYSICAL EXAM: VITAL SIGNS: Reviewed. GENERAL: Well-developed in no acute distress. NECK: Supple. No JVD or thyromegaly LUNGS: Respirations even and unlabored. Lungs essentially clear to auscultation bilaterally. HEART: Regular rate and rhythm. S1 and S2 heard. EXTREMITIES: Normal range of motion. No clubbing or cyanosis. Peripheral pulses intact. No lower extremity edema ASSESSMENT: Perforated diverticulitis with abscess status post exploratory laparotomy, colectomy CAD with prior PCI of the LAD and REPORTS ANALYSIS MANAGER RCA Hypertension Hyperlipidemia Mitral regurgitation Lupus Diabetes mellitus type 2 PLAN: Resume aspirin 81 mg daily. Patient does not need to be resumed on Plavix. Add atorvastatin 40 mg at night due to history of CAD Do not resume hydrochlorothiazide at this time as patient's intake remains on th e lower side due to surgery Continue additional cardiac medications including metoprolol succinate 100 mg daily, losartan 100 mg daily, Imdur 30 mg daily, and amlodipine 5 mg daily Expect improvement in patient's blood pressure as her pain lessens No further inpatient recommendations from a cardiac standpoint We will sign off. Please reconsult if needed. Nurse practitioner note has been reviewed by physician. Signing provider agrees with the documented findings, assessment, and plan of care documented by SUBSTATION SUPERVISOR as a scribe. Objective - Vital Signs Vital signs: Vital Signs Temp 97.9 F 08/12/24 07:37 Pulse 92 08/12/24 07:37 Resp 19 08/12/24 07:37 BP 177/81 08/12/24 07:37 Pulse Ox 97 08/12/24 08:55 FiO2 Intake & Output 08/11/24 08/12/24 08/12/24 18:59 06:59 18:59 Intake Total 850 Output Total 477 300 Balance 373 -300 Intake: IV 850 D5-0.45% NaCl with KCl 750 20Meq/l 1,000 ml @ 125 mls/hr IV .Q8H [facility] Rx#: [id number] metroNIDAZOLE-NS PMX 500 100 mg In Saline 1 100ml.bag @ 100 mls/hr IVPB TID [facility] Rx#:[id number] Output: Drainage 90 50 Right 90 50 Urine 387 250 Other: Voiding Method Indwelling Catheter # Voids 3 # Bowel Movements 0 - Labs CBC & Chem 7: 08/12/24 10:31 08/12/24 07:56 Labs: Abnormal Lab Results - Last 24 Hours (Table) 08/11/24 08/11/24 08/12/24 Range/Units 17:27 20:19 07:56 WBC (3.8-10.6) k/uL Hgb (11.4-16.0) gm/dL Neutrophils # (1.3-7.7) k/uL Monocytes # (0-1.0) k/uL Sodium 135 L (137-145) mmol/L BUN 20 H (7-17) mg/dL POC Glucose (mg/dL) 184 H 171 H (70-110) mg/dL Calcium 8.3 L (8.4-10.2) mg/dL 08/12/24 Range/Units 10:31 WBC 15.7 H (3.8-10.6) k/uL Hgb 11.0 L (11.4-16.0) gm/dL Neutrophils # 11.9 H (1.3-7.7) k/uL Monocytes # 1.1 H (0-1.0) k/uL Sodium (137-145) mmol/L BUN (7-17) mg/dL POC Glucose (mg/dL) (70-110) mg/dL Calcium (8.4-10.2) mg/dL Microbiology - Last 24 Hours (Table) 08/10/24 15:07 Gram Stain - Preliminary Abdomen Wound Culture - Preliminary Staphylococcus species 08/08/24 01:26 Blood Culture - Preliminary Blood
--- NOTE | 2024-08-12 12:21 | P.PN ---
Subjective Progress Note Date: 08/12/24 This is a 78-year-old female patient with a known history of gas or esophageal reflux disease, hypertension, hyperlipidemia, hypothyroidism, severe mitral regurgitation, coronary disease with previous stent placement who presented here to the emergency room on 08/07/2024 with complaints of significant abdominal pain. Scan of the abdomen revealed subtle acute diverticulitis within the mid sigmoid colon. CT scan yesterday was done again due to worsening abdominal pain and showed perforated sigmoid diverticulitis with abscess measuring up to 14.1 cm. She was taken to surgery yesterday and had undergone sigmoid colectomy with end colostomy. She was transferred to the intensive care unit due to her extensive cardiac history. She is seen today in consultation in the ICU. She is resting fairly comfortably in bed. Awake and alert in no acute distress. She is maintaining O2 saturations in the 90s on 2 L/min per nasal cannula. She has D5.45 normal saline with 20 of KCl at 125 mL/h. She is on Levaquin and Flagyl. Heparin for DVT prophylaxis. The patient is seen today August 12, 2024 in follow-up on the regular medical floor. She is currently sitting up in bed. Awake and alert in no acute distress. She is maintaining good O2 saturations in the 90s on room air. She has lactated Ringer's at 120 mL/h. She was having some issues with nausea and pain earlier but is feeling pretty good at the moment. Tolerating a clear liquid diet. She is continued on Levaquin and Flagyl. White count 15.7. Hemoglobin 11.0. Platelets 338. Sodium 135. Potassium 3.9. Bicarb 23. BUN 20. Creatinine 0.93. Glucose 94. Abdominal wound culture is showing Staphylococcus species. White count 15.7. Hemoglobin 11.0. Platelets 338. Sodium 135. Potassium 3.9. Bicarb 23. BUN 20. Creatinine 0.93. Glucose 94. Objective - Vital Signs Vital signs: Vital Signs Temp 97.9 F 08/12/24 07:37 Pulse 92 08/12/24 07:37 Resp 19 08/12/24 07:37 BP 177/81 08/12/24 07:37 Pulse Ox 97 08/12/24 08:55 FiO2 Intake & Output 08/11/24 08/12/24 08/12/24 18:59 06:59 18:59 Intake Total 850 Output Total 477 300 Balance 373 -300 Intake: IV 850 D5-0.45% NaCl with KCl 750 20Meq/l 1,000 ml @ 125 mls/hr IV .Q8H [facility] Rx#: [id number] metroNIDAZOLE-NS PMX 500 100 mg In Saline 1 100ml.bag @ 100 mls/hr IVPB TID [facility] Rx#:[id number] Output: Drainage 90 50 Right 90 50 Urine 387 250 Other: Voiding Method Indwelling Catheter # Voids 3 # Bowel Movements 0 - Exam GENERAL EXAM: Alert, 78-year-old female, on , fairly comfortable in no apparent distress. HEAD: Normocephalic. EYES: Normal reaction of pupils, equal size. NOSE: Clear with pink turbinates. THROAT: No erythema or exudates. NECK: No masses, no JVD. CHEST: No chest wall deformity. LUNGS: Equal air entry with no crackles, wheeze, rhonchi or dullness. CVS: S1 and S2 normal with no audible murmur, regular rhythm. ABDOMEN: Midline incision with cristela intact, ostomy with pink stoma. Sangui nous output. WANDA drain in place. SPINE: No scoliosis or deformity SKIN: No rashes CENTRAL NERVOUS SYSTEM: No focal deficits, tone is normal in all 4 extremities. EXTREMITIES: There is no peripheral edema. No clubbing, no cyanosis. Peripheral pulses are intact. - Labs CBC & Chem 7: 08/12/24 10:31 08/12/24 07:56 Labs: Abnormal Lab Results - Last 24 Hours (Table) 08/11/24 08/11/24 08/12/24 Range/Units 17:27 20:19 07:56 WBC (3.8-10.6) k/uL Hgb (11.4-16.0) gm/dL Neutrophils # (1.3-7.7) k/uL Monocytes # (0-1.0) k/uL Sodium 135 L (137-145) mmol/L BUN 20 H (7-17) mg/dL POC Glucose (mg/dL) 184 H 171 H (70-110) mg/dL Calcium 8.3 L (8.4-10.2) mg/dL 08/12/24 Range/Units 10:31 WBC 15.7 H (3.8-10.6) k/uL Hgb 11.0 L (11.4-16.0) gm/dL Neutrophils # 11.9 H (1.3-7.7) k/uL Monocytes # 1.1 H (0-1.0) k/uL Sodium (137-145) mmol/L BUN (7-17) mg/dL POC Glucose (mg/dL) (70-110) mg/dL Calcium (8.4-10.2) mg/dL Microbiology - Last 24 Hours (Table) 08/10/24 15:07 Gram Stain - Preliminary Abdomen Wound Culture - Preliminary Staphylococcus species 08/08/24 01:26 Blood Culture - Preliminary Blood Assessment and Plan Assessment: Acute abdominal pain secondary to perforated diverticulitis sigmoid colectomy with end colostomy. Postoperative day #2 Acute hypoxemic respiratory failure secondary to atelectasis, an expected outcome of surgery, recovered and on room air Coronary artery disease with with previous stent placement Valvular heart disease Hypothyroidism Hypertension Gastroesophageal reflux disease History of lupus with arthritis Plan: The patient was seen and evaluated Labs and medications reviewed Currently stable on room air Continue Flagyl and Levaquin Heparin for DVT prophylax Encourage increased use of the incentive spirometer Increase her activity as tolerated We will continue to follow This patient was seen independently by the pulmonary nurse practitioner addressing pulmonary issues I have personally seen and examined the patient, performed the documentation and the assessment and plan as written. Number of minutes spent on the visit: 10 Dictation was produced using [employer] dictation software. Please excuse any grammatical, word or spelling errors.
[2024-08-12 12:22] LABS: Glucose,Whole Blood 97 mg/dL (70-110)
--- NOTE | 2024-08-12 13:17 | P.PN ---
Subjective Progress Note Date: 08/12/24 78-year-old female with lupus, type 2 diabetes, hypothyroidism, hypertension, hyperlipidemia and myocardial infarction with stent placement in 2004, CAD with stent placement x 2 last year, and severe mitral regurgitation presented to the ED for N/V, diarrhea and severe abdominal pain. In the ED she underwent extensive evaluation. BP 131/61, HR 99, T 98F, RR 18, 100% on RA. CBC, CMP significant for WBC 20.4, Cl 108, BUN 47, Cr 1.15. Lipase 219. Lactic acid 1.5. UA mode LE. CT AP showed findings of diverticulitis. Started on IV hydration and Flagyl/Levaquin. Continued abdominal pain, repeat CT shows contained perforated sigmoid diverticulitis with abscess 14.1 cm. She underwent Sigmoid colectomy wit h end colostomy on 08/10. 08/12. Poor appetite. pain adequetely controlled. no stool seen in ostomy yet. Objective - Vital Signs Vital signs: Vital Signs Temp 97.9 F 08/12/24 07:37 Pulse 92 08/12/24 07:37 Resp 19 08/12/24 07:37 BP 177/81 08/12/24 07:37 Pulse Ox 97 08/12/24 08:55 FiO2 Intake & Output 08/11/24 08/12/24 08/12/24 18:59 06:59 18:59 Intake Total 850 Output Total 477 300 Balance 373 -300 Intake: IV 850 D5-0.45% NaCl with KCl 750 20Meq/l 1,000 ml @ 125 mls/hr IV .Q8H [facility] Rx#: [id number] metroNIDAZOLE-NS PMX 500 100 mg In Saline 1 100ml.bag @ 100 mls/hr IVPB TID [facility] Rx#:[id number] Output: Drainage 90 50 Right 90 50 Urine 387 250 Other: Voiding Method Indwelling Catheter # Voids 3 # Bowel Movements 0 - Exam General: non toxic, moderate distress, appears at stated age Derm: warm, dry Head: atraumatic, normocephalic, symmetric Eyes: EOMI, no lid lag, anicteric sclera Mouth: no lip lesion, mucus membranes moist Cardiovascular: S1S2 reg, systolic murmur Lungs: Decreased BS bilateral, no rhonchi, no rales , no accessory muscle use Ext: no gross muscle atrophy, no edema, no contractures Neuro: no focal neuro deficits Psych: Alert, oriented, appropriate affect abd: abdominal binder noted with david drain. ostomy with no stool yet. - Labs CBC & Chem 7: 08/12/24 10:31 08/12/24 07:56 Labs: Abnormal Lab Results - Last 24 Hours (Table) 08/11/24 08/11/24 08/12/24 Range/Units 17:27 20:19 07:56 WBC (3.8-10.6) k/uL Hgb (11.4-16.0) gm/dL Neutrophils # (1.3-7.7) k/uL Monocytes # (0-1.0) k/uL Sodium 135 L (137-145) mmol/L BUN 20 H (7-17) mg/dL POC Glucose (mg/dL) 184 H 171 H (70-110) mg/dL Calcium 8.3 L (8.4-10.2) mg/dL 08/12/24 Range/Units 10:31 WBC 15.7 H (3.8-10.6) k/uL Hgb 11.0 L (11.4-16.0) gm/dL Neutrophils # 11.9 H (1.3-7.7) k/uL Monocytes # 1.1 H (0-1.0) k/uL Sodium (137-145) mmol/L BUN (7-17) mg/dL POC Glucose (mg/dL) (70-110) mg/dL Calcium (8.4-10.2) mg/dL Microbiology - Last 24 Hours (Table) 08/10/24 15:07 Gram Stain - Preliminary Abdomen Wound Culture - Preliminary Staphylococcus species 08/08/24 01:26 Blood Culture - Preliminary Blood Assessment and Plan (1) Abdominal pain Narrative/Plan: Sepsis secondary to acute diverticulitis perforated with abscess: s/p sigmoid colectomy with end colostomy on 08/10. Continue serial abdominal exams. awaiting bowel function return. poor appetite and will need to tolerate regular diet and have adequete knowledge of ostomy changes. awaiting wound care team evaluation. continue levaquin and flagyl- ?consider 5-7 days of antibx therapy with levaquin and flagyl. switch to po when able to. Acute normocytic anemia, monitor cbc History of hypertension: continue losartan and amlodipine hold home hctz at this time History of CAD: Hold Plavix in preparation for OR. Acute kidney injury, resolved Atelectasis: IS ordered. encourage ambulation Hypothyroidism: Synthroid 100 mcg PO QD. GERD: Protonix 40 mg PO QD. Severe MR: outpatient f/u with cardiology dvt ppx: heparin 5000 TID Current Visit: Yes Status: Acute Code(s): R10.9 - UNSPECIFIED ABDOMINAL PAIN SNOMED Code(s): 17226662 Time with Patient: Greater than 30
[2024-08-12 17:12] LABS: Glucose,Whole Blood 92 mg/dL (70-110)
[2024-08-12] MEDS: HYDROcodone/APAP 5-325MG 1 EACH TAB PO PRN (17:15)
[2024-08-12 20:13] LABS: Glucose,Whole Blood 89 mg/dL (70-110)
[2024-08-12] MEDS: ATORVASTATIN 40 MG TAB PO SCH (21:32)
[2024-08-13 07:25] LABS: Glucose,Whole Blood 100 mg/dL (70-110)
[2024-08-13] MEDS: ASPIRIN 81 MG PO SCH (08:21)
[2024-08-13] MEDS ORDERED: traMADol 50 MG TAB PO PRN (09:05)
[2024-08-13 09:28] LABS: BUN/Creat Ratio 20.88 Ratio (12.00-20.00); Blood Urea Nitrogen 16.7 mg/dL (9.0-27.0); Carbon Dioxide 20.2 mmol/L (21.6-31.8); Chloride 106 mmol/L (96-109); Glucose 90 mg/dL (70-110); Potassium 4.2 mmol/L (3.5-5.5); Sodium 137 mmol/L (135-145)
[2024-08-13] MEDS: ACETAMINOPHEN TAB 500 MG TAB PO SCH (10:33)
[2024-08-13] MEDS: KETOROLAC 15 MG/ML 1 ML VIAL IVP SCH (10:33)
[2024-08-13 12:26] LABS: Basophils # (A) 0.07 X 10*3/uL (0.00-0.10); Basophils % (A) 0.5 %; Eosinophils # (A) 0.26 X 10*3/uL (0.04-0.35); Eosinophils % (A) 1.9 %; HCT 32.7 % (37.2-46.3); HGB 9.9 g/dL (12.0-15.0); Lymphocytes # (A) 2.54 X 10*3/uL (0.90-5.00); Lymphocytes % (A) 18.3 %; MCH 25.9 pg (27.0-32.0); MCHC 30.3 g/dL (32.0-37.0); MCV 85.6 FL (80.0-97.0); Mean Platelet Volume 11.4 FL (9.5-12.2); Monocytes # (A) 1.82 X 10*3/uL (0.20-1.00); Monocytes % (A) 13.1 %; NRBC Per 100 WBC 0 X 10*3/uL (0.00-0.01); Neutrophils % (A) 62.1 %; Platelet Count 231 X 10*3/uL (140-440); RBC 3.82 X 10*6/uL (4.10-5.20); RDW 14.2 % (11.5-14.5); WBC 13.86 X 10*3/uL (4.50-10.00)
--- NOTE | 2024-08-13 12:45 | P.PN ---
Subjective Progress Note Date: 08/13/24 SURGICAL PROGRESS NOTE CHIEF COMPLAINT: Diverticulitis HISTORY OF PRESENT ILLNESS: Postop day #3 status post sigmoid colectomy with end colostomy for perforated diverticulitis with abscess. Patient complaining of back pain. She does report having a small amount of flatus from her ostomy. No stool yet. She did have nausea earlier. She has been up and ambulating in the hallway. Patient reports the Elcho medication was too strong for her. Afebrile. WBC 15.7 down to 13.86 HGB 11 down to 9.9 PHYSICAL EXAM: VITAL SIGNS: Reviewed. GENERAL: Well-developed in no acute distress. ABDOMEN: Soft. Mildly distended. Incision site is clean dry and intact. [address] Ostomy is beefy red with serosanguineous drainage. WANDA drain 50 ml serosanguineous drainage NEUROLOGIC: Alert and oriented. Cranial nerves II through XII grossly intact. ASSESSMENT: 1. Acute perforated diverticulitis with abscess PLAN: -Discontinue Elcho -Tylenol and Toradol scheduled for pain. Ultram added as needed for pain -Continue full liquid diet -Patient receiving ostomy teaching today -Nursing staff to change abdominal incisionalwicks today -Continue antibiotics -Encourage patient to increase activity level -Encourage patient to use incentive spirometer -DVT prophylaxis subcu heparin and GI prophylaxis Pepcid Physician [place] [employer]cher note has been reviewed by physician. Signing provider agrees with the documented findings, assessment, and plan of care. Objective - Vital Signs Vital signs: Vital Signs Temp 98.1 F 08/13/24 07:34 Pulse 87 08/13/24 07:34 Resp 18 08/13/24 07:34 BP 164/83 08/13/24 07:34 Pulse Ox 94 L 08/13/24 07:34 FiO2 Intake & Output 08/12/24 08/13/24 08/13/24 18:59 06:59 18:59 Intake Total 780 Output Total 50 650 Balance 730 -650 Intake: Oral 780 Output: Drainage 50 50 Right 50 50 Urine 600 Other: # Voids 3 4 1 - Labs CBC & Chem 7: 08/13/24 04:45 08/13/24 04:45 Labs: Abnormal Lab Results - Last 24 Hours (Table) 08/13/24 08/13/24 Range/Units 04:45 04:45 WBC 13.86 H (4.50-10.00) X 10*3/uL RBC 3.82 L (4.10-5.20) X 10*6/uL Hgb 9.9 L (12.0-15.0) g/dL Hct 32.7 L (37.2-46.3) % MCH 25.9 L (27.0-32.0) pg MCHC 30.3 L (32.0-37.0) g/dL Immature Gran # 0.57 H (0.00-0.04) X 10*3/uL Neutrophils # 8.60 H (1.80-7.70) X 10*3/uL Monocytes # 1.82 H (0.20-1.00) X 10*3/uL Carbon Dioxide 20.2 L (21.6-31.8) mmol/L BUN/Creatinine Ratio 20.88 H (12.00-20.00) Ratio Calcium 8.0 L (8.7-10.3) mg/dL Microbiology - Last 24 Hours (Table) 08/10/24 15:07 Gram Stain - Final Abdomen Wound Culture - Final Staphylococcus simulans 08/10/24 15:07 Anaerobic Culture - Preliminary Abdomen
--- NOTE | 2024-08-13 13:09 | P.PN ---
Subjective Progress Note Date: 08/13/24 This is a 78-year-old female patient with a known history of gas or esophageal reflux disease, hypertension, hyperlipidemia, hypothyroidism, severe mitral regurgitation, coronary disease with previous stent placement who presented here to the emergency room on 08/07/2024 with complaints of significant abdominal pain. Scan of the abdomen revealed subtle acute diverticulitis within the mid sigmoid colon. CT scan yesterday was done again due to worsening abdominal pain and showed perforated sigmoid diverticulitis with abscess measuring up to 14.1 cm. She was taken to surgery yesterday and had undergone sigmoid colectomy with end colostomy. She was transferred to the intensive care unit due to her extensive cardiac history. She is seen today in consultation in the ICU. She is resting fairly comfortably in bed. Awake and alert in no acute distress. She is maintaining O2 saturations in the 90s on 2 L/min per nasal cannula. She has D5.45 normal saline with 20 of KCl at 125 mL/h. She is on Levaquin and Flagyl. Heparin for DVT prophylaxis. The patient is seen today August 12, 2024 in follow-up on the regular medical floor. She is currently sitting up in bed. Awake and alert in no acute distress. She is maintaining good O2 saturations in the 90s on room air. She has lactated Ringer's at 120 mL/h. She was having some issues with nausea and pain earlier but is feeling pretty good at the moment. Tolerating a clear liquid diet. She is continued on Levaquin and Flagyl. White count 15.7. Hemoglobin 11.0. Platelets 338. Sodium 135. Potassium 3.9. Bicarb 23. BUN 20. Creatinine 0.93. Glucose 94. Abdominal wound culture is showing Staphylococcus species. White count 15.7. Hemoglobin 11.0. Platelets 338. Sodium 135. Potassium 3.9. Bicarb 23. BUN 20. Creatinine 0.93. Glucose 94. The patient is seen today August 13, 2024 in follow-up on the regular medical floor. She is awake and alert in no acute distress. Sitting up in bed. Denies any worsening shortness of breath, cough or congestion. She is maintaining good O2 saturations in the 90s on room air. She is working well with the incentive spirometer. She has been up ambulating in her room and hallway with assistance. She is tolerating a full liquid diet. She remains on Levaquin and Flagyl. Heparin for DVT prophylaxis. Abdominal wound culture positive for Staphylococcus simulans. White count 13.8. Hemoglobin 9.9. Platelets 231. Sodium 137. Potassium 4.2. Bicarb 20. BUN 17. Creatinine 0.8. Glucose 90. Objective - Vital Signs Vital signs: Vital Signs Temp 98.3 F 08/13/24 12:46 Pulse 84 08/13/24 12:46 Resp 20 08/13/24 12:46 BP 168/76 08/13/24 12:46 Pulse Ox 95 08/13/24 12:46 FiO2 Intake & Output 08/12/24 08/13/24 08/13/24 18:59 06:59 18:59 Intake Total 780 Output Total 50 650 Balance 730 -650 Intake: Oral 780 Output: Drainage 50 50 Right 50 50 Urine 600 Other: # Voids 3 4 1 - Exam GENERAL EXAM: Alert, pleasant 78-year-old female, on room air, comfortable in no apparent distress. HEAD: Normocephalic. EYES: Normal reaction of pupils, equal size. NOSE: Clear with pink turbinates. THROAT: No erythema or exudates. NECK: No masses, no JVD. CHEST: No chest wall deformity. LUNGS: Equal air entry with no crackles, wheeze, rhonchi or dullness. CVS: S1 and S2 normal with no audible murmur, regular rhythm. ABDOMEN: Midline incision with cristela intact, ostomy with pink stoma. S anguinous output. WANDA drain in place. SPINE: No scoliosis or deformity SKIN: No rashes CENTRAL NERVOUS SYSTEM: No focal deficits, tone is normal in all 4 extremities. EXTREMITIES: There is no peripheral edema. No clubbing, no cyanosis. Peripheral pulses are intact. - Labs CBC & Chem 7: 08/13/24 04:45 08/13/24 04:45 Labs: Abnormal Lab Results - Last 24 Hours (Table) 08/13/24 08/13/24 Range/Units 04:45 04:45 WBC 13.86 H (4.50-10.00) X 10*3/uL RBC 3.82 L (4.10-5.20) X 10*6/uL Hgb 9.9 L (12.0-15.0) g/dL Hct 32.7 L (37.2-46.3) % MCH 25.9 L (27.0-32.0) pg MCHC 30.3 L (32.0-37.0) g/dL Immature Gran # 0.57 H (0.00-0.04) X 10*3/uL Neutrophils # 8.60 H (1.80-7.70) X 10*3/uL Monocytes # 1.82 H (0.20-1.00) X 10*3/uL Carbon Dioxide 20.2 L (21.6-31.8) mmol/L BUN/Creatinine Ratio 20.88 H (12.00-20.00) Ratio Calcium 8.0 L (8.7-10.3) mg/dL Microbiology - Last 24 Hours (Table) 08/08/24 01:26 Blood Culture - Final Blood 08/10/24 15:07 Gram Stain - Final Abdomen Wound Culture - Final Staphylococcus simulans 08/10/24 15:07 Anaerobic Culture - Preliminary Abdomen Assessment and Plan Assessment: Acute abdominal pain secondary to perforated diverticulitis sigmoid colectomy with end colostomy. Postoperative day #3 Acute hypoxemic respiratory failure secondary to atelectasis, an expected outcome of surgery, recovered and on room air Coronary artery disease with with previous stent placement Valvular heart disease Hypothyroidism Hypertension Gastroesophageal reflux disease History of lupus with arthritis Plan: The patient was seen and evaluated Labs and medications reviewed Currently stable on room air Heparin for DVT prophylax Increased use of the incentive spirometer Increase her activity as tolerated Tolerating a full liquid diet We will continue to follow This patient was seen independently by the pulmonary nurse practitioner add ressing pulmonary issues I have personally seen and examined the patient, performed the documentation and the assessment and plan as written. Number of minutes spent on the visit: 25 Dictation was produced using [employer] software. Please excuse any grammatical, word or spelling errors.
--- NOTE | 2024-08-13 17:34 | P.PN ---
Subjective Progress Note Date: 08/13/24 78-year-old female with lupus, type 2 diabetes, hypothyroidism, hypertension, hyperlipidemia and myocardial infarction with stent placement in 2004, CAD with stent placement x 2 last year, and severe mitral regurgitation presented to the ED for N/V, diarrhea and severe abdominal pain. In the ED she underwent extensive evaluation. BP 131/61, HR 99, T 98F, RR 18, 100% on RA. CBC, CMP significant for WBC 20.4, Cl 108, BUN 47, Cr 1.15. Lipase 219. Lactic acid 1.5. UA mode LE. CT AP showed findings of diverticulitis. Started on IV hydration and Flagyl/Levaquin. Continued abdominal pain, repeat CT shows contained perforated sigmoid diverticulitis with abscess 14.1 cm. She underwent Sigmoid colectomy wi th end colostomy on 08/10. 08/13 Patient was seen and examined. Daughter at bedside. Having stool output in the ostomy. CBC and BMP WBC 13.86, RBC 3.82, Hg 9.9, Hct 32.7, bicarb 20.2, Ca 8. General: non toxic, moderate distress, appears at stated age Derm: warm, dry Head: atraumatic, normocephalic, symmetric Eyes: EOMI, no lid lag, anicteric sclera Mouth: no lip lesion, mucus membranes moist Cardiovascular: good distal perfusion in all 4 extremities Lungs: breathing comfortably , no accessory muscle use Ext: no gross muscle atrophy, no edema, no contractures Neuro: no focal neuro deficits Psych: Alert, oriented, appropriate affect Based on my assessment of this patient, this patient meets a high complexity level of care. Sepsis secondary to acute diverticulitis perforated with abscess: BCx prelim neg. Abd Cx growing staph simulans. Continue Levaquin 750 IV every 48 hours, Flagyl 500 IV 3 times daily. Telemetry monitoring. Status post sigmoid colectomy with end colostomy on 08/10. Entereg 12 mg PO BID. Reglan 10 mg IV Q6H PRN N/V. Surgery on board. Possible neoplasm Acute normocytic anemia History of hypertension: Metoprolol 100 mg PO QD. Losartan 100 mg PO QD. Imdur 30 mg PO QD. History of CAD: ASA 81 mg PO QD. Lipitor 40 mg PO QHS. Acute kidney injury: Encourage hydration by mouth. Atelectasis: IS ordered. Hypothyroidism: Synthroid 100 mcg PO QD. GERD: Protonix 40 mg PO QD. Severe MR: Following Cardiology. CODE STATUS: FULL CODE DVT Prophylaxis: Heparin SQ GI Prophylaxis: Protonix PO Designated medical POA if patient is not able to make medical decisions for themselves: Daughter I have reviewed the following apartment leasing consultant notes: Surgery, Pulmonary. I have reviewed the results of the following tests: CBC. BMP I have ordered the following tests: I have discussed the care of this patient with the following independent historian: Daughter. I have independently interpreted the following test below: I have discussed the management of this patient with the following physician: Objective - Vital Signs Vital signs: Vital Signs Temp 98.1 F 08/13/24 07:34 Pulse 87 08/13/24 07:34 Resp 18 08/13/24 07:34 BP 164/83 08/13/24 07:34 Pulse Ox 94 L 08/13/24 07:34 FiO2 Intake & Output 08/12/24 08/13/24 08/13/24 18:59 06:59 18:59 Intake Total 780 Output Total 50 650 Balance 730 -650 Intake: Oral 780 Output: Drainage 50 50 Right 50 50 Urine 600 Other: # Voids 3 4 - Labs CBC & Chem 7: 08/13/24 04:45 08/13/24 04:45 Labs: Abnormal Lab Results - Last 24 Hours (Table) 08/12/24 Range/Units 10:31 WBC 15.7 H (3.8-10.6) k/uL Hgb 11.0 L (11.4-16.0) gm/dL Neutrophils # 11.9 H (1.3-7.7) k/uL Monocytes # 1.1 H (0-1.0) k/uL Microbiology - Last 24 Hours (Table) 08/10/24 15:07 Gram Stain - Final Abdomen Wound Culture - Final Staphylococcus simulans 08/10/24 15:07 Anaerobic Culture - Preliminary Abdomen
[2024-08-13 17:37] LABS: Glucose,Whole Blood 92 mg/dL (70-110)
[2024-08-13 20:43] LABS: Glucose,Whole Blood 102 mg/dL (70-110)
[2024-08-14 07:19] LABS: Glucose,Whole Blood 96 mg/dL (70-110)
--- NOTE | 2024-08-14 10:34 | P.DS ---
Providers Date of admission: 08/08/24 18:07 Expected date of discharge: 08/14/24 Attending physician: Mani Tipton MD Consults: 08/07/24 21:29 Consult Physician Urgent Consulting Provider: Robert Chavez Consult Reason/Comments: acute diverticulitis Do you want consulting provider notified?: Yes 08/10/24 16:34 Consult Physician Urgent Consulting Provider: Buddy Barahona Consult Reason/Comments: Critical care management, Dr. Chavez spoke with Do you want consulting provider notified?: Already Contacted Primary care physician: Larry [facility] Course: 78-year-old female with lupus, type 2 diabetes, hypothyroidism, hypertension, hyperlipidemia and myocardial infarction with stent placement in 2004, CAD with stent placement x 2 last year, and severe mitral regurgitation presented to the ED for N/V, diarrhea and severe abdominal pain. In the ED she underwent extensive evaluation. BP 131/61, HR 99, T 98F, RR 18, 100% on RA. CBC, CMP significant for WBC 20.4, Cl 108, BUN 47, Cr 1.15. Lipase 219. Lactic acid 1.5. UA mode LE. CT AP showed findings of diverticulitis. Started on IV hydration and Flagyl/Levaquin. Continued abdominal pain, repeat CT shows contained perforated sigmoid diverticulitis with abscess 14.1 cm. She underwent Sigmoid colectomy with end colostomy on 08/10. Progressively improved. 08/14 Patient was seen and examined. Daughter at bedside. Having stool output in the ostomy. CBC and BMP WBC 18.07, RBC 3.8, Hg 11, Hct 33.7, BUN 7.6. Cleared by gen surgery. Discharge Plan: Follow up with Dr. Chavez in 1 week. Continue Levaquin and Flagyl for 1 week. Lasix PRN for edema. Prescribed ASA, Losartan, Lipitor, Amlodipine per Cardiology recommendations. Tramadol PRN for breakthrough pain. General: non toxic, moderate distress, appears at stated age Derm: warm, dry Head: atraumatic, normocephalic, symmetric Eyes: EOMI, no lid lag, anicteric sclera Mouth: no lip lesion, mucus membranes moist Cardiovascular: Normal S1 S2. sytolic murmur Lungs: CTA BL , no accessory muscle use Ext: no gross muscle atrophy, no edema, no contractures Neuro: no focal neuro deficits Psych: Alert, oriented, appropriate affect Discharge Diagnosis: Sepsis secondary to acute diverticulitis perforated with abscess Possible neoplasm Acute normocytic anemia History of hypertension History of CAD Acute kidney injury Atelectasis Hypothyroidism GERD Severe MR This complex discharge took 35 minutes to complete. Patient Condition at Discharge: Stable Plan - Discharge Summary Discharge Rx Participant: No New Discharge Prescriptions: New Levofloxacin [Levaquin] 500 mg PO DAILY 7 Days #7 tab Acetaminophen Tab [Tylenol] 1,000 mg PO Q6HR PRN #30 tablet PRN Reason: Pain Aspirin 81 mg PO DAILY #30 tab Losartan [Cozaar] 100 mg PO DAILY #60 tab Atorvastatin [Lipitor] 40 mg PO HS #30 tab metroNIDAZOLE [Flagyl] 500 mg PO TID 7 Days #21 tab Ibuprofen [Motrin] 600 mg PO Q8HR PRN #30 tab PRN Reason: Pain Furosemide [Lasix] 20 mg PO DAILY PRN #7 tab PRN Reason: Edema amLODIPine [Norvasc] 5 mg PO DAILY #30 tab traMADol HCl [Ultram] 50 mg PO TID PRN #9 tab PRN Reason: Pain Continue Levothyroxine Sodium [Synthroid] 100 mcg PO DAILY Metoprolol Succinate (ER) [Toprol XL] 100 mg PO DAILY Ondansetron Odt [Zofran ODT] 4 mg PO Q6H PRN PRN Reason: Nausea And Vomiting Omeprazole [PriLOSEC] 40 mg PO DAILY Evolocumab [Repatha Sureclick] 140 mg SQ Q14D Albuterol Sulfate [Albuterol Sulfate Hfa] 2 puff PO RT-Q6H PRN PRN Reason: Shortness Of Breath Isosorbide Mononitrate ER [Imdur] 30 mg PO DAILY Discontinued Losartan/Hydrochlorothiazide [Losartan-Hctz 50-12.5 mg Tab] 1 tab PO DAILY Clopidogrel [Plavix] 75 mg PO DAILY #30 tab Discharge Medication List Levothyroxine Sodium [Synthroid] 100 mcg PO DAILY 04/28/19 [History] Metoprolol Succinate (ER) [Toprol XL] 100 mg PO DAILY 04/28/19 [History] Evolocumab [Repatha Sureclick] 140 mg SQ Q14D 01/15/23 [History] Omeprazole [PriLOSEC] 40 mg PO DAILY 01/15/23 [History] Albuterol Sulfate [Albuterol Sulfate Hfa] 2 puff PO RT-Q6H PRN 08/08/24 [History] Isosorbide Mononitrate ER [Imdur] 30 mg PO DAILY 08/08/24 [History] Ondansetron Odt [Zofran ODT] 4 mg PO Q6H PRN 08/08/24 [History] Acetaminophen Tab [Tylenol] 1,000 mg PO Q6HR PRN #30 tablet 08/14/24 [Rx] Aspirin 81 mg PO DAILY #30 tab 08/14/24 [Rx] Atorvastatin [Lipitor] 40 mg PO HS #30 tab 08/14/24 [Rx] Furosemide [Lasix] 20 mg PO DAILY PRN #7 tab 08/14/24 [Rx] Ibuprofen [Motrin] 600 mg PO Q8HR PRN #30 tab 08/14/24 [Rx] Levofloxacin [Levaquin] 500 mg PO DAILY 7 Days #7 tab 08/14/24 [Rx] Losartan [Cozaar] 100 mg PO DAILY #60 tab 08/14/24 [Rx] amLODIPine [Norvasc] 5 mg PO DAILY #30 tab 08/14/24 [Rx] metroNIDAZOLE [Flagyl] 500 mg PO TID 7 Days #21 tab 08/14/24 [Rx] traMADol HCl [Ultram] 50 mg PO TID PRN #9 tab 08/14/24 [Rx] Follow up Appointment(s)/Referral(s): Larry Suresh DO [Primary Care Provider] - 1-2 days [facility] [NON-STAFF] - 1 Week Robert Chavez MD [STAFF PHYSICIAN] - 1 Week Activity/Diet/Wound Care/Special Instructions: No driving while taking ultram No lifting over 10 pounds Shower daily. No soaking or tub baths for 2 weeks Very light activity until you are reevaluated at your follow up appointment with your surgeon Keep a log of WANDA drain output and bring with you to your follow-up appointment Milk/strip drains 2-3 times a day Wash abdominal incision daily in the shower with soap and water and change incisional julia daily Discharge Disposition: HOME SELF-CARE
[2024-08-14 11:58] VITALS: BMI 35.9
[2024-08-14 12:18] LABS: Glucose,Whole Blood 118 mg/dL (70-110)
[2024-08-14 12:26] LABS: Band Neutrophils % 4 %; Basophils # (M) 0 X 10*3/uL (0.00-0.10); Eosinophils # (M) 0.15 X 10*3/uL (0.04-0.35); HCT 32.7 % (37.2-46.3); HGB 10.1 g/dL (12.0-15.0); MCH 27.1 pg (27.0-32.0); MCHC 30.9 g/dL (32.0-37.0); MCV 87.7 FL (80.0-97.0); Metamyelocytes % 1 % (0-0); Monocytes # (M) 1.05 X 10*3/uL (0.20-1.00); Myelocytes % 3 % (0-0); NRBC Per 100 WBC 0 X 10*3/uL (0.00-0.01); Neutrophils # (M) 11.68 X 10*3/uL (1.80-7.70); Neutrophils % (M) 74 %; Platelet Count 334 X 10*3/uL (140-440); RBC 3.73 X 10*6/uL (4.10-5.20); RDW 14.3 % (11.5-14.5); WBC 14.98 X 10*3/uL (4.50-10.00)
--- NOTE | 2024-08-14 12:27 | P.PN ---
Subjective Progress Note Date: 08/14/24 This is a 78-year-old female patient with a known history of gas or esophageal reflux disease, hypertension, hyperlipidemia, hypothyroidism, severe mitral regurgitation, coronary disease with previous stent placement who presented here to the emergency room on 08/07/2024 with complaints of significant abdominal pain. Scan of the abdomen revealed subtle acute diverticulitis within the mid sigmoid colon. CT scan yesterday was done again due to worsening abdominal pain and showed perforated sigmoid diverticulitis with abscess measuring up to 14.1 cm. She was taken to surgery yesterday and had undergone sigmoid colectomy with end colostomy. She was transferred to the intensive care unit due to her extensive cardiac history. She is seen today in consultation in the ICU. She is resting fairly comfortably in bed. Awake and alert in no acute distress. She is maintaining O2 saturations in the 90s on 2 L/min per nasal cannula. She has D5.45 normal saline with 20 of KCl at 125 mL/h. She is on Levaquin and Flagyl. Heparin for DVT prophylaxis. The patient is seen today August 12, 2024 in follow-up on the regular medical floor. She is currently sitting up in bed. Awake and alert in no acute distress. She is maintaining good O2 saturations in the 90s on room air. She has lactated Ringer's at 120 mL/h. She was having some issues with nausea and pain earlier but is feeling pretty good at the moment. Tolerating a clear liquid diet. She is continued on Levaquin and Flagyl. White count 15.7. Hemoglobin 11.0. Platelets 338. Sodium 135. Potassium 3.9. Bicarb 23. BUN 20. Creatinine 0.93. Glucose 94. Abdominal wound culture is showing Staphylococcus species. White count 15.7. Hemoglobin 11.0. Platelets 338. Sodium 135. Potassium 3.9. Bicarb 23. BUN 20. Creatinine 0.93. Glucose 94. The patient is seen today August 13, 2024 in follow-up on the regular medical floor. She is awake and alert in no acute distress. Sitting up in bed. Denies any worsening shortness of breath, cough or congestion. She is maintaining good O2 saturations in the 90s on room air. She is working well with the incentive spirometer. She has been up ambulating in her room and hallway with assistance. She is tolerating a full liquid diet. She remains on Levaquin and Flagyl. Heparin for DVT prophylaxis. Abdominal wound culture positive for Staphylococcus simulans. White count 13.8. Hemoglobin 9.9. Platelets 231. Sodium 137. Potassium 4.2. Bicarb 20. BUN 17. Creatinine 0.8. Glucose 90. The patient is seen today August 14, 2024 in follow-up on the regular medical floor. She is currently sitting up in a chair. Awake and alert in no acute distress. Denies any worsening shortness of breath, cough or congestion. Maintaining good O2 saturations in the 90s on room air. She is afebrile. Hemodynamically stable. Working well with the incentive spirometer. Her pain is well-controlled. Tolerating a full liquid diet. Glucose 118. She is continued on bronchodilators as needed. Heparin for DVT prophylaxis. Antibiotics in the form of Levaquin. Objective - Vital Signs Vital signs: Vital Signs Temp 98.2 F 08/14/24 12:13 Pulse 85 08/14/24 12:13 Resp 16 08/14/24 12:13 BP 135/66 08/14/24 12:13 Pulse Ox 95 08/14/24 12:13 FiO2 Intake & Output 08/13/24 08/14/24 08/14/24 18:59 06:59 18:59 Intake Total 540 Output Total 90 200 Balance 450 -200 Weight 86.3 kg Intake: Oral 540 Output: Drainage 90 Right 90 Stool 200 Other: Voiding Method Indwelling Catheter # Voids 1 3 - Exam GENERAL EXAM: Alert, 78-year-old female, up in a chair, on room air, in no apparent distress. HEAD: Normocephalic. EYES: Normal reaction of pupils, equal size. NOSE: Clear with pink turbinates. THROAT: No erythema or exudates. NECK: No masses, no JVD. CHEST: No chest wall deformity. LUNGS: Equal air entry with no crackles, wheeze, rhonchi or dullness. CVS: S1 and S2 normal with no audible murmur, regular rhythm. ABDOMEN: Midline incision with cristela intact, ostomy with pink stoma. WANDA drain in place. SPINE: No scoliosis or deformity SKIN: No rashes CENTRAL NERVOUS SYSTEM: No focal deficits, tone is normal in all 4 extremities. EXTREMITIES: There is no peripheral edema. No clubbing, no cyanosis. Peripheral pulses are intact. - Labs CBC & Chem 7: 08/13/24 04:45 08/13/24 04:45 Labs: Abnormal Lab Results - Last 24 Hours (Table) 08/13/24 08/14/24 Range/Units 04:45 12:16 WBC 13.86 H (4.50-10.00) X 10*3/uL RBC 3.82 L (4.10-5.20) X 10*6/uL Hgb 9.9 L (12.0-15.0) g/dL Hct 32.7 L (37.2-46.3) % MCH 25.9 L (27.0-32.0) pg MCHC 30.3 L (32.0-37.0) g/dL Immature Gran # 0.57 H (0.00-0.04) X 10*3/uL Neutrophils # 8.60 H (1.80-7.70) X 10*3/uL Monocytes # 1.82 H (0.20-1.00) X 10*3/uL POC Glucose (mg/dL) 118 H (70-110) mg/dL Microbiology - Last 24 Hours (Table) 08/08/24 01:26 Blood Culture - Final Blood Assessment and Plan Assessment: Acute abdominal pain secondary to perforated diverticulitis sigmoid colectomy with end colostomy. Postoperative day #4 Acute hypoxemic respiratory failure secondary to atelectasis, an expected outcome of surgery, recovered and on room air Coronary artery disease with with previous stent placement Valvular heart disease Hypothyroidism Hypertension Gastroesophageal reflux disease History of lupus with arthritis Plan: The patient was seen and evaluated Labs and medications reviewed Currently stable on room air Continued use of the incentive spirometer Tolerating a full liquid diet Received ostomy teaching Plan is for home with home care This patient was seen independently by the pulmonary nurse practitioner addressing pulmonary issues I have personally seen and examined the patient, performed the documentation and the assessment and plan as written. Number of minutes spent on the visit: 23 Dictation was produced using [employer] dictation software. Please excuse any grammatical, word or spelling errors.
--- NOTE | 2024-08-14 13:36 | P.PN ---
Subjective HISTORY OF PRESENT ILLNESS: This is a pleasant 78-year-old with past medical history significant for CAD with CT of the RCA, previous stenting of the LAD, valvular heart disease, hypertension, GERD, mitral regurgitation. She follows in office with Dr. Broussard. She presented on 08/07 with complaints of abdominal pain and CT abdomen and pelvis showed diverticulitis. Patient had worsening abdominal pain and therefore CT was performed which showed perforated diverticulitis with an abscess measuring 14.1 cm. She was taken for surgery and underwent colectomy and colostomy was placed. Patient is normally on Plavix at home. Her Plavix was held. EKG not on file. Patient had undergone left heart catheterization September 2023 with continued EYE TECHNICIAN of the RCA however patent stents in the LAD. blood pressure has been persistently elevated low 160s to 180s despite pain meds. She denies any chest pain or pressure. No significant dyspnea. She has been receiving IV fluids. She had previously been on aspirin only however was switched over to Plavix secondary to possible GI irritation however in retrospect she is wondering if the upset stomach may been related to diverticulitis. 08/12/2024 Patient examined this morning the bedside. She is status post sigmoid colectomy with end colostomy. Patient currently denies any chest pain or pressure. She denies shortness of breath. She has been tolerating clear liquid diet. Blood pressure remains elevated. She continues to have abdominal pain related to her surgery. 08/14/2024 Cardiology was reconsulted as patient had a run of nonsustained ventricular tachycardia today. Patient states she was asymptomatic at the time. She denies any chest pain or pressure. Denies any shortness of breath. Denies any palpitations. Denies dizziness or lightheadedness. Patient is tolerating oral diet. She reports she has had a large amount of output in her ostomy. PHYSICAL EXAM: VITAL SIGNS: Reviewed. GENERAL: Well-developed in no acute distress. NECK: Supple. No JVD or thyromegaly LUNGS: Respirations even and unlabored. Lungs essentially clear to auscultation bilaterally. HEART: Regular rate and rhythm. S1 and S2 heard. EXTREMITIES: Normal range of motion. No clubbing or cyanosis. Peripheral pulses intact. No lower extremity edema ASSESSMENT: Perforated diverticulitis with abscess status post exploratory laparotomy, colectomy and end colostomy CAD with prior PCI of the LAD and EYE TECHNICIAN RCA Hypertension Hyperlipidemia Mitral regurgitation Lupus Diabetes mellitus type 2 Nonsustained ventricular tachycardia PLAN: Continue current cardiac medications including metoprolol Obtain EKG. Please scan into [facility] when completed. Check BMP and magnesium level Continue telemetry monitoring Continue to monitor patient for additional 24 hours. Possible discharge home tomorrow Patient states that she has an appointment with Dr. Broussard next week. Recommend event monitor to be placed at that appointment to assess for VT and PVC burden. Nurse practitioner note has been reviewed by physician. Signing provider agrees with the documented findings, assessment, and plan of care documented by RECREATIONAL THERAPIST as a scribe. Objective - Vital Signs Vital signs: Vital Signs Temp 98.2 F 08/14/24 12:13 Pulse 85 08/14/24 12:13 Resp 16 08/14/24 12:13 BP 135/66 08/14/24 12:13 Pulse Ox 95 08/14/24 12:13 FiO2 Intake & Output 08/13/24 08/14/24 08/14/24 18:59 06:59 18:59 Intake Total 540 Output Total 90 200 Balance 450 -200 Weight 86.3 kg Intake: Oral 540 Output: Drainage 90 Right 90 Stool 200 Other: Voiding Method Indwelling Catheter # Voids 1 3 - Labs CBC & Chem 7: 08/14/24 05:00 08/13/24 04:45 Labs: Abnormal Lab Results - Last 24 Hours (Table) 08/14/24 08/14/24 Range/Units 05:00 12:16 WBC 14.98 H (4.50-10.00) X 10*3/uL RBC 3.73 L (4.10-5.20) X 10*6/uL Hgb 10.1 L (12.0-15.0) g/dL Hct 32.7 L (37.2-46.3) % MCHC 30.9 L (32.0-37.0) g/dL Neutrophils # (Manual) 11.68 H (1.80-7.70) X 10*3/uL Monocytes # (Manual) 1.05 H (0.20-1.00) X 10*3/uL POC Glucose (mg/dL) 118 H (70-110) mg/dL Microbiology - Last 24 Hours (Table) 08/08/24 01:26 Blood Culture - Final Blood
--- NOTE | 2024-08-14 14:18 | P.PN ---
Subjective Progress Note Date: 08/14/24 SURGICAL PROGRESS NOTE CHIEF COMPLAINT: Diverticulitis HISTORY OF PRESENT ILLNESS: Postop day #4 status post sigmoid colectomy with end colostomy for perforated diverticulitis with abscess. Patient reports she is feeling better. Her pain is controlled. She did have small amount of nausea earlier. Her ostomy is functioning. She has been up and ambulating. WANDA drain with serosanguineous output. Afebrile. WBC 14.98 up from 13.86 Hgb 10.1 Patient seen and examined with Dr. Chavez PHYSICAL EXAM: VITAL SIGNS: Reviewed. GENERAL: Well-developed in no acute distress. ABDOMEN: Soft. Nondistended. Incision site is clean dry and intact. [address] Ostomy with stool present in colostomy bag. WANDA drain serosanguineous output NEUROLOGIC: Alert and oriented. Cranial nerves II through XII grossly intact. ASSESSMENT: 1. Acute perforated diverticulitis with abscess PLAN: -Patient can be discharged from surgical standpoint -Diet advanced to regular -Patient to be discharged with WANDA drain -manager business process to arrange home care. Patient to change the incisional julia daily. -Continue p.o. antibiotics at discharge -DVT prophylaxis subcu heparin and GI prophylaxis Pepcid Physician Pattern Mechanic note has been reviewed by physician. Signing provider agrees with the documented findings, assessment, and plan of care. Objective - Vital Signs Vital signs: Vital Signs Temp 98.1 F 08/14/24 07:34 Pulse 86 08/14/24 07:34 Resp 18 08/14/24 07:34 BP 152/92 08/14/24 07:34 Pulse Ox 96 08/14/24 07:34 FiO2 Intake & Output 08/13/24 08/14/24 08/14/24 18:59 06:59 18:59 Intake Total 540 Output Total 90 200 Balance 450 -200 Intake: Oral 540 Output: Drainage 90 Right 90 Stool 200 Other: Voiding Method Indwelling Catheter # Voids 1 3 - Labs CBC & Chem 7: 08/14/24 05:00 08/13/24 04:45 Labs: Abnormal Lab Results - Last 24 Hours (Table) 08/13/24 08/13/24 Range/Units 04:45 04:45 WBC 13.86 H (4.50-10.00) X 10*3/uL RBC 3.82 L (4.10-5.20) X 10*6/uL Hgb 9.9 L (12.0-15.0) g/dL Hct 32.7 L (37.2-46.3) % MCH 25.9 L (27.0-32.0) pg MCHC 30.3 L (32.0-37.0) g/dL Immature Gran # 0.57 H (0.00-0.04) X 10*3/uL Neutrophils # 8.60 H (1.80-7.70) X 10*3/uL Monocytes # 1.82 H (0.20-1.00) X 10*3/uL Carbon Dioxide 20.2 L (21.6-31.8) mmol/L BUN/Creatinine Ratio 20.88 H (12.00-20.00) Ratio Calcium 8.0 L (8.7-10.3) mg/dL Microbiology - Last 24 Hours (Table) 08/08/24 01:26 Blood Culture - Final Blood
[2024-08-14] MEDS: metroNIDAZOLE 500 MG TAB PO SCH (15:08)
[2024-08-14 17:30] LABS: Glucose,Whole Blood 97 mg/dL (70-110)
[2024-08-14 20:18] LABS: Glucose,Whole Blood 124 mg/dL (70-110)
[2024-08-14 21:28] LABS: BUN/Creat Ratio 17.44 Ratio (12.00-20.00); Blood Urea Nitrogen 15.7 mg/dL (9.0-27.0); Calcium 7.9 mg/dL (8.7-10.3); Carbon Dioxide 17.8 mmol/L (21.6-31.8); Chloride 105 mmol/L (96-109); Glucose 117 mg/dL (70-110); Magnesium 1.4 mg/dL (1.5-2.4); Potassium 4.3 mmol/L (3.5-5.5); Sodium 137 mmol/L (135-145)
[2024-08-15 07:23] LABS: Glucose,Whole Blood 101 mg/dL (70-110)
[2024-08-15] MEDS: LEVOFLOXACIN 500 MG TAB PO SCH (08:26)
[2024-08-15 08:32] VITALS: BP 147/65; PULSE 83; RESP 17; TEMP 98.1
--- NOTE | 2024-08-15 09:20 | P.PN ---
Subjective Progress Note Date: 08/15/24 HISTORY OF PRESENT ILLNESS: This is a pleasant 78-year-old with past medical history significant for CAD with CT of the RCA, previous stenting of the LAD, valvular heart disease, hypertension, GERD, mitral regurgitation. She follows in office with Dr. Broussard. She presented on 08/07 with complaints of abdominal pain and CT abdomen and pelvis showed diverticulitis. Patient had worsening abdominal pain and therefore CT was performed which showed perforated diverticulitis with an abscess measuring 14.1 cm. She was taken for surgery and underwent colectomy and colostomy was placed. Patient is normally on Plavix at home. Her Plavix was held. EKG not on file. Patient had undergone left heart catheterization September 2023 with continued SIGN LANGUAGE INSTRUCTOR of the RCA however patent stents in the LAD. blood pressure has been persistently elevated low 160s to 180s despite pain meds. She denies any chest pain or pressure. No significant dyspnea. She has been receiving IV fluids. She had previously been on aspirin only however was switched over to Plavix secondary to possible GI irritation however in retr ospect she is wondering if the upset stomach may been related to diverticulitis. 08/12/2024 Patient examined this morning the bedside. She is status post sigmoid colectomy with end colostomy. Patient currently denies any chest pain or pressure. She denies shortness of breath. She has been tolerating clear liquid diet. Blood pressure remains elevated. She continues to have abdominal pain related to her surgery. 08/14/2024 Cardiology was reconsulted as patient had a run of nonsustained ventricular tachycardia today. Patient states she was asymptomatic at the time. She denies any chest pain or pressure. Denies any shortness of breath. Denies any palpitations. Denies dizziness or lightheadedness. Patient is tolerating oral diet. She reports she has had a large amount of output in her ostomy. August 15 Patient's bicarb is low around 17, magnesium is low at 1.4. This is most likely because of higher outputs in her colostomy bag. Got some magnesium yesterday. Over last 24 hours her ventricular ectopy has reduced. PHYSICAL EXAM: VITAL SIGNS: Reviewed. GENERAL: Well-developed in no acute distress. NECK: Supple. No JVD or thyromegaly LUNGS: Respirations even and unlabored. Lungs essentially clear to auscultation bilaterally. HEART: Regular rate and rhythm. S1 and S2 heard. EXTREMITIES: Normal range of motion. No clubbing or cyanosis. Peripheral pulses intact. No lower extremity edema ASSESSMENT: NSVT Atrial tachycardia with frequent PACs Perforated diverticulitis with abscess status post exploratory laparotomy, colectomy and end colostomy CAD with prior PCI of the LAD and SIGN LANGUAGE INSTRUCTOR RCA Hypertension Hyperlipidemia Mitral regurgitation Lupus Diabetes mellitus type 2 Nonsustained ventricular tachycardia ECG showed sinus rhythm, inferior Q waves, intermittent PACs. Normal QTc PLAN: Recheck magnesium level and BMP. If bicarb and magnesium are okay, patient is cleared from cardiac standpoint. She is having bursts of atrial tachycardia which are short-lived and has some irregularity to it. Not necessarily clear evidence of atrial fibrillation [facility]. Would recommend a 30-day event monitor to be placed as an outpatient. She has an upcoming appointment on Saturday with Dr. Marie. If she has canceled her appointment, I would still recommend her to go to the office on Saturday and flower buncher or picker the heart monitor. Objective - Vital Signs Vital signs: Vital Signs Temp 98.1 F 08/15/24 07:24 Pulse 83 08/15/24 07:24 Resp 17 08/15/24 07:24 BP 147/65 08/15/24 07:24 Pulse Ox 99 08/15/24 07:32 FiO2 Intake & Output 08/14/24 08/15/24 08/15/24 18:59 06:59 18:59 Output Total 150 30 Balance -150 -30 Weight 86.3 kg Output: Drainage 50 30 Right 50 30 Stool 100 Other: Voiding Method Toilet # Voids 2 2 - Labs CBC & Chem 7: 08/14/24 05:00 08/14/24 14:32 Labs: Abnormal Lab Results - Last 24 Hours (Table) 08/14/24 08/14/24 08/14/24 Range/Units 05:00 12:16 14:32 WBC 14.98 H (4.50-10.00) X 10*3/uL RBC 3.73 L (4.10-5.20) X 10*6/uL Hgb 10.1 L (12.0-15.0) g/dL Hct 32.7 L (37.2-46.3) % MCHC 30.9 L (32.0-37.0) g/dL Neutrophils # (Manual) 11.68 H (1.80-7.70) X 10*3/uL Monocytes # (Manual) 1.05 H (0.20-1.00) X 10*3/uL Carbon Dioxide 17.8 L (21.6-31.8) mmol/L Anion Gap 14.20 H (4.00-12.00) mmol/L Glucose 117 H (70-110) mg/dL POC Glucose (mg/dL) 118 H (70-110) mg/dL Calcium 7.9 L (8.7-10.3) mg/dL Magnesium 1.4 L (1.5-2.4) mg/dL 08/14/24 Range/Units 20:17 WBC (4.50-10.00) X 10*3/uL RBC (4.10-5.20) X 10*6/uL Hgb (12.0-15.0) g/dL Hct (37.2-46.3) % MCHC (32.0-37.0) g/dL Neutrophils # (Manual) (1.80-7.70) X 10*3/uL Monocytes # (Manual) (0.20-1.00) X 10*3/uL Carbon Dioxide (21.6-31.8) mmol/L Anion Gap (4.00-12.00) mmol/L Glucose (70-110) mg/dL POC Glucose (mg/dL) 124 H (70-110) mg/dL Calcium (8.7-10.3) mg/dL Magnesium (1.5-2.4) mg/dL Microbiology - Last 24 Hours (Table) 08/10/24 15:07 Anaerobic Culture - Final Abdomen
--- NOTE | 2024-08-15 09:30 | P.PN ---
Subjective Progress Note Date: 08/15/24 Principal diagnosis: Diverticulitis Patient doing well today. She was discharged yesterday however the patient had heart related issues that kept her overnight. She is waiting for medicine to evaluate her this morning. She feels well. No chest pain. No shortness of breath. Tolerating diet. Minimal pain. Objective - Vital Signs Vital signs: Vital Signs Temp 98.1 F 08/15/24 07:24 Pulse 83 08/15/24 07:24 Resp 17 08/15/24 07:24 BP 147/65 08/15/24 07:24 Pulse Ox 99 08/15/24 07:32 FiO2 Intake & Output 08/14/24 08/15/24 08/15/24 18:59 06:59 18:59 Output Total 150 30 Balance -150 -30 Weight 86.3 kg Output: Drainage 50 30 Right 50 30 Stool 100 Other: Voiding Method Toilet # Voids 2 2 - Exam Abdomen: Soft, nondistended, incision with 2 Weick openings, minimal serous drainage, ostomy functioning - Labs CBC & Chem 7: 08/14/24 05:00 08/14/24 14:32 Labs: Abnormal Lab Results - Last 24 Hours (Table) 08/14/24 08/14/24 08/14/24 Range/Units 05:00 12:16 14:32 WBC 14.98 H (4.50-10.00) X 10*3/uL RBC 3.73 L (4.10-5.20) X 10*6/uL Hgb 10.1 L (12.0-15.0) g/dL Hct 32.7 L (37.2-46.3) % MCHC 30.9 L (32.0-37.0) g/dL Neutrophils # (Manual) 11.68 H (1.80-7.70) X 10*3/uL Monocytes # (Manual) 1.05 H (0.20-1.00) X 10*3/uL Carbon Dioxide 17.8 L (21.6-31.8) mmol/L Anion Gap 14.20 H (4.00-12.00) mmol/L Glucose 117 H (70-110) mg/dL POC Glucose (mg/dL) 118 H (70-110) mg/dL Calcium 7.9 L (8.7-10.3) mg/dL Magnesium 1.4 L (1.5-2.4) mg/dL 08/14/24 Range/Units 20:17 WBC (4.50-10.00) X 10*3/uL RBC (4.10-5.20) X 10*6/uL Hgb (12.0-15.0) g/dL Hct (37.2-46.3) % MCHC (32.0-37.0) g/dL Neutrophils # (Manual) (1.80-7.70) X 10*3/uL Monocytes # (Manual) (0.20-1.00) X 10*3/uL Carbon Dioxide (21.6-31.8) mmol/L Anion Gap (4.00-12.00) mmol/L Glucose (70-110) mg/dL POC Glucose (mg/dL) 124 H (70-110) mg/dL Calcium (8.7-10.3) mg/dL Magnesium (1.5-2.4) mg/dL Microbiology - Last 24 Hours (Table) 08/10/24 15:07 Anaerobic Culture - Final Abdomen Assessment and Plan (1) Diverticulitis Narrative/Plan: Patient doing fairly well at this time from a surgical point of view. January d ischarge. Continue local wound care and keep drain in place. Follow-up with Dr. Chavez. Current Visit: Yes Status: Acute Code(s): K57.92 - DVTRCLI OF INTEST, PART UNSP, W/O PERF OR ABSCESS W/O BLEED SNOMED Code(s): 611083484
[2024-08-15 10:26] LABS: African American GFR (CKD) 80 (>60 ml/min/1.73 sqM); Anion Gap 2 mmol/L; Blood Urea Nitrogen 12 mg/dL (7-17); Calcium 7.9 mg/dL (8.4-10.2); Carbon Dioxide 26 mmol/L (22-30); Chloride 107 mmol/L (98-107); Glucose 116 mg/dL (74-99); Magnesium 1.5 mg/dL (1.6-2.3); Non-African American GFR(CKD) 69 (>60 ml/min/1.73 sqM); Potassium 3.9 mmol/L (3.5-5.1); Sodium 135 mmol/L (137-145)
--- NOTE | 2024-08-15 10:36 | P.PN ---
Subjective Progress Note Date: 08/15/24 This is a 78-year-old female patient with a known history of gas or esophageal reflux disease, hypertension, hyperlipidemia, hypothyroidism, severe mitral regurgitation, coronary disease with previous stent placement who presented here to the emergency room on 08/07/2024 with complaints of significant abdominal pain. Scan of the abdomen revealed subtle acute diverticulitis within the mid sigmoid colon. CT scan yesterday was done again due to worsening abdominal pain and showed perforated sigmoid diverticulitis with abscess measuring up to 14.1 cm. She was taken to surgery yesterday and had undergone sigmoid colectomy with end colostomy. She was transferred to the intensive care unit due to her extensive cardiac history. She is seen today in consultation in the ICU. She is resting fairly comfortably in bed. Awake and alert in no acute distress. She is maintaining O2 saturations in the 90s on 2 L/min per nasal cannula. She has D5.45 normal saline with 20 of KCl at 125 mL/h. She is on Levaquin and Flagyl. Heparin for DVT prophylaxis. The patient is seen today August 12, 2024 in follow-up on the regular medical floor. She is currently sitting up in bed. Awake and alert in no acute distress. She is maintaining good O2 saturations in the 90s on room air. She has lactated Ringer's at 120 mL/h. She was having some issues with nausea and pain earlier but is feeling pretty good at the moment. Tolerating a clear liquid diet. She is continued on Levaquin and Flagyl. White count 15.7. Hemoglobin 11.0. Platelets 338. Sodium 135. Potassium 3.9. Bicarb 23. BUN 20. Creatinine 0.93. Glucose 94. Abdominal wound culture is showing Staphylococcus species. White count 15.7. Hemoglobin 11.0. Platelets 338. Sodium 135. Potassium 3.9. Bicarb 23. BUN 20. Creatinine 0.93. Glucose 94. The patient is seen today August 13, 2024 in follow-up on the regular medical floor. She is awake and alert in no acute distress. Sitting up in bed. Denies any worsening shortness of breath, cough or congestion. She is maintaining good O2 saturations in the 90s on room air. She is working well with the incentive spirometer. She has been up ambulating in her room and hallway with assistance. She is tolerating a full liquid diet. She remains on Levaquin and Flagyl. Heparin for DVT prophylaxis. Abdominal wound culture positive for Staphylococcus simulans. White count 13.8. Hemoglobin 9.9. Platelets 231. Sodium 137. Potassium 4.2. Bicarb 20. BUN 17. Creatinine 0.8. Glucose 90. The patient is seen today August 14, 2024 in follow-up on the regular medical floor. She is currently sitting up in a chair. Awake and alert in no acute distress. Denies any worsening shortness of breath, cough or congestion. Maintaining good O2 saturations in the 90s on room air. She is afebrile. Hemodynamically stable. Working well with the incentive spirometer. Her pain is well-controlled. Tolerating a full liquid diet. Glucose 118. She is continued on bronchodilators as needed. Heparin for DVT prophylaxis. Antibiotics in the form of Levaquin. The patient is seen today August 15, 2024 in follow-up on the regular medical floor. She is awake and alert in no acute distress. Sitting up in bed. She was not discharged yesterday due to episodes of nonsustained reticular tachycardia along with sinus rhythm and frequent PACs. Her bicarb and magnesium were found to be low due to increased output in her colostomy bag. Those have been replaced. Current magnesium 1.5. Calcium 7.9. Glucose 116. Sodium 135. Potassium 3.9. Bicarb 26. BUN 12. Creatinine 0.82. She denies any shortness of breath, cough or congestion. She is maintaining good O2 saturations in the 90s on room air. She is working well with the incentive spirometer. She is on heparin for DVT prophylaxis. Remains on Levaquin and Flagyl. Objective - Vital Signs Vital signs: Vital Signs Temp 98.1 F 08/15/24 07:24 Pulse 83 08/15/24 07:24 Resp 17 08/15/24 07:24 BP 147/65 08/15/24 07:24 Pulse Ox 99 08/15/24 07:32 FiO2 Intake & Output 08/14/24 08/15/24 08/15/24 18:59 06:59 18:59 Output Total 150 30 Balance -150 -30 Weight 86.3 kg Output: Drainage 50 30 Right 50 30 Stool 100 Other: Voiding Method Toilet # Voids 2 2 - Exam GENERAL EXAM: Alert, pleasant 78-year-old female, resting in bed, on room air, in no apparent distress. HEAD: Normocephalic. EYES: Normal reaction of pupils, equal size. NOSE: Clear with pink turbinates. THROAT: No erythema or exudates. NECK: No masses, no JVD. CHEST: No chest wall deformity. LUNGS: Equal air entry with no crackles, wheeze, rhonchi or dullness. CVS: S1 and S2 normal with no audible murmur, regular rhythm. ABDOMEN: Midline incision with cristela intact, ostomy with pink stoma. WANDA drain in place. SPINE: No scoliosis or deformity SKIN: No rashes CENTRAL NERVOUS SYSTEM: No focal deficits, tone is normal in all 4 extremities. EXTREMITIES: There is no peripheral edema. No clubbing, no cyanosis. Peripheral pulses are intact. - Labs CBC & Chem 7: 08/14/24 05:00 08/15/24 09:44 Labs: Abnormal Lab Results - Last 24 Hours (Table) 08/14/24 08/14/24 08/14/24 Range/Units 05:00 12:16 14:32 WBC 14.98 H (4.50-10.00) X 10*3/uL RBC 3.73 L (4.10-5.20) X 10*6/uL Hgb 10.1 L (12.0-15.0) g/dL Hct 32.7 L (37.2-46.3) % MCHC 30.9 L (32.0-37.0) g/dL Neutrophils # (Manual) 11.68 H (1.80-7.70) X 10*3/uL Monocytes # (Manual) 1.05 H (0.20-1.00) X 10*3/uL Sodium (137-145) mmol/L Carbon Dioxide 17.8 L (21.6-31.8) mmol/L Anion Gap 14.20 H (4.00-12.00) mmol/L Glucose 117 H (70-110) mg/dL POC Glucose (mg/dL) 118 H (70-110) mg/dL Calcium 7.9 L (8.7-10.3) mg/dL Magnesium 1.4 L (1.5-2.4) mg/dL 08/14/24 08/15/24 Range/Units 20:17 09:44 WBC (4.50-10.00) X 10*3/uL RBC (4.10-5.20) X 10*6/uL Hgb (12.0-15.0) g/dL Hct (37.2-46.3) % MCHC (32.0-37.0) g/dL Neutrophils # (Manual) (1.80-7.70) X 10*3/uL Monocytes # (Manual) (0.20-1.00) X 10*3/uL Sodium 135 L (137-145) mmol/L Carbon Dioxide (21.6-31.8) mmol/L Anion Gap (4.00-12.00) mmol/L Glucose 116 H (70-110) mg/dL POC Glucose (mg/dL) 124 H (70-110) mg/dL Calcium 7.9 L (8.7-10.3) mg/dL Magnesium 1.5 L (1.5-2.4) mg/dL Microbiology - Last 24 Hours (Table) 08/10/24 15:07 Anaerobic Culture - Final Abdomen Assessment and Plan Assessment: Acute abdominal pain secondary to perforated diverticulitis sigmoid colectomy with end colostomy. Postoperative day #5 Acute hypoxemic respiratory failure secondary to atelectasis, an expected outcome of surgery, recovered and on room air Brief episode of nonsustained ventricular tachycardia with low magnesium, being replaced Coronary artery disease with with previous stent placement Valvular heart disease Hypothyroidism Hypertension Gastroesophageal reflux disease History of lupus with arthritis Plan: The patient was seen and evaluated Labs and medications reviewed Currently stable on room air Continued use of the incentive spirometer Home once cleared by cardiology This patient was seen independently by the pulmonary nurse practitioner addressing pulmonary issues I have personally seen and examined the patient, performed the documentation and the assessment and plan as written. Number of minutes spent on the visit: 24 Dictation was produced using [employer] dictation software. Please excuse any grammatical, word or spelling errors.
[2024-08-15 12:07] LABS: Glucose,Whole Blood 98 mg/dL (70-110)
--- NOTE | 2024-08-15 12:07 | P.DS ---
Providers Date of admission: 08/08/24 18:07 Expected date of discharge: 08/15/24 Attending physician: Mani Tipton MD Consults: 08/07/24 21:29 Consult Physician Urgent Consulting Provider: Robert Chavez Consult Reason/Comments: acute diverticulitis Do you want consulting provider notified?: Yes 08/10/24 16:34 Consult Physician Urgent Consulting Provider: Buddy Barahona Consult Reason/Comments: Critical care management, Dr. Chavez spoke with Do you want consulting provider notified?: Already Contacted 08/14/24 11:34 Consult Physician Routine Consulting Provider: Tommy Card Consult Reason/Comments: Run of V-Tach Do you want consulting provider notified?: Yes [facility] Course: 78-year-old female with lupus, type 2 diabetes, hypothyroidism, hypertension, hyperlipidemia and myocardial infarction with stent placement in 2004, CAD with stent placement x 2 last year, and severe mitral regurgitation presented to the ED for N/V, diarrhea and severe abdominal pain. In the ED she underwent extensive evaluation. BP 131/61, HR 99, T 98F, RR 18, 100% on RA. CBC, CMP significant for WBC 20.4, Cl 108, BUN 47, Cr 1.15. Lipase 219. Lactic acid 1.5. UA mode LE. CT AP showed findings of diverticulitis. Started on IV hydration and Flagyl/Levaquin. Continued abdominal pain, repeat CT shows contained perforated sigmoid diverticulitis with abscess 14.1 cm. She underwent Sigmoid colectomy with end colostomy on 08/10. Progressively improved. 08/14 Patient was seen and examined. Daughter at bedside. Having stool output in the ostomy. CBC and BMP WBC 18.07, RBC 3.8, Hg 11, Hct 33.7, BUN 7.6. Cleared by gen surgery. 08/15 Patient was seen and examined. Feeling well. Wants to go home. Yesterday, she had 20 beat NSVT thus discharge was cancelled. BMP this morning shows K 3.9 and Mag of 1.5. Case discussed with Dr. Card, some irregularities seen on Telemetry however OK for discharge, follow up with Dr. Marie on Saturday for event monitoring. Discharge Plan: Follow up with Dr. Marie on Saturday for event monitor. Follow up with Dr. Chavez in 1 week. Continue Levaquin and Flagyl for 1 week. Mag ox 400 mg PO BID. Prescribed ASA, Losartan, Lipitor, Amlodipine per Cardiology recommendations. Tramadol PRN for breakthrough pain. General: non toxic, moderate distress, appears at stated age Derm: warm, dry Head: atraumatic, normocephalic, symmetric Eyes: EOMI, no lid lag, anicteric sclera Mouth: no lip lesion, mucus membranes moist Cardiovascular: Normal S1 S2. systolic murmur Lungs: CTA BL , no accessory muscle use Ext: no gross muscle atrophy, no edema, no contractures Neuro: no focal neuro deficits Psych: Alert, oriented, appropriate affect Discharge Diagnosis: Sepsis secondary to acute diverticulitis perforated with abscess Possible neoplasm NSVT Acute normocytic anemia History of hypertension History of CAD Acute kidney injury Atelectasis Hypothyroidism GERD Severe MR This complex discharge took 35 minutes to complete. Patient Condition at Discharge: Stable Plan - Discharge Summary Discharge Rx Participant: No New Discharge Prescriptions: New Levofloxacin [Levaquin] 500 mg PO DAILY 7 Days #7 tab Acetaminophen Tab [Tylenol] 1,000 mg PO Q6HR PRN #30 tablet PRN Reason: Pain Aspirin 81 mg PO DAILY #30 tab Losartan [Cozaar] 100 mg PO DAILY #60 tab metroNIDAZOLE [Flagyl] 500 mg PO TID 7 Days #21 tab Ibuprofen [Motrin] 600 mg PO Q8HR PRN #30 tab PRN Reason: Pain amLODIPine [Norvasc] 5 mg PO DAILY #30 tab traMADol HCl [Ultram] 50 mg PO TID PRN #9 tab PRN Reason: Pain Magnesium Oxide [Mag-Ox] 400 mg PO BID #60 tablet Continue Levothyroxine Sodium [Synthroid] 100 mcg PO DAILY Metoprolol Succinate (ER) [Toprol XL] 100 mg PO DAILY Ondansetron Odt [Zofran ODT] 4 mg PO Q6H PRN PRN Reason: Nausea And Vomiting Omeprazole [PriLOSEC] 40 mg PO DAILY Evolocumab [Repatha Sureclick] 140 mg SQ Q14D Albuterol Sulfate [Albuterol Sulfate Hfa] 2 puff PO RT-Q6H PRN PRN Reason: Shortness Of Breath Isosorbide Mononitrate ER [Imdur] 30 mg PO DAILY Discontinued Losartan/Hydrochlorothiazide [Losartan-Hctz 50-12.5 mg Tab] 1 tab PO DAILY Clopidogrel [Plavix] 75 mg PO DAILY #30 tab Discharge Medication List Levothyroxine Sodium [Synthroid] 100 mcg PO DAILY 04/28/19 [History] Metoprolol Succinate (ER) [Toprol XL] 100 mg PO DAILY 04/28/19 [History] Evolocumab [Repatha Sureclick] 140 mg SQ Q14D 01/15/23 [History] Omeprazole [PriLOSEC] 40 mg PO DAILY 01/15/23 [History] Albuterol Sulfate [Albuterol Sulfate Hfa] 2 puff PO RT-Q6H PRN 08/08/24 [History] Isosorbide Mononitrate ER [Imdur] 30 mg PO DAILY 08/08/24 [History] Ondansetron Odt [Zofran ODT] 4 mg PO Q6H PRN 08/08/24 [History] Acetaminophen Tab [Tylenol] 1,000 mg PO Q6HR PRN #30 tablet 08/14/24 [Rx] Aspirin 81 mg PO DAILY #30 tab 08/14/24 [Rx] Ibuprofen [Motrin] 600 mg PO Q8HR PRN #30 tab 08/14/24 [Rx] Levofloxacin [Levaquin] 500 mg PO DAILY 7 Days #7 tab 08/14/24 [Rx] Losartan [Cozaar] 100 mg PO DAILY #60 tab 08/14/24 [Rx] amLODIPine [Norvasc] 5 mg PO DAILY #30 tab 08/14/24 [Rx] metroNIDAZOLE [Flagyl] 500 mg PO TID 7 Days #21 tab 08/14/24 [Rx] traMADol HCl [Ultram] 50 mg PO TID PRN #9 tab 08/14/24 [Rx] Magnesium Oxide [Mag-Ox] 400 mg PO BID #60 tablet 08/15/24 [Rx] Follow up Appointment(s)/Referral(s): Kalin Broussard MD [STAFF PHYSICIAN] - 08/17/24 Laryr Suresh DO [Primary Care Provider] - 08/18/24 10:20 am [facility] [NON-STAFF] - 1 Week Robert Chavez MD [STAFF PHYSICIAN] - 08/25/24 1:45 pm Activity/Diet/Wound Care/Special Instructions: No driving while taking ultram No lifting over 10 pounds Shower daily. No soaking or tub baths for 2 weeks Very light activity until you are reevaluated at your follow up appointment with your surgeon Keep a log of WANDA drain output and bring with you to your follow-up appointment Milk/strip drains 2-3 times a day Wash abdominal incision daily in the shower with soap and water and change incisional julia daily Ostomy: [place] 1 piece cut to fit convex appliance #[id number]. Lubricating deodorant as needed. Change appliance every to 3 to 5 days and if leaking; empty when half full. Last changed: 08/13/24 Discharge Disposition: HOME SELF-CARE
[2024-08-15] MEDS: MAGNESIUM SULFATE-D5W PMX 1 GM in DEXTROSE/WATER 1 100ML.BAG IVPB SCH (12:41)
--- NOTE | 2024-08-18 11:52 | CDI ---
Documentation Clarification Form Date: 08/18/2024 11:43:21 AM From: Lay Cruz Phone: Admit Date: 08/08/2024 06:07:00 PM Patient Name: Mona Tello Visit Number: [id number] Discharge Date: 08/15/2024 01:50:00 PM ATTENTION: The Clinical Documentation Specialists (CDI) and [facility] Coding Staff appreciate your assistance in clarifying documentation. Please respond to the clarification below the line at the bottom and electronically sign. The CDI & [facility] Coding staff will review the response and follow-up if needed. Please note: Queries are made part of the Legal Health Record. If you have any questions, please contact the author of this message via ITS. Doctor/Provider: Mani Tipton Your patient has an abnormal Glucose 242 per Consult Note 08/11. Please clarify if there is an additional diagnosis and/or clinical significance related to this value. History/Risk Factors: 78yo F, Sepsisd/t acutediverticulitisperforatedwithabscess, NSVT, acutenormocytic anemia, HTN, CAD, SHARI, hypothyroidism, GERD, MR Clinical indicators: Glucose: 08/07 126 08/08 166 08/11 242 08/12 94-184 07/2190- Treatment: monitored Is there an additional diagnosis and/or clinical significance related to the above lab result/information? [ x ] Type II diabetes with hyperglycemia [ ] Type II diabetes without complications [ ] No additional diagnosis/Not clinically significant [ ] Other, please specify [ ] Unable to determine (Template Last Revised: October 2020) MTDD
== END 2024-08-15 13:50 | disposition home or self-care (01) | DRG 853 ==
LOC: EC 18:16 → 6NMEDSUR 21:29 → OBSVTOIN 08-08 18:07 → 2SICU 08-10 16:04 → 5NMEDONC 08-11 17:06
PROVIDERS: ADMIT Internal Medicine; ATTEND Internal Medicine
PROC: 0DTN0ZZ Resection of Sigmoid Colon, Open Approach (ICD-10-PCS; 2024-08-10)
PROC: 3E0T3BZ Introduction of Anesthetic Agent into Peripheral Nerves and Plexi, Percutaneous Approach (ICD-10-PCS; 2024-08-10)
PROC: 3E0T33Z Introduction of Anti-inflammatory into Peripheral Nerves and Plexi, Percutaneous Approach (ICD-10-PCS; 2024-08-10)
PROC: 0D1N0Z4 Bypass Sigmoid Colon to Cutaneous, Open Approach (ICD-10-PCS; principal; 2024-08-10 08:20)
DX: A41.1 Sepsis due to other specified staphylococcus (principal); J96.01 Acute respiratory failure with hypoxia; I47.20 Ventricular tachycardia, unspecified; K57.20 Diverticulitis of large intestine with perforation and abscess without bleeding; I47.19 Other supraventricular tachycardia; N17.9 Acute kidney failure, unspecified; M32.9 Systemic lupus erythematosus, unspecified; E11.65 Type 2 diabetes mellitus with hyperglycemia; E03.9 Hypothyroidism, unspecified; I34.0 Nonrheumatic mitral (valve) insufficiency; I10 Essential (primary) hypertension; G89.18 Other acute postprocedural pain; K66.0 Peritoneal adhesions (postprocedural) (postinfection); E83.42 Hypomagnesemia; M13.80 Other specified arthritis, unspecified site; E78.5 Hyperlipidemia, unspecified; I25.10 Atherosclerotic heart disease of native coronary artery without angina pectoris; I49.3 Ventricular premature depolarization; I49.1 Atrial premature depolarization; I25.82 Chronic total occlusion of coronary artery; D64.89 Other specified anemias; K21.9 Gastro-esophageal reflux disease without esophagitis; Z79.82 Long term (current) use of aspirin; Z79.02 Long term (current) use of antithrombotics/antiplatelets; Z87.891 Personal history of nicotine dependence; Z79.890 Hormone replacement therapy; Z79.899 Other long term (current) drug therapy; I25.2 Old myocardial infarction; Z95.5 Presence of coronary angioplasty implant and graft
CPT/HCPCS: 36415; 64999; 71045; 74176; 80048; 80053; 81001; 83605; 83690; 83735; 85025; 85027; 85610; 86850; 86900; 86901; 87040; 87070; 87075; 87077; 87186; 87205; 88307; 93005; 94640; 94760; 96361; 96365; 96375; 96376; 99285

== ENCOUNTER 2024-08-28 22:37 | Inpatient (IN) | payer MEDICARE ==
--- NOTE | 2024-08-28 22:57 | ED ---
Arrhythmia/Palpitations HPI - General Stated Complaint: SVT Time Seen by Provider: 08/28/24 22:41 Source: patient, EMS Mode of arrival: EMS Limitations: no limitations - History of Present Illness Initial Comments: This patient is a 78-year-old woman who presents to have evaluation of dyspnea and just not feeling well. She states she was not feeling well going back about a day but symptoms worse today. The patient eventually felt when symptoms were not improving that she should be seen here and activated EMS. EMS arrival they found the patient to be tachycardic with heart rate up to the 190s. They did want to start IV and administer medications but the patient was refusing IV access. She did accept oxygen. Patient denies harjit chest pain. No diaphoresis, nausea vomiting. MD Complaint: "heart racing" Onset/Timin -: days(s) Context: occurred during rest Associated Symptoms: shortness of breath, anxiety Treatments Prior to Arrival: vagal maneuvers - Related Data Home Medications Medication Instructions Recorded Confirmed Levothyroxine Sodium [Synthroid] 100 mcg PO DAILY 04/28/19 08/29/24 Evolocumab [Repatha Sureclick] 140 mg SQ Q14D 01/15/23 08/29/24 Omeprazole [PriLOSEC] 40 mg PO DAILY 01/15/23 08/29/24 Albuterol Sulfate [Albuterol 2 puff PO RT-Q6H PRN 08/08/24 08/29/24 Sulfate Hfa] Ondansetron Odt [Zofran ODT] 4 mg PO Q6H PRN 08/08/24 08/29/24 Previous Rx's Medication Instructions Recorded Acetaminophen Tab [Tylenol] 1,000 mg PO Q6HR PRN #30 tablet 08/14/24 Aspirin 81 mg PO DAILY #30 tab 08/14/24 Magnesium Oxide [Mag-Ox] 400 mg PO BID #60 tablet 08/15/24 Amiodarone [Cordarone] See Rx Instructions .ROUTE 08/31/24 .COMPLEX 30 Days #37 tab Metoprolol Tartrate [Lopressor] 25 mg PO BID 30 Days #60 tab 08/31/24 Sucralfate [Carafate] 1 gm PO ACHS 30 Days #120 tab 08/31/24 Allergies Allergy/AdvReac Type Severity Reaction Status Date / Time amoxicillin [From Augmentin] Allergy Anaphylaxis Verified 08/29/24 09:11 clavulanic acid Allergy Anaphylaxis Verified 08/29/24 09:11 [From Augmentin] Sulfa (Sulfonamide Allergy Anaphylaxis Verified 08/29/24 09:11 Antibiotics) Review of Systems ROS Statement: Those systems with pertinent positive or pertinent negative responses have been documented in the HPI. ROS Other: All systems not noted in ROS Statement are negative. Constitutional: Reports: weakness. Denies: fever, chills Eyes: Denies: vision change Respiratory: Reports: dyspnea. Denies: cough, wheezes, hemoptysis Cardiovascular: Reports: palpitations, orthopnea. Denies: chest pain, edema, syncope Gastrointestinal: Denies: abdominal pain, nausea, vomiting, diarrhea, melena, hematochezia Genitourinary: Denies: dysuria, hematuria Musculoskeletal: Denies: back pain Skin: Denies: rash Neurological: Denies: headache, weakness, numbness, confusion Past Medical History Past Medical History: Myocardial Infarction ([place]) Additional Past Medical History / Comment(s): Lupus with arthritis. Type II diabetes, hypothyroidism. 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 [place] 2004, Leaky mitral valve Last Myocardial Infarction Date:: 2004 History of Any Multi-Drug Resistant Organisms: None Reported Past Surgical History: Heart Catheterization With Stent Additional Past Surgical History / Comment(s): Breast biopsies, cold knife colonization of the cervix, stent in 2004, 2 stents in 2022 Additional Past Anesthesia/Blood Transfusion Reaction / Comment(s): hard to wake up Date of Last Stent Placement:: March 21 2023 Past Psychological History: Anxiety Smoking Status: Former smoker Past Alcohol Use History: None Reported Past Drug Use History: None Reported - Past Family History Sister(s) Family Medical History: Cancer Additional Family Medical History / Comment(s): Ovarian cancer. Mother Family Medical History: Cancer Additional Family Medical History / Comment(s): Breast cancer. Father Family Medical History: Cancer, Myocardial Infarction ([place]) Additional Family Medical History / Comment(s): Colon cancer. General Exam Limitations: no limitations General appearance: alert, in distress (Appears in mild respiratory distress) Head exam: Present: atraumatic, normocephalic Eye exam: Present: normal appearance. Absent: scleral icterus, conjunctival injection ENT exam: Present: mucous membranes dry Neck exam: Present: normal inspection, full ROM Respiratory exam: Present: respiratory distress (Tachypnea and pursed lip breathing). Absent: wheezes, rales, rhonchi, stridor, accessory muscle use Cardiovascular Exam: Present: tachycardia, normal heart sounds. Absent: systolic murmur, diastolic murmur, rubs, gallop GI/Abdominal exam: Present: soft. Absent: distended, tenderness, guarding, rebound, rigid, mass Extremities exam: Present: normal inspection, normal capillary refill. Absent: pedal edema, calf tenderness Back exam: Present: normal inspection. Absent: CVA tenderness (R), CVA tenderness (L) Neurological exam: Present: alert Skin exam: Present: warm, dry, intact, normal color. Absent: rash Course Vital Signs 08/28/24 08/28/24 08/29/24 22:46 22:55 00:50 Temperature 97.5 F L Pulse Rate 198 H 109 H 98 Respiratory 24 18 18 Rate Blood Pressure 90/51 103/65 111/63 O2 Sat by Pulse 98 100 98 Oximetry 08/29/24 08/29/24 08/29/24 07:04 07:40 07:43 Temperature Pulse Rate 99 172 H 174 H Respiratory 18 22 22 Rate Blood Pressure 127/60 83/66 105/79 O2 Sat by Pulse 99 97 98 Oximetry 08/29/24 08/29/24 08/29/24 08:00 08:03 08:06 Temperature Pulse Rate 175 H 172 H 98 Respiratory 18 22 18 Rate Blood Pressure 102/78 100/73 127/67 O2 Sat by Pulse 98 98 97 Oximetry 08/29/24 08/29/24 08/29/24 08:30 09:29 10:47 Temperature Pulse Rate 99 76 75 Respiratory 18 18 18 Rate Blood Pressure 135/70 105/64 116/69 O2 Sat by Pulse 98 98 96 Oximetry 08/29/24 08/29/24 08/29/24 12:15 12:59 15:38 Temperature 97.8 F Pulse Rate 72 78 76 Respiratory 18 18 18 Rate Blood Pressure 118/68 135/69 131/66 O2 Sat by Pulse 98 97 97 Oximetry 08/29/24 08/29/24 08/29/24 15:57 17:00 18:13 Temperature Pulse Rate 80 74 Respiratory 18 20 Rate Blood Pressure 124/66 125/62 O2 Sat by Pulse 97 98 96 Oximetry 08/29/24 19:40 Temperature 97.7 F Pulse Rate 80 Respiratory 16 Rate Blood Pressure 110/66 O2 Sat by Pulse 96 Oximetry EKG Findings - EKG Results: EKG: interpreted by ERMD, normal axis EKG shows: tachycardia (Appears to be supraventricular tachycardia at rate approximately 192 bpm) - Blocks, [place], Hypertrophy, ST Abn: AV and intraventricular conduction: intraventricular conduction delay Repolarization changes or abnormalities: nonspecific abnormality, ST segment, and/or T wave Medical Decision Making - Medical Decision Making Patient is a 78-year-old woman here with dyspnea, not feeling well, found to be in what appears to be SVT. The patient brought to resuscitation room, placed on oxygen, IV access obtained and patient given adenosine 12 mg. The patient did revert to sinus rhythm with a rate in the 120s and states that her symptoms resolved. Labs subsequently revealed mild elevation of troponin and patient will be admitted to have further cardiology evaluation. The patient had chest x-ray that I interpreted as negative for acute infiltrate, pneumothorax, congestive heart failure Was pt. sent in by a medical professional or institution (TAMI Sigala, [employer], urgent care, hospital, or intermediate...) When possible be specific @ -[No] Did you speak to anyone other than the patient for history (EMS, parent, family, police, friend...)? What history was obtained from this source @ -[N EMS did contribute to history Did you review nursing and triage notes (agree or disagree)? Why? @ -[I reviewed and agree with nursing and triage notes] Were old charts reviewed (outside hosp., previous admission, EMS record, old EKG, old radiological studies, urgent care reports/EKG's, intermediate records)? Report findings @ -[No old charts were reviewed] Differential Diagnosis (chest pain, altered mental status, abdominal pain women, abdominal pain men, vaginal bleeding, weakness, fever, dyspnea, syncope, headache, dizziness, GI bleed, back pain, seizure, CVA, palpatations, mental health, musculoskeletal)? @ -[Differential Dyspnea: Coronary syndrome, arrhythmia, tamponade, asthma, COPD, pulmonary embolism, pneumonia, pneumothorax, pulmonary effusion, anaphylaxis, diabetic ketoacidosis, flailed chest, pulmonary contusion, diaphragmatic rupture, anemia, n euromuscular, this is not meant to be an all-inclusive list. Differential Palpitations Ventricular arrhythmias, atrial arrhythmias, myocardial infarction, anemia, thyrotoxicosis, electrolyte imbalance, hypokalemia, pulmonary embolism, pulmonary disease, drugs, alcohol, anxiety, stress.... This is not meant to be an all-inclusive list. EKG interpreted by me (3pts min.). @ -[I interpreted as above] X-rays interpreted by me (1pt min.). @ -[I interpreted as above CT interpreted by me (1pt min.). @ -[None done] U/S interpreted by me (1pt. min.). @ -[None done] What testing was considered but not performed or refused? (CT, X-rays, U/S, labs)? Why? @ -[None] What meds were considered but not given or refused? Why? @ -[None] Did you discuss the management of the patient with other professionals (professionals i.e. , PA, [employer]IC, lab, RT, psych nurse, high school social science teacher, auto mechanic, teacher, border patrol officer, watch case polisher)? Give summary @ -Case discussed with admitting physician and treatment recommendations incorporated Was smoking cessation discussed for >3mins.? @ -[No] Was critical care preformed (if so, how long)? @ -[Yes, 30 minutes Were there social determinants of health that impacted care today? How? (Homelessness, low income, unemployed, alcoholism, drug addiction, transportation, low edu. Level, literacy, decrease access to med. care, snf, rehab)? @ -[No] Was there de-escalation of care discussed even if they declined (Discuss DNR or withdrawal of care, Hospice)? DNR status @ -[No] What co-morbidities impacted this encounter? (DM, HTN, Smoking, COPD, CAD, Cancer, CVA, ARF, Chemo, Hep., AIDS, mental health diagnosis, sleep apnea, morbid obesity)? @ -[None] Was patient admitted / discharged? Hospital course, mention meds given and route, prescriptions, significant lab abnormalities, going to OR and other pertinent info. @ -[See above Undiagnosed new problem with uncertain prognosis? @ -[No] Drug Therapy requiring intensive monitoring for toxicity (Heparin, Nitro, Insulin, Cardizem)? @ -[No] Were any procedures done? @ -[No] Diagnosis/symptom? @ -Acute supraventricular tachycardia Elevated troponin Acute, or Chronic, or Acute on Chronic? @ -[Acute Uncomplicated (without systemic symptoms) or Complicated (systemic symptoms)? @ -[Complicated by dyspnea Side effects of treatment? @ -[No] Exacerbation, Progression, or Severe Exacerbation? @ -[No] Poses a threat to life or bodily function? How? (Chest pain, [place], [place], pneumonia, PE, COPD, DKA, ARF, appy, cholecystitis, CVA, Diverticulitis, Homicidal, Suicidal, threat to staff... and all critical care pts) @ -[Yes, requires further cardiology consultation - Lab Data Result diagrams: 08/31/24 06:58 08/31/24 06:58 Lab Results 08/28/24 08/28/24 08/28/24 Range/Units 22:43 22:43 22:43 WBC 13.7 H (3.8-10.6) k/uL RBC 4.21 (3.80-5.40) m/uL Hgb 11.5 (11.4-16.0) gm/dL Hct 36.7 (34.0-46.0) % MCV 87.3 (80.0-100.0) fL MCH 27.4 (25.0-35.0) pg MCHC 31.4 (31.0-37.0) g/dL RDW 14.0 (11.5-15.5) % Plt Count 679 H D (150-450) k/uL MPV 8.0 Neutrophils % 63 % Lymphocytes % 25 % Monocytes % 6 % Eosinophils % 3 % Basophils % 1 % Neutrophils # 8.7 H (1.3-7.7) k/uL Lymphocytes # 3.5 (1.0-4.8) k/uL Monocytes # 0.8 (0-1.0) k/uL Eosinophils # 0.4 (0-0.7) k/uL Basophils # 0.1 (0-0.2) k/uL Hypochromasia Slight PT 10.3 (10.0-12.5) sec INR 0.9 (<1.2) APTT 22.8 (22.0-30.0) sec Sodium (137-145) mmol/L Potassium (3.5-5.1) mmol/L Chloride (98-107) mmol/L Carbon Dioxide (22-30) mmol/L Anion Gap mmol/L BUN (7-17) mg/dL Creatinine (0.52-1.04) mg/dL Est GFR (CKD-EPI)AfAm (>60 ml/min/1.73 sqM) Est GFR (CKD-EPI)NonAf (>60 ml/min/1.73 sqM) Glucose (74-99) mg/dL Calcium (8.4-10.2) mg/dL Magnesium (1.6-2.3) mg/dL Total Bilirubin (0.2-1.3) mg/dL AST (14-36) U/L ALT (4-34) U/L Alkaline Phosphatase (38-126) U/L Troponin I 0.160 H* (0.000-0.034) ng/mL Total Protein (6.3-8.2) g/dL Albumin (3.5-5.0) g/dL TSH (0.465-4.680) mIU/L 08/28/24 Range/Units 22:49 WBC (3.8-10.6) k/uL RBC (3.80-5.40) m/uL Hgb (11.4-16.0) gm/dL Hct (34.0-46.0) % MCV (80.0-100.0) fL MCH (25.0-35.0) pg MCHC (31.0-37.0) g/dL RDW (11.5-15.5) % Plt Count (150-450) k/uL MPV Neutrophils % % Lymphocytes % % Monocytes % % Eosinophils % % Basophils % % Neutrophils # (1.3-7.7) k/uL Lymphocytes # (1.0-4.8) k/uL Monocytes # (0-1.0) k/uL Eosinophils # (0-0.7) k/uL Basophils # (0-0.2) k/uL Hypochromasia PT (10.0-12.5) sec INR (<1.2) APTT (22.0-30.0) sec Sodium 135 L (137-145) mmol/L Potassium 5.4 H (3.5-5.1) mmol/L Chloride 107 (98-107) mmol/L Carbon Dioxide 21 L (22-30) mmol/L Anion Gap 7 mmol/L BUN 26 H (7-17) mg/dL Creatinine 0.97 (0.52-1.04) mg/dL Est GFR (CKD-EPI)AfAm 65 (>60 ml/min/1.73 sqM) Est GFR (CKD-EPI)NonAf 57 (>60 ml/min/1.73 sqM) Glucose 186 H (74-99) mg/dL Calcium 9.2 (8.4-10.2) mg/dL Magnesium 2.0 (1.6-2.3) mg/dL Total Bilirubin 0.8 (0.2-1.3) mg/dL AST 31 (14-36) U/L ALT 18 (4-34) U/L Alkaline Phosphatase 47 (38-126) U/L Troponin I (0.000-0.034) ng/mL Total Protein 6.3 (6.3-8.2) g/dL Albumin 3.5 (3.5-5.0) g/dL TSH 0.284 L (0.465-4.680) mIU/L Disposition Clinical Impression: Supraventricular tachycardia, Troponin level elevated Disposition: ADMITTED IP TO THIS HOSP Condition: Stable Is patient prescribed a controlled substance at d/c from ED?: No
[2024-08-28 23:08] LABS: Basophils # (A) 0.1 k/uL (0-0.2); Basophils % (A) 1 %; Eosinophils # (A) 0.4 k/uL (0-0.7); Eosinophils % (A) 3 %; HCT 36.7 % (34.0-46.0); HGB 11.5 gm/dL (11.4-16.0); Hypochromasia Slight; Lymphocytes # (A) 3.5 k/uL (1.0-4.8); Lymphocytes % (A) 25 %; MCH 27.4 pg (25.0-35.0); MCHC 31.4 g/dL (31.0-37.0); MCV 87.3 fL (80.0-100.0); Monocytes # (A) 0.8 k/uL (0-1.0); Monocytes % (A) 6 %; Neutrophils # (A) 8.7 k/uL (1.3-7.7); Neutrophils % (A) 63 %; RBC 4.21 m/uL (3.80-5.40); WBC 13.7 k/uL (3.8-10.6)
[2024-08-28 23:12] LABS: INR 0.9 (<1.2); Partial Thromboplastin Time 22.8 sec (22.0-30.0); Prothrombin Time 10.3 sec (10.0-12.5)
[2024-08-28] MEDS: SODIUM CHLORIDE 0.9% 500 ML 500 ML IV STA (23:17)
[2024-08-28] MEDS: ADENOSINE 3 MG/ML 2 ML VIAL IVP STA (23:18)
[2024-08-28 23:31] LABS: African American GFR (CKD) 65 (>60 ml/min/1.73 sqM); Anion Gap 7 mmol/L; Blood Urea Nitrogen 26 mg/dL (7-17); Calcium 9.2 mg/dL (8.4-10.2); Carbon Dioxide 21 mmol/L (22-30); Chloride 107 mmol/L (98-107); Glucose 186 mg/dL (74-99); Non-African American GFR(CKD) 57 (>60 ml/min/1.73 sqM); Sodium 135 mmol/L (137-145)
[2024-08-28 23:32] LABS: ALT 18 U/L (4-34); Total Bilirubin 0.8 mg/dL (0.2-1.3)
[2024-08-28 23:34] LABS: Platelet Count 679 k/uL (150-450)
[2024-08-28 23:51] LABS: AST 31 U/L (14-36); Albumin 3.5 g/dL (3.5-5.0); Alkaline Phosphatase 47 U/L (38-126); Potassium 5.4 mmol/L (3.5-5.1); Total Protein 6.3 g/dL (6.3-8.2)
--- NOTE | 2024-08-28 23:51 | XR ---
EXAM: XR Chest, 1 View CLINICAL HISTORY: dysrhythmia TECHNIQUE: Frontal view of the chest. COMPARISON: 08/09/2024. FINDINGS: Lungs: Hypoventilation. Mild bibasilar probable atelectasis. No CHF. Pleural space: No pleural effusion. No pneumothorax. Heart: Unremarkable. No cardiomegaly. Mediastinum: Unremarkable. Normal mediastinal contour. Bones/joints: Unremarkable. No acute fracture. IMPRESSION: Hypoventilation with mild bibasilar probable atelectasis.
[2024-08-29] MEDS ORDERED: NITROGLYCERIN SL TABS 0.4 MG TAB SUBLINGUAL PRN (01:39)
--- NOTE | 2024-08-29 04:49 | P.HPIM ---
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 Ballesteros at [facility]), type II DM, hypertension, hyperlipidemia, CAD status post tenting, severe mitral regurg, and hypothyroidism who presents to the emergency room with complaints of palpitations and generalized weakness. Patient reports that her symptoms started suddenly around 2 PM today when she began feeling lightheaded and weak. The patient called her home visiting nurse who upon inspection advised him to call EMS. EMS found the patient to be in SVT. The patient was given adenosine x 12 in the emergency room which successfully aborted the SVT. Patient reports that her symptoms resolved shortly after receiving the adenosine and that she feels at her baseline at the time of interview. She denied experiencing chest discomfort, shortness of breath, fever, chills, cough, nausea, vomiting, abdominal pain, diarrhea. Patient EKG in emergency room revealed findings consistent with SVT at [address]/T wave changes noted as reviewed by me. Subsequent EKG revealed sinus tachycardia at 110 bpm with diffuse T wave flattening. Chest x-ray revealed hypoventilation with mild bibasilar atelectasis. Laboratory valuation was remarkable for leukocytosis of 13.7, sodium 135, potassium 5.4 (hemolyzed), BUN 26, creatinine 0.97, troponin I 0.160, and PSA 0.284.. ED documentation reviewed and case discussed with ED provider. Review of systems: Pertinent positives and negatives as discussed in HPI, a complete review of systems was performed and all other systems are negative. Physical examination: Vital signs reviewed General: non toxic, no distress, appears at stated age, obese Derm: no unusual rashes/lesions, warm Head: atraumatic, normocephalic, symmetric Eyes: EOMI, no lid lag, anicteric sclera, pupils equal round reactive to light ENT: Nose and ears atraumatic Neck: No cervical lymphadenopathy, trachea midline, supple Mouth: no lip lesion, mucus membranes moist Cardiovascular: S1S2 reg, no murmur, positive dorsalis pedis pulse bilateral, no edema Lungs: CTA bilateral, no rhonchi, no rales, no accessory muscle use Abdominal: soft, colostomy bag in place with brown fecal matter, midline incision with overlying dressing in place, no guarding Ext: muscle strength 5 out of 5 in all 4 extremities grossly, no gross muscle atrophy, no contractures, Neuro: CN II-XI grossly intact, no gross focal neuro deficits Psych: Alert, oriented, appropriate affect Assessment: SVT, now resolved Elevated troponin, likely secondary to above Leukocytosis, no signs of active infection at this time Thrombocytosis Chronic conditions: Type II DM, CAD, hypertension, hyperlipidemia, hypothyroidism Imaging: Patient EKG in emergency room revealed findings consistent with SVT at [address]/T wave changes noted as reviewed by me. Subsequent EKG revealed sinus tachycardia at 110 bpm with diffuse T wave flattening. Chest x-ray revealed hypoventilation with mild bibasilar atelectasis. Data Review: Laboratory valuation was remarkable for leukocytosis of 13.7, sodium 135, potassium 5.4 (hemolyzed), BUN 26, creatinine 0.97, troponin I 0.160, and PSA 0.284.. Plan: Cardiology consulted Trend troponin Cardiac monitoring Continue with aspirin Continue IV fluids with normal saline 100 cc/h Insulin sliding scale and blood glucose monitoring Resume remaining home medications once reconciled DVT prophylaxis: Lovenox Subq The patient is admitted with an anticipated less than 2 midnight stay for evaluation of SVT CODE STATUS: Full Code Discussed with: Patient Anticipated discharge place: Home Past Medical History Past Medical History: Myocardial Infarction ([place]) Additional Past Medical History / Comment(s): Lupus with arthritis. Type II diabetes, hypothyroidism. 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 [place] 2004, Leaky mitral valve Last Myocardial Infarction Date:: 2004 History of Any Multi-Drug Resistant Organisms: None Reported Past Surgical History: Heart Catheterization With Stent Additional Past Surgical History / Comment(s): Breast biopsies, cold knife colonization of the cervix, stent in 2004, 2 stents in 2022 Additional Past Anesthesia/Blood Transfusion Reaction / Comment(s): hard to wake up Date of Last Stent Placement:: March 21 2023 Past Psychological History: Anxiety Smoking Status: Former smoker Past Alcohol Use History: None Reported Past Drug Use History: None Reported - Past Family History Sister(s) Family Medical History: Cancer Additional Family Medical History / Comment(s): Ovarian cancer. Mother Family Medical History: Cancer Additional Family Medical History / Comment(s): Breast cancer. Father Family Medical History: Cancer, Myocardial Infarction ([place]) Additional Family Medical History / Comment(s): Colon cancer. Medications and Allergies Home Medications Medication Instructions Recorded Confirmed Type Levothyroxine Sodium [Synthroid] 100 mcg PO DAILY 04/28/19 08/08/24 History Metoprolol Succinate (ER) [Toprol 100 mg PO DAILY 04/28/19 08/08/24 History XL] Evolocumab [Repatha Sureclick] 140 mg SQ Q14D 01/15/23 08/08/24 History Omeprazole [PriLOSEC] 40 mg PO DAILY 01/15/23 08/08/24 History Albuterol Sulfate [Albuterol 2 puff PO RT-Q6H PRN 08/08/24 08/08/24 History Sulfate Hfa] Isosorbide Mononitrate ER [Imdur] 30 mg PO DAILY 08/08/24 08/08/24 History Ondansetron Odt [Zofran ODT] 4 mg PO Q6H PRN 08/08/24 08/08/24 History Acetaminophen Tab [Tylenol] 1,000 mg PO Q6HR PRN #30 tablet 08/14/24 Rx Aspirin 81 mg PO DAILY #30 tab 08/14/24 Rx Ibuprofen [Motrin] 600 mg PO Q8HR PRN #30 tab 08/14/24 Rx Levofloxacin [Levaquin] 500 mg PO DAILY 7 Days #7 tab 08/14/24 Rx Losartan [Cozaar] 100 mg PO DAILY #60 tab 08/14/24 Rx amLODIPine [Norvasc] 5 mg PO DAILY #30 tab 08/14/24 Rx metroNIDAZOLE [Flagyl] 500 mg PO TID 7 Days #21 tab 08/14/24 Rx traMADol HCl [Ultram] 50 mg PO TID PRN #9 tab 08/14/24 Rx Magnesium Oxide [Mag-Ox] 400 mg PO BID #60 tablet 08/15/24 Rx Allergies Allergy/AdvReac Type Severity Reaction Status Date / Time amoxicillin [From Augmentin] Allergy Anaphylaxis Verified 08/28/24 22:55 clavulanic acid Allergy Anaphylaxis Verified 08/28/24 22:55 [From Augmentin] Sulfa (Sulfonamide Allergy Anaphylaxis Verified 08/28/24 22:55 Antibiotics) Physical Exam Vitals: Vital Signs Temp Pulse Resp BP Pulse Ox 08/29/24 00:50 98 18 111/63 98 08/28/24 22:55 109 H 18 103/65 100 08/28/24 22:46 97.5 F L 198 H 24 90/51 98 Intake and Output 08/28/24 08/28/24 08/29/24 14:59 22:59 06:59 Other: Weight 74.843 kg Results CBC & Chem 7: 08/28/24 22:43 08/28/24 22:49 Labs: Abnormal Lab Results - Last 24 Hours (Table) 08/28/24 08/28/24 08/28/24 Range/Units 22:43 22:43 22:49 WBC 13.7 H (3.8-10.6) k/uL Plt Count 679 H D (150-450) k/uL Neutrophils # 8.7 H (1.3-7.7) k/uL Sodium 135 L (137-145) mmol/L Potassium 5.4 H (3.5-5.1) mmol/L Carbon Dioxide 21 L (22-30) mmol/L BUN 26 H (7-17) mg/dL Glucose 186 H (74-99) mg/dL Troponin I 0.160 H* (0.000-0.034) ng/mL TSH 0.284 L (0.465-4.680) mIU/L
[2024-08-29] MEDS: SODIUM CHLORIDE 0.9% 1,000 ML IV SCH (07:11)
[2024-08-29] MEDS: ADENOSINE 3 MG/ML 2 ML VIAL IVP STA (08:04)
[2024-08-29 08:23] LABS: Glucose,Whole Blood 115 mg/dL (70-110)
[2024-08-29] MEDS: INSULIN ASPART (NovoLOG) 100 UNIT/ML VIAL SQ SCH (08:23)
[2024-08-29] MEDS: METOPROLOL TARTRATE 25 MG TAB PO SCH (08:27)
[2024-08-29] MEDS: ENOXAPARIN 40 MG/0.4 ML SYRINGE SQ SCH (08:27)
[2024-08-29] MEDS: DEXTROSE 5% IN WATER 100 ML with AMIODARONE 150 MG IV ONE (08:27)
[2024-08-29] MEDS: AMIODARONE 360 MG in DEXTROSE 5% IN WATER 200 ML IV ONE (08:40)
[2024-08-29] MEDS ORDERED: METOPROLOL TARTRATE 50 MG TAB PO SCH (09:00)
--- NOTE | 2024-08-29 10:21 | P.CRDCN ---
History of Present Illness History of present illness: HISTORY OF PRESENT ILLNESS: This is a 78-year-old female with a past medical history significant for coronary artery disease with known TIRE CURER of the RCA and PCI of the LAD, valvular heart disease, hypertension, hyperlipidemia, and diabetes. Patient follows in the office with Dr. Broussard. We have been asked to see the patient in consultation for elevated troponins and SVT. Patient examined at the bedside in the emergency room. The patient was recently admitted to the hospital for diverticulitis with abscess and underwent colectomy with colostomy creation on August 10, 2024. Patient presented to the hospital for chief complaint of generalized weakness. Patient was found to be in SVT. Per the patient's nurse, she received a one- time dose of adenosine 12 mg with conversion to sinus mechanism. At the time of examination this morning, the patient is back in SVT with a heart rate around 190. She received 12 mg of adenosine during our examination with conversion to sinus tachycardia with a heart rate around 115. The patient states she is starting to feel better. She denies chest pain or pressure. Denies shortness of breath. Blood pressure 127/60. DIAGNOSTICS: - EKG reveals SVT - Chest xray hypoventilation with mild bibasilar atelectasis - Laboratory data: WBC 13.7. Hemoglobin 11.5. Platelet count 369. D-dimer 3.33. Sodium 135. Potassium 5.4. BUN 26. Creatinine 0.97. Troponin 0.160. 0.376. 0.444. - Current home cardiac medications include aspirin 81 mg daily, Imdur 30 mg daily, losartan 100 mg daily, metoprolol succinate 100 mg daily, amlodipine 5 mg daily - Most recent echocardiogram obtained in December 2022 revealing ejection fraction 50%, mild to moderate MR - Cardiac catheterization history: September 2023 revealing patent stent in the LAD. Chronic total occlusion of RCA which is known finding from before. Normal left-sided filling pressures. Medical management was recommended. REVIEW OF SYSTEMS: At the time of my exam: CONSTITUTIONAL: Denies fever or chills. HEENT: Denies blurred vision, vision changes, or eye pain. Denies hemoptysis CARDIOVASCULAR: Denies chest pain. Denies orthopnea. Denies PND. Denies palpitations RESPIRATORY: Denies shortness of breath. GASTROINTESTINAL: Denies abdominal pain. Denies nausea or vomiting. HEMATOLOGIC: Denies bleeding disorders. GENITOURINARY: Denies any blood in urine. SKIN: Denies pruitis. Denies rash. PHYSICAL EXAM: VITAL SIGNS: Reviewed. GENERAL: Well-developed in no acute distress. HEENT: Head is normocephalic. Pupils are equal, round. Sclerae anicteric. Mucous membranes of the mouth are moist. Neck supple. No JVD or thyromegaly LUNGS: Respirations even and unlabored. Lungs essentially clear to auscultation bilaterally. HEART: Regular rate and rhythm. S1 and S2 heard. Systolic murmur noted. ABDOMEN: Soft. Nondistended. Nontender. EXTREMITIES: Normal range of motion. No clubbing or cyanosis. Peripheral pulses intact. No lower extremity edema NEUROLOGIC: Awake and alert. Oriented x 3. ASSESSMENT: Generalized weakness Palpitations Paroxysmal SVT x 2, converted to sinus mechanism with adenosine Hypotension Elevated troponins, suspect type II AL secondary to oxygen supply/demand mismatch Elevated D-dimer, rule out pulmonary embolism Coronary artery disease with previous PCI of LAD Known TIRE CURER of the RCA Valvular heart disease including mild to moderate mitral regurgitation History of hypertension History of hyperlipidemia, on Repatha outpatient Diabetes PLAN: Obtain 2D echo to assess cardiac structure and function Begin IV amiodarone bolus and drip per protocol Patient with elevated D-dimer. Obtain stat chest CTA to rule out pulmonary embolism Hold home antihypertensive medication secondary to hypotension Resume metoprolol at decreased dose of 25 mg 3 times a day secondary to soft blood pressures Continue telemetry monitoring Further recommendations pending patient course Nurse practitioner note has been reviewed by physician. Signing provider agrees with the documented findings, assessment, and plan of care documented by CENTRIFUGE SEPARATOR TENDER as a scribe. Past Medical History Past Medical History: Myocardial Infarction (AL) Additional Past Medical History / Comment(s): Lupus with arthritis. Type II diabetes, hypothyroidism. 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 AL 2004, Leaky mitral valve Last Myocardial Infarction Date:: 2004 History of Any Multi-Drug Resistant Organisms: None Reported Past Surgical History: Heart Catheterization With Stent Additional Past Surgical History / Comment(s): Breast biopsies, cold knife colonization of the cervix, stent in 2004, 2 stents in 2022 Additional Past Anesthesia/Blood Transfusion Reaction / Comment(s): hard to wake up Date of Last Stent Placement:: March 21 2023 Past Psychological History: Anxiety Smoking Status: Former smoker Past Alcohol Use History: None Reported Past Drug Use History: None Reported - Past Family History Sister(s) Family Medical History: Cancer Additional Family Medical History / Comment(s): Ovarian cancer. Mother Family Medical History: Cancer Additional Family Medical History / Comment(s): Breast cancer. Father Family Medical History: Cancer, Myocardial Infarction (AL) Additional Family Medical History / Comment(s): Colon cancer. Medications and Allergies Home Medications Medication Instructions Recorded Confirmed Type Levothyroxine Sodium [Synthroid] 100 mcg PO DAILY 04/28/19 08/29/24 History Metoprolol Succinate (ER) [Toprol 100 mg PO DAILY 04/28/19 08/29/24 History XL] Evolocumab [Repatha Sureclick] 140 mg SQ Q14D 01/15/23 08/29/24 History Omeprazole [PriLOSEC] 40 mg PO DAILY 01/15/23 08/29/24 History Albuterol Sulfate [Albuterol 2 puff PO RT-Q6H PRN 08/08/24 08/29/24 History Sulfate Hfa] Isosorbide Mononitrate ER [Imdur] 30 mg PO DAILY 08/08/24 08/29/24 History Ondansetron Odt [Zofran ODT] 4 mg PO Q6H PRN 08/08/24 08/29/24 History Acetaminophen Tab [Tylenol] 1,000 mg PO Q6HR PRN #30 tablet 08/14/24 08/29/24 Rx Aspirin 81 mg PO DAILY #30 tab 08/14/24 08/29/24 Rx Losartan [Cozaar] 100 mg PO DAILY #60 tab 08/14/24 08/29/24 Rx amLODIPine [Norvasc] 5 mg PO DAILY #30 tab 08/14/24 08/29/24 Rx Magnesium Oxide [Mag-Ox] 400 mg PO BID #60 tablet 08/15/24 08/29/24 Rx Allergies Allergy/AdvReac Type Severity Reaction Status Date / Time amoxicillin [From Augmentin] Allergy Anaphylaxis Verified 08/29/24 09:11 clavulanic acid Allergy Anaphylaxis Verified 08/29/24 09:11 [From Augmentin] Sulfa (Sulfonamide Allergy Anaphylaxis Verified 08/29/24 09:11 Antibiotics) Physical Exam Vitals: Vital Signs Temp Pulse Resp BP Pulse Ox 08/29/24 09:29 76 18 105/64 98 08/29/24 08:30 99 18 135/70 98 08/29/24 08:06 98 18 127/67 97 08/29/24 08:03 172 H 22 100/73 98 08/29/24 08:00 175 H 18 102/78 98 08/29/24 07:43 174 H 22 105/79 98 08/29/24 07:40 172 H 22 83/66 97 08/29/24 07:04 99 18 127/60 99 08/29/24 00:50 98 18 111/63 98 08/28/24 22:55 109 H 18 103/65 100 08/28/24 22:46 97.5 F L 198 H 24 90/51 98 Intake and Output 08/28/24 08/29/24 08/29/24 22:59 06:59 14:59 Other: Weight 74.843 kg Results 08/28/24 22:43 08/28/24 22:49 Cardiac Enzymes 08/28/24 08/28/24 08/29/24 Range/Units 22:43 22:49 03:18 AST 31 (14-36) U/L Troponin I 0.160 H* 0.376 H* (0.000-0.034) ng/mL 08/29/24 Range/Units 06:02 AST (14-36) U/L Troponin I 0.444 H* (0.000-0.034) ng/mL Coagulation 08/28/24 Range/Units 22:43 PT 10.3 (10.0-12.5) sec APTT 22.8 (22.0-30.0) sec CBC 08/28/24 Range/Units 22:43 WBC 13.7 H (3.8-10.6) k/uL RBC 4.21 (3.80-5.40) m/uL Hgb 11.5 (11.4-16.0) gm/dL Hct 36.7 (34.0-46.0) % Plt Count 679 H D (150-450) k/uL Comprehensive Metabolic Panel 08/28/24 Range/Units 22:49 Sodium 135 L (137-145) mmol/L Potassium 5.4 H (3.5-5.1) mmol/L Chloride 107 (98-107) mmol/L Carbon Dioxide 21 L (22-30) mmol/L BUN 26 H (7-17) mg/dL Creatinine 0.97 (0.52-1.04) mg/dL Glucose 186 H (74-99) mg/dL Calcium 9.2 (8.4-10.2) mg/dL AST 31 (14-36) U/L ALT 18 (4-34) U/L Alkaline Phosphatase 47 (38-126) U/L Total Protein 6.3 (6.3-8.2) g/dL Albumin 3.5 (3.5-5.0) g/dL Current Medications Generic Name Dose Route Start Last Admin Trade Name Freq PRN Reason Stop Dose Admin Enoxaparin Sodium 40 mg 08/29/24 09:00 08/29/24 08:27 Enoxaparin 40 Mg/0.4 Ml Syringe SQ 40 mg DAILY FARRAH Administration Sodium Chloride 1,000 mls @ 100 mls/hr 08/29/24 01:45 08/29/24 07:11 Saline 0.9% IV 100 mls/hr .Q10H FARRAH Administration Amiodarone HCl 360 mg/ 200 mls @ 33.333 mls/hr 08/29/24 08:07 08/29/24 08:40 Dextrose/Water IV 08/29/24 14:06 1 mg/min .Q6H ONE 33.333 mls/hr Administration Protocol 1 MG/MIN Amiodarone HCl 450 mg/ 250 mls @ 16.667 mls/hr 08/29/24 14:15 Dextrose/Water IV 08/30/24 08:14 .Q15H FARRAH Protocol 0.5 MG/MIN Insulin Aspart 0 unit 08/29/24 07:30 08/29/24 08:23 Insulin Aspart (Novolog) 100 Unit/Ml Vial SQ Not Given ACHS FARRAH Protocol Metoprolol Tartrate 25 mg 08/29/24 09:00 08/29/24 08:27 Metoprolol Tartrate 25 Mg Tab PO 25 mg TID FARRAH Administration Nitroglycerin 0.4 mg 08/29/24 01:39 Nitroglycerin Sl Tabs 0.4 Mg Tab SUBLINGUAL Q5M PRN Chest Pain Intake and Output 08/28/24 08/29/24 08/29/24 22:59 06:59 14:59 Other: Weight 74.843 kg 08/28/24 22:43 08/28/24 22:49
--- NOTE | 2024-08-29 10:37 | P.PN ---
Subjective Progress Note Date: 08/29/24 History of Presenting Illness: Patient is a very pleasant 78-year-old female with a past medical history of recent colectomy and colostomy for diverticulitis with abscess on 08/10/2024 (by Dr. Ballesteros at [facility]), CAD status post stenting, severe mitral regurgitation, hypertension, hyperlipidemia, type II [id number] diabetes mellitus, and hypothyroidism. She presented to the emergency department with complaints of palpitations and generalized weakness. She initially reports feeling the symptoms beginning earlier in the afternoon a ccompanied by moderate lightheadedness and called her home care nurse who came out to assess her and called EMS. Upon EMS arrival patient was reported to be found in SVT. Upon arrival to our facility, patient remained in SVT and was given adenosine in the emergency room which resulted in successful conversion to sinus mechanism. Initial EKG showing SVT at 192 bpm and repeat EKG after administration of adenosine showing sinus tachycardia at 110 bpm. Vital signs upon arrival show blood pressure 90/51, heart rate 198, respiratory rate 24, temp 97.5 F, and SpO2 of 98% on 2 L. After administration of adenosine blood pressure improved to 103/65 and heart rate improving to 109. Chest x-ray c ompleted showing hyperinflation with mild bibasilar atelectasis. Labs completed and reviewed. CBC showing leukocytosis with WBC count of 13.7 and thrombocytosis with platelet count of 679. BMP showing sodium 135, potassium 5.4 but hemolyzed specimen, bicarb 21, and BUN of 26 with blood glucose of 186. Magnesium was 2.0. Liver profile normal findings. Troponin was elevated at 0.160. TSH 0.284 with normal free T4 of 2.03. Patient was admitted under our services with consultation to cardiology. Troponins were trended resulting is 0.160 and 0.444. D-dimer was obtained elevated at 3.33. Order placed for CTA chest. CTA chest resulting negative for pulmonary emboli but revealing a growi ng masslike density in the right middle lobe highly suspicious for metastatic process. Consult placed to pulmonology and oncology for further evaluation. Review of systems: Pertinent positives and negatives as discussed in HPI, a complete review of systems was performed and all other systems are negative. Physical exam: Vital signs reviewed and stable. General: Nontoxic, no distress and appears stated age. Derm: Skin warm and dry, normal coloration for ethnicity. Head: Atraumatic, normocephalic and symmetric. Eyes: EOM's intact, no lid lag, and anicteric sclera Mouth: no lip lesions, mucus membranes moist Cardiovascular: regular rate and rhythm with normal S1S2 systolic murmur, positive posterior tibial pulses bilaterally, and cap refill < 2 seconds. Lungs: Respirations even, regular, and unlabored on 2 L O2 via nasal cannula. Lungs slightly diminished however no rhonchi, no rales, no wheezing, and no accessory muscle usage. Abdominal: soft, nontender to palpation. Surgical incision to midline abdomen with dressing in place that is clean, dry, and intact. Colostomy bag, stoma pink. Ext: ROM intact. No gross muscle atrophy, no edema, no contractures Neuro: Speech clear, face symmetrical and CN II-XII grossly intact with no noted focal neuro deficits Psych: Alert and oriented to person, place, time, and situation. Appropriate and pleasant affect. Assessment and Plan of Care: SVT, recurrent episode resolved after administration of adenosine x 2 doses NSTEMI, type II AR secondary to prolonged/recurrent episode of SVT Right middle lobe lung mass Leukocytosis and thrombocytosis -Patient currently maintaining sinus mechanism. -Cardiology following, reviewed documentation in chart. Cardiology recommending holding home antihypertensive medications and resuming metoprolol at decreased rate of 25 mg 3 times daily secondary to soft blood pressures. -Continue amiodarone infusion 1 mg/min titrate down to 0.5 mg/min this afternoon as directed. -Consult placed to rustic terrazzo setter and oncologist for findings of right lung mass. -Echocardiogram to be completed. -Patient to remain on continuous telemetry monitoring. -Leukocytosis and thrombocytosis likely reactive. Will continue to monitor closely with repeat a.m. labs. Status post recent colectomy and colostomy placement on 08/10/2024 -Continue colostomy care and postoperative dressing changes. -Symptomatic care and pain management. -Reviewed pathology report from sigmoid colectomy with final pathologic diagnosis reported as severe chronic and active perforated diverticulitis with abscess and serosal fibrous adhesions margins benign and viable. History of CAD status post stenting Hypertension -Losartan, isosorbide mononitrate, and amlodipine held by cardiology secondary to soft blood pressures. Cardiology recommending patient resume metoprolol at a decreased rate of 25 mg 3 times daily. Hypothyroidism -Continue levothyroxine 100 mcg daily. Lupus -Continue Ecolocumab 40 mg subcu q. 14 days Data and imaging reviewed: -Labs Reviewed. Troponins were trended resulting is 0.160 and 0.444. D-dimer was obtained elevated at 3.33. -Reviewed pathology report from sigmoid colectomy with final pathologic diagnosis reported as severe chronic and active perforated diverticulitis with a bscess and serosal fibrous adhesions margins benign and viable. -CTA chest resulting negative for pulmonary emboli but revealing a growing masslike density in the right middle lobe highly suspicious for metastatic process. Consult placed to pulmonology and oncology for further evaluation. -Vital signs reviewed. Blood pressure 105/64, heart rate 76, respiratory rate 18, Temp 97.8 F, and SpO2 of 98% on 2 L. CODE STATUS: Full code DVT prophylaxis: Lovenox Anticipated discharge date: Pending clinical course Anticipated discharge place: Pending clinical course Patient was seen independently by Nurse Practitioner. This document was prepared using [employer] dictation software. Please allow for e rrors in offline editor while rare they do occur. Addy Reyes NP rendered care for this patient independently, reviewed the findings and plan as documented in the note above and agree with plan. I did not physically speak with or examine the patient on this date. Objective - Vital Signs Vital signs: Vital Signs Temp 97.5 F L 08/28/24 22:46 Pulse 76 08/29/24 09:29 Resp 18 08/29/24 09:29 BP 105/64 08/29/24 09:29 Pulse Ox 98 08/29/24 09:29 FiO2 Intake & Output 08/28/24 08/29/24 08/29/24 18:59 06:59 18:59 Weight 74.843 kg - Labs CBC & Chem 7: 08/28/24 22:43 08/28/24 22:49 Labs: Abnormal Lab Results - Last 24 Hours (Table) 08/28/24 08/28/24 08/28/24 Range/Units 22:43 22:43 22:49 WBC 13.7 H (3.8-10.6) k/uL Plt Count 679 H D (150-450) k/uL Neutrophils # 8.7 H (1.3-7.7) k/uL D-Dimer (<0.60) mg/L FEU Sodium 135 L (137-145) mmol/L Potassium 5.4 H (3.5-5.1) mmol/L Carbon Dioxide 21 L (22-30) mmol/L BUN 26 H (7-17) mg/dL Glucose 186 H (74-99) mg/dL POC Glucose (mg/dL) (70-110) mg/dL Troponin I 0.160 H* (0.000-0.034) ng/mL TSH 0.284 L (0.465-4.680) mIU/L 08/29/24 08/29/24 08/29/24 Range/Units 03:18 06:02 08:22 WBC (3.8-10.6) k/uL Plt Count (150-450) k/uL Neutrophils # (1.3-7.7) k/uL D-Dimer (<0.60) mg/L FEU Sodium (137-145) mmol/L Potassium (3.5-5.1) mmol/L Carbon Dioxide (22-30) mmol/L BUN (7-17) mg/dL Glucose (74-99) mg/dL POC Glucose (mg/dL) 115 H (70-110) mg/dL Troponin I 0.376 H* 0.444 H* (0.000-0.034) ng/mL TSH (0.465-4.680) mIU/L 08/29/24 Range/Units 08:36 WBC (3.8-10.6) k/uL Plt Count (150-450) k/uL Neutrophils # (1.3-7.7) k/uL D-Dimer 3.33 H (<0.60) mg/L FEU Sodium (137-145) mmol/L Potassium (3.5-5.1) mmol/L Carbon Dioxide (22-30) mmol/L BUN (7-17) mg/dL Glucose (74-99) mg/dL POC Glucose (mg/dL) (70-110) mg/dL Troponin I (0.000-0.034) ng/mL TSH (0.465-4.680) mIU/L
--- NOTE | 2024-08-29 10:42 | CT ---
EXAMINATION TYPE: CT angio chest DATE OF EXAM: 08/29/2024 COMPARISON: CTA chest 01/15/[address] chest 05/28/2024 CLINICAL INDICATION: Female, 78 years old with history of rule out PE; PHH, Chest pain, hx HI, rule o ut PE TECHNIQUE: CTA scan of the thorax is performed without and with IV Contrast, patient injected with 80 mL of Isov ue 370, pulmonary embolism protocol. MIP images are created and reviewed. CT DLP: 358.[address] CTDI: mGy Automated exposure control for dose reduction was used. FINDINGS: There are no filling defects within the pulmonary arterial circulation suggest pulmonary embolism. Gr eat vessels chest are normal. No mediastinal, hilar or axillary adenopathy. There is a growing nodule in size and density in the right middle lobe. Previously measured 17 x 14 m m and now measures 22 x 18 mm and definitively more dense and masslike. Findings highly suspicious fo r neoplasm. PET scan would be useful for further evaluation. There is no airspace consolidation. No pleural effusion or pneumothorax. Scanning through the upper abdomen reveals no gross abnormality. No focal osseous lesions are seen. IMPRESSION: 1. No evidence of pulmonary embolus. 2. No acute cardiac disease. 3. Growing masslike density in the right middle lobe highly suspicious for neoplasm and further carolyn p is warranted. PET scan would be useful for further evaluation. [facility], , 08/29/2024 10:40 AM
[2024-08-29] MEDS: ASPIRIN 81 MG PO SCH (10:48)
[2024-08-29 10:52] LABS: T4, Free (Free Thyroxine) 2.02 ng/dL (0.78-2.19)
[2024-08-29 10:58] LABS: Magnesium 1.8 mg/dL (1.6-2.3)
[2024-08-29 12:24] LABS: Glucose,Whole Blood 140 mg/dL (70-110)
[2024-08-29 13:33] LABS: Appearance,Urine Clear (Clear); Bilirubin,Urine Negative (Negative); Blood,Urine Negative (Negative); Color,Urine Colorless; Glucose,Urine (UA) Negative (Negative); Ketones,Urine Negative (Negative); Leukocyte Esterase,Urine Small (Negative); Nitrite,Urine Negative (Negative); PH, Urine 5.5 (5.0-8.0); Protein,Urine Negative (Negative); RBC,Urine 2 /hpf (0-5); Squamous Epithelial Cell,Urine 4 /hpf (0-4); Urobilinogen,Urine <2.0 mg/dL (<2.0); WBC,Urine 9 /hpf (0-5)
[2024-08-29 13:51] LABS: Specific Gravity,Urine 1.049 (1.001-1.035)
[2024-08-29] MEDS: AMIODARONE 450 MG in DEXTROSE 5% IN WATER 250 ML IV SCH (14:37)
[2024-08-29] MEDS ORDERED: HYDROcodone/APAP 5-325MG 1 EACH TAB PO PRN (14:39)
[2024-08-29] MEDS ORDERED: ACETAMINOPHEN TAB 325 MG TAB PO PRN (14:39)
--- NOTE | 2024-08-29 14:46 | P.CNPUL ---
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 She had recently been hospitalized last month for abdominal pain found to have acute diverticulitis with perforated sigmoid colon and had undergone sigmoid colectomy with end colostomy on August 10, 2024. Recovered and was discharged to home on 08/15/2024. She presented back to the emergency room yesterday with generalized weakness and palpitations. She was found to be in SVT and received Adenocard. She received a liter of fluid. She was in SVT again this morning received a second round of Adenocard. Current heart rate in the 70s. Chest x-ray revealed mild bibasilar atelectasis. No consolidation. No pleural effusion. No pneumothorax. CT angiogram ruled out pulmonary embolus. No acute pulmonary disease. There is a growing masslike density in the right middle lobe highly suspicious for neoplasm. This has been followed in the outpatient setting by Dr. Harris. We were consulted today regarding the same. She is seen in the emergency department. Currently resting fairly comfortably in bed. Awake and alert in no acute distress. Maintaining good O2 saturations in the mid to upper 90s on 2 L/min per nasal cannula. She is afebrile. Hemodynamically stable. White count 13.7. Hemoglobin 11.5. Platelets 679. D-dimer 3.33. Sodium 135. Potassium 5.4. Bicarb 21. BUN 26. Creatinine 0.97. Glucose 186. Troponin 0.160, 0.444. Review of Systems REVIEW OF SYSTEMS: CONSTITUTIONAL: Positive for generalized weakness. Denies any recent significan t weight loss or weight gain. EYES: Denies change in vision. EARS, NOSE, MOUTH, THROAT: Denies headaches, denies sore throat. CARDIOVASCULAR: Positive for palpitations. RESPIRATORY: Denies shortness of breath, cough, congestion or hemoptysis. GASTROINTESTINAL: Denies change in appetite, denies abdominal pain GENITOURINARY: Denies hematuria, denies infections. MUSKULOSKELETAL: Denies pain, denies swelling. INTEGUMENTARY: Denies rash, denies eczema. NEUROLOGICAL: Denies recent memory loss, no recent seizure activity. PSYCHIATRIC: Denies anxiety, denies depression. HEMATOLOGIC/LYMPHATIC: Denies anemia, denies enlarged lymph nodes. Past Medical History Past Medical History: Myocardial Infarction ([place]) Additional Past Medical History / Comment(s): Lupus with arthritis. Type II diabetes, hypothyroidism. 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 [place] 2004, Leaky mitral valve Last Myocardial Infarction Date:: 2004 History of Any Multi-Drug Resistant Organisms: None Reported Past Surgical History: Heart Catheterization With Stent Additional Past Surgical History / Comment(s): Breast biopsies, cold knife colonization of the cervix, stent in 2004, 2 stents in 2022 Additional Past Anesthesia/Blood Transfusion Reaction / Comment(s): hard to wake up Date of Last Stent Placement:: March 21 2023 Past Psychological History: Anxiety Smoking Status: Former smoker Past Alcohol Use History: None Reported Past Drug Use History: None Reported - Past Family History Sister(s) Family Medical History: Cancer Additional Family Medical History / Comment(s): Ovarian cancer. Mother Family Medical History: Cancer Additional Family Medical History / Comment(s): Breast cancer. Father Family Medical History: Cancer, Myocardial Infarction ([place]) Additional Family Medical History / Comment(s): Colon cancer. Medications and Allergies Home Medications Medication Instructions Recorded Confirmed Type Levothyroxine Sodium [Synthroid] 100 mcg PO DAILY 04/28/19 08/29/24 History Metoprolol Succinate (ER) [Toprol 100 mg PO DAILY 04/28/19 08/29/24 History XL] Evolocumab [Repatha Sureclick] 140 mg SQ Q14D 01/15/23 08/29/24 History Omeprazole [PriLOSEC] 40 mg PO DAILY 01/15/23 08/29/24 History Albuterol Sulfate [Albuterol 2 puff PO RT-Q6H PRN 08/08/24 08/29/24 History Sulfate Hfa] Isosorbide Mononitrate ER [Imdur] 30 mg PO DAILY 08/08/24 08/29/24 History Ondansetron Odt [Zofran ODT] 4 mg PO Q6H PRN 08/08/24 08/29/24 History Acetaminophen Tab [Tylenol] 1,000 mg PO Q6HR PRN #30 tablet 08/14/24 08/29/24 Rx Aspirin 81 mg PO DAILY #30 tab 08/14/24 08/29/24 Rx Losartan [Cozaar] 100 mg PO DAILY #60 tab 08/14/24 08/29/24 Rx amLODIPine [Norvasc] 5 mg PO DAILY #30 tab 08/14/24 08/29/24 Rx Magnesium Oxide [Mag-Ox] 400 mg PO BID #60 tablet 08/15/24 08/29/24 Rx Allergies Allergy/AdvReac Type Severity Reaction Status Date / Time amoxicillin [From Augmentin] Allergy Anaphylaxis Verified 08/29/24 09:11 clavulanic acid Allergy Anaphylaxis Verified 08/29/24 09:11 [From Augmentin] Sulfa (Sulfonamide Allergy Anaphylaxis Verified 08/29/24 09:11 Antibiotics) Physical Exam Vitals: Vital Signs Temp Pulse Resp BP Pulse Ox 08/29/24 12:59 97.8 F 78 18 135/69 97 08/29/24 12:15 72 18 118/68 98 08/29/24 10:47 75 18 116/69 96 08/29/24 09:29 76 18 105/64 98 08/29/24 08:30 99 18 135/70 98 08/29/24 08:06 98 18 127/67 97 08/29/24 08:03 172 H 22 100/73 98 08/29/24 08:00 175 H 18 102/78 98 08/29/24 07:43 174 H 22 105/79 98 08/29/24 07:40 172 H 22 83/66 97 08/29/24 07:04 99 18 127/60 99 08/29/24 00:50 98 18 111/63 98 08/28/24 22:55 109 H 18 103/65 100 08/28/24 22:46 97.5 F L 198 H 24 90/51 98 Intake and Output 08/28/24 08/29/24 08/29/24 22:59 06:59 14:59 Other: Weight 74.843 kg GENERAL EXAM: Alert, pleasant, weak 78-year-old female, on 2 L nasal cannula, currently comfortable in no apparent distress. HEAD: Normocephalic. EYES: Normal reaction of pupils, equal size. NOSE: Clear with pink turbinates. THROAT: No erythema or exudates. NECK: No masses, no JVD. CHEST: No chest wall deformity. LUNGS: Equal air entry with no crackles, wheeze, rhonchi or dullness. CVS: S1 and S2 normal with no audible murmur, regular rhythm. ABDOMEN: Colostomy in place, functional no hepatosplenomegaly, normal bowel sounds, no guarding or rigidity. SPINE: No scoliosis or deformity SKIN: No rashes CENTRAL NERVOUS SYSTEM: No focal deficits, tone is normal in all 4 extremities. EXTREMITIES: There is no peripheral edema. No clubbing, no cyanosis. Peripheral pulses are intact. Results - Laboratory Findings CBC and BMP: 08/28/24 22:43 08/28/24 22:49 PT/INR, D-dimer PT 10.3 sec (10.0-12.5) 08/28/24 22:43 INR 0.9 (<1.2) 08/28/24 22:43 D-Dimer 3.33 mg/L FEU (<0.60) H 08/29/24 08:36 Abnormal lab findings: Abnormal Labs 08/28/24 08/28/24 08/28/24 22:43 22:43 22:49 WBC 13.7 H Plt Count 679 H D Neutrophils # 8.7 H D-Dimer Sodium 135 L Potassium 5.4 H Carbon Dioxide 21 L BUN 26 H Glucose 186 H POC Glucose (mg/dL) Troponin I 0.160 H* TSH 0.284 L Ur Specific [place] Ur Leukocyte Esterase Urine WBC 08/29/24 08/29/24 08/29/24 03:18 06:02 08:22 WBC Plt Count Neutrophils # D-Dimer Sodium Potassium Carbon Dioxide BUN Glucose POC Glucose (mg/dL) 115 H Troponin I 0.376 H* 0.444 H* TSH Ur Specific [place] Ur Leukocyte Esterase Urine WBC 08/29/24 08/29/24 08/29/24 08:36 12:15 12:23 WBC Plt Count Neutrophils # D-Dimer 3.33 H Sodium Potassium Carbon Dioxide BUN Glucose POC Glucose (mg/dL) 140 H Troponin I TSH Ur Specific [place] 1.049 H Ur Leukocyte Esterase Small H Urine WBC 9 H - Diagnostic Findings Chest x-ray: image reviewed CT scan - chest: image reviewed Assessment and Plan Assessment: Generalized weakness and palpitations in a patient found to be in SVT, received adenosine x 2 History of coronary artery disease with previous stent placement to the LAD, chronically occluded RCA Recent hospitalization for perforated diverticuli with sigmoid colectomy and end colostomy on 08/10/2024 Known history of a right middle lobe masslike lesion suspicious for neoplasm, currently measuring 2.2 x 1.8 cm, slightly enlarged Valvular heart disease Hypothyroidism Hypertension Gastroesophageal reflux disease History of lupus with arthritis, on Repatha Plan: The patient was seen and evaluated Imaging, labs and medications were reviewed Known history of right lung lesion Appears to be enlarged in size Will plan for outpatient PET scan Follows with Dr. Harris for the same Currently stable from the pulmonary standpoint We will continue to follow and make further recommendations based on her clinical status I have personally seen and examined the patient, performed the documentation and the assessment and plan as written. Number of minutes spent on the visit: 20 Dictation was produced using [employer] dictation software. Please excuse any grammatical, word or spelling errors.
[2024-08-29] MEDS: LEVOTHYROXINE 100 MCG TAB PO SCH (15:40)
[2024-08-29 17:51] LABS: Glucose,Whole Blood 116 mg/dL (70-110)
--- NOTE | 2024-08-29 19:40 | P.CONS ---
History of Present Illness - Reason for Consult Consult date: 08/29/24 Lung mass, thrombocytosis - History of Present Illness The patient is a 78-year-old white female, with multiple medical issues. The patient was admitted to the hospital with generalized weakness, and palpitations and found to be in SVT. She reverted to normal sinus rhythm with Adenocard. Her labs showed elevated platelet count, at 667. The patient also had a CTA that showed a known mass in the right midlung. This was negative for PE. The mass was measured at 22 by 18 mm, versus 17 x 14 mm in 06/16. The size in 06/16, seen on a noncontrast CT chest was stable compared to a year ago. The patient has had a recent major bowel surgery, specifically sigmoid resection with temporary colostomy, due to perforated diverticulitis, in 08/16. She was discharged home on 08/15/24. Her ostomy has been functioning well. She has no h/oblood related problems or malignancy previously. Review of prev labs in the ER showed normal plt at 334 on 08/14 , and 529 on 08/18/24. No h/o obvious bleeding or known chronic inflammatory condition Review of Systems Constitutional: Reports fatigue, Reports weakness Eyes: denies blurred vision, denies pain Ears: deny: decreased hearing, ear discharge, earache, tinnitus Ears, nose, mouth and throat: Denies headache, Denies sore throat Cardiovascular: Reports as per HPI, Reports palpitations, Reports rapid heart beat, Reports shortness of breath Respiratory: Reports dyspnea Gastrointestinal: Reports as per HPI Genitourinary: Denies dysuria, Denies hematuria Menstruation: Reports postmenopausal Musculoskeletal: Reports muscle weakness Integumentary: Denies pruritus, Denies rash Neurological: Reports weakness Psychiatric: Denies anxiety, Denies depression Endocrine: Reports fatigue Hematologic/Lymphatic: Reports as per HPI Past Medical History Past Medical History: Myocardial Infarction ([place]) Additional Past Medical History / Comment(s): Lupus with arthritis. Type II diabetes, hypothyroidism. 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 [place] 2004, Leaky mitral valve Last Myocardial Infarction Date:: 2004 History of Any Multi-Drug Resistant Organisms: None Reported Past Surgical History: Heart Catheterization With Stent Additional Past Surgical History / Comment(s): Breast biopsies, cold knife colonization of the cervix, stent in 2004, 2 stents in 2022 Additional Past Anesthesia/Blood Transfusion Reaction / Comm: hard to wake up Date of Last Stent Placement:: March 21 2023 Past Psychological History: Anxiety Smoking Status: Former smoker Past Alcohol Use History: None Reported Past Drug Use History: None Reported - Past Family History Sister(s) Family Medical History: Cancer Additional Family Medical History / Comment(s): Ovarian cancer. Mother Family Medical History: Cancer Additional Family Medical History / Comment(s): Breast cancer. Father Family Medical History: Cancer, Myocardial Infarction ([place]) Additional Family Medical History / Comment(s): Colon cancer. Medications and Allergies Home Medications Medication Instructions Recorded Confirmed Type Levothyroxine Sodium [Synthroid] 100 mcg PO DAILY 04/28/19 08/29/24 History Metoprolol Succinate (ER) [Toprol 100 mg PO DAILY 04/28/19 08/29/24 History XL] Evolocumab [Repatha Sureclick] 140 mg SQ Q14D 01/15/23 08/29/24 History Omeprazole [PriLOSEC] 40 mg PO DAILY 01/15/23 08/29/24 History Albuterol Sulfate [Albuterol 2 puff PO RT-Q6H PRN 08/08/24 08/29/24 History Sulfate Hfa] Isosorbide Mononitrate ER [Imdur] 30 mg PO DAILY 08/08/24 08/29/24 History Ondansetron Odt [Zofran ODT] 4 mg PO Q6H PRN 08/08/24 08/29/24 History Acetaminophen Tab [Tylenol] 1,000 mg PO Q6HR PRN #30 tablet 08/14/24 08/29/24 Rx Aspirin 81 mg PO DAILY #30 tab 08/14/24 08/29/24 Rx Losartan [Cozaar] 100 mg PO DAILY #60 tab 08/14/24 08/29/24 Rx amLODIPine [Norvasc] 5 mg PO DAILY #30 tab 08/14/24 08/29/24 Rx Magnesium Oxide [Mag-Ox] 400 mg PO BID #60 tablet 08/15/24 08/29/24 Rx Allergies Allergy/AdvReac Type Severity Reaction Status Date / Time amoxicillin [From Augmentin] Allergy Anaphylaxis Verified 12/07/24 09:11 clavulanic acid Allergy Anaphylaxis Verified 08/29/24 09:11 [From Augmentin] Sulfa (Sulfonamide Allergy Anaphylaxis Verified 08/29/24 09:11 Antibiotics) Physical Exam Vitals: Vital Signs Temp Pulse Resp BP Pulse Ox 08/29/24 18:13 74 20 125/62 96 08/29/24 17:00 80 18 124/66 98 08/29/24 15:57 97 08/29/24 15:38 76 18 131/66 97 08/29/24 12:59 97.8 F 78 18 135/69 97 08/29/24 12:15 72 18 118/68 98 08/29/24 10:47 75 18 116/69 96 08/29/24 09:29 76 18 105/64 98 08/29/24 08:30 99 18 135/70 98 08/29/24 08:06 98 18 127/67 97 08/29/24 08:03 172 H 22 100/73 98 08/29/24 08:00 175 H 18 102/78 98 08/29/24 07:43 174 H 22 105/79 98 08/29/24 07:40 172 H 22 83/66 97 08/29/24 07:04 99 18 127/60 99 08/29/24 00:50 98 18 111/63 98 08/28/24 22:55 109 H 18 103/65 100 08/28/24 22:46 97.5 F L 198 H 24 90/51 98 - Constitutional General appearance: mild distress (On O2) - EENT Eyes: EOMI, PERRLA ENT: hearing grossly normal, normal oropharynx - Neck Neck: no lymphadenopathy Thyroid: bilateral: normal size - Respiratory Respiratory: bilateral: CTA - Cardiovascular Rhythm: regular Heart sounds: normal: S1, S2 - Gastrointestinal LLQ ostomy with soft brown stool General gastrointestinal: normal bowel sounds, soft - Integumentary Integumentary: normal - Neurologic Neurologic: CNII-XII intact - Musculoskeletal Musculoskeletal: generalized weakness, strength equal bilaterally - Psychiatric Psychiatric: A&O x's 3, appropriate affect Results CBC & Chem 7: 08/28/24 22:43 08/28/24 22:49 Labs: Abnormal Lab Results - Last 24 Hours (Table) 08/28/24 08/28/24 08/28/24 Range/Units 22:43 22:43 22:49 WBC 13.7 H (3.8-10.6) k/uL Plt Count 679 H D (150-450) k/uL Neutrophils # 8.7 H (1.3-7.7) k/uL D-Dimer (<0.60) mg/L FEU Sodium 135 L (137-145) mmol/L Potassium 5.4 H (3.5-5.1) mmol/L Carbon Dioxide 21 L (22-30) mmol/L BUN 26 H (7-17) mg/dL Glucose 186 H (74-99) mg/dL POC Glucose (mg/dL) (70-110) mg/dL Troponin I 0.160 H* (0.000-0.034) ng/mL TSH 0.284 L (0.465-4.680) mIU/L Ur Specific [place] (1.001-1.035) Ur Leukocyte Esterase (Negative) Urine WBC (0-5) /hpf 08/29/24 08/29/24 08/29/24 Range/Units 03:18 06:02 08:22 WBC (3.8-10.6) k/uL Plt Count (150-450) k/uL Neutrophils # (1.3-7.7) k/uL D-Dimer (<0.60) mg/L FEU Sodium (137-145) mmol/L Potassium (3.5-5.1) mmol/L Carbon Dioxide (22-30) mmol/L BUN (7-17) mg/dL Glucose (74-99) mg/dL POC Glucose (mg/dL) 115 H (70-110) mg/dL Troponin I 0.376 H* 0.444 H* (0.000-0.034) ng/mL TSH (0.465-4.680) mIU/L Ur Specific [place] (1.001-1.035) Ur Leukocyte Esterase (Negative) Urine WBC (0-5) /hpf 08/29/24 08/29/24 08/29/24 Range/Units 08:36 12:15 12:23 WBC (3.8-10.6) k/uL Plt Count (150-450) k/uL Neutrophils # (1.3-7.7) k/uL D-Dimer 3.33 H (<0.60) mg/L FEU Sodium (137-145) mmol/L Potassium (3.5-5.1) mmol/L Carbon Dioxide (22-30) mmol/L BUN (7-17) mg/dL Glucose (74-99) mg/dL POC Glucose (mg/dL) 140 H (70-110) mg/dL Troponin I (0.000-0.034) ng/mL TSH (0.465-4.680) mIU/L Ur Specific [place] 1.049 H (1.001-1.035) Ur Leukocyte Esterase Small H (Negative) Urine WBC 9 H (0-5) /hpf 08/29/24 Range/Units 17:49 WBC (3.8-10.6) k/uL Plt Count (150-450) k/uL Neutrophils # (1.3-7.7) k/uL D-Dimer (<0.60) mg/L FEU Sodium (137-145) mmol/L Potassium (3.5-5.1) mmol/L Carbon Dioxide (22-30) mmol/L BUN (7-17) mg/dL Glucose (74-99) mg/dL POC Glucose (mg/dL) 116 H (70-110) mg/dL Troponin I (0.000-0.034) ng/mL TSH (0.465-4.680) mIU/L Ur Specific [place] (1.001-1.035) Ur Leukocyte Esterase (Negative) Urine WBC (0-5) /hpf Chest x-ray: report reviewed CT scan - abdomen: report reviewed CT scan - chest: report reviewed CT scan - pelvis: report reviewed Assessment and Plan (1) Mass of right lung Narrative/Plan: The pt has known rt mid lung mass, 1.[address] w/o contrast in 06/16, stable from a year ago , flet to be likely benign as a result. The current study, which is a CT reveals a change in size compared to 3 mths ago. The results, and implications were discussed with herand multiple family members. The change could be benign, due to technical differences between CTA and CT w/o contrast, or due to related mild inflammation for eg. However a malignant process cannot be ruled out. In this case, I would recommend a PET scan as an outpt, with further w/u if this is positive Current Visit: Yes Status: Acute Code(s): R91.8 - OTHER NONSPECIFIC ABNORMAL FINDING OF LUNG FIELD SNOMED Code(s): 652592330 (2) Thrombocythemia Narrative/Plan: This is most likely reactive, due to her recent surgery, and the acute change from 2 wks ago. A primary MPD is clinically unlikely. - Check labs to r/o iron deficiency as a reactive cause - If normal, follow with observation, with the expectation that this will normalise as her current post surgical inflammation resolves Current Visit: Yes Status: Acute Code(s): D75.839 - THROMBOCYTOSIS, UNSPECIFIED SNOMED Code(s): 3543090 Plan: Defer to the admitting service and other consultants for management of her presenting complaint
[2024-08-29 21:07] LABS: Glucose,Whole Blood 127 mg/dL (70-110)
[2024-08-30 06:27] LABS: Glucose,Whole Blood 113 mg/dL (70-110)
[2024-08-30] MEDS ORDERED: ASPIRIN 325 MG TAB PO SCH (09:00)
[2024-08-30 09:26] LABS: Basophils % (A) 1 %; Eosinophils # (A) 0.4 k/uL (0-0.7); Eosinophils % (A) 6 %; HCT 33.9 % (34.0-46.0); HGB 10.8 gm/dL (11.4-16.0); Lymphocytes # (A) 1.5 k/uL (1.0-4.8); Lymphocytes % (A) 21 %; MCH 27.5 pg (25.0-35.0); MCHC 31.7 g/dL (31.0-37.0); MCV 86.7 fL (80.0-100.0); Mean Platelet Volume 8.3; Monocytes # (A) 0.5 k/uL (0-1.0); Monocytes % (A) 7 %; Neutrophils # (A) 4.5 k/uL (1.3-7.7); Neutrophils % (A) 64 %; Platelet Count 462 k/uL (150-450); RBC 3.91 m/uL (3.80-5.40); WBC 6.9 k/uL (3.8-10.6)
[2024-08-30 09:38] LABS: African American GFR (CKD) 78 (>60 ml/min/1.73 sqM); Anion Gap 6 mmol/L; Blood Urea Nitrogen 12 mg/dL (7-17); Calcium 8.6 mg/dL (8.4-10.2); Carbon Dioxide 26 mmol/L (22-30); Chloride 108 mmol/L (98-107); Glucose 114 mg/dL (74-99); Magnesium 1.7 mg/dL (1.6-2.3); Non-African American GFR(CKD) 67 (>60 ml/min/1.73 sqM); Potassium 4.2 mmol/L (3.5-5.1); Sodium 140 mmol/L (137-145)
[2024-08-30 11:25] LABS: Glucose,Whole Blood 121 mg/dL (70-110)
[2024-08-30] MEDS: SUCRALFATE 1 GM TAB PO SCH (11:59)
--- NOTE | 2024-08-30 12:36 | P.PN ---
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 Patient follows in the office with Dr. Broussard. We have been asked to see the patient in consultation for elevated troponins and SVT. Patient examined at the bedside in the emergency room. The patient was recently admitted to the hospital for diverticulitis with abscess and underwent colectomy with colostomy creation on August 10, 2024. Patient presented to the hospital for chief complaint of generalized weakness. Patient was found to be in SVT. Per the patient's nurse, she received a one- time dose of adenosine 12 mg with conversion to sinus mechanism. At the time of examination this morning, the patient is back in SVT with a heart rate around 190. She received 12 mg of adenosine during our examination with conversion to sinus tachycardia with a heart rate around 115. The patient states she is starting to feel better. She denies chest pain or pressure. Denies shortness of breath. Blood pressure 127/60. DIAGNOSTICS: - EKG reveals SVT - Chest xray hypoventilation with mild bibasilar atelectasis - Laboratory data: WBC 13.7. Hemoglobin 11.5. Platelet count 369. D-dimer 3.33. Sodium 135. Potassium 5.4. BUN 26. Creatinine 0.97. Troponin 0.160. 0.376. 0.444. - Current home cardiac medications include aspirin 81 mg daily, Imdur 30 mg daily, losartan 100 mg daily, metoprolol succinate 100 mg daily, amlodipine 5 mg daily - Most recent echocardiogram obtained in December 2022 revealing ejection fraction 50%, mild to moderate MR - Cardiac catheterization history: September 2023 revealing patent stent in the LAD. Chronic total occlusion of RCA which is known finding from before. Normal left-sided filling pressures. Medical management was recommended. 08/30/2024 Patient is seen today on the cardiac stepdown unit. She is currently in a sinus rhythm and rate is controlled. Echocardiogram is pending. Patient is maintained on amiodarone and Lopressor. Patient's only complaint today is belching that she states is been going on for the past 48 hours. No palpitations, no chest pain. Blood pressure 134/77, heart rate in the 60s and 70s, pulse ox 99% on 2 L nasal cannula. Repeat blood work reveals hemoglobin 10.8, creatinine 0.84, potassium 4.2. CTA of the chest showed no evidence of pulmonary embolism, no acute cardiac di sease, growing masslike density in the right middle lobe suspicious for neoplasm. PHYSICAL EXAM: VITAL SIGNS: Reviewed. GENERAL: Well-developed in no acute distress. HEENT: Head is normocephalic. Pupils are equal, round. Sclerae anicteric. Mucous membranes of the mouth are moist. Neck supple. No JVD or thyromegaly LUNGS: Respirations even and unlabored. Lungs essentially clear to auscultation bilaterally. HEART: Regular rate and rhythm. S1 and S2 heard. Systolic murmur noted. ABDOMEN: Soft. Nondistended. Nontender. EXTREMITIES: Normal range of motion. No clubbing or cyanosis. Peripheral pulses intact. No lower extremity edema NEUROLOGIC: Awake and alert. Oriented x 3. ASSESSMENT: Generalized weakness Palpitations Paroxysmal SVT x 2, converted to sinus mechanism with adenosine Hypotension Elevated troponins, suspect type II [place] secondary to oxygen supply/demand mismatch Elevated D-dimer, rule out pulmonary embolism Coronary artery disease with previous PCI of LAD Known HOSTESS CASHIER of the RCA Valvular heart disease including mild to moderate mitral regurgitation History of hypertension History of hyperlipidemia, on Repatha outpatient Diabetes PLAN: Obtain 2D echo to assess cardiac structure and function Transition IV amiodarone to oral 200 mg twice daily Hold home antihypertensive medication secondary to hypotension, may reintroduce as blood pressure recovers Reduce frequency of Lopressor 25 mg to twice daily Continue telemetry monitoring Further recommendations pending patient course Nurse practitioner note has been reviewed by physician. Signing provider agrees with the documented findings, assessment, and plan of care documented by MARBLEIZER as a scribe. Objective - Vital Signs Vital signs: Vital Signs Temp 97.5 F L 08/30/24 07:59 Pulse 88 08/30/24 07:59 Resp 16 08/30/24 07:59 BP 132/74 08/30/24 07:59 Pulse Ox 99 08/30/24 07:59 FiO2 Intake & Output 08/29/24 08/30/24 08/30/24 18:59 06:59 18:59 Intake Total 250 Balance 250 Weight 77.7 kg Intake: Intake, IV Titration 250 Amount Amiodarone 450 mg In 250 Dextrose 5% in Water 250 ml @ 0.5 MG/MIN 16.667 mls/hr IV .Q15H [facility] Rx#: [id number] Other: # Voids 3 - Labs CBC & Chem 7: 08/30/24 07:44 08/30/24 07:44 Labs: Abnormal Lab Results - Last 24 Hours (Table) 08/29/24 08/29/24 08/29/24 Range/Units 12:15 12:23 17:49 Hgb (11.4-16.0) gm/dL Hct (34.0-46.0) % Plt Count (150-450) k/uL POC Glucose (mg/dL) 140 H 116 H (70-110) mg/dL Ur Specific [place] 1.049 H (1.001-1.035) Ur Leukocyte Esterase Small H (Negative) Urine WBC 9 H (0-5) /hpf 08/29/24 08/30/24 08/30/24 Range/Units 21:05 06:26 07:44 Hgb 10.8 L (11.4-16.0) gm/dL Hct 33.9 L (34.0-46.0) % Plt Count 462 H (150-450) k/uL POC Glucose (mg/dL) 127 H 113 H (70-110) mg/dL Ur Specific [place] (1.001-1.035) Ur Leukocyte Esterase (Negative) Urine WBC (0-5) /hpf
[2024-08-30 12:53] LABS: % Iron Saturation 20.59 (12.00-45.00); Chol/HDL Ratio 3.45 Ratio; Iron 49 UG/DL (50-170); LDL Cholesterol,Calculated 56.3 mg/dL (0.0-131.0); Total Iron Binding Capacity 238 UG/DL (228-460)
[2024-08-30] MEDS: AMIODARONE 200 MG TAB PO SCH (13:57)
--- NOTE | 2024-08-30 15:00 | P.PN ---
Subjective Progress Note Date: 08/30/24 Principal diagnosis: New onset atrial fibrillation with RVR This is a 78-year-old female patient with a known history of gastroesophageal reflux disease, hypertension, hyperlipidemia, hypothyroidism, severe mitral regurgitation, coronary disease with previous stent placements, lupus with arthritis on Repatha. She had recently been hospitalized last month for abdominal pain found to have acute diverticulitis with perforated sigmoid colon and had undergone sigmoid colectomy with end colostomy on August 10, 2024. Recovered and was discharged to home on 08/15/2024. She presented back to the emergency room yesterday with generalized weakness and palpitations. She was f ound to be in SVT and received Adenocard. She received a liter of fluid. She was in SVT again this morning received a second round of Adenocard. Current heart rate in the 70s. Chest x-ray revealed mild bibasilar atelectasis. No consolidation. No pleural effusion. No pneumothorax. CT angiogram ruled out pulmonary embolus. No acute pulmonary disease. There is a growing masslike density in the right middle lobe highly suspicious for neoplasm. This has been followed in the outpatient setting by Dr. Harris. We were consulted today regarding the same. She is seen in the emergency department. Currently resting fairly comfortably in bed. Awake and alert in no acute distress. Maintaining good O2 saturations in the mid to upper 90s on 2 L/min per nasal cannula. She is afebrile. Hemodynamically stable. White count 13.7. Hemoglobin 11.5. Platelets 679. D-dimer 3.33. Sodium 135. Potassium 5.4. Bicarb 21. BUN 26. Creatinine 0.97. Glucose 186. Troponin 0.160, 0.444. Patient was evaluated today on 08/30/2024, patient is doing well, rate seems to be much better controlled today compared to yesterday, currently in sinus rhythm, echocardiogram is pending patient is on amiodarone and Lopressor. She is hemodynamically stable on 2 L nasal cannula O2 sats is 99% labs were all reviewed including her CBC renal profile and electrolytes CT angiogram of the chest was discussed again with the patient, and I explained to her that we need to have a PET scan on outpatient basis and may have to be considered for bronchoscopy and biopsy at this will be decided upon on outpatient basis. Objective - Vital Signs Vital signs: Vital Signs Temp 97.5 F L 08/30/24 07:59 Pulse 79 08/30/24 12:00 Resp 16 08/30/24 12:00 BP 134/77 08/30/24 12:00 Pulse Ox 99 08/30/24 12:00 FiO2 Intake & Output 08/29/24 08/30/24 08/30/24 18:59 06:59 18:59 Intake Total 250 Balance 250 Weight 77.7 kg Intake: Intake, IV Titration 250 Amount Amiodarone 450 mg In 250 Dextrose 5% in Water 250 ml @ 0.5 MG/MIN 16.667 mls/hr IV .Q15H [facility] Rx#: [id number] Other: # Voids 3 - Exam GENERAL EXAM: Revealed 78-year-old female in no distress HEAD: Normocephalic. EYES: Normal reaction of pupils, equal size. NOSE: Clear with pink turbinates. THROAT: No erythema or exudates. NECK: No masses, no JVD. CHEST: Symmetrical chest expansion LUNGS: Clear throughout no crackles rhonchi or wheezes CVS: S1 and S2 normal with no audible murmur, regular rhythm. ABDOMEN: Colostomy in place, functional no hepatosplenomegaly, normal bowel sounds, no guarding or rigidity. SKIN: No rashes CENTRAL NERVOUS SYSTEM: Alert and oriented x 3 no gross deficit EXTREMITIES: No clubbing edema or cyanosis - Labs CBC & Chem 7: 08/30/24 07:44 08/30/24 07:44 Labs: Abnormal Lab Results - Last 24 Hours (Table) 08/29/24 08/29/24 08/30/24 Range/Units 17:49 21:05 06:26 Hgb (11.4-16.0) gm/dL Hct (34.0-46.0) % Plt Count (150-450) k/uL Chloride (98-107) mmol/L Glucose (74-99) mg/dL POC Glucose (mg/dL) 116 H 127 H 113 H (70-110) mg/dL Iron (50-170) UG/DL Transferrin (204.0-354.0) mg/dL Triglycerides (0.00-149.00) mg/dL HDL Cholesterol (40.00-60.00) mg/dL 08/30/24 08/30/24 08/30/24 Range/Units 07:44 07:44 11:24 Hgb 10.8 L (11.4-16.0) gm/dL Hct 33.9 L (34.0-46.0) % Plt Count 462 H (150-450) k/uL Chloride 108 H (98-107) mmol/L Glucose 114 H (74-99) mg/dL POC Glucose (mg/dL) 121 H (70-110) mg/dL Iron 49 L (50-170) UG/DL Transferrin 170.0 L (204.0-354.0) mg/dL Triglycerides 159.00 H (0.00-149.00) mg/dL HDL Cholesterol 35.90 L (40.00-60.00) mg/dL Assessment and Plan Assessment: Impression: Acute onset of supraventricular tachycardia required adenosine upon arrival History of coronary artery disease with previous stent placement to the LAD, chronically occluded RCA Recent hospitalization for perforated diverticuli with sigmoid colectomy and end colostomy on 08/10/2024 Known history of a right middle lobe nodule being monitored on outpatient basis patient to follow-up with me postdischarge and will have a repeat PET scan Valvular heart disease Hypothyroidism Hypertension Gastroesophageal reflux disease History of lupus with arthritis, on Repatha Recommendation: Continue present supportive care measures Continue amiodarone and beta-blockers Planning outpatient PET scan Awaiting 2D the echocardiogram Transition to oral amiodarone Continue monitoring Will continue to follow Time with Patient: Less than 30
[2024-08-30 15:13] LABS: Erythrocyte Sedimentation Rate 39 mm/Hr (0-30)
--- NOTE | 2024-08-30 15:53 | P.PN ---
Subjective Progress Note Date: 08/30/24 Hospital Course: Patient is a very pleasant 78-year-old female with a past medical history of recent colectomy and colostomy for diverticulitis with abscess on 08/10/2024 ([address] Dr[address] Ballesteros at [facility]), CAD status post stenting, severe mitral regurgitation, hypertension, hyperlipidemia, type II [id number]-[id number] diabetes mellitus, and hypothyroidism. She presented to the emergency department with complaints of palpitations and generalized weakness. She initially reports feeling the symptoms beginning earlier in the afternoon accompanied by moderate lightheadedness and called her home care nurse who came out to assess her and called EMS. Upon EMS arrival patient was reported to be found in SVT. Upon arrival to our facility, patient remained in SVT and was given adenosine in the emergency room which resulted in successful conversion to sinus mechanism. Initial EKG showing SVT at 192 bpm and repeat EKG after administration of adenosine showing sinus tachycardia at 110 bpm. Vital signs upon arrival show blood pressure 90/51, heart rate 198, respiratory rate 24, temp 97.5 F, and SpO2 of 98% on 2 L. After administration of adenosine blood pressure improved to 103/65 and heart rate improving to 109. Chest x-ray completed showing hyperinflation with mild bibasilar atelectasis. Labs completed and reviewed. CBC showing leukocytosis with WBC count of 13.7 and thrombocytosis with platelet count of 679. BMP showing sodium 135, potassium 5.4 but hemolyzed specimen, bicarb 21, and BUN of 26 with blood glucose of 186. Magnesium was 2.0. Liver profile normal findings. Troponin was elevated at 0.160. TSH 0.284 with normal free T4 of 2.03. Patient was admitted under our services with consultation to cardiology. Troponins were trended resulting is 0.160 and 0.444. D-dimer was obtained elevated at 3.33. Order placed for CTA chest. CTA chest resulting negative for pulmonary emboli but revealing a growing masslike density in the right middle lobe highly suspicious for metastatic process. Consult placed to pulmonology and oncology for further evaluation. Physical exam: Patient seen and fully evaluated at bedside this morning. She reports feeling significantly better when compared to yesterday. She reports minimal postoperative abdominal pain, but states she is comfortable at this time. Patient visiting with her daughter at bedside. All questions answered. Patient and patient's daughter aware that patient to remain hospitalized overnight pending completion of echocardiogram tomorrow. Vital signs reviewed and stable. General: Nontoxic, no distress and appears stated age. Derm: Skin warm and dry, normal coloration for ethnicity. Head: Atraumatic, normocephalic and symmetric. Eyes: EOM's intact, no lid lag, and anicteric sclera Mouth: no lip lesions, mucus membranes moist Cardiovascular: regular rate and rhythm with normal S1S2 systolic murmur, po sitive posterior tibial pulses bilaterally, and cap refill < 2 seconds. Lungs: Respirations even, regular, and unlabored on 2 L O2 via nasal cannula. Lungs slightly diminished however no rhonchi, no rales, no wheezing, and no accessory muscle usage. Abdominal: soft, nontender to palpation. Surgical incision to midline abdomen with dressing in place that is clean, dry, and intact. Colostomy bag, stoma pink. Ext: ROM intact. No gross muscle atrophy, no edema, no contractures Neuro: Speech clear, face symmetrical and CN II-XII grossly intact with no noted focal neuro deficits Psych: Alert and oriented to person, place, time, and situation. Appropriate and pleasant affect. Assessment and Plan of Care: SVT, recurrent episode resolved after administration of adenosine x 2 doses NSTEMI, type II TX secondary to prolonged/recurrent episode of SVT Leukocytosis and thrombocytosis -Patient currently maintaining sinus mechanism. -Cardiology following, reviewed documentation in chart. Cardiology recommending transitioning patient from IV amiodarone to oral amiodarone today and recommending continuing to hold additional BP medications secondary to soft blood pressures. -Patient transition to oral amiodarone 200 mg twice daily. -Echocardiogram to be completed. -Patient to remain on continuous telemetry monitoring. -Leukocytosis and thrombocytosis likely reactive. Leukocytosis resolved with repeat morning WBC count of 6.9 and thrombocytosis improving from previous 679 platelet count down to 462 this morning. Will continue to monitor closely with repeat a.m. labs. Right middle lobe lung mass -Pulmonology following, reviewed documentation in chart. Recommending outpatient PET scan. -Oncology evaluated stating patient has known mid right lung mass which is likely benign however with increased size the change could be benign but recommending outpatient PET scan and follow-up in their office. Status post recent colectomy and colostomy placement on 08/10/2024 -Continue colostomy care and postoperative dressing changes. -Symptomatic care and pain management. -Reviewed pathology report from sigmoid colectomy with final pathologic diagnosis reported as severe chronic and active perforated diverticulitis with abscess and serosal fibrous adhesions margins benign and viable. History of CAD status post stenting Hypertension -Losartan, isosorbide mononitrate, and amlodipine held by cardiology secondary to soft blood pressures. Cardiology recommending patient resume metoprolol at a decreased rate of 25 mg 3 times daily. Hypothyroidism -Continue levothyroxine 100 mcg daily. Lupus -Continue Ecolocumab 40 mg subcu q. 14 days Data and imaging reviewed: -Labs Reviewed. CBC showing stable normocytic anemia with hemoglobin of 10.8 and improving thrombocytosis with platelet count of 462 leukocytosis resolved and WBC count 6.9 this morning.. BMP showing mild hyperchloremia with chloride of 108 otherwise normal findings. Blood glucose 114. Magnesium slightly low at 1.7. -Vital signs reviewed. Blood pressure 132/74, heart rate 88, respiratory rate 16, temp 97.5 F, and SpO2 of 99% on 2 L CODE STATUS: Full code DVT prophylaxis: Lovenox Anticipated discharge date: Pending clinical course, awaiting completion of echocardiogram Anticipated discharge place: Home Patient was seen independently by Nurse Practitioner. This document was prepared using [employer] dictation software. Please allow for errors in enterprise resource planner while rare they do occur. Addy eRyes NP rendered care for this patient independently, reviewed the findings and plan as documented in the note above and agree with plan. I did not physically speak with or examine the patient on this date. Objective - Vital Signs Vital signs: Vital Signs Temp 97.5 F L 08/30/24 07:59 Pulse 88 08/30/24 07:59 Resp 16 08/30/24 07:59 BP 132/74 08/30/24 07:59 Pulse Ox 99 08/30/24 07:59 FiO2 Intake & Output 08/29/24 08/30/24 08/30/24 18:59 06:59 18:59 Intake Total 250 Balance 250 Weight 77.7 kg Intake: Intake, IV Titration 250 Amount Amiodarone 450 mg In 250 Dextrose 5% in Water 250 ml @ 0.5 MG/MIN 16.667 mls/hr IV .Q15H [facility] Rx#: [id number] Other: # Voids 3 - Labs CBC & Chem 7: 08/30/24 07:44 08/30/24 07:44 Labs: Abnormal Lab Results - Last 24 Hours (Table) 08/29/24 08/29/24 08/29/24 Range/Units 08:36 12:15 12:23 D-Dimer 3.33 H (<0.60) mg/L FEU POC Glucose (mg/dL) 140 H (70-110) mg/dL Ur Specific [place] 1.049 H (1.001-1.035) Ur Leukocyte Esterase Small H (Negative) Urine WBC 9 H (0-5) /hpf 08/29/24 08/29/24 08/30/24 Range/Units 17:49 21:05 06:26 D-Dimer (<0.60) mg/L FEU POC Glucose (mg/dL) 116 H 127 H 113 H (70-110) mg/dL Ur Specific [place] (1.001-1.035) Ur Leukocyte Esterase (Negative) Urine WBC (0-5) /hpf
[2024-08-30 16:40] LABS: Glucose,Whole Blood 103 mg/dL (70-110)
[2024-08-30] MEDS: PROCHLORPERAZINE INJ 10 MG/2 ML VIAL IVP PRN (17:18)
[2024-08-30 20:28] LABS: Glucose,Whole Blood 112 mg/dL (70-110)
[2024-08-30 20:30] VITALS: RESP 18
[2024-08-30] MEDS: METOPROLOL TARTRATE 25 MG TAB PO SCH (21:36)
[2024-08-31 06:23] LABS: Glucose,Whole Blood 126 mg/dL (70-110)
[2024-08-31 07:49] LABS: HCT 36.1 % (34.0-46.0); HGB 11.1 gm/dL (11.4-16.0); Hypochromasia Moderate; MCH 27.2 pg (25.0-35.0); MCHC 30.7 g/dL (31.0-37.0); MCV 88.4 fL (80.0-100.0); Mean Platelet Volume 8.1; Platelet Count 448 k/uL (150-450); RBC 4.09 m/uL (3.80-5.40); RDW 13.9 % (11.5-15.5); WBC 7.8 k/uL (3.8-10.6)
[2024-08-31] MEDS: NON FORMULARY DRUG (Evolocumab [Repatha Sureclick] 140 MG/ML Each) SQ SCH (08:04)
[2024-08-31 08:06] LABS: ALT 16 U/L (4-34); AST 20 U/L (14-36); African American GFR (CKD) 80 (>60 ml/min/1.73 sqM); Albumin 3.2 g/dL (3.5-5.0); Alkaline Phosphatase 70 U/L (38-126); Anion Gap 6 mmol/L; Blood Urea Nitrogen 9 mg/dL (7-17); Calcium 8.9 mg/dL (8.4-10.2); Carbon Dioxide 23 mmol/L (22-30); Chloride 110 mmol/L (98-107); Glucose 109 mg/dL (74-99); Magnesium 1.6 mg/dL (1.6-2.3); Non-African American GFR(CKD) 69 (>60 ml/min/1.73 sqM); Potassium 4.2 mmol/L (3.5-5.1); Sodium 139 mmol/L (137-145); Total Bilirubin 0.4 mg/dL (0.2-1.3); Total Protein 5.6 g/dL (6.3-8.2)
--- NOTE | 2024-08-31 09:29 | P.EPPROC ---
- EP Procedure Note Electrophysiology Procedure Note: Impression Recurrent SVT adenosine responsive Unclear why Toprol was discontinued perioperatively in July She is back on Toprol-XL 100 mg p.o. daily Known coronary artery disease status post coronary stenting in the past I had a detailed discussion with the If she has no further episodes she can continue metoprolol If the dose of Toprol has to be reduced for any other medical reason or if there is a breakthrough on the current dose of Toprol, she should proceed with an EP study and ablation for SVT since it has a high success rate and a low recurrence rate
[2024-08-31 09:58] VITALS: BP 149/80; PULSE 94; TEMP 97.9
[2024-08-31 11:15] LABS: Glucose,Whole Blood 121 mg/dL (70-110)
--- NOTE | 2024-08-31 11:59 | CA ---
Transthoracic Echo Report Name: Mona Tello Age: 78 Gender: F : 1945 Exam Date: 08/31/2024 09:01 Exam Location: [place] [facility] Ht (in): 61 Wt (lb): 165 Ordering Physician: Annie Lindsey Attending/Referring Phys: [id number], Rosalia Sr. Manager Lizzette Deras RDCS Procedure CPT: Indications: LV function, SVT, abnormal trops Cardiac Hx: Technical Quality: Good Contrast 1: Total Dose (mL): Contrast 2: Total Dose (mL): MEASUREMENTS (Male / Female) Normal Values 2D ECHO LV Diastolic Diameter PLAX 6.0 cm 4.2 - 5.9 / 3.9 - 5.3 cm LV Systolic Diameter PLAX 5.0 cm IVS Diastolic Thickness 0.8 cm 0.6 - 1.0 / 0.6 - 0.9 cm LVPW Diastolic Thickness 1.1 cm 0.6 - 1.0 / 0.6 - 0.9 cm LV Relative Wall Thickness 0.3 LVOT Diameter 2.1 cm LV Diastolic Volume MOD BP 129.2 cm??? 67 - 155 / 56 - 104 cm??? LV Systolic Volume MOD BP 53.5 cm??? 22 - 58 / 19 - 49 cm??? LV Ejection Fraction MOD BP 58.6 % >= 55 % LV Cardiac Index MOD BP 3737.7 cm???/min???m??? LV Diastolic Volume MOD 4C 120.3 cm??? LV Systolic Volume MOD 4C 57.2 cm??? LV Ejection Fraction MOD 4C 52.4 % LV Cardiac Index MOD 4C 3110.0 cm???/min???m??? LV Diastolic Length 4C 8.5 cm LV Systolic Length 4C 7.0 cm LV Diastolic Volume MOD 2C 127.2 cm??? LV Systolic Volume MOD 2C 48.2 cm??? LV Ejection Fraction MOD 2C 62.1 % LV Cardiac Index MOD 2C 3899.3 cm???/min???m??? LV Diastolic Length 2C 9.3 cm LV Systolic Length 2C 7.3 cm LA Volume 59.5 cm??? 18 - 58 / 22 - 52 cm??? LA Volume Index 32.6 cm???/m??? 16 - 28 cm???/m??? DOPPLER AV Peak Velocity 209.5 cm/s AV Peak Gradient 17.5 mmHg AV Mean Velocity 140.5 cm/s AV Mean Gradient 8.8 mmHg AV Velocity Time Integral 39.3 cm LVOT Peak Velocity 131.5 cm/s LVOT Peak Gradient 6.9 mmHg LVOT Velocity Time Integral 25.6 cm LVOT Stroke Volume 87.0 cm??? LVOT Stroke Volume Index 50.0 ml/m??? LVOT Cardiac Index 4291.6 cm???/min???m??? AV Area Cont Eq vti 2.2 cm??? AV Area Cont Eq pk 2.1 cm??? MV Area PHT 7.4 cm??? MR Peak Velocity 640.5 cm/s MR Peak Gradient 164.1 mmHg MR Flow Rate PISA 116.8 cm???/s MR ERO PISA 0.2 cm??? MR Regurgitant Volume PISA 38.4 cm??? Mitral E Point Velocity 75.6 cm/s Mitral A Point Velocity 69.4 cm/s Mitral E to A Ratio 1.1 MV Deceleration Time 102.0 ms TR Peak Velocity 228.4 cm/s TR Peak Gradient 20.9 mmHg Right Atrial Pressure 5.0 mmHg Pulmonary Artery Systolic Pressu 25.9 mmHg Right Ventricular Systolic Press 25.9 mmHg FINDINGS Left Ventricle Left ventricular ejection fraction is estimated at 50-55 %. Mildly increased posterior wall thickness. Moderately increased left ventricular diastolic diameter. Moderately increased left ventricular diastolic volume. Mildly increased left ventricular systolic volume. No obvious regional wall motion abnormalities. Right Ventricle Normal right ventricular size and function. Right ventricular systolic pressure within normal limits. Right Atrium Normal right atrial size. Left Atrium Mildly increased left atrial volume. Mildly increased left atrial area. Mitral Valve Mitral valve thickened. No evidence for mitral valve prolapse. No mitral stenosis. Moderate mitral regurgitation. Posteriorly directed mitral regurgitation jet. Aortic Valve Aortic valve not well visualized. No aortic valve stenosis or regurgitation. Tricuspid Valve Structurally normal tricuspid valve. No tricuspid stenosis. Mild tricuspid regurgitation. Pulmonic Valve Pulmonic valve not well visualized. No pulmonic stenosis. No pulmonic regurgitation. Pericardium No pericardial effusion. Prominent epicardial fat. Aorta Aortic annulus normal. Ascending aorta not well visualized. CONCLUSIONS Normal LV size and systolic function. Mildly enlarged left atrium. Evidence of eccentric moderate mitral regurgitation. Mild tricuspid regurgitation no pulmonary hypertension no pericardial effusion Previewed by: Dr. Vaughn Flood MD (Electronically Signed) Final Date: 31 August 2024 11:58
--- NOTE | 2024-08-31 12:08 | P.DS ---
Providers Date of admission: 08/29/24 01:39 Expected date of discharge: 08/31/24 Attending physician: Jorge Auguste MD Consults: 08/29/24 01:39 Consult Physician Routine Consulting Provider: Doretha Bueno Consult Reason/Comments: SVT. Elevated troponin Do you want consulting provider notified?: Yes 08/29/24 11:51 Consult Physician Routine Consulting Provider: Oziel Harris Consult Reason/Comments: R lung mass Do you want consulting provider notified?: Yes 08/29/24 11:52 Consult Physician Routine Consulting Provider: Christophe Lovelace Consult Reason/Comments: lung mass, enlarged from previous Do you want consulting provider notified?: Yes Primary care physician: Larry [facility] Hospital Course: Discharge Diagnosis: SVT, recurrent episodes. Resolved after administration of adenosine x 2 doses. Patient was placed on amiodarone infusion and later tapered down to oral amiodarone. She was also placed on metoprolol 25 mg twice daily. Cardiology evaluated discontinuing losartan, isosorbide mononitrate, and amlodipine secondary to soft blood pressures. Electrophysiology evaluation was completed., Dr. Garcia discussed with patient recommending continue medication management and if patient has breakthrough or recurrent episodes he is recommending she proceed with EP study and ablation for SVT. Echocardiogram was completed showing a preserved EF of 50 to 55% with moderate mitral regurgitation and mild tricuspid regurgitation. Patient was cleared from cardiology perspective NSTEMI, type II MS secondary to prolonged/recurrent episode of SVT Leukocytosis and thrombocytosis Right middle lobe lung mass. Oncology and pulmonolgy evaluated stating patient has known mid right lung mass which is likely benign however with increased size the change could be benign but recommending outpatient PET scan and follow-up in their office. Status post recent colectomy and colostomy placement on 08/10/2024. Continue colostomy care and postoperative dressing changes follow-up with general surgery as previously scheduled for follow-up outpatient appointments. Reviewed pathology report from sigmoid colectomy with final pathologic diagnosis reported as severe chronic and active perforated diverticulitis with abscess and serosal fibrous adhesions margins benign and viable. History of CAD status post stenting Hypertension Losartan, isosorbide mononitrate, and amlodipine held by cardiology secondary to soft blood pressures. Cardiology recommending patient resume metoprolol at a decreased rate of 25 mg 3 times daily. Hypothyroidism. Continue levothyroxine 100 mcg daily. Lupus. Continue Ecolocumab 40 mg subcu q. 14 days Hospital Course: Patient is a very pleasant 78-year-old female with a past medical history of recent colectomy and colostomy for diverticulitis with abscess on 08/10/2024 (by Dr. Ballesteros at [facility]), CAD status post stenting, severe mitral regurgitation, hypertension, hyperlipidemia, type II [id number] diabetes mellitus, and hypothyroidism. She presented to the emergency department with complaints of palpitations and generalized weakness. She initially reports feeling the symptoms beginning earlier in the afternoon accompanied by moderate lightheadedness and called her home care nurse who came out to assess her and called EMS. Upon EMS arrival patient was reported to be found in SVT. Upon arrival to our facility, patient remained in SVT and was given adenosine in the emergency room which resulted in successful conversion to sinus mechanism. Initial EKG showing SVT at 192 bpm and repeat EKG after admin istration of adenosine showing sinus tachycardia at 110 bpm. Vital signs upon arrival show blood pressure 90/51, heart rate 198, respiratory rate 24, temp 97.5 F, and SpO2 of 98% on 2 L. After administration of adenosine blood pressure improved to 103/65 and heart rate improving to 109. Chest x-ray completed showing hyperinflation with mild bibasilar atelectasis. Labs completed and reviewed. CBC showing leukocytosis with WBC count of 13.7 and thrombocytosis with platelet count of 679. BMP showing sodium 135, potassium 5.4 but hemolyzed specimen, bicarb 21, and BUN of 26 with blood glucose of 186. Magnesium was 2.0. Liver profile normal findings. Troponin was elevated at 0.160. TSH 0.284 with normal free T4 of 2.03. Patient was admitted under our services with consultation to cardiology. Troponins were trended resulting is 0.160 and 0.444. D-dimer was obtained elevated at 3.33. Order placed for CTA chest. CTA chest resulting negative for pulmonary emboli but revealing a growing masslike density in the right middle lobe. Consult placed to pulmonology and oncology for further evaluation. Oncology and pulmonolgy evaluated stating patient has known mid right lung mass which is likely benign however with increased size the change could be benign but recommending outpatient PET scan and follow-up in their office. SVT, recurrent episodes. Resolved after administration of adenosine x 2 doses. Patient was placed on amiodarone infusion and later tapered down to oral amiodarone. She was also placed on metoprolol 25 mg twice daily. Cardiology evaluated discontinuing losartan, isosorbide mononitrate, and amlodipine secondary to soft blood pressures. Electrophysiology evaluation was completed., Dr. Garcia discussed with patient recommending continue medication management and if patient has breakthrough or recurrent episodes he is recommending she proceed with EP study and ablation for SVT. Echocardiogram was completed showing a preserved EF of 50 to 55% with moderate mitral regurgitation and mild tricuspid regurgitation. Patient was cleared from cardiology perspective for discharge. She is medically stable for discharge at this time and free from any complaints. Patient to follow-up outpatient with PCP in 1 to 2 days and with telecommunications support in 1 week. Patient also instructed to follow-up outpatient with Dr. Lovelace for recommended PET scan testing and patient to follow-up with general surgery as scheduled for follow-up postop appointment. Physical exam: Vital signs reviewed and stable. General: Nontoxic, no distress and appears stated age. Derm: Skin warm and dry, normal coloration for ethnicity. Head: Atraumatic, normocephalic and symmetric. Eyes: EOM's intact, no lid lag, and anicteric sclera Mouth: no lip lesions, mucus membranes moist Cardiovascular: regular rate and rhythm with normal S1S2 systolic murmur, positive posterior tibial pulses bilaterally, and cap refill < 2 seconds. Lungs: Respirations even, regular, and unlabored on 2 L O2 via nasal cannula. Lungs slightly diminished however no rhonchi, no rales, no wheezing, and no accessory muscle usage. Abdominal: soft, nontender to palpation. Surgical incision to midline abdomen with dressing in place that is clean, dry, and intact. Colostomy bag, stoma pink. Ext: ROM intact. No gross muscle atrophy, no edema, no contractures Neuro: Speech clear, face symmetrical and CN II-XII grossly intact with no noted focal neuro deficits Psych: Alert and oriented to person, place, time, and situation. Appropriate and pleasant affect. A total of 39 minutes of time were spent preparing this complex discharge summary. Pt was discharged on 08/31/2024 at 11:51 AM. Patient was seen independently by Nurse Practitioner. This document was prepared using [employer] dictation software. Please allow for errors in enzyme chemist while rare they do occur. Addy Reyes NP rendered care for this patient independently, reviewed the findings and plan as documented in the note above. I did not physically speak with or examine the patient on this date. Patient Condition at Discharge: Stable Plan - Discharge Summary Discharge Rx Participant: No New Discharge Prescriptions: New Sucralfate [Carafate] 1 gm PO ACHS 30 Days #120 tab Metoprolol Tartrate [Lopressor] 25 mg PO BID 30 Days #60 tab Amiodarone [Cordarone] See Rx Instructions .ROUTE .COMPLEX 30 Days #37 tab Continue Levothyroxine Sodium [Synthroid] 100 mcg PO DAILY Ondansetron Odt [Zofran ODT] 4 mg PO Q6H PRN PRN Reason: Nausea And Vomiting Acetaminophen Tab [Tylenol] 1,000 mg PO Q6HR PRN #30 tablet PRN Reason: Pain Aspirin 81 mg PO DAILY #30 tab Omeprazole [PriLOSEC] 40 mg PO DAILY Evolocumab [Repatha Sureclick] 140 mg SQ Q14D Albuterol Sulfate [Albuterol Sulfate Hfa] 2 puff PO RT-Q6H PRN PRN Reason: Shortness Of Breath Magnesium Oxide [Mag-Ox] 400 mg PO BID #60 tablet Discontinued Metoprolol Succinate (ER) [Toprol XL] 100 mg PO DAILY Losartan [Cozaar] 100 mg PO DAILY #60 tab Isosorbide Mononitrate ER [Imdur] 30 mg PO DAILY amLODIPine [Norvasc] 5 mg PO DAILY #30 tab Discharge Medication List Levothyroxine Sodium [Synthroid] 100 mcg PO DAILY 04/28/19 [History] Evolocumab [Repatha Sureclick] 140 mg SQ Q14D 01/15/23 [History] Omeprazole [PriLOSEC] 40 mg PO DAILY 01/15/23 [History] Albuterol Sulfate [Albuterol Sulfate Hfa] 2 puff PO RT-Q6H PRN 08/08/24 [History] Ondansetron Odt [Zofran ODT] 4 mg PO Q6H PRN 08/08/24 [History] Acetaminophen Tab [Tylenol] 1,000 mg PO Q6HR PRN #30 tablet 08/14/24 [Rx] Aspirin 81 mg PO DAILY #30 tab 08/14/24 [Rx] Magnesium Oxide [Mag-Ox] 400 mg PO BID #60 tablet 08/15/24 [Rx] Amiodarone [Cordarone] See Rx Instructions .ROUTE .COMPLEX 30 Days #37 tab 12/06/16 [Rx] Metoprolol Tartrate [Lopressor] 25 mg PO BID 30 Days #60 tab 08/31/24 [Rx] Sucralfate [Carafate] 1 gm PO ACHS 30 Days #120 tab 08/31/24 [Rx] Follow up Appointment(s)/Referral(s): Christophe Lovelace [STAFF PHYSICIAN] - 1 Week Doretha Bueno MD [STAFF PHYSICIAN] - 1 Week (Office will give you a call to book a sooner appointment.) Larry Suresh DO [Primary Care Provider] - 1-2 days Activity/Diet/Wound Care/Special Instructions: Activity: As tolerated. Take breaks as needed. Diet: Heart healthy and carb consistent diet. Avoid salts, or foods with hidden salts such as canned or boxed foods and frozen dinners. Extra salt makes your heart work harder and traps the fluid in your body for longer. Special Instructions: Take all of your medications as directed and remember to keep all of your doctor's appointments and follow-up as needed. Metoprolol succinate, losartan, isosorbide mononitrate, and amlodipine were all discontinued by cardiology and you were started on metoprolol tartrate 25 mg twice daily and amiodarone 200 mg twice daily x 7 days then 200 mg once daily thereafter. Your echocardiogram was completed, however results are not yet available for review. Cardiology cleared you and to follow-up outpatient in their office next week for echocardiogram results. Wishing you and your family a truly wonderful and blessed holiday season and a happy healthy new year!!! Thank you for allowing us to participate in your care, it was truly a pleasure having you for our patient!!! Discharge Disposition: HOME SELF-CARE
--- NOTE | 2024-08-31 21:25 | PN ---
PROGRESS NOTE DATE OF SERVICE: 08/31/2024 SUBJECTIVE: This is a 78-year-old female, who is seen today in room 361. She is on room air. She is not receiving any IV fluids. She was admitted with a diagnosis of chest pain, SVT, and elevated troponins. She did receive adenosine twice. Clinically, the patient appears to be doing well. She is in no acute distress. She is alert and awake. She is lying in bed, in no distress. PHYSICAL EXAMINATION: VITAL SIGNS: Current vital signs include temperature 97.9, heart rate 94, respiratory rate 18, and blood pressure 149/80. Room air saturation is 99%. GENERAL: She appears in no acute distress. HEENT: Grossly unremarkable. NECK: Supple. Full range of motion. No adenopathy. NECK: Neck veins are flat. CARDIOVASCULAR: Reveals regular rhythm rate. S1, S2 normal. LUNGS: Clear. Breath sounds are equal. No adventitious breath sounds. ABDOMEN: Obese, but soft. Bowel sounds are heard. EXTREMITIES: Intact. No cyanosis, clubbing, or edema. SKIN: Without rash. NEUROLOGIC: Brief, but nonfocal. LABORATORY DATA: Include a white count 7.8, hemoglobin 11.1, hematocrit 36.1, and a normal platelet count. Sodium 139, potassium 4.2, chloride 110, CO2 of 23, BUN 9, creatinine 0.82. Glucose 121. Albumin 3.2. Microbiology reveals evidence of Staphylococcus simulans from a wound culture done way back on August 10. No recent chest x-ray to report. ASSESSMENT: 1. Acute onset of SVT, which required adenosine, upon arrival. 2. History of coronary artery disease with previous stent placement to the LAD, with a chronically occluded right coronary artery. 3. Recent hospitalization for perforated diverticula, with sigmoid colectomy and colostomy, August 10, 2024. 4. Known history of right middle lobe nodule, being monitored as an outpatient. 5. History of valvular heart disease. 6. History of hypothyroidism. 7. History of hypertension. 8. History of gastroesophageal reflux disease. 9. History of lupus with arthritis. PLAN: The patient continues on supportive care. The patient continues on beta blockers and amiodarone. The patient will need an outpatient PET scan. It will be ordered by Oncology. Labs, x-rays, and all medications were reviewed. Prognosis is guarded. We will continue to follow the patient. The patient appears stable at this time. MMODL / IJN: [id number] /
== END 2024-08-31 13:00 | disposition home or self-care (01) | DRG 281 ==
LOC: EC 22:37 → 3SCARD 08-29 01:39
PROVIDERS: ADMIT Internal Medicine; ATTEND Internal Medicine
DX: I47.19 Other supraventricular tachycardia (principal); J98.11 Atelectasis; I21.A1 Myocardial infarction type 2; D75.839 Thrombocytosis, unspecified; E03.9 Hypothyroidism, unspecified; E11.9 Type 2 diabetes mellitus without complications; E78.5 Hyperlipidemia, unspecified; F41.9 Anxiety disorder, unspecified; I10 Essential (primary) hypertension; M32.9 Systemic lupus erythematosus, unspecified; I25.10 Atherosclerotic heart disease of native coronary artery without angina pectoris; R00.2 Palpitations; R53.1 Weakness; I25.2 Old myocardial infarction; I48.91 Unspecified atrial fibrillation; R91.8 Other nonspecific abnormal finding of lung field; K21.9 Gastro-esophageal reflux disease without esophagitis; I08.1 Rheumatic disorders of both mitral and tricuspid valves; Z53.20 Procedure and treatment not carried out because of patient's decision for unspecified reasons; Z79.82 Long term (current) use of aspirin; Z79.84 Long term (current) use of oral hypoglycemic drugs; Z79.890 Hormone replacement therapy; Z79.899 Other long term (current) drug therapy; Z82.49 Family history of ischemic heart disease and other diseases of the circulatory system; Z87.891 Personal history of nicotine dependence; Z90.49 Acquired absence of other specified parts of digestive tract; Z93.3 Colostomy status; Z95.5 Presence of coronary angioplasty implant and graft; Z88.1 Allergy status to other antibiotic agents; Z88.2 Allergy status to sulfonamides; Z87.19 Personal history of other diseases of the digestive system
CPT/HCPCS: 36415; 71045; 71275; 80048; 80053; 80061; 81001; 83540; 83550; 83735; 84439; 84443; 84484; 85025; 85027; 85379; 85610; 85652; 85730; 93005; 93306; 94760; 96361; 96365; 96366; 96367; 96375; 96376; 99291

== ENCOUNTER 2024-12-17 05:58 | Emergency (ER) | payer MEDICARE, OTHER ==
[2024-12-17 06:02] VITALS: RESP 18
--- NOTE | 2024-12-17 06:44 | ED ---
Abdominal Pain HPI - General Chief Complaint: Abdominal Pain Stated Complaint: Abd pain Time Seen by Provider: 12/17/24 06:05 Source: patient, RN notes reviewed Mode of arrival: wheelchair Limitations: no limitations - History of Present Illness Initial Comments: This is a 79-year-old female who presents to the emergency department for abdominal pain. She first developed left-sided abdominal pain about a week ago, however over the last 2 to 3 days it has gotten much worse. Pain is in the left mid to lower abdomen with radiation into her back. In July of last year she had perforated sigmoid diverticulitis that ended up resulting in a colostomy. States that her stool output has been very hard over the last several days as well. She is concerned about a problem with this or potentially a kidney stone. Denies any history of kidney stones. Denies any urinary symptoms. She has not had any chest pain, shortness of breath, nausea/vomiting or fevers/chills. MD Complaint: abdominal pain, flank pain - Related Data Home Medications Medication Instructions Recorded Confirmed Levothyroxine Sodium [Synthroid] 100 mcg PO DAILY 04/28/19 08/29/24 Evolocumab [Repatha Sureclick] 140 mg SQ Q14D 01/15/23 08/29/24 Omeprazole [PriLOSEC] 40 mg PO DAILY 01/15/23 08/29/24 Albuterol Sulfate [Albuterol 2 puff PO RT-Q6H PRN 08/08/24 08/29/24 Sulfate Hfa] Ondansetron Odt [Zofran ODT] 4 mg PO Q6H PRN 08/08/24 08/29/24 Previous Rx's Medication Instructions Recorded Acetaminophen Tab [Tylenol] 1,000 mg PO Q6HR PRN #30 tablet 08/14/24 Aspirin 81 mg PO DAILY #30 tab 08/14/24 Magnesium Oxide [Mag-Ox] 400 mg PO BID #60 tablet 08/15/24 Amiodarone [Cordarone] See Rx Instructions .ROUTE 08/31/24 .COMPLEX 30 Days #37 tab Metoprolol Tartrate [Lopressor] 25 mg PO BID 30 Days #60 tab 08/31/24 Sucralfate [Carafate] 1 gm PO ACHS 30 Days #120 tab 08/31/24 Ciprofloxacin HCl 500 mg PO BID 7 Days #14 tablet 12/17/24 Ketorolac [Toradol] 10 mg PO Q6HR PRN #15 tab 12/17/24 metroNIDAZOLE [Flagyl] 500 mg PO BID 7 Days #14 tab 12/17/24 polyethylene glycoL 3350 [Miralax] 17 gm PO DAILY PRN #527 gm 12/17/24 Allergies Allergy/AdvReac Type Severity Reaction Status Date / Time amoxicillin [From Augmentin] Allergy Anaphylaxis Verified 12/17/24 06:01 clavulanic acid Allergy Anaphylaxis Verified 12/17/24 06:01 [From Augmentin] Sulfa (Sulfonamide Allergy Anaphylaxis Verified 12/17/24 06:01 Antibiotics) Review of Systems ROS Statement: Those systems with pertinent positive or pertinent negative responses have been documented in the HPI. ROS Other: All systems not noted in ROS Statement are negative. Past Medical History Past Medical History: Myocardial Infarction ([place]) Additional Past Medical History / Comment(s): Lupus with arthritis. Type II diabetes, hypothyroidism. 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 [place] 2004, Leaky mitral valve Last Myocardial Infarction Date:: 2004 History of Any Multi-Drug Resistant Organisms: None Reported Past Surgical History: Heart Catheterization With Stent Additional Past Surgical History / Comment(s): Breast biopsies, cold knife colonization of the cervix, stent in 2004, 2 stents in 2022 Additional Past Anesthesia/Blood Transfusion Reaction / Comment(s): hard to wake up Date of Last Stent Placement:: March 21 2023 Past Psychological History: Anxiety Smoking Status: Former smoker Past Alcohol Use History: None Reported Past Drug Use History: None Reported - Past Family History Sister(s) Family Medical History: Cancer Additional Family Medical History / Comment(s): Ovarian cancer. Mother Family Medical History: Cancer Additional Family Medical History / Comment(s): Breast cancer. Father Family Medical History: Cancer, Myocardial Infarction ([place]) Additional Family Medical History / Comment(s): Colon cancer. General Exam Limitations: no limitations General appearance: alert, in distress Head exam: Present: atraumatic, normocephalic, normal inspection Respiratory exam: Present: normal lung sounds bilaterally. Absent: respiratory distress, wheezes, rales, rhonchi, stridor Cardiovascular Exam: Present: regular rate, normal rhythm GI/Abdominal exam: Present: soft, tenderness (Left mid to lower abdomen). Ab sent: distended Back exam: Present: CVA tenderness (L). Absent: CVA tenderness (R) Neurological exam: Present: alert, oriented X3, CN II-XII intact Psychiatric exam: Present: normal affect, normal mood Skin exam: Present: warm, dry, intact, normal color. Absent: rash Course Vital Signs 12/17/24 12/17/24 05:59 07:48 Temperature 99.0 F 98.5 F Pulse Rate 93 82 Respiratory 18 18 Rate Blood Pressure 161/81 130/58 O2 Sat by Pulse 96 93 L Oximetry Medical Decision Making - Medical Decision Making This is a 79-year-old female who presents to the emergency department for abdominal pain. Was pt. sent in by a medical professional or institution? @ -No Did you speak to anyone other than the patient for history? @ -No Did you review nursing and triage notes? @ -Yes, and I agree, it is accurate with regards to the patient's symptoms. Were old charts reviewed? @ -No Differential Diagnosis? @ -Differential Abdominal Pain Women: Appendicitis, Cholecystitis, diverticulosis, ischemic bowel, pancreatitis, hepatitis, UTI, gastroenteritis, AAA, incarcerated hernia, bowel obstruction, constipation, inflammatory bowel, hepatitis, peptic ulcer disease, splenic infarction, perforated viscus, vulvitis, ovarian torsion, PID, kidney stone, placenta abruption, this is not meant to be an all-inclusive list EKG interpreted by me (3pts min.)? @ -EKG interpreted by me demonstrating the following: Sinus rhythm. Ventricular rate 90 bpm, AK interval 167 ms, QRS duration 101 ms, QTc 395 ms. X-rays interpreted by me (1pt min.)? @ -Not obtained CT interpreted by me (1pt min.)? @ -CT scan of the abdomen and pelvis obtained. My interpretation identifies no dilation of the bowel loops. U/S interpreted by me (1pt. min.)? @ -Not obtained What testing was considered but not performed? (CT, X-rays, U/S, labs)? Why? @ -None What meds were considered but not given? Why? @ -None Did you discuss the management of the patient with other professionals? @ -No Did you reconcile home meds? @ -No Was smoking cessation discussed for >3mins.? @ -No Was critical care preformed (if so, how long)? @ -No Were there social determinants of health that impacted care today? How? (Homelessness, low income, unemployed, alcoholism, drug addiction, transportation, low edu. Level, literacy, decrease access to med. care, snf, rehab)? @ -No Was there de-escalation of care discussed even if they declined? (Discuss DNR or withdrawal of care, Hospice)? @ -No What co-morbidities impacted this encounter? (DM, HTN, Smoking, COPD, CAD, Cancer, CVA, Hep., AIDS, mental health diagnosis, sleep apnea, morbid obesity)? @ -DM, CAD, diverticulosis Was patient admitted / discharged? @ -Discharged. Lab work demonstrates mild leukocytosis with a white blood cell count of 12.4 and is otherwise unremarkable. Urinalysis negative for signs of blood or infection. CT scan of the abdomen and pelvis demonstrates a trace amount of fluid and fat stranding within the ostomy. There is no focal bowel wall thickening. They advised correlation for infectious/inflammatory process. No other acute process was identified to account for her symptoms. Findings reviewed with the family. Discussed that symptoms may be related to a colitis based on the CT findings. Given her history with the colostomy bag and discom fort, I did offer admission. However, patient and family state that they would rather try going home first. Advised that we will treat her with antibiotics and ciprofloxacin and Flagyl were prescribed. MiraLAX was also prescribed given that she has had very hard bowel movements and Toradol was prescribed for pain control. Very strict return parameters were discussed and I advised follow-up with her PCP and general surgery. Patient discharged home in stable condition. Case discussed with ED attending Dr. Remy. Return precautions reviewed in depth, the patient is instructed to return to the emergency department with any new, worsening, or concerning symptoms. Patient verbalized understanding. Undiagnosed new problem with uncertain prognosis? @ -None Drug Therapy requiring intensive monitoring for toxicity (Heparin, Nitro, Insulin, Cardizem)? @ -None Were any procedures done? @ -None Diagnosis/symptom? @ -Abdominal pain, colitis Acute, or Chronic, or Acute on Chronic? @ -Acute Uncomplicated (without systemic symptoms) or Complicated (systemic symptoms)? @ -Uncomplicated Side effects of treatment? @ -None Exacerbation, Progression, or Severe Exacerbation] @ -Not applicable Poses a threat to life or bodily function? @ -Unlikely - Lab Data Result diagrams: 12/17/24 06:14 12/17/24 06:14 Lab Results 12/17/24 12/17/24 12/17/24 Range/Units 06:14 06:14 06:14 WBC 12.4 H (3.8-10.6) k/uL RBC 4.49 (3.80-5.40) m/uL Hgb 11.7 (11.4-16.0) gm/dL Hct 36.6 (34.0-46.0) % MCV 81.4 (80.0-100.0) fL MCH 26.0 (25.0-35.0) pg MCHC 31.9 (31.0-37.0) g/dL RDW 14.3 (11.5-15.5) % Plt Count 363 (150-450) k/uL MPV 7.7 Neutrophils % 76 % Lymphocytes % 14 % Monocytes % 5 % Eosinophils % 4 % Basophils % 1 % Neutrophils # 9.4 H (1.3-7.7) k/uL Lymphocytes # 1.7 (1.0-4.8) k/uL Monocytes # 0.6 (0-1.0) k/uL Eosinophils # 0.5 (0-0.7) k/uL Basophils # 0.1 (0-0.2) k/uL Hypochromasia Slight Sodium 133 L (137-145) mmol/L Potassium 4.7 (3.5-5.1) mmol/L Chloride 103 (98-107) mmol/L Carbon Dioxide 23 (22-30) mmol/L Anion Gap 7 mmol/L BUN 24 H (7-17) mg/dL Creatinine 0.89 (0.52-1.04) mg/dL Est GFR (CKD-EPI)AfAm 72 (>60 ml/min/1.73 sqM) Est GFR (CKD-EPI)NonAf 62 (>60 ml/min/1.73 sqM) Glucose 112 H (74-99) mg/dL Plasma Lactic Acid Crow (0.7-2.0) mmol/L Calcium 8.8 (8.4-10.2) mg/dL Total Bilirubin 0.7 (0.2-1.3) mg/dL AST 19 (14-36) U/L ALT 19 (4-34) U/L Alkaline Phosphatase 66 (38-126) U/L Total Protein 6.2 L (6.3-8.2) g/dL Albumin 3.5 (3.5-5.0) g/dL Amylase 69 (30-110) U/L Lipase 92 (23-300) U/L Urine Color Light Yellow Urine Appearance Clear (Clear) Urine pH 5.0 (5.0-8.0) Ur Specific [place] 1.024 (1.001-1.035) Urine Protein Trace H (Negative) Urine Glucose (UA) Negative (Negative) Urine Ketones Trace H (Negative) Urine Blood Negative (Negative) Urine Nitrite Negative (Negative) Urine Bilirubin Negative (Negative) Urine Urobilinogen <2.0 (<2.0) mg/dL Ur Leukocyte Esterase Negative (Negative) 12/17/24 Range/Units 06:14 WBC (3.8-10.6) k/uL RBC (3.80-5.40) m/uL Hgb (11.4-16.0) gm/dL Hct (34.0-46.0) % MCV (80.0-100.0) fL MCH (25.0-35.0) pg MCHC (31.0-37.0) g/dL RDW (11.5-15.5) % Plt Count (150-450) k/uL MPV Neutrophils % % Lymphocytes % % Monocytes % % Eosinophils % % Basophils % % Neutrophils # (1.3-7.7) k/uL Lymphocytes # (1.0-4.8) k/uL Monocytes # (0-1.0) k/uL Eosinophils # (0-0.7) k/uL Basophils # (0-0.2) k/uL Hypochromasia Sodium (137-145) mmol/L Potassium (3.5-5.1) mmol/L Chloride (98-107) mmol/L Carbon Dioxide (22-30) mmol/L Anion Gap mmol/L BUN (7-17) mg/dL Creatinine (0.52-1.04) mg/dL Est GFR (CKD-EPI)AfAm (>60 ml/min/1.73 sqM) Est GFR (CKD-EPI)NonAf (>60 ml/min/1.73 sqM) Glucose (74-99) mg/dL Plasma Lactic Acid Crow 0.8 (0.7-2.0) mmol/L Calcium (8.4-10.2) mg/dL Total Bilirubin (0.2-1.3) mg/dL AST (14-36) U/L ALT (4-34) U/L Alkaline Phosphatase (38-126) U/L Total Protein (6.3-8.2) g/dL Albumin (3.5-5.0) g/dL Amylase (30-110) U/L Lipase (23-300) U/L Urine Color Urine Appearance (Clear) Urine pH (5.0-8.0) Ur Specific [place] (1.001-1.035) Urine Protein (Negative) Urine Glucose (UA) (Negative) Urine Ketones (Negative) Urine Blood (Negative) Urine Nitrite (Negative) Urine Bilirubin (Negative) Urine Urobilinogen (<2.0) mg/dL Ur Leukocyte Esterase (Negative) - Radiology Data Radiology results: report reviewed, image reviewed Disposition Clinical Impression: Colitis, Abdominal pain, Colostomy in place Disposition: HOME SELF-CARE Instructions (If sedation given, give patient instructions): Colostomy Care (ED), Abdominal Pain (ED), Colitis (ED) Additional Instructions: Return to the emergency department with any new, worsening, or concerning symptoms. Take both antibiotics as prescribed for 7 days. Take the Toradol with Tylenol as needed for pain relief. If you choose to take the Toradol, do not take any other anti-inflammatories such as ibuprofen, take one or the other. Take the MiraLAX daily until your bowel movements regulate. Then consider taking something like a probiotic or Benefiber daily to see if that keeps your stool stable. Follow-up with your primary care provider and general surgery. Prescriptions: Ciprofloxacin HCl 500 mg PO BID 7 Days #14 tablet metroNIDAZOLE [Flagyl] 500 mg PO BID 7 Days #14 tab polyethylene glycoL 3350 [Miralax] 17 gm PO DAILY PRN #527 gm PRN Reason: Constipation Ketorolac [Toradol] 10 mg PO Q6HR PRN #15 tab PRN Reason: Pain Is patient prescribed a controlled substance at d/c from ED?: No Referrals: Larry Suresh DO [Primary Care Provider] - 1-2 days Robert Chavez MD [STAFF PHYSICIAN] - 1-2 days Time of Disposition: 08:10
[2024-12-17] MEDS: MORPHINE SULFATE 4 MG/ML SYRINGE IVP STA (06:46)
[2024-12-17] MEDS: ONDANSETRON 4 MG/2 ML VIAL IVP STA (06:47)
[2024-12-17] MEDS: KETOROLAC 15 MG/ML 1 ML VIAL IVP STA ×2 (06:48→08:17)
[2024-12-17] MEDS: SODIUM CHLORIDE 0.9% 1,000 ML IV ONE (06:48)
[2024-12-17 06:54] LABS: Basophils # (A) 0.1 k/uL (0-0.2); Basophils % (A) 1 %; Eosinophils # (A) 0.5 k/uL (0-0.7); Eosinophils % (A) 4 %; HCT 36.6 % (34.0-46.0); HGB 11.7 gm/dL (11.4-16.0); Hypochromasia Slight; Lymphocytes # (A) 1.7 k/uL (1.0-4.8); Lymphocytes % (A) 14 %; MCHC 31.9 g/dL (31.0-37.0); MCV 81.4 fL (80.0-100.0); Mean Platelet Volume 7.7; Monocytes # (A) 0.6 k/uL (0-1.0); Monocytes % (A) 5 %; Neutrophils # (A) 9.4 k/uL (1.3-7.7); Neutrophils % (A) 76 %; Platelet Count 363 k/uL (150-450); RBC 4.49 m/uL (3.80-5.40); RDW 14.3 % (11.5-15.5); WBC 12.4 k/uL (3.8-10.6)
[2024-12-17 07:01] LABS: Appearance,Urine Clear (Clear); Bilirubin,Urine Negative (Negative); Blood,Urine Negative (Negative); Color,Urine Light Yellow; Glucose,Urine (UA) Negative (Negative); Ketones,Urine Trace (Negative); Leukocyte Esterase,Urine Negative (Negative); Nitrite,Urine Negative (Negative); Protein,Urine Trace (Negative); Specific Gravity,Urine 1.024 (1.001-1.035); Urobilinogen,Urine <2.0 mg/dL (<2.0)
[2024-12-17 07:15] LABS: ALT 19 U/L (4-34); AST 19 U/L (14-36); African American GFR (CKD) 72 (>60 ml/min/1.73 sqM); Albumin 3.5 g/dL (3.5-5.0); Alkaline Phosphatase 66 U/L (38-126); Amylase 69 U/L (30-110); Anion Gap 7 mmol/L; Blood Urea Nitrogen 24 mg/dL (7-17); Calcium 8.8 mg/dL (8.4-10.2); Carbon Dioxide 23 mmol/L (22-30); Chloride 103 mmol/L (98-107); Glucose 112 mg/dL (74-99); Lipase 92 U/L (23-300); Non-African American GFR(CKD) 62 (>60 ml/min/1.73 sqM); Potassium 4.7 mmol/L (3.5-5.1); Sodium 133 mmol/L (137-145); Total Bilirubin 0.7 mg/dL (0.2-1.3); Total Protein 6.2 g/dL (6.3-8.2)
--- NOTE | 2024-12-17 07:51 | CT ---
EXAMINATION TYPE: CT abdomen pelvis w con CT DLP: 995 mGycm, Automated exposure control for dose reduction was used. DATE OF EXAM: 12/17/2024 7:39 AM COMPARISON: CTA chest from 724, CT scan pelvis 08/10/2024, 08/07/2024 CLINICAL INDICATION:Female, 79 years old with history of LLQ and left flank pain; LLQ and left flank pain. ostomy pain. TECHNIQUE: Standard CT of the abdomen and pelvis following the administration of 100 cc of Isovue 3 00 IV contrast material. Coronal and sagittal reformats were performed. FINDINGS: LOWER CHEST: Partial visualization of right middle lobe focal nodular opacity measuring at least 2.1 cm, previously measured up to 2.2 cm in prior CTA 08/29/2024. Minimal left lower lobe dependent subseg mental atelectasis. Mild cardiomegaly. ABDOMEN LIVER: Peripheral right hepatic lobe 1.6 cm hypodense lesion with peripheral enhancement which fills in on delayed phase. Most consistent with a benign hemangioma. GALLBLADDER AND BILE DUCTS: The gallbladder is surgically absent. No biliary ductal dilatation. PANCREAS: Unremarkable. SPLEEN: Unremarkable. ADRENAL GLANDS: Unremarkable. KIDNEYS AND URETERS: No evidence of hydronephrosis or renal calculus. The kidneys enhance symmetrical ly. Contrast is demonstrated within both collecting systems on the delayed phase. Couple of bilateral small renal cysts. No follow-up. Nonspecific bilateral perinephric fat stranding. PELVIS BLADDER: Under distended, limiting evaluation. REPRODUCTIVE: Unremarkable. ABDOMEN & PELVIS STOMACH AND BOWEL: Stomach and duodenum are unremarkable. Postsurgical changes from anterior left low er quadrant abdominal wall ostomy. Trace amount of fluid within the ostomy with some fat stranding. H artman's pouch. Residual high density contrast within the rectum. The appendix is within normal limit s. No focal bowel wall thickening. Scattered colonic diverticula. No evidence of bowel obstruction. PERITONEUM: No evidence of pneumoperitoneum. No organized fluid collection. VASCULATURE: Moderate atherosclerotic calcifications are present throughout the abdominal aorta and i ts branches. No evidence of aortic aneurysm. MUSCULOSKELETAL: No acute osseous abnormalities. Multilevel degenerative disc disease. Mild retrolist hesis of L1 on L2. LYMPH NODES: No evidence for lymphadenopathy. SOFT TISSUE/ABDOMINAL WALL: Surgical changes in the left lower quadrant abdominal wall ostomy. Postsu rgical changes of the midline lower abdominal wall with scarring. IMPRESSION: 1. Post surgical changes with left lower quadrant ostomy. There is trace amount of fluid and fat str anding within the ostomy. No focal bowel wall thickening. Correlate for infectious/inflammatory proce ss. 2. Colonic diverticulosis without evidence for acute diverticulitis. 3. Right hepatic lobe 1.6 cm benign hemangioma. 4. Partial visualization of known right middle lobe nodular opacity. PET/CT is again recommended. [facility], , 12/17/2024 7:49 AM
[2024-12-17 07:56] VITALS: BP 130/58; PULSE 82; TEMP 98.5
[2024-12-17] MEDS: traMADol 50 MG STARTER PACK 3 TAB BTL PO STA (08:23)
[2024-12-17] MEDS: ONDANSETRON 4 MG ODT STARTER PACK 2 TAB BTL PO STA (08:23)
== END 2024-12-17 08:20 | disposition home or self-care (01) ==
LOC: EC 05:58
DX: K52.9 Noninfective gastroenteritis and colitis, unspecified (principal); E11.9 Type 2 diabetes mellitus without complications; I25.10 Atherosclerotic heart disease of native coronary artery without angina pectoris; K57.30 Diverticulosis of large intestine without perforation or abscess without bleeding; Z87.891 Personal history of nicotine dependence; Z88.0 Allergy status to penicillin; Z88.1 Allergy status to other antibiotic agents; Z88.2 Allergy status to sulfonamides
CPT/HCPCS: 36415; 93005; 80053; 82150; 83605; 83690; 85025; 81003; 74177; 99284; 96374; 96375 ×2; 96376; 96361; J2270; J2405; J1885; S0119; Q9967

== ENCOUNTER → 2025-01-07 | Outpatient (CLI) | payer MEDICARE, OTHER ==
--- NOTE | 2025-01-09 19:23 | PE ---
EXAMINATION TYPE: PET CT fusion skull to thigh DATE OF EXAM: 01/07/2025 CLINICAL INDICATION:Female, 79 years old with history of R91.8 Lung mass; TECHNIQUE: Following the intravenous administration of 12.07 mCi of F-18 FDG, whole body images are performed from the skull base to the midthigh. Images are reviewed on the computer in the coronal, axial, and sagittal planes. Reconstructed rotating images are created on independent workstation and reviewed on the computer. A non-contrast CT is performed in conjunction with the PET scan. Glucose level 109 mg/dL CT DLP: 745.94 mGycm, Automated exposure control for dose reduction was used. COMPARISON: CT 12/17/2024, 08/29/2024, 08/10/2024, 08/07/2024, 05/28/2024, 08/26/2023, 01/15/2023, 3, 10/31/2022, PET/CT 02/08/2023, MRI: None FINDINGS: Mediastinal SUV mean is 2.0. Hepatic parenchyma SUV mean is 2.8. SKULL BASE AND NECK: No suspicious radiotracer activity. CHEST, MEDIASTINUM, AND HILAR REGION: Right middle lobe 1.4 cm pulmonary solid nodule redemonstrated. This demonstrates low level FDG activ ity with a max SUV of 1.8. This is at background levels. Previously 0.6. This demonstrates more solid rounded appearance compared to prior original CT 10/31/2022 ABDOMEN AND PELVIS: No suspicious radiotracer activity. MUSCULOSKELETAL STRUCTURES: No suspicious radiotracer activity. OTHER CT: Bilateral carotid bulb calcifications. Redemonstration of isthmus thyroid nodule measuring up to 1.3 cm. Atherosclerotic calcification of the aorta and its branches. Moderate coronary arterial calcifications. Lingular calcified granuloma. Cardiomegaly. Bilateral shoulder arthropathy. Left AC joint arthropathy. Multilevel degenerative changes of the spine. Residual contrast is identified with in the rectal stump. Left lower quadrant end colostomy. Colonic diverticulosis. Stable hypodense álvaro pheral right hepatic lesion measuring up to 1.7 cm. No suspicious focal FDG activity. Gallbladder delfino gically absent. IMPRESSION: Redemonstration of solid pulmonary nodule within the right middle lobe with low level FDG activity at background levels. No other suspicious FDG activity. This demonstrates more solid rounded appearance compared to prior original CT 10/31/2022. Hypometabolic primary lung malignancy is not excluded. Consi debbie tissue sampling versus continued surveillance. [facility], , 01/09/2025 7:21 PM
== END | disposition home or self-care (01) ==
LOC: RADPETMAIN 10:54
PROVIDERS: ATTEND Internal Medicine Hematology & Oncology
DX: R91.8 Other nonspecific abnormal finding of lung field (principal)
CPT/HCPCS: 78815; A9552

== ENCOUNTER → 2025-03-11 | Outpatient (CLI) | payer MEDICARE, OTHER ==
[2025-03-11 08:51] LABS: African American GFR (CKD) 61 (>60 ml/min/1.73 sqM); Blood Urea Nitrogen 28 mg/dL (7-17); Non-African American GFR(CKD) 53 (>60 ml/min/1.73 sqM)
--- NOTE | 2025-03-11 11:30 | CT ---
EXAMINATION TYPE: CT angio neck DATE OF EXAM: 03/11/2025 9:31 AM COMPARISON: None. 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 MIP images created on a separate workstation and submitted for review. 3-D reconstr ucted images are created on an independent workstation and reviewed. Source images are reviewed. LEONEL CET criteria was used in interpretation of this exam? Contrast used:65 ml mL of Isovue 370 with IV Contrast, (none if empty) Oral contrast used: (none if empty) CT DLP: 312.9 mGycm, Automated exposure control for dose reduction was used. FINDINGS: Carotid/Vascular Structures: There is a common origin right subclavian and left common carotid artery at the innominate. Common carotid arteries bifurcate into internal and external carotid arteries. Calcified plaque at th e left internal carotid artery origin contributing to 71% moderate narrowing of the internal carotid artery origin. Calcifications at the right internal carotid artery without significant stenosis Vertebral arteries are codominant. Internal carotid arteries and vertebral arteries are patent to the skull base. Cervical of [place]: Proximal chitina of [place] is within the field of view. Vertebral basilar system appears normal. Posterior cerebral vasculature is unremarkable. Internal car otid arteries bifurcate normally into A1 and M1 segments. A2 segments are normal. The anterior communicating artery is patent. The right posterior communicating artery is not identified.. The left posterior communicating artery is patent. IMPRESSION: 1. Moderate stenosis at 71% left internal carotid artery. 2. No significant flow-limiting stenosis right internal carotid artery. 3. Normal [place] [facility] [place] [facility], , 03/11/2025 11:28 AM
== END | disposition home or self-care (01) ==
LOC: RADCTMAIN 08:21
PROVIDERS: ATTEND Internal Medicine Interventional Cardiology
DX: I65.22 Occlusion and stenosis of left carotid artery (principal); I65.1 Occlusion and stenosis of basilar artery
CPT/HCPCS: 82565; 84520; 70498; 36415; Q9967